=== PATIENT | male | born 1970 | race Caucasian/White ===

== ENCOUNTER 2017-07-03 22:02 | Emergency (ER) | payer OTHER ==
[~2017-07-03] VITALS: Ht 188 cm; Wt 92.5 kg
[2017-07-03 22:04] VITALS: TEMP 36.7; Ht 188 cm; Wt 92.5 kg
--- NOTE | 2017-07-03 22:47 | DIAGNOSTIC IMAGING REPORT ---
R FINGER(S) MIN 2 VIEWS ROUTINE HISTORY: 46 years-old Male right 5th finger s/p reduction at PIP joint acute right fifth finger pain status post recent reduction. COMPARISON: None available TECHNIQUE: 3 views of the right fifth finger FINDINGS: Mild soft tissue swelling of the fifth digit. There is no acute fracture, dislocation or significant degenerative changes. There is satisfactory alignment of the interphalangeal joints. No opaque foreign body. IMPRESSION: Mild soft tissue swelling without acute fracture or dislocation. The above report was generated using voice recognition software. It may contain grammatical, syntax or spelling errors. Electronically signed by: Elijah Montes M.D. 07/03/2017 10:46 PM Dictated Date/Time: 07/03/2017 10:45 PM
[2017-07-03 23:03] VITALS: BP 155/74; PULSE 55; O2SAT 99
--- NOTE | 2017-07-03 23:16 | EMERGENCY ROOM VISIT NOTE ---
ED Visit Note First contact with patient: 22:08 CHIEF COMPLAINT: Finger injury today HISTORY OF PRESENT ILLNESS: This 46-year-old male patient presents to the emergency department after they injured the right fifth finger about one hour ago. The patient states that he struck into a wall, and bend his finger backwards, causing his injury. The patient has been unable to move it at the proximal joint since and there is moderate and constant pain. The patient rates the pain as sharp and 8/10. No previous injuries to the finger. The patient has taken nothing relief of the pain. REVIEW OF SYSTEMS: A 6 system review of systems was completed with positives and pertinent negatives listed in the HPI. ALLERGIES: No known allergies MEDICATIONS: No chronic medication PMH: See EMR SOCIAL HISTORY: Incarcerated at [facility] PHYSICAL EXAM: Vital Signs: Reviewed Nurse's notes, vital signs stable. GENERAL : White male, in no acute distress, but appears to be in pain, well-developed, well-nourished. MUSCULOSKELETAL: There is an obvious deformity at the pip joint of the right 5th finger with dorsal dislocation of the middle phalanx. The distal dislocated portion of the finger is pale but is sensate. SKIN: There is no laceration or abrasion. Capillary refill is less than two seconds. EMERGENCY DEPARTMENT COURSE: I examined the patient. The joint was reduced by applying a steady and rapid axial distraction of the dislocated portion at the PIP joint while the proximal portion was stabilized with the other hand. Following this motion of the joint was normal and full and the patient could move it normally also. Neurovascular status was rechecked and intact. Post- reduction X-ray was reviewed by myself and radiology and shows successful anatomic alignment and no fracture. The patient was discharged with a splint and instructions to follow with the [facility] Problem List Medical Problems: (1) Alcohol dependence Status: Chronic (2) Antisocial personality disorder Status: Chronic (3) Anxiety State Nos Status: Chronic (4) Bipolar II disorder Status: Chronic (5) Depression Status: Chronic (6) Drug overdose Status: Chronic (7) Substance abuse Status: Chronic Current/Historical Medications No Active Prescriptions or Reported Meds Allergies Coded Allergies: No Known Allergies (Unverified , 07/03/17) PT STATES "I HAVE NO ALLERGIES". Vital Signs Date Time Temp Pulse Resp B/P (MAP) Pulse Ox O2 Delivery O2 Flow Rate FiO2 07/03/17 23:03 55 20 155/74 99 07/03/17 22:04 36.7 50 20 161/90 99 Room Air Departure Information Impression Primary Impression: Dislocated finger Dispostion Home / Self-Care Condition GOOD Prescriptions No Active Prescriptions or Reported Meds Forms HOME CARE DOCUMENTATION FORM, IMPORTANT VISIT INFORMATION Patient Instructions My [facility] Additional Instructions You were seen and evaluated today on an emergency basis only. This is not a substitute for, or an effort to provide, complete comprehensive medical care. It is not possible to recognize and treat all injuries or illnesses in a single emergency department visit. For this reason it is recommended that you followup with the [facility] for ongoing care and evaluation. For baseline pain relief you may alternate ibuprofen and acetaminophen every 4 hours for pain control. Take 600 mg ibuprofen (Advil) and then 4 hours later take 1000 mg acetaminophen (Tylenol). Do not take more than 3000 mg acetaminophen in a single day. Wear the splint for the next 1-2 weeks. You are welcome to return to the emergency department anytime with new, worsening, or concerning symptoms.
== END 2017-07-03 23:04 | disposition home or self-care (01) ==
LOC: C.EDB 22:04 → C.EDC 23:04
DX: S63.256A Unspecified dislocation of right little finger, initial encounter (principal); W22.01XA Walked into wall, initial encounter; F60.2 Antisocial personality disorder; F41.9 Anxiety disorder, unspecified; F31.9 Bipolar disorder, unspecified; F32.9 Major depressive disorder, single episode, unspecified; F55.8 Abuse of other non-psychoactive substances

== ENCOUNTER 2022-06-12 02:32 | Inpatient (IN) ==
[2022-06-12] MEDS ORDERED: ALBUT/IPRATROP 3MG/0.5MG NEB 3 ML VIAL NEB STA (02:56)
[2022-06-12] MEDS ORDERED: dexAMETHasone**PF** 10 MG/ML VIAL IV ONE (02:56)
[2022-06-12 03:25] LABS: iSTAT Hemoglobin 11.6 g/dl (14.0-18.0); iSTAT Ionized Calcium 1.17 mmol/l (1.12-1.32); iSTAT Potassium 3.6 mmol/L (3.3-5.0)
[2022-06-12] MEDS ORDERED: OPTIRAY 320 500ml IV ONE (03:33)
[2022-06-12 03:34] LABS: Base Excess VBG 6.3 mEq/L; HCO3 VBG 32 mmol/L; Oxygen Saturation VBG 79.8 %; PCO2 VBG 51 mmHg (38-50); PO2 VBG 53 mmHg; pH VBG 7.41 (7.36-7.41)
[2022-06-12 03:47] LABS: INR 0.9 (0.9-1.1); Partial Thromboplastin Ratio 0.8; Partial Thromboplastin Time 22.4 Seconds (21.0-31.0); Prothrombin Time 9.8 Seconds (9.0-12.0)
[2022-06-12 04:07] LABS: Hematocrit (blood only) 34.3 % (40.1-51.0); Hemoglobin 11.5 g/dl (14.0-18.0); Mean Corpuscular Hemoglobin 31.3 pg (25.0-34.0); Mean Corpuscular Hgb Conc 33.5 g/dL (32.0-36.0); Mean Corpuscular Volume 93.2 fL (80.0-100.0); Mean Platelet Volume 8.5 fL (9.4-12.4); Nucleated RBC # (auto) 0.12 K/uL (0-0); Nucleated RBC % (auto) 1.2 %; Platelet Count 227 K/uL (130-400); Polychromasia 1+; RDW Coefficient of Variation 19.3 % (11.5-14.5); RDW Standard Deviation 61.6 fL (36.4-46.3); Red Blood Count 3.68 M/uL (4.63-6.08); White Blood Count 9.93 K/ul (4.8-10.8)
[2022-06-12 04:08] LABS: Amphetamines+Metham, Urine Neg (Neg); Barbiturates, Urine Neg (Neg); Benzodiazepine, Urine Neg (Neg); Cocaine, Urine Neg (Neg); MDMA (Ecstacy), Urine Neg (Neg); Methadone, Urine Neg (Neg); Opiate, Urine Neg (Neg); Phencyclidine, Urine Neg (Neg)
[2022-06-12 04:13] LABS: Troponin I High Sensitivity 8.5 pg/ml (0-20)
[2022-06-12] MEDS ORDERED: VANCOMYCIN HCL 1,750 MG in SODIUM CHLORIDE 0.9% 500 ML IV ONE (04:16)
[2022-06-12] MEDS ORDERED: PIPERACILLIN/TAZOBACTAM 4.5 GM/120 ML BAG IV ONE (04:16)
[2022-06-12] MEDS ORDERED: VANCOMYCIN CONSULT ACTIVE PRN (04:16)
[2022-06-12 04:26] LABS: Albumin Globulin Ratio 1.2 (0.9-2); Albumin Level 3.4 gm/dl (3.4-5.0); BUN Creatinine Ratio 34.4 (10-20); Bilirubin,Total 0.3 mg/dl (0.2-1.0); Calcium 8.9 mg/dl (8.5-10.1); Creatinine Clr Calc Pharmacy 105.8 ml/min; Est GFR (African American) 105.6 ml/min; Est GFR (Non-African American) 91.2 ml/min; Globulin 2.9 gm/dl (2.5-4.0); Magnesium 1.9 mg/dl (1.7-2.4); Potassium 3.8 mmol/L (3.5-5.1); Total Protein 6.3 gm/dl (6.0-8.3)
--- NOTE | 2022-06-12 04:30 | Emergency Department Note ---
History of Present Illness General Chief complaint: Facial Injury/Pain Stated complaint: SWELLING TO FACE,TROUBLE BREATHING Time Seen by Provider: 06/12/22 02:46 History of Present Illness Maximum Pain Intensity: 3 This 51-year-old who had brain surgery at beginning the month in [facility] for brain mets from lung cancer presents to the ER complaining of shortness of breath with feeling swollen for the past few days Location: Generalized Quality: Short of breath Severity: Moderate Duration: Past few days Timing: Started few days ago Context: Patient was more short of breath and came in Modifying factors: better with rest; worse with activity Patient denies chest pain, fever, chills, vomiting, flulike illness. No complications of the brain surgery per patient. He is here visiting. He is on Keytruda for lung cancer with mets. Home Medications Medication Instructions Recorded Confirmed Type lorazepam 0.5 mg tablet (Ativan) 0.5 mg PO DAILY PRN sleep/anxiety 10/30/21 06/12/22 Rx #7 tabs dexamethasone 4 mg tablet 4 mg PO BID 06/12/22 06/12/22 History divalproex 500 mg tablet,delayed 500 mg PO BID 06/12/22 06/12/22 History release (Depakote) enoxaparin 100 mg/mL subcutaneous 100 mg subcut Q12H 06/12/22 06/12/22 History syringe (Lovenox) fluoxetine 20 mg/5 mL (4 mg/mL) 40 mg (10 mL) PO QAM #120 mL 06/12/22 Rx oral solution Allergies Allergy/AdvReac Type Severity Reaction Status Date / Time duloxetine AdvReac Intermediate Muscle Verified 04/11/20 19:34 Spasm Past Med/Surg History Medical History (Updated 06/12/22 @ 19:10 by Gege Kuhn MD) Abrasion of left forearm Alcohol abuse Antisocial personality disorder (01/22/13) Brain metastases Eardrum rupture, right Fall Hx of metastatic neoplastic disease Laceration of left forearm Non-small cell lung cancer metastatic to brain Psychosis Surgical History (Updated 11/14/21 @ 00:09 by Sherry Ohara) H/O brain surgery Family History Mother , age glioblastoma Coronary heart disease Father , age 83 parkinsons disease No problems noted. Brother No problems noted. Brother No problems noted. Sister No problems noted. 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[employer] Stewardess Required: No Beliefs That Will Affect Care: None marital status: Single Current Living Situation: Other Current Living Situation Comment: community living in [place] current occupational status: unemployed Feels Safe at Home: Yes Safety Concerns: Feels Safe At This Time Childhood Exposure to Second-Hand Smoke: No caffeine: Yes (occ .coffee) during the past year weight has: remained stable Dental Care, Regularly: Yes Physical Activity Frequency: Daily Seatbelt Use: always Sunscreen Use: Yes Assistive Devices: Scooter/Electric Scooter Review of Systems A total of 10 systems reviewed and were otherwise negative Physical Exam Vital Signs Vital Signs - 24 hr 06/12/22 05:47 06/12/22 06:31 06/12/22 07:30 Pulse Rate Pulse Rate [Finger] 94 H 94 H 91 H Pulse Rate from SpO2 Sensor Pulse Rhythm [Finger] Regular Pulse Strength [Finger] Normal Respiratory Rate 22 19 14 Respiratory Effort / Characteristics Non-Labored Spontaneous Non-Labored Spontaneous Non-Labored Spontaneous Respiratory Depth Normal Normal Normal Respiratory Pattern Regular Regular Blood Pressure Blood Pressure [Right Arm] 140/95 125/94 144/94 H Blood Pressure Mean Blood Pressure Mean [Right Arm] 110 104 110 Blood Pressure Position [Right Arm] Lying Pulse Oximetry 95 96 98 Oxygen Delivery Method Nasal Cannula Nasal Cannula Nasal Cannula Oxygen Flow Rate 2 2 2 06/12/22 09:00 06/12/22 11:00 06/12/22 13:00 Pulse Rate Pulse Rate [Finger] 93 H 92 H 98 H Pulse Rate from SpO2 Sensor Pulse Rhythm [Finger] Regular Pulse Strength [Finger] Normal Respiratory Rate 20 18 19 Respiratory Effort / Characteristics Non-Labored Spontaneous Non-Labored Spontaneous Respiratory Depth Normal Normal Respiratory Pattern Regular Blood Pressure Blood Pressure [Right Arm] 134/97 129/91 Blood Pressure Mean Blood Pressure Mean [Right Arm] 109 103 Blood Pressure Position [Right Arm] Sitting Pulse Oximetry 98 96 98 Oxygen Delivery Method Room Air Nasal Cannula Oxygen Flow Rate 2 06/12/22 15:00 06/12/22 05:00 06/12/22 05:46 Pulse Rate 95 H Pulse Rate [Finger] 109 H Pulse Rate from SpO2 Sensor Pulse Rhythm [Finger] Regular Pulse Strength [Finger] Normal Respiratory Rate 20 18 Respiratory Effort / Characteristics Non-Labored Spontaneous Respiratory Depth Normal Respiratory Pattern Blood Pressure 140/95 Blood Pressure [Right Arm] 134/101 H Blood Pressure Mean 110 Blood Pressure Mean [Right Arm] 112 Blood Pressure Position [Right Arm] Pulse Oximetry Oxygen Delivery Method Nasal Cannula Oxygen Flow Rate 2 06/12/22 05:46 06/12/22 06:00 06/12/22 06:00 Pulse Rate 97 H 95 H Pulse Rate [Finger] Pulse Rate from SpO2 Sensor 97 H 95 H Pulse Rhythm [Finger] Pulse Strength [Finger] Respiratory Rate Respiratory Effort / Characteristics Respiratory Depth Respiratory Pattern Blood Pressure 142/98 H Blood Pressure [Right Arm] Blood Pressure Mean 112 Blood Pressure Mean [Right Arm] Blood Pressure Position [Right Arm] Pulse Oximetry 95 96 Oxygen Delivery Method Oxygen Flow Rate 06/12/22 06:31 06/12/22 06:31 06/12/22 07:00 Pulse Rate 94 H Pulse Rate [Finger] Pulse Rate from SpO2 Sensor 94 H Pulse Rhythm [Finger] Pulse Strength [Finger] Respiratory Rate Respiratory Effort / Characteristics Respiratory Depth Respiratory Pattern Blood Pressure 125/94 121/99 Blood Pressure [Right Arm] Blood Pressure Mean 104 106 Blood Pressure Mean [Right Arm] Blood Pressure Position [Right Arm] Pulse Oximetry 96 Oxygen Delivery Method Oxygen Flow Rate 06/12/22 07:00 06/12/22 07:21 06/12/22 07:21 Pulse Rate 92 H 93 H Pulse Rate [Finger] Pulse Rate from SpO2 Sensor 92 H 93 H Pulse Rhythm [Finger] Pulse Strength [Finger] Respiratory Rate 12 19 Respiratory Effort / Characteristics Respiratory Depth Respiratory Pattern Blood Pressure 144/94 H Blood Pressure [Right Arm] Blood Pressure Mean 110 Blood Pressure Mean [Right Arm] Blood Pressure Position [Right Arm] Pulse Oximetry 92 97 Oxygen Delivery Method Oxygen Flow Rate 06/12/22 08:00 06/12/22 08:53 06/12/22 08:53 Pulse Rate 91 H 92 H Pulse Rate [Finger] Pulse Rate from SpO2 Sensor 91 H 93 H Pulse Rhythm [Finger] Pulse Strength [Finger] Respiratory Rate 21 17 Respiratory Effort / Characteristics Respiratory Depth Respiratory Pattern Blood Pressure 149/92 H Blood Pressure [Right Arm] Blood Pressure Mean 111 Blood Pressure Mean [Right Arm] Blood Pressure Position [Right Arm] Pulse Oximetry 97 96 Oxygen Delivery Method Oxygen Flow Rate 06/12/22 09:00 06/12/22 09:00 06/12/22 10:00 Pulse Rate 93 H Pulse Rate [Finger] Pulse Rate from SpO2 Sensor 93 H Pulse Rhythm [Finger] Pulse Strength [Finger] Respiratory Rate 22 Respiratory Effort / Characteristics Respiratory Depth Respiratory Pattern Blood Pressure 134/87 132/88 Blood Pressure [Right Arm] Blood Pressure Mean 102 102 Blood Pressure Mean [Right Arm] Blood Pressure Position [Right Arm] Pulse Oximetry 97 Oxygen Delivery Method Oxygen Flow Rate 06/12/22 10:00 06/12/22 11:00 06/12/22 11:00 Pulse Rate 92 H 91 H Pulse Rate [Finger] Pulse Rate from SpO2 Sensor 93 H 91 H Pulse Rhythm [Finger] Pulse Strength [Finger] Respiratory Rate 16 12 Respiratory Effort / Characteristics Respiratory Depth Respiratory Pattern Blood Pressure 129/91 Blood Pressure [Right Arm] Blood Pressure Mean 103 Blood Pressure Mean [Right Arm] Blood Pressure Position [Right Arm] Pulse Oximetry 94 97 Oxygen Delivery Method Oxygen Flow Rate 06/12/22 12:00 06/12/22 12:00 06/12/22 13:16 Pulse Rate 91 H 100 H Pulse Rate [Finger] Pulse Rate from SpO2 Sensor 91 H 99 H Pulse Rhythm [Finger] Pulse Strength [Finger] Respiratory Rate 25 H Respiratory Effort / Characteristics Respiratory Depth Respiratory Pattern Blood Pressure 109/84 Blood Pressure [Right Arm] Blood Pressure Mean 92 Blood Pressure Mean [Right Arm] Blood Pressure Position [Right Arm] Pulse Oximetry 98 Oxygen Delivery Method Oxygen Flow Rate 06/12/22 14:00 06/12/22 15:00 06/12/22 15:08 Pulse Rate 101 H 107 H 110 H Pulse Rate [Finger] Pulse Rate from SpO2 Sensor Pulse Rhythm [Finger] Pulse Strength [Finger] Respiratory Rate 15 22 20 Respiratory Effort / Characteristics Respiratory Depth Respiratory Pattern Blood Pressure Blood Pressure [Right Arm] Blood Pressure Mean Blood Pressure Mean [Right Arm] Blood Pressure Position [Right Arm] Pulse Oximetry Oxygen Delivery Method Oxygen Flow Rate 06/12/22 15:08 06/12/22 15:10 06/12/22 15:10 Pulse Rate 109 H Pulse Rate [Finger] Pulse Rate from SpO2 Sensor Pulse Rhythm [Finger] Pulse Strength [Finger] Respiratory Rate 24 Respiratory Effort / Characteristics Respiratory Depth Respiratory Pattern Blood Pressure 131/84 131/84 Blood Pressure [Right Arm] Blood Pressure Mean 99 99 Blood Pressure Mean [Right Arm] Blood Pressure Position [Right Arm] Pulse Oximetry Oxygen Delivery Method Oxygen Flow Rate 06/12/22 16:13 06/12/22 16:14 06/12/22 16:14 Pulse Rate 106 H 102 H Pulse Rate [Finger] Pulse Rate from SpO2 Sensor 106 H 102 H Pulse Rhythm [Finger] Pulse Strength [Finger] Respiratory Rate 23 22 Respiratory Effort / Characteristics Respiratory Depth Respiratory Pattern Blood Pressure 147/98 H Blood Pressure [Right Arm] Blood Pressure Mean 114 Blood Pressure Mean [Right Arm] Blood Pressure Position [Right Arm] Pulse Oximetry 95 95 Oxygen Delivery Method Oxygen Flow Rate VITALS: Vitals are noted on the nurse's note and reviewed by myself. Vital signs hypoxic on room air. GENERAL: White male speaking in full sentences, audible wheeze, well-developed well-nourished. SKIN: [place] intact to the scalp without signs of infection, the rest of the skin was without rashes, erythema, edema, or bruising. There is no tenting of the skin. Capillary reflex less than 2 seconds. HEAD: Normocephalic atraumatic. EARS: External auditory canals clear, EYES: Pupils equal round and reactive to light and accommodation. Conjunctivae without injection, sclerae without icterus. Extraocular movements intact. NOSE: Patent, turbinates without inflammation or discharge. MOUTH: Mucous membranes moist. Pharynx without erythema or exudate. Uvula midline. Airway patent. Tongue does not deviate. NECK: Supple without nuchal rigidity. No lymphadenopathy. No thyromegaly. Cervical spine is nontender. No JVD. HEART: Regular rate and rhythm LUNGS: Diffuse inspiratory and end expiratory wheezes, without rales or rhonchi. No retractions or accessory muscle use. ABDOMEN: Positive bowel sounds x 4. Normal tympanic percussion. Soft, nontender, without masses or organomegaly. Hubbard sign negative. No guarding or rebound tenderness. No CVA tenderness MUSCULOSKELETAL: No muscle atrophy, erythema, noted. NEURO: Patient was alert and oriented to person place and time. Normal sensation to light and sharp touch. No focal neurological deficits. Course Administered Medications Acetaminophen (Acetaminophen 325 Mg Tab) 650 mg PO Q4H PRN PRN Reason: Mild Pain Stop: 07/13/22 02:18 Last Admin: 06/13/22 02:41 Dose: 650 mg Documented By: GUI Albuterol (Albuterol 0.5% Neb Soln 2.5 Mg/0.5 Ml Vial) 2.5 mg NEB Q6R RICARDO; Protocol Stop: 07/12/22 18:59 Last Admin: 06/13/22 00:11 Dose: 2.5 mg Documented By: Admin: 06/12/22 19:55 Dose: 2.5 mg Documented By: EML Albuterol (Albuterol 0.083% Nebu Soln 3 Ml Vial) 2.5 mg INH Q2H PRN; Protocol PRN Reason: Dyspnea Stop: 07/13/22 04:02 Last Admin: 06/13/22 04:26 Dose: 2.5 mg Documented By: DEX Dexamethasone (Dexamethasone 4 Mg Tab) 4 mg PO BID RICARDO Stop: 07/12/22 20:59 Last Admin: 06/12/22 20:59 Dose: 4 mg Documented By: GUI Fluoxetine HCl (Fluoxetine Hcl 20 Mg/5 Ml 120ml Btl) 40 mg PO QAM RICARDO Stop: 07/12/22 17:59 Last Admin: 06/12/22 21:00 Dose: 40 mg Documented By: GUI Sodium Chloride (Hypertonic Saline 3%) 500 mls @ 75 mls/hr IV .Q6H40M RICARDO; Protocol Stop: 06/14/22 04:44 Last Admin: 06/13/22 02:22 Dose: 75 mls/hr Documented By: GUI Co-signed By: KEELEY Infusion: 06/13/22 01:56 Dose: 75 mls/hr Documented By: GUI Co-signed By: SG Admin: 06/12/22 19:15 Dose: 75 mls/hr Documented By: JO ANN Co-signed By: MINERVA Infusion: 06/12/22 18:42 Dose: 75 mls/hr Documented By: JO ANN Co-signed By: MINERVA Admin: 06/12/22 12:01 Dose: 75 mls/hr Documented By: CHRISS Co-signed By: SM Infusion: 06/12/22 11:48 Dose: 75 mls/hr Documented By: CHRISS Co-signed By: TARAN Admin: 06/12/22 05:07 Dose: 75 mls/hr Documented By: CAYETANO Co-signed By: REESE Piperacillin Sod/Tazobactam (Sod 4.5 gm/ Dextrose) 120 mls @ 30 mls/hr IV Q8H [facility]; Protocol Stop: 06/19/22 17:59 Last Infusion: 06/13/22 04:36 Dose: 0 mls/hr Documented By: Admin: 06/12/22 23:55 Dose: 30 mls/hr Documented By: GUI Melatonin (Melatonin 3 Mg Tab) 9 mg PO HS PRN PRN Reason: Sleep Stop: 07/13/22 02:48 Last Admin: 06/13/22 03:08 Dose: 9 mg Documented By: GUI Valproic Acid (Valproic Acid Soln 500 Mg/10 Ml Udc) 500 mg PO BID RICARDO Stop: 07/12/22 20:59 Last Admin: 06/12/22 21:00 Dose: 500 mg Documented By: GUI Discontinued Medications Acetaminophen (Acetaminophen 500 Mg Tab) 1,000 mg PO NOW STA Stop: 06/12/22 05:33 Last Admin: 06/12/22 05:34 Dose: 1,000 mg Documented By: CAYETANO Albuterol (Albut/Ipratrop 3mg/0.5mg Neb 3 Ml Vial) 3 ml NEB NOW STA; Protocol Stop: 06/12/22 02:57 Last Admin: 06/12/22 03:12 Dose: 3 ml Documented By: CAYETANO Dexamethasone Sodium Phosphate (DexamethasonePf 10 Mg/Ml Vial) 10 mg IV NOW ONE Stop: 06/12/22 02:57 Last Admin: 06/12/22 03:12 Dose: 10 mg Documented By: CAYETANO Piperacillin Sod/Tazobactam Sod (Zosyn) 4.5 gm in 120 mls @ 240 mls/hr IV NOW ONE Stop: 06/12/22 04:45 Last Infusion: 06/12/22 05:38 Dose: 0 mls/hr Documented By: Admin: 06/12/22 05:07 Dose: 240 mls/hr Documented By: CAYETANO Vancomycin HCl 1,750 mg/ (Sodium Chloride) 535 mls @ 200 mls/hr IV NOW ONE Stop: 06/12/22 06:56 Last Infusion: 06/12/22 08:27 Dose: 0 mls/hr Documented By: Admin: 06/12/22 05:46 Dose: 200 mls/hr Documented By: CAYETANO Piperacillin Sod/Tazobactam (Sod 4.5 gm/ Dextrose) 120 mls @ 200 mls/hr IV NOW ONE; Protocol Stop: 06/12/22 19:05 Last Infusion: 06/12/22 22:40 Dose: 0 mls/hr Documented By: Admin: 06/12/22 21:02 Dose: 200 mls/hr Documented By: GUI Ioversol (Optiray 320 500ml) 115 ml IV ONCE ONE Stop: 06/12/22 03:34 Last Admin: 06/12/22 03:34 Dose: 115 ml Documented By: TEOFILO Miscellaneous (Stop Order) 1 each N/A ONE ONE Stop: 06/12/22 04:46 Last Admin: 06/12/22 06:33 Dose: 1 each Documented By: CAYETANO Oxycodone HCl (Oxycodone Hcl Ir 5 Mg Tab (Immediate Release)) 5 mg PO NOW STA Stop: 06/12/22 05:43 Last Admin: 06/12/22 05:50 Dose: 5 mg Documented By: CAYETANO Potassium Chloride (Potassium Chloride Crtab 20 Meq Tabcr) 40 meq PO Q1H RICARDO Stop: 06/13/22 01:31 Last Admin: 06/13/22 02:27 Dose: 40 meq Documented By: Admin: 06/13/22 00:33 Dose: 40 meq Documented By: GUI Critical Care Time Critical Care Time: Yes Total Critical Care Time: 65 I have personally spent 65 minutes of critical care time in the direct management of this patient. This includes bedside care, interpretation of diagnostic studies, and testing, discussion with consultants, patient, and family members, and other required patient management activities. This 65 minutes is in excess of all separately billable procedures. Medical Decision Making Medical Records Attestation: I reviewed the patient's medical records. Home Medications Current Medication List: was personally reviewed by me Laboratory Data Attestation: I reviewed the patient's lab results. Result diagrams: 06/13/22 04:13 06/13/22 00:21 Lab Results 06/12/22 06/12/22 06/12/22 Range/Units 03:00 03:05 03:05 WBC 9.93 (4.8-10.8) K/ul RBC 3.68 L (4.63-6.08) M/uL Hgb 11.5 L (14.0-18.0) g/dl POC Hgb (14.0-18.0) g/dl Hct 34.3 L (40.1-51.0) % POC Hct (42-52) % MCV 93.2 (80.0-100.0) fL MCH 31.3 (25.0-34.0) pg MCHC 33.5 (32.0-36.0) g/dL RDW Std Deviation 61.6 H (36.4-46.3) fL RDW Coeff of Geetha 19.3 H (11.5-14.5) % Plt Count 227 (130-400) K/uL MPV 8.5 L (9.4-12.4) fL Immature Gran % (Auto) 11.2 % Neut % (Auto) 80.4 % Lymph % (Auto) 5.4 % [place] % (Auto) 2.6 % Eos % (Auto) 0.2 % Baso % (Auto) 0.2 % Neut # (Auto) 7.98 H (1.4-6.5) K/uL Lymph # (Auto) 0.54 L (1.2-3.4) K/uL [place] # (Auto) 0.26 (0.24-0.82) K/uL Eos # (Auto) 0.02 (0-0.50) K/uL Baso # (Auto) 0.02 (0-0.2) K/uL Immature Gran # (Auto) 1.11 H (0.00-0.02) K/uL Absolute Nucleated RBC 0.12 H (0-0) K/uL Nucleated RBC % (auto) 1.2 % Polychromasia 1+ PT (9.0-12.0) Seconds INR (0.9-1.1) APTT (21.0-31.0) Seconds PTT Ratio VBG pH (7.36-7.41) VBG pCO2 (38-50) mmHg VBG pO2 mmHg VBG HCO3 mmol/L VBG O2 Saturation % VBG Base Excess mEq/L POC Sodium (135-144) mmol/L Sodium 143 (136-145) mmol/L POC Potassium (3.3-5.0) mmol/L Potassium 3.8 (3.5-5.1) mmol/L POC Chloride (101-112) mmol/L Chloride 105 (98-107) mmol/L Carbon Dioxide 30 (21-32) mmol/L POC Total CO2 (24-31) mmol/L Anion Gap 8 (3-11) POC Anion Gap (16-25) mmol/L POC BUN (7-18) mg/dl BUN 33 H (6-23) mg/dl Creatinine 0.96 (0.6-1.4) mg/dl POC Creatinine (0.6-1.3) mg/dl Est Cr Clr Drug Dosing 105.8 ml/min Est GFR ( Amer) 105.6 ml/min Est GFR (Non-Af Amer) 91.2 ml/min BUN/Creatinine Ratio 34.4 H (10-20) Glucose 111 H (70-99(Fasting)) mg/dl POC Glucose (other) (70-99) mg/dl Lactate (0.4-2.0) mmol/L Calcium 8.9 (8.5-10.1) mg/dl POC Ioniz Calcium Connie (1.12-1.32) mmol/l Magnesium 1.9 (1.7-2.4) mg/dl Total Bilirubin 0.3 (0.2-1.0) mg/dl AST 29 (13-39) U/L ALT 68 H (7-52) U/L Alkaline Phosphatase 64 (34-104) U/L Troponin I High Sens 8.5 (0-20) pg/ml B-Natriuretic Peptide (0-100) pg/ml Total Protein 6.3 (6.0-8.3) gm/dl Albumin 3.4 (3.4-5.0) gm/dl Globulin 2.9 (2.5-4.0) gm/dl Albumin/Globulin Ratio 1.2 (0.9-2) Lipase 40 (11-82) U/L Nasal Screen MRSA (PCR) (Negative) Urine Opiates Screen Neg (Neg) Ur Methadone, Qual Neg (Neg) Urine Barbiturates Neg (Neg) Ur Phencyclidine (PCP) Neg (Neg) U Amphetamin/Meth Scrn Neg (Neg) MDMA (Ecstasy) Screen Neg (Neg) U Benzodiazepines Scrn Neg (Neg) Ur Cocaine Metabolite Neg (Neg) U Marijuana (THC) Screen Neg (Neg) Ethyl Alcohol mg/dL (<10.0) mg/dl SARS-CoV-2 (PCR) SARS-CoV-2, RNA, NAAT (NEGATIVE) 06/12/22 06/12/22 06/12/22 Range/Units 03:05 03:12 03:22 WBC (4.8-10.8) K/ul RBC (4.63-6.08) M/uL Hgb (14.0-18.0) g/dl POC Hgb 11.6 L (14.0-18.0) g/dl Hct (40.1-51.0) % POC Hct 34 L (42-52) % MCV (80.0-100.0) fL MCH (25.0-34.0) pg MCHC (32.0-36.0) g/dL RDW Std Deviation (36.4-46.3) fL RDW Coeff of Geetha (11.5-14.5) % Plt Count (130-400) K/uL MPV (9.4-12.4) fL Immature Gran % (Auto) % Neut % (Auto) % Lymph % (Auto) % [place] % (Auto) % Eos % (Auto) % Baso % (Auto) % Neut # (Auto) (1.4-6.5) K/uL Lymph # (Auto) (1.2-3.4) K/uL [place] # (Auto) (0.24-0.82) K/uL Eos # (Auto) (0-0.50) K/uL Baso # (Auto) (0-0.2) K/uL Immature Gran # (Auto) (0.00-0.02) K/uL Absolute Nucleated RBC (0-0) K/uL Nucleated RBC % (auto) % Polychromasia PT 9.8 (9.0-12.0) Seconds INR 0.9 (0.9-1.1) APTT 22.4 (21.0-31.0) Seconds PTT Ratio 0.8 VBG pH (7.36-7.41) VBG pCO2 (38-50) mmHg VBG pO2 mmHg VBG HCO3 mmol/L VBG O2 Saturation % VBG Base Excess mEq/L POC Sodium 143 (135-144) mmol/L Sodium (136-145) mmol/L POC Potassium 3.6 (3.3-5.0) mmol/L Potassium (3.5-5.1) mmol/L POC Chloride 104 (101-112) mmol/L Chloride (98-107) mmol/L Carbon Dioxide (21-32) mmol/L POC Total CO2 27 (24-31) mmol/L Anion Gap (3-11) POC Anion Gap 16.0 (16-25) mmol/L POC BUN 31 H (7-18) mg/dl BUN (6-23) mg/dl Creatinine (0.6-1.4) mg/dl POC Creatinine 1.0 (0.6-1.3) mg/dl Est Cr Clr Drug Dosing ml/min Est GFR ( Amer) ml/min Est GFR (Non-Af Amer) ml/min BUN/Creatinine Ratio (10-20) Glucose (70-99(Fasting)) mg/dl POC Glucose (other) 117 H (70-99) mg/dl Lactate (0.4-2.0) mmol/L Calcium (8.5-10.1) mg/dl POC Ioniz Calcium Connie 1.17 (1.12-1.32) mmol/l Magnesium (1.7-2.4) mg/dl Total Bilirubin (0.2-1.0) mg/dl AST (13-39) U/L ALT (7-52) U/L Alkaline Phosphatase (34-104) U/L Troponin I High Sens (0-20) pg/ml B-Natriuretic Peptide 27 (0-100) pg/ml Total Protein (6.0-8.3) gm/dl Albumin (3.4-5.0) gm/dl Globulin (2.5-4.0) gm/dl Albumin/Globulin Ratio (0.9-2) Lipase (11-82) U/L Nasal Screen MRSA (PCR) (Negative) Urine Opiates Screen (Neg) Ur Methadone, Qual (Neg) Urine Barbiturates (Neg) Ur Phencyclidine (PCP) (Neg) U Amphetamin/Meth Scrn (Neg) MDMA (Ecstasy) Screen (Neg) U Benzodiazepines Scrn (Neg) Ur Cocaine Metabolite (Neg) U Marijuana (THC) Screen (Neg) Ethyl Alcohol mg/dL (<10.0) mg/dl SARS-CoV-2 (PCR) SARS-CoV-2, RNA, NAAT (NEGATIVE) 06/12/22 06/12/22 06/12/22 Range/Units 03:22 03:22 03:44 WBC (4.8-10.8) K/ul RBC (4.63-6.08) M/uL Hgb (14.0-18.0) g/dl POC Hgb (14.0-18.0) g/dl Hct (40.1-51.0) % POC Hct (42-52) % MCV (80.0-100.0) fL MCH (25.0-34.0) pg MCHC (32.0-36.0) g/dL RDW Std Deviation (36.4-46.3) fL RDW Coeff of Geetha (11.5-14.5) % Plt Count (130-400) K/uL MPV (9.4-12.4) fL Immature Gran % (Auto) % Neut % (Auto) % Lymph % (Auto) % [place] % (Auto) % Eos % (Auto) % Baso % (Auto) % Neut # (Auto) (1.4-6.5) K/uL Lymph # (Auto) (1.2-3.4) K/uL [place] # (Auto) (0.24-0.82) K/uL Eos # (Auto) (0-0.50) K/uL Baso # (Auto) (0-0.2) K/uL Immature Gran # (Auto) (0.00-0.02) K/uL Absolute Nucleated RBC (0-0) K/uL Nucleated RBC % (auto) % Polychromasia PT (9.0-12.0) Seconds INR (0.9-1.1) APTT (21.0-31.0) Seconds PTT Ratio VBG pH 7.41 (7.36-7.41) VBG pCO2 51 H (38-50) mmHg VBG pO2 53 mmHg VBG HCO3 32 mmol/L VBG O2 Saturation 79.8 % VBG Base Excess 6.3 mEq/L POC Sodium (135-144) mmol/L Sodium (136-145) mmol/L POC Potassium (3.3-5.0) mmol/L Potassium (3.5-5.1) mmol/L POC Chloride (101-112) mmol/L Chloride (98-107) mmol/L Carbon Dioxide (21-32) mmol/L POC Total CO2 (24-31) mmol/L Anion Gap (3-11) POC Anion Gap (16-25) mmol/L POC BUN (7-18) mg/dl BUN (6-23) mg/dl Creatinine (0.6-1.4) mg/dl POC Creatinine (0.6-1.3) mg/dl Est Cr Clr Drug Dosing ml/min Est GFR ( Amer) ml/min Est GFR (Non-Af Amer) ml/min BUN/Creatinine Ratio (10-20) Glucose (70-99(Fasting)) mg/dl POC Glucose (other) (70-99) mg/dl Lactate (0.4-2.0) mmol/L Calcium (8.5-10.1) mg/dl POC Ioniz Calcium Connie (1.12-1.32) mmol/l Magnesium (1.7-2.4) mg/dl Total Bilirubin (0.2-1.0) mg/dl AST (13-39) U/L ALT (7-52) U/L Alkaline Phosphatase (34-104) U/L Troponin I High Sens (0-20) pg/ml B-Natriuretic Peptide (0-100) pg/ml Total Protein (6.0-8.3) gm/dl Albumin (3.4-5.0) gm/dl Globulin (2.5-4.0) gm/dl Albumin/Globulin Ratio (0.9-2) Lipase (11-82) U/L Nasal Screen MRSA (PCR) (Negative) Urine Opiates Screen (Neg) Ur Methadone, Qual (Neg) Urine Barbiturates (Neg) Ur Phencyclidine (PCP) (Neg) U Amphetamin/Meth Scrn (Neg) MDMA (Ecstasy) Screen (Neg) U Benzodiazepines Scrn (Neg) Ur Cocaine Metabolite (Neg) U Marijuana (THC) Screen (Neg) Ethyl Alcohol mg/dL < 10.0 (<10.0) mg/dl SARS-CoV-2 (PCR) Cancelled SARS-CoV-2, RNA, NAAT (NEGATIVE) 06/12/22 06/12/22 06/12/22 Range/Units 03:44 04:56 04:56 WBC (4.8-10.8) K/ul RBC (4.63-6.08) M/uL Hgb (14.0-18.0) g/dl POC Hgb (14.0-18.0) g/dl Hct (40.1-51.0) % POC Hct (42-52) % MCV (80.0-100.0) fL MCH (25.0-34.0) pg MCHC (32.0-36.0) g/dL RDW Std Deviation (36.4-46.3) fL RDW Coeff of Geetha (11.5-14.5) % Plt Count (130-400) K/uL MPV (9.4-12.4) fL Immature Gran % (Auto) % Neut % (Auto) % Lymph % (Auto) % [place] % (Auto) % Eos % (Auto) % Baso % (Auto) % Neut # (Auto) (1.4-6.5) K/uL Lymph # (Auto) (1.2-3.4) K/uL [place] # (Auto) (0.24-0.82) K/uL Eos # (Auto) (0-0.50) K/uL Baso # (Auto) (0-0.2) K/uL Immature Gran # (Auto) (0.00-0.02) K/uL Absolute Nucleated RBC (0-0) K/uL Nucleated RBC % (auto) % Polychromasia PT (9.0-12.0) Seconds INR (0.9-1.1) APTT (21.0-31.0) Seconds PTT Ratio VBG pH (7.36-7.41) VBG pCO2 (38-50) mmHg VBG pO2 mmHg VBG HCO3 mmol/L VBG O2 Saturation % VBG Base Excess mEq/L POC Sodium (135-144) mmol/L Sodium (136-145) mmol/L POC Potassium (3.3-5.0) mmol/L Potassium (3.5-5.1) mmol/L POC Chloride (101-112) mmol/L Chloride (98-107) mmol/L Carbon Dioxide (21-32) mmol/L POC Total CO2 (24-31) mmol/L Anion Gap (3-11) POC Anion Gap (16-25) mmol/L POC BUN (7-18) mg/dl BUN (6-23) mg/dl Creatinine (0.6-1.4) mg/dl POC Creatinine (0.6-1.3) mg/dl Est Cr Clr Drug Dosing ml/min Est GFR ( Amer) ml/min Est GFR (Non-Af Amer) ml/min BUN/Creatinine Ratio (10-20) Glucose (70-99(Fasting)) mg/dl POC Glucose (other) (70-99) mg/dl Lactate 1.2 (0.4-2.0) mmol/L Calcium (8.5-10.1) mg/dl POC Ioniz Calcium Connie (1.12-1.32) mmol/l Magnesium (1.7-2.4) mg/dl Total Bilirubin (0.2-1.0) mg/dl AST (13-39) U/L ALT (7-52) U/L Alkaline Phosphatase (34-104) U/L Troponin I High Sens 7.4 (0-20) pg/ml B-Natriuretic Peptide (0-100) pg/ml Total Protein (6.0-8.3) gm/dl Albumin (3.4-5.0) gm/dl Globulin (2.5-4.0) gm/dl Albumin/Globulin Ratio (0.9-2) Lipase (11-82) U/L Nasal Screen MRSA (PCR) (Negative) Urine Opiates Screen (Neg) Ur Methadone, Qual (Neg) Urine Barbiturates (Neg) Ur Phencyclidine (PCP) (Neg) U Amphetamin/Meth Scrn (Neg) MDMA (Ecstasy) Screen (Neg) U Benzodiazepines Scrn (Neg) Ur Cocaine Metabolite (Neg) U Marijuana (THC) Screen (Neg) Ethyl Alcohol mg/dL (<10.0) mg/dl SARS-CoV-2 (PCR) SARS-CoV-2, RNA, NAAT NEGATIVE (NEGATIVE) 06/12/22 Range/Units 15:36 WBC (4.8-10.8) K/ul RBC (4.63-6.08) M/uL Hgb (14.0-18.0) g/dl POC Hgb (14.0-18.0) g/dl Hct (40.1-51.0) % POC Hct (42-52) % MCV (80.0-100.0) fL MCH (25.0-34.0) pg MCHC (32.0-36.0) g/dL RDW Std Deviation (36.4-46.3) fL RDW Coeff of Geetha (11.5-14.5) % Plt Count (130-400) K/uL MPV (9.4-12.4) fL Immature Gran % (Auto) % Neut % (Auto) % Lymph % (Auto) % [place] % (Auto) % Eos % (Auto) % Baso % (Auto) % Neut # (Auto) (1.4-6.5) K/uL Lymph # (Auto) (1.2-3.4) K/uL [place] # (Auto) (0.24-0.82) K/uL Eos # (Auto) (0-0.50) K/uL Baso # (Auto) (0-0.2) K/uL Immature Gran # (Auto) (0.00-0.02) K/uL Absolute Nucleated RBC (0-0) K/uL Nucleated RBC % (auto) % Polychromasia PT (9.0-12.0) Seconds INR (0.9-1.1) APTT (21.0-31.0) Seconds PTT Ratio VBG pH (7.36-7.41) VBG pCO2 (38-50) mmHg VBG pO2 mmHg VBG HCO3 mmol/L VBG O2 Saturation % VBG Base Excess mEq/L POC Sodium (135-144) mmol/L Sodium (136-145) mmol/L POC Potassium (3.3-5.0) mmol/L Potassium (3.5-5.1) mmol/L POC Chloride (101-112) mmol/L Chloride (98-107) mmol/L Carbon Dioxide (21-32) mmol/L POC Total CO2 (24-31) mmol/L Anion Gap (3-11) POC Anion Gap (16-25) mmol/L POC BUN (7-18) mg/dl BUN (6-23) mg/dl Creatinine (0.6-1.4) mg/dl POC Creatinine (0.6-1.3) mg/dl Est Cr Clr Drug Dosing ml/min Est GFR ( Amer) ml/min Est GFR (Non-Af Amer) ml/min BUN/Creatinine Ratio (10-20) Glucose (70-99(Fasting)) mg/dl POC Glucose (other) (70-99) mg/dl Lactate (0.4-2.0) mmol/L Calcium (8.5-10.1) mg/dl POC Ioniz Calcium Connie (1.12-1.32) mmol/l Magnesium (1.7-2.4) mg/dl Total Bilirubin (0.2-1.0) mg/dl AST (13-39) U/L ALT (7-52) U/L Alkaline Phosphatase (34-104) U/L Troponin I High Sens (0-20) pg/ml B-Natriuretic Peptide (0-100) pg/ml Total Protein (6.0-8.3) gm/dl Albumin (3.4-5.0) gm/dl Globulin (2.5-4.0) gm/dl Albumin/Globulin Ratio (0.9-2) Lipase (11-82) U/L Nasal Screen MRSA (PCR) Negative (Negative) Urine Opiates Screen (Neg) Ur Methadone, Qual (Neg) Urine Barbiturates (Neg) Ur Phencyclidine (PCP) (Neg) U Amphetamin/Meth Scrn (Neg) MDMA (Ecstasy) Screen (Neg) U Benzodiazepines Scrn (Neg) Ur Cocaine Metabolite (Neg) U Marijuana (THC) Screen (Neg) Ethyl Alcohol mg/dL (<10.0) mg/dl SARS-CoV-2 (PCR) SARS-CoV-2, RNA, NAAT (NEGATIVE) Imaging Data Attestation: I personally reviewed and interpreted this imaging study as follows: Radiologist's Impression: Venous Doppler Study 06/12/22 15:54 US venous doppler LE BI CLINICAL HISTORY: Hx recent DVT's, can't be on anticoagulation TECHNIQUE: Bilateral lower extremity real-time compression venous ultrasound with Color Doppler imaging. Utilizing real-time ultrasonic imaging multiple real time high-resolution ultrasonic images with compression and noncompression maneuvers of the deep venous system in addition to color doppler imaging were performed from the common femoral vein through the proximal calf veins. COMPARISON: None available at the time of this dictation. FINDINGS: Currently there is normal compressibility of the deep venous system from the common femoral vein through the proximal calf veins. No superficial venous thrombosis is identified. Impression: No evidence of deep venous thrombus. ACT 112: Negative or not required by law. Electronically signed by: Darron Dumont M.D. 06/12/2022 5:25 PM MDM Narrative Prior records/ancillary studies reviewed. Triage Nursing notes reviewed. Additional history obtained from nursing The patient's history was concerning for respiratory difficulties. Differential diagnosis: Etiologies such as infections, reactive airway disease, pneumonia, pneumothorax, COPD, CHF, cardiac ischemia, pulmonary embolism, musculoskeletal, gastrointestinal, as well as others were entertained. Physical examination: As above. ER treatment provided: An order was placed for continuous cardiac monitoring. The monitor shows a rate of 60-1 50 with a sinus rhythm. Nebulizer, Decadron, Zosyn, vancomycin, 3% saline per neurosurgery's re commendations for the subdural hematoma with midline shift On reassessment the patient felt better. Diagnostic interpretation by me: The electrocardiogram was negative for acute ischemic or pathologic change. Ordered for dyspnea EKG: Normal sinus, normal intervals, no acute ST-T changes. Impression sinus tachycardia 102 interpreted by myself I think arrhythmia is unlikely. EKG shows normal sinus rhythm with no interval abnormalities such as QT prolongation or WPW. There are no findings to suggest Brugada syndrome. Cardiac monitoring in the emergency department reveals no tachycardic or bradycardic dysrhythmia. Hypertrophic cardiomyopathy was considered but there are no clear historical elements pointing toward this. EKG is not suggestive. The QRS voltage is not extremely large and there are no suggestive Q waves. The labs revealed mild anemia, no worrisome leukocytosis Negative troponin Imaging studies: Chest x-ray concerning for multifocal pneumonia, interpretation. Patient was immediately started on antibiotics Preliminary Findings Only See Final Report For Complete Findings CT HEAD: There is edema of the left frontal lobe with a central 2.3 cm hypodensity which may represent a surgical extraction site. There is a 3 mm subdural hematoma underlying the left craniotomy. An additional hypodense lesion of the of the right frontal lobe underlying additional craniectomy changes. There is 5 mm of rightward midline shift. No fracture. Mucous of the right sphenoid sinus is concerning for acute sinusitis. Radiologist: Lakeisha Chris MD CTA CHEST: No pulmonary embolus. No aortic aneurysm or dissection. Diffuse bilateral airspace opacities are concerning for multifocal pneumonia. There is collapse of the right upper lobe, cannot exclude occult neoplasm. The heart size is within normal limits. No pathologically enlarged nodes. No fracture. Radiologist: Lakeisha Chris MD CT NECK: Airway intact. Epiglottis, trachea are unremarkable. Ground glass opacities in the left upper lobe. Partially seen moderate size consolidation at the right apex. There is suggestion of right lung volume loss. No retropharyngeal fluid. No adenopathy or inflammation in the neck soft tissues. No mass. Right sphenoid sinus mucosal thickening. Degenerative changes of the spine. Impression: No acute findings in the neck. Left upper lobe groundglass opacities and right upper lobe consolidation. Please refer to the patient's chest CT for additional discussion. Radiologist: Terrance Inman M.D. Consultation: A consultation was placed with [facility] neurosurgery Dr. Ross and accepts transfer. He recommends hypertonic saline 3% at 75 mL an hour along with the Decadron already given. The case was discussed and diagnostics were reviewed. The patient was accepted to their service. Patient will be flown to [facility] for further evaluation and treatment pending bed assignment. CURB Score: Confusion: 0 Urea (BUN > 19): 1 Respiratory Rate (>30/min): 0 Blood Pressure: Diastolic <60 or Systolic <90 0 Age (>= 65) 0 Total (0-1 low risk, 2-5 high risk): 1 This appears to be consistent with multifocal pneumonia with postsurgical changes to the brain who is hypoxic subdural hematoma with midline shift. Patient was immediately started on antibiotics. He was given Decadron. He was started hypertonic saline per neurosurgery's request. Patient was consented to transfer and he will be flown to [facility]. He was reassessed multiple times. His pulse ox was improved with nasal cannula. 2 lines were placed. All questions were answered. By the evaluation outlined above emergent etiologies such as CHF, cardiac ischemia, pulmonary embolism, reactive airway disease, pneumothorax, musculoskeletal, as well as others were deemed relatively unlikely. The pt informed about the findings as listed above. All questions were answered and pleased with the treatment. Referral: Patient will be transferred to tertiary facility. Patient signed out to oncoming provider pending patient be transferred to tertiary facility. The chart was completed utilizing [employer] Speech voice recognition software. Grammatical errors, random word insertions, pronoun errors, and incomplete sentences are an occassional consequence of this system due to software limitations, ambient noise, and hardware issues. Any formal questions or concerns about the content, text, or information contained within the body of this dictation should be directly addressed to the physician security assistant for clarification. Impression & Plan Subdural hematoma, Multifocal pneumonia, Hypoxemia Discharge Plan Visit Data Chief Complaint: Facial Injury/Pain Stated Complaint: SWELLING TO FACE,TROUBLE BREATHING ED Provider: Christian Wang ED Midlevel Provider: Latasha Guaman Discharge Problem: Subdural hematoma, Multifocal pneumonia, Hypoxemia Patient Disposition: Admitted As Inpatient Condition: Fair Discharge Instructions Interventions: ED Discharge Assessment Last Done: 06/12/22 17:21
[2022-06-12 04:31] LABS: Basophils % (auto) 0.2 %; Eosinophils % (auto) 0.2 %; Lymphocytes % (auto) 5.4 %; Monocytes % (auto) 2.6 %; Neutrophils % (auto) 80.4 %
[2022-06-12 04:33] LABS: Basophils # (auto) 0.02 K/uL (0-0.2); Eosinophils # (auto) 0.02 K/uL (0-0.50); Lymphocytes # (auto) 0.54 K/uL (1.2-3.4); Monocytes # (auto) 0.26 K/uL (0.24-0.82); Neutrophils # (auto) 7.98 K/uL (1.4-6.5)
[2022-06-12 04:35] LABS: Immature Granulocytes # (auto) 1.11 K/uL (0.00-0.02); Immature Granulocytes % (auto) 11.2 %
[2022-06-12] MEDS ORDERED: STAT IV STA (04:45)
[2022-06-12] MEDS: SODIUM CHLORIDE 3 % 500 ML IV SCH ×3 (05:07→19:15)
[2022-06-12] MEDS ORDERED: ACETAMINOPHEN 500 MG TAB PO STA (05:32)
[2022-06-12] MEDS ORDERED: oxyCODONE HCL IR 5 MG TAB (IMMEDIATE RELEASE) PO STA (05:42)
--- NOTE | 2022-06-12 07:10 | Electrocardiogram Report ---
Test Reason : Blood Pressure : / mmHG Vent. Rate : 102 BPM Atrial Rate : 102 BPM P-R Int : 148 ms QRS Dur : 100 ms QT Int : 358 ms P-R-T Axes : 050 034 055 degrees QTc Int : 466 ms Sinus tachycardia Possible Left atrial enlargement Borderline ECG When compared with ECG of 27-AUG-2021 02:50, No significant change was found Confirmed by Jamie Sherwood ([id number]) on 06/12/2022 7:10:09 AM Referred By: REFERRED SELF Confirmed By:Pierre Sherwood
--- NOTE | 2022-06-12 09:36 | CT Scan Report ---
CT angio chest PE protocol CLINICAL HISTORY: Chest Pain, eval for PE TECHNIQUE: Multidetector row helical CT of the chest was performed with angiographic protocol. Calixto l and sagittal reformations were obtained. Coronal and sagittal MIPS were obtained from the axial rebekah a set and were submitted for review. Automated dose lowering techniques and/or adjustment according to patient size were utilized for this exam. CT DOSE: 2960.06 mGy.cm Comparison: Comparison is made to CTA chest 08/27/2021 FINDINGS: Lungs and pleura: Multifocal airspace opacities are seen. There is collapse of the right upper lung, unchanged from prior exam. Right pleural thickening is unchanged. Heart and pericardium: Heart size is normal. No pericardial effusion. Vessels: No evidence of pulmonary embolism. Mediastinum and dedra: Unremarkable. Chest wall and lower neck: Unremarkable. Abdomen: Unremarkable. Bones: Unremarkable. IMPRESSION: 1. Multifocal airspace opacities are seen, new from prior exam, concerning for pneumonia. 2. Redemonstration of right upper lung collapse and pleural thickening, which was previously thought to represent posttreatment change. ACT 112: Negative or not required by law. Electronically signed by: Darron Dumont M.D. 06/12/2022 9:34 AM
--- NOTE | 2022-06-12 09:37 | CT Scan Report ---
CT soft tissue neck w con CLINICAL HISTORY: recent brain OR, swelling, dysphagia, sob Technique: Axial CT images of the soft tissues of the neck were obtained following intravenous admini stration of 100 cc of Omnipaque 300. Automated dose lowering techniques and/or adjustment according t o patient size were utilized for this exam. Comparison: Comparison is made to CT cervical spine 09/13/2019 Findings: There are no masses or inflammatory changes seen within the soft tissues of the neck. The oropharynx, hypopharynx, larynx, and trachea are patent. No enlarged lymph nodes are seen. The parotid glands, s ubmandibular glands, and thyroid gland are unremarkable apart from punctate thyroid nodules which do not require further follow-up. Please see CT chest performed same day for findings in the chest. Imaged portions of the brain parenchyma are unremarkable. The paranasal sinuses and mastoid air cell s are normal in appearance. Impression: No acute abnormality is seen. ACT 112: Negative or not required by law. Electronically signed by: Darron Dumont M.D. 06/12/2022 9:36 AM
--- NOTE | 2022-06-12 09:40 | CT Scan Report ---
CT head/brain wo con CLINICAL HISTORY: MORAN, recent brain met OR, lung CA Technique: Contiguous axial CT images of the head were acquired from the base of the skull to the rafael damaris without intravenous contrast administration. Images were viewed in brain, subdural and [facility]. Automated dose lowering techniques and/or adjustment according to patient size were utilized for this exam. Comparison: Comparison is made to CT head 11/21/2019 Findings: There is edema in the left frontal lobe and postcraniotomy changes. Encephalomalacia in the right fro ntal lobe is also noted. There is a 3 mm subdural hematoma at the resection site. There is mild right roche midline shift measuring up to 5 mm. There is mucosal thickening in the right sphenoid sinus. The orbits appear normal. There are no acut e fractures of the calvaria or scalp swelling. Impression: 1. Expected post craniotomy changes with edema at the resection site resulting in 5 mm rightward mid line shift. 2. 3 mm subdural hematoma on the left, likely postprocedural. ACT 112: Negative or not required by law. Electronically signed by: Darron Dumont M.D. 06/12/2022 9:38 AM
--- NOTE | 2022-06-12 09:46 | XRay Report ---
XR chest 1V portable CLINICAL HISTORY: Chest Pain TECHNIQUE: Single frontal radiograph of the chest was obtained. Comparison: Comparison is made to chest radiograph 04/11/2020 FINDINGS: No lines and tubes are seen. The cardiomediastinal silhouette is stable. Multifocal airspace opacitie s are seen. Right upper lobe density with elevation of the right hemidiaphragm is compatible with kno wn lobar collapse. No evidence of pleural effusion or pneumothorax. IMPRESSION: Multifocal airspace opacities may represent atelectasis, pneumonia, and/or aspiration. Right upper lo bar collapse is again seen. ACT 112: Negative or not required by law. Electronically signed by: Darron Dumont M.D. 06/12/2022 9:44 AM
--- NOTE | 2022-06-12 15:19 | Hospitalist Consultation ---
Date of Consultation June 12, 2022 History of Present Illness Reason for Consultation: Medical management of Chronic Medical Issues prior to Transfer to [facility] and Hospital Acquired Pneumonia Requesting Physician: Dr. Adair Treviño Attending Physician: Dr. Gege Kuhn History of Present Illness Maximiliano is a 51 year old male with a PMH significant for Alcohol abuse, antisocial personality disorder, Hx of Non-small cell lung cancer on Keytruda, with mets to the Brain S/P resection at the beginning of the month at [facility], who presented to the [facility] ED on 06/12/22 for SOB. In the Ed the patient was found to be afebrile, hemodynamically stable, but hypoxic at 89% on RA, he was placed on 2L NC and remained stable. Labs were remarkable for WBC WNL, stable Hgb, absolute Neuts of 7.98, High sensitivity troponin of 7.4, negative toxicology screen and ethanol level < 10.0. Chest xray showed "Multifocal airspace opacities may represent atelectasis, pneumonia, and/or aspiration. Right upper lobar collapse is again seen.". CTA of the chest showed "Multifocal airspace opacities are seen, new from prior exam, concerning for pneumonia. 2. Re-demonstration of right upper lung collapse and pleural thickening, which was previously thought to represent posttreatment change.". CT of the soft tissues of the neck was negative for acute changes. CT of the head/brain WO contrast showed "Expected post craniotomy changes with edema at the resection site resulting in 5 mm rightward midline shift. 3 mm subdural hematoma on the left, likely postprocedural." The patient was started on Vancomycin and Zosyn for Healthcare Associated Pneumonia and continued on 2L NC. He was given [address] IV [address] findings[address] [facility] Neurosurgery was contacted and accepted the patient, who is currently waiting for an available bed, they have been coordinating with the ED staff regarding treatment of the CT head findings. We were asked to consult for management of the patient's acute pneumonia and chronic medical conditions until he can be transferred. At the time of the exam the patient was sitting up in bed comfortably in no acute distress with his family sitting at bedside. They state that he presented to the [facility] ED early this morning for continued SOB and generalized weakness for the past week. He notes a non-productive cough, increased SOB with exertion, and has also noted increased LE edema since his brain met resection at the beginning of the month. He denies recent fevers or chills, chest pain, abdominal pain, headaches, changes in vision, hearing, taste, and smell, dysuria, hematuria, melena, or bloody bowel movements. He tells me that he has been getting keytruda every 3 weeks and is not currently due for his next treatment. He also tells me that prior to his procedure at the beginning of the month he was diagnosed with a Left lower extremity DVT. He states that prior to his procedure at [facility] they placed a filter in his left leg and was eventually discharged on BID lovenox injections, which he has not had for the past 2 days. He states that he is normally on 40 mg PO prozac daily. He has been on Depakote recently but is unsure of the dose; prior to starting the Depakote he was on Keppra Allergies Allergy/AdvReac Type Severity Reaction Status Date / Time duloxetine AdvReac Intermediate Muscle Verified 04/11/20 19:34 Spasm Home Medications Medication Instructions Recorded Confirmed Type lorazepam 0.5 mg tablet (Ativan) 0.5 mg PO DAILY PRN sleep/anxiety 10/30/21 06/12/22 Rx #7 tabs Patient History Medical History Abrasion of left forearm Alcohol abuse Antisocial personality disorder (01/22/13) Brain metastases Eardrum rupture, right Fall Hx of metastatic neoplastic disease Laceration of left forearm Psychosis Surgical History H/O brain surgery Family History Mother , age glioblastoma Coronary heart disease Father , age 83 parkinsons disease No problems noted. Brother No problems noted. Brother No problems noted. Sister No problems noted. 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 Preferred Language: [place] Communication Ability: Effective Visual Impairment: No Limitations Hearing Ability: Normal Roustabout Crew Leader Required: No Beliefs That Will Affect Care: None marital status: Single Current Living Situation: Other Current Living Situation Comment: He has a house mate current occupational status: unemployed Feels Safe at Home: Yes Childhood Exposure to Second-Hand Smoke: No caffeine: Yes (occ .coffee) during the past year weight has: remained stable Dental Care, Regularly: Yes Physical Activity Frequency: Daily Seatbelt Use: always Sunscreen Use: Yes Assistive Devices: None Results & Data Results & Data ([facility]) Vital Signs (Past 12 Hours) Vital Signs Pulse Resp BP Pulse Ox O2 Del Method O2 Flow Rate 06/12/22 13:00 98 H 19 98 06/12/22 11:00 92 H 18 129/91 96 Nasal Cannula 2 06/12/22 09:00 93 H 20 134/97 98 Room Air 06/12/22 07:30 91 H 14 144/94 H 98 Nasal Cannula 2 06/12/22 06:31 94 H 19 125/94 96 Nasal Cannula 2 06/12/22 05:47 94 H 22 140/95 95 Nasal Cannula 2 06/12/22 03:07 95 Room Air 06/12/22 03:07 100 H 24 126/82 PG Care Time/CCT Total # of Minutes Spent Total Time Spent with Patient: Total time spent is greater than 50% in coordination of care (as documented) at patient's floor/unit and/or counseling patient: Coding
--- NOTE | 2022-06-12 15:36 | Emergency Department Note ---
ED Visit Note The patient was signed out to me awaiting transfer to [facility] in [place]. The patient has a history of metastatic pulmonary cancer that has metastasized to the brain. He had brain surgery on 26 May. This was done at [facility]. The patient is in the process of being transferred for intracranial edema with some mild midline shift and also subdural hematoma that might be related to his recent surgery. The patient presented to emergency department for shortness of breath, cough and was found to be hypoxic with satur ations of 89% on room air. He does not use home oxygen. [facility] has accepted the patient in transfer, however they have no beds available at this time. I did speak with neurosurgery this afternoon about the patient. They recommended a repeat CT scan of the brain to assure stability of his intracranial issues. The patient is currently on antibiotics. ID consult with medicines for medical management assistance with regards to antibiotics and chronic medications. Neurosurgery recommends continue the hypertonic saline at 75 cc/h. Blood work periodically. In the case that the patient would deteriorate from a neuro surgical perspective, hypoventilation with intubation and mannitol was recommended by neurosurgery with emergent transfer at that time. Patient was signed out to Dr. Wang. .
--- NOTE | 2022-06-12 16:30 | CT Scan Report ---
CT head/brain wo con CLINICAL HISTORY: check stabilitiy of CT findings Technique: Contiguous axial CT images of the head were acquired from the base of the skull to the rafael damaris without intravenous contrast administration. Images were viewed in brain, subdural and bone [facility]. Automated dose lowering techniques and/or adjustment according to patient size were utilized for this exam. Comparison: Comparison is made to CT head 06/12/2022 Findings: Redemonstration of postsurgical changes with vasogenic edema, soft tissue swelling, and tiny stable l eft subdural hematoma. Rightward midline shift is stable at 5 mm. Impression: Redemonstration of postcraniotomy changes with interval stability of a 3 mm left sided subdural hemat enrique. ACT 112: Negative or not required by law. Electronically signed by: Darron Dumont M.D. 06/12/2022 4:27 PM
--- NOTE | 2022-06-12 16:40 | History & Physical Report ---
Date of Service June 12, 2022 Assessment & Plan (1) Subdural hematoma: Plan: -Admit to ICU -Patient is currently afebrile, hemodynamically stable, and stable on 2L NC -Small subdural hematoma and vasogenic edema noted on CT on arrival to the ED, patient is neurologically intact -[facility] has accepted the patient but he is waiting for a bed, will be monitored and treated in the ICU until he can be transferred -Continue Isotonic saline at 75 mL/hr as recommended by [facility]. -Received 10 mg IV dexamethasone in the ED, will continue with BID PO taper he was on at home for now -Unsure of previous Depakote dose as patient does not know, ordered Depakote level, if WNL Pharmacy recommended 500 mg BID, -Will obtain repeat BMP now monitor electrolyte levels -Monitor AM CBC and BMP -HOLD home Lovenox and check Dopplers LEs bilat (2) Multifocal pneumonia: Plan: -Found on CXR and CTA chest upon arrival; no signs of sepsis Would treat for healthcare associated pneumonia (Gram negative and MRSA PNA) given recent hospitalization 3 weeks ago for neurosurgery -Stable on 2L NC -Was started on Vanc/zosyn in the ED, continue for now -Ordered MRSA swab, if negative could hold Vanc and continue with Zosyn -Ordered pulmonary hygiene and scheduled albuterol -Wean O2 as able (3) Hypoxemia: Plan: Acute respiratory failure with hypoxia -See pneumonia (4) Swelling of both lower extremities: Plan: -Patient states that he had LLE DVT diagnosed day before his met resection on 05/25, said he received a filter placement and was discharged on BID lovenox -Will obtain BL LE dopplers to monitor for DVT -Would hold anticoagulation at this time due to CT head findings (5) Left leg DVT: Plan: -See lower extremity swelling (6) Antisocial personality disorder: Plan: -Continue prozac Plan The patient was discussed with Dr. Kuhn at the time of the admission History of Present Illness Chief Complaint: SOB Primary Care Provider: [facility] PCP Maximiliano is a 51 year old male with a PMH significant for non-small cell lung cancer on Keytruda every 3 weeks with metastases to the brain S/P resection at [facility] on 05/25/22, Antisocial personality disorder, and previous IV drug use who presented to the [facility] ED on 10/22/22 with a chief complaint of SOB and generalized weakness. He also woke up with a headache which is new for him. In the ED the patient was noted to be afebrile, hemodynamically stable, but hypoxic in the 80's on RA; he was started on 2L NC upon arrival to the ED. Labs were remarkable for WBC WNL, stable Hgb of 11.5, Absolute Neuts of 7.98, VBG with a pH of 7.41 , pCO2 of 51, and pO2 of 53, stable renal function and electrolytes. Chest xray showed "Multifocal airspace opacities may represent atelectasis, pneumonia, and/or aspiration. Right upper lobar collapse is again seen.", CTA of the chest was negative for PE but showed " Multifocal airspace opacities are seen, new from prior exam, concerning for pneumonia. Re- demonstration of right upper lung collapse and pleural thickening, which was previously thought to represent posttreatment change.". CT of the soft tissues of the neck was negative for acute findings. CT of the head showed "Expected post craniotomy changes with edema at the resection site resulting in 5 mm rightward midline shift. 3 mm subdural hematoma on the left, likely postprocedural.". [facility] was contacted and accepted the patient for transfer when they have an available bed. In the meantime they recommend hypertonic saline at 75 mL/hr and close monitoring with serial CT's of the head. Prior to admission the patient was started on Vancomycin and Zosyn, given 10 mg IV dexamethasone, started on hypertonic saline, and given 1g IV tylenol. We were asked to admit the patient to the ICU for close monitoring until he can be transferred. At the time of the exam the patient was resting comfortably in bed in no acute distress with family sitting at bedside. They state that the patient has been experiencing worsening SOB and generalized weakness for the past week. His SOB is both at rest and with exertion but is worse with exertion. He has a non- productive cough and denies recent fevers and chills. He initially had a headache on arrival to the ED but that has resolved. He denies recent changes in vision, hearing, taste, and smell, chest pain, abdominal pain, nausea, vomiting, diarrhea, dysuria, hematuria, melena, bloody stool, and recent falls. He states that the day before his procedure at [place] he was diagnosed with a left LE DVT. he states that "they placed a filter in my leg before the procedure". He also states that since discharge he has been on BID Lovenox injections for the DVT. His other medications currently consist of a long dexamethasone taper (he is currently on 4mg PO BID), 40 mg PO prozac daily, and BID Depakote. He is unsure of the dose of Depakote he has been on, he states that it has been in liquid form, he did confirm that the depakote is for seizure prophylaxis. At the time of my exam the patient was on 4L NC, I initially turned his oxygen off and he desaturated into the 80's. I placed him back on 2L NC and he remained stable throughout the rest of my exam. Allergies Allergy/AdvReac Type Severity Reaction Status Date / Time duloxetine AdvReac Intermediate Muscle Verified 04/11/20 19:34 Spasm Home Medications Medication Instructions Recorded Confirmed Type lorazepam 0.5 mg tablet (Ativan) 0.5 mg PO DAILY PRN sleep/anxiety 10/30/21 06/12/22 Rx #7 tabs dexamethasone 4 mg tablet 4 mg PO BID 06/12/22 06/12/22 History divalproex 500 mg tablet,delayed 500 mg PO BID 06/12/22 06/12/22 History release (Depakote) enoxaparin 100 mg/mL subcutaneous 100 mg subcut Q12H 06/12/22 06/12/22 History syringe (Lovenox) Past Med/Surg History Medical History (Updated 06/12/22 @ 19:10 by Gege Kuhn MD) Abrasion of left forearm Alcohol abuse Antisocial personality disorder (01/22/13) Brain metastases Eardrum rupture, right Fall Hx of metastatic neoplastic disease Laceration of left forearm Non-small cell lung cancer metastatic to brain Psychosis Surgical History (Updated 11/14/21 @ 00:09 by Sherry Ohara) H/O brain surgery Family History Mother , age glioblastoma Coronary heart disease Father , age 83 parkinsons disease No problems noted. Brother No problems noted. Brother No problems noted. Sister No problems noted. Social History Smoking Status: Former smoker Tobacco Type: Cigarettes Age Started Using Tobacco: 33; Age Quit Using Tobacco: 49; packs per day: 0.10; Years Smoked: 16; Second Hand Exposure: No; Hx Alcohol Use: No Hx Substance Use: No Preferred Language: Azerbaijani Communication Ability: Effective Visual Impairment: No Limitations Hearing Ability: Normal Corporate Recruiter Required: No Beliefs That Will Affect Care: None marital status: Single Current Living Situation: Other Current Living Situation Comment: community living in [place] current occupational status: unemployed Feels Safe at Home: Yes Safety Concerns: Feels Safe At This Time Childhood Exposure to Second-Hand Smoke: No caffeine: Yes (occ .coffee) during the past year weight has: remained stable Dental Care, Regularly: Yes Physical Activity Frequency: Daily Seatbelt Use: always Sunscreen Use: Yes Assistive Devices: Scooter/Electric Scooter Review of Systems Review of Systems: Denies current fever, chills, headache, changes in vision, hearing, taste, and smell, chest pain, abdominal pain, nausea, vomiting, diarrhea, hematemesis, melena, dysuria, hematuria, and recent falls. All systems have been reviewed and are otherwise negative. Physical Exam Physical Exam: Physical Exam: General: In no acute distress, stated age, well-nourished, good hygiene HEENT: Patient with large surgical site on running along the left parietal scale which is intact and without signs of drainage or infection, no scleral icterus, pupils around round, symmetrical, and reactive to light, dry mucus membranes, trachea midline, no thyromegaly Chest/Pulm: No respiratory distress, symmetrical chest expansion, decreased breath sounds noted in the right upper lung, rhonchi noted in the right lower lobe, left lung is CTA Cardiac: RRR, no murmurs noted Abdomen: Negative for ascites and bruising, normoactive bowel sounds, soft, non-tender to palpation throughout Musculoskeletal: Symmetrical and without signs of acute trauma, upper and lower extremities with full ROM, no atrophy, spasticity, or flaccidity Extremities: Radial, dorsalis pedis, and posterior tibial pulses are intact and symmetrical, +1 edema noted in the BL LE's Skin: Warm, dry, no rashes , lesions, or scars noted Neuro: Alert and oriented to person, place, month, year, and president, patient with baseline left facial droop from previous preocedure, CN II-XII tested and intact, no tremors noted Psych: No acute distress, calm and cooperative during the exam Results & Data Results & Data ([facility]) Vital Signs (Past 12 Hours) Vital Signs Pulse Pulse Resp BP BP Pulse Ox O2 Del Method 06/12/22 16:14 102 H 22 95 06/12/22 16:14 147/98 H 06/12/22 16:13 106 H 23 95 06/12/22 15:10 109 H 24 06/12/22 15:10 131/84 06/12/22 15:08 131/84 06/12/22 15:08 110 H 20 06/12/22 15:00 107 H 22 06/12/22 14:00 101 H 15 06/12/22 13:16 100 H 25 H 06/12/22 12:00 91 H 98 06/12/22 12:00 109/84 06/12/22 11:00 91 H 12 97 06/12/22 11:00 129/91 06/12/22 10:00 92 H 16 94 06/12/22 10:00 132/88 06/12/22 09:00 93 H 22 97 06/12/22 09:00 134/87 06/12/22 08:53 92 H 17 96 06/12/22 08:53 149/92 H 06/12/22 08:00 91 H 21 97 06/12/22 07:21 93 H 19 97 06/12/22 07:21 144/94 H 06/12/22 07:00 92 H 12 92 06/12/22 07:00 121/99 06/12/22 06:31 94 H 96 06/12/22 06:31 125/94 06/12/22 06:00 95 H 96 06/12/22 06:00 142/98 H 06/12/22 05:46 97 H 95 06/12/22 05:46 140/95 06/12/22 05:00 95 H 18 06/12/22 15:00 109 H 20 134/101 H Nasal Cannula 06/12/22 13:00 98 H 19 98 06/12/22 11:00 92 H 18 129/91 96 Nasal Cannula 06/12/22 09:00 93 H 20 134/97 98 Room Air 06/12/22 07:30 91 H 14 144/94 H 98 Nasal Cannula 06/12/22 06:31 94 H 19 125/94 96 Nasal Cannula 06/12/22 05:47 94 H 22 140/95 95 Nasal Cannula O2 Flow Rate 06/12/22 16:14 06/12/22 16:14 06/12/22 16:13 06/12/22 15:10 06/12/22 15:10 06/12/22 15:08 06/12/22 15:08 06/12/22 15:00 06/12/22 14:00 06/12/22 13:16 06/12/22 12:00 06/12/22 12:00 06/12/22 11:00 06/12/22 11:00 06/12/22 10:00 06/12/22 10:00 06/12/22 09:00 06/12/22 09:00 06/12/22 08:53 06/12/22 08:53 06/12/22 08:00 06/12/22 07:21 06/12/22 07:21 06/12/22 07:00 06/12/22 07:00 06/12/22 06:31 06/12/22 06:31 06/12/22 06:00 06/12/22 06:00 06/12/22 05:46 06/12/22 05:46 06/12/22 05:00 06/12/22 15:00 2 06/12/22 13:00 06/12/22 11:00 2 06/12/22 09:00 06/12/22 07:30 2 06/12/22 06:31 2 06/12/22 05:47 2 Laboratory Results Abnormal lab results 06/12/22 06/12/22 06/12/22 Range/Units 03:05 03:05 03:12 RBC 3.68 L (4.63-6.08) M/uL Hgb 11.5 L (14.0-18.0) g/dl POC Hgb 11.6 L (14.0-18.0) g/dl Hct 34.3 L (40.1-51.0) % POC Hct 34 L (42-52) % RDW Std Deviation 61.6 H (36.4-46.3) fL RDW Coeff of Geetha 19.3 H (11.5-14.5) % MPV 8.5 L (9.4-12.4) fL Neut # (Auto) 7.98 H (1.4-6.5) K/uL Lymph # (Auto) 0.54 L (1.2-3.4) K/uL Immature Gran # (Auto) 1.11 H (0.00-0.02) K/uL Absolute Nucleated RBC 0.12 H (0-0) K/uL VBG pCO2 (38-50) mmHg POC BUN 31 H (7-18) mg/dl BUN 33 H (6-23) mg/dl BUN/Creatinine Ratio 34.4 H (10-20) Glucose 111 H (70-99(Fasting)) mg/dl POC Glucose (other) 117 H (70-99) mg/dl ALT 68 H (7-52) U/L 06/12/22 Range/Units 03:22 RBC (4.63-6.08) M/uL Hgb (14.0-18.0) g/dl POC Hgb (14.0-18.0) g/dl Hct (40.1-51.0) % POC Hct (42-52) % RDW Std Deviation (36.4-46.3) fL RDW Coeff of Geetha (11.5-14.5) % MPV (9.4-12.4) fL Neut # (Auto) (1.4-6.5) K/uL Lymph # (Auto) (1.2-3.4) K/uL Immature Gran # (Auto) (0.00-0.02) K/uL Absolute Nucleated RBC (0-0) K/uL VBG pCO2 51 H (38-50) mmHg POC BUN (7-18) mg/dl BUN (6-23) mg/dl BUN/Creatinine Ratio (10-20) Glucose (70-99(Fasting)) mg/dl POC Glucose (other) (70-99) mg/dl ALT (7-52) U/L Diagnostic Findings Head CT 06/12/22 02:56 CT head/brain wo con CLINICAL HISTORY: MORAN, recent brain met OR, lung CA Technique: Contiguous axial CT images of the head were acquired from the base of the skull to the vertex without intravenous contrast administration. Images were viewed in brain, subdural and bone windows. Automated dose lowering techniques and/or adjustment according to patient size were utilized for this exam. Comparison: Comparison is made to CT head 11/21/2019 Findings: There is edema in the left frontal lobe and postcraniotomy changes. Encephalomalacia in the right frontal lobe is also noted. There is a 3 mm subdural hematoma at the resection site. There is mild rightward midline shift measuring up to 5 mm. There is mucosal thickening in the right sphenoid sinus. The orbits appear normal. There are no acute fractures of the calvaria or scalp swelling. Impression: 1. Expected post craniotomy changes with edema at the resection site resulting in 5 mm rightward midline shift. 2. 3 mm subdural hematoma on the left, likely postprocedural. ACT 112: Negative or not required by law. Electronically signed by: Darron Dumont M.D. 06/12/2022 9:38 AM Soft Tissue Neck CT 06/12/22 02:56 CT soft tissue neck w con CLINICAL HISTORY: recent brain OR, swelling, dysphagia, sob Technique: Axial CT images of the soft tissues of the neck were obtained following intravenous administration of 100 cc of Omnipaque 300. Automated dose lowering techniques and/or adjustment according to patient size were utilized for this exam. Comparison: Comparison is made to CT cervical spine 09/13/2019 Findings: There are no masses or inflammatory changes seen within the soft tissues of the neck. The oropharynx, hypopharynx, larynx, and trachea are patent. No enlarged lymph nodes are seen. The parotid glands, submandibular glands, and thyroid gland are unremarkable apart from punctate thyroid nodules which do not require further follow-up. Please see CT chest performed same day for findings in the chest. Imaged portions of the brain parenchyma are unremarkable. The paranasal sinuses and mastoid air cells are normal in appearance. Impression: No acute abnormality is seen. ACT 112: Negative or not required by law. Electronically signed by: Darron Dumont M.D. 06/12/2022 9:36 AM Chest CTA 06/12/22 02:57 CT angio chest PE protocol CLINICAL HISTORY: Chest Pain, eval for PE TECHNIQUE: Multidetector row helical CT of the chest was performed with angiographic protocol. Coronal and sagittal reformations were obtained. Coronal and sagittal MIPS were obtained from the axial data set and were submitted for review. Automated dose lowering techniques and/or adjustment according to patient size were utilized for this exam. CT DOSE: 2960.06 mGy.cm Comparison: Comparison is made to CTA chest 08/27/2021 FINDINGS: Lungs and pleura: Multifocal airspace opacities are seen. There is collapse of the right upper lung, unchanged from prior exam. Right pleural thickening is unchanged. Heart and pericardium: Heart size is normal. No pericardial effusion. Vessels: No evidence of pulmonary embolism. Mediastinum and dedra: Unremarkable. Chest wall and lower neck: Unremarkable. Abdomen: Unremarkable. Bones: Unremarkable. IMPRESSION: 1. Multifocal airspace opacities are seen, new from prior exam, concerning for pneumonia. 2. Redemonstration of right upper lung collapse and pleural thickening, which was previously thought to represent posttreatment change. ACT 112: Negative or not required by law. Electronically signed by: Darron Dumont M.D. 06/12/2022 9:34 AM Chest X-Ray 06/12/22 02:57 XR chest 1V portable CLINICAL HISTORY: Chest Pain TECHNIQUE: Single frontal radiograph of the chest was obtained. Comparison: Comparison is made to chest radiograph 04/11/2020 FINDINGS: No lines and tubes are seen. The cardiomediastinal silhouette is stable. Multifocal airspace opacities are seen. Right upper lobe density with elevation of the right hemidiaphragm is compatible with known lobar collapse. No evidence of pleural effusion or pneumothorax. IMPRESSION: Multifocal airspace opacities may represent atelectasis, pneumonia, and/or aspiration. Right upper lobar collapse is again seen. ACT 112: Negative or not required by law. Electronically signed by: Darron Dumont M.D. 06/12/2022 9:[address] 06/12/22 14:41 CT head/brain wo con CLINICAL HISTORY: check stabilitiy of CT findings Technique: Contiguous axial CT images of the head were acquired from the base of the skull to the vertex without intravenous contrast administration. Images were viewed in brain, subdural and bone windows. Automated dose lowering techniques and/or adjustment according to patient size were utilized for this exam. Comparison: Comparison is made to CT head 06/12/2022 Findings: Redemonstration of postsurgical changes with vasogenic edema, soft tissue swelling, and tiny stable left subdural hematoma. Rightward midline shift is stable at 5 mm. Impression: Redemonstration of postcraniotomy changes with interval stability of a 3 mm left sided subdural hematoma. ACT 112: Negative or not required by law. Electronically signed by: Darron Dumont M.D. 06/12/2022 4:27 PM Code Status & VTE Plan Code Status Sinus tachycardia Possible Left atrial enlargement Borderline ECG When compared with ECG of 27-AUG-2021 02:50, No significant change was found Confirmed by Jamie Sherwood ([id number]) on 06/12/2022 7:10:09 AM VTE Prophylaxis Plan VTE Prophylaxis will be ordered: Yes Supervising Physician Co-Signing Physician Notes PA Supervision Note: I personally saw and examined the patient. I verified all rushing points and agree with DARA Morley with the following exceptions and/or additions: S-Pt is a 51 yo male with a h/o NSCLC with brain mets, now s/p recent left craniotomy and resection of brain mets on 05/24/22. Presents with headache, feeling unwell, and increased SOB with cough, no hemoptysis. Found to have multifocal PNA on CT chest and SDH and midline shift on CT head with no other recent head imaging to compare to. He is currently tapering down off decadron after being on it for many months. O- Vitals reviewed Gen: [AAOx3, NAD] HEENT: [anicteric sclerae, EOMI but with left strabismus] CV: [RRR no mgr nl S1S2] Pulm: [CTAB no wcr] Abd: [+BS soft NT ND no masses or hernias] Ext: [no edema, 2+ DP pulses] Skin: [no rashes, warm/dry, left anterior hawkins with small skin tear, not bleeding, no erythema or drainage] Neuro: [full strength throughout, Right sided facial droop which is chronic] Labs, Rads, and ECG reviewed A/P-51 yo male with NSCLC with brain meets with recent craniotomy and tumor resection, here with healthcare associated pneumonia and SDH with midline shift in setting of recent Lovenox use for DVT Awaiting transfer to [facility] where his NS is. NS recommends to continue hypertonic saline and monitor labs. Repeat head CT stable from this AM. If decompensates, recommend intubation and hyperventilation with addition of mannitol. Hold Lovenox Treat PNA with Cefepime. Received Vanc but can discontinue now that MRSA swab ngative Wean off O2 as able Pulm toilet Continue depakote for seizure prevention, continue decadron taper down at 4mg po bid PG Care Time/CCT Total # of Minutes Spent Total Time Spent with Patient: Total time spent is greater than 50% in coordination of care (as documented) at patient's floor/unit and/or counseling patient: [place] [address] Initial Inpt Care Lvl 3 Patient Type New Medical Decision Making High Complexity Diagnoses Subdural hematoma S06.5XAA Multifocal pneumonia J18.9 Hypoxemia R09.02 Swelling of both lower extremities M79.89 Left leg DVT I82.402 Antisocial personality disorder F60.2
[2022-06-12 17:04] LABS: Base Excess VBG 6.2 mEq/L; HCO3 VBG 31 mmol/L; Oxygen Saturation VBG 88.8 %; PCO2 VBG 42 mmHg (38-50); PO2 VBG 56 mmHg; pH VBG 7.47 (7.36-7.41)
--- NOTE | 2022-06-12 17:27 | Ultrasound Report ---
US venous doppler LE BI CLINICAL HISTORY: Hx recent DVT's, can't be on anticoagulation TECHNIQUE: Bilateral lower extremity real-time compression venous ultrasound with Color Doppler imagi ng. Utilizing real-time ultrasonic imaging multiple real time high-resolution ultrasonic images with compression and noncompression maneuvers of the deep venous system in addition to color doppler imagi ng were performed from the common femoral vein through the proximal calf veins. COMPARISON: None available at the time of this dictation. FINDINGS: Currently there is normal compressibility of the deep venous system from the common femoral vein thro ugh the proximal calf veins. No superficial venous thrombosis is identified. Impression: No evidence of deep venous thrombus. ACT 112: Negative or not required by law. Electronically signed by: Darron Dumont M.D. 06/12/2022 5:25 PM
[2022-06-12 17:37] LABS: BUN Creatinine Ratio 52.8 (10-20); Calcium 8.2 mg/dl (8.5-10.1); Creatinine Clr Calc Pharmacy 191.7 ml/min; Est GFR (Non-African American) 122.5 ml/min; Potassium 3.9 mmol/L (3.5-5.1)
[2022-06-12] MEDS ORDERED: ICU PROTOCOL FOR HYPERGLYCEMIA PRN (17:59)
[2022-06-12] MEDS ORDERED: VANCOMYCIN HCL 1,250 MG in SODIUM CHLORIDE 0.9% 250 ML IV SCH (18:15)
[2022-06-12] MEDS ORDERED: PIPERACILLIN/TAZOBACTAM 4.5 GM in DEXTROSE 5% 100 ML IV ONE (18:30)
--- NOTE | 2022-06-12 18:39 | Pharmacy Report ---
Pharmacy PK ABX Note - Date of Service June 12, 2022 - Assessment and Plan Assessment 51 year old M with h/o non small cell lung cancer on Keytruda, admitted with subdural hematoma and multifocal pneumonia. On empiric vancomycin and pip-tazo. Pertinent microbiologic data includes: BC and MRSA nasal swab pending Plan Vancomycin * Loading dose: 1750 mg IV x 1 * Maintenance dose: 1250 mg (13.4 mg/kg) IV every 12 hours * Regimen is predicted to achieve target AUC/DOLORES of 400-600 mg/L.hr * Drug level will be ordered if patient continues on vanco > 48 hours Pip-tazo * 4.5 g IV every 8 hours (extended infusion) Pharmacy will continue to follow and will adjust dose/frequency as necessary. Thank you. Pharmacy has transitioned to AUC monitoring for vancomycin. AUC/DOLORES is the preferred PK/PD target and is associated with decreased risk of nephrotoxicity compared to traditional trough targets.
[2022-06-12] MEDS: ALBUTEROL 0.5% NEB SOLN 2.5 MG/0.5 ML VIAL NEB SCH (19:55)
[2022-06-12] MEDS: dexAMETHasone 4 MG TAB PO SCH (20:59)
[2022-06-12] MEDS: FLUoxetine HCL 20 MG/5 ML 120ML BTL PO SCH (21:00)
[2022-06-12] MEDS ORDERED: levETIRAcetam 250 MG TAB PO SCH (21:00)
[2022-06-12] MEDS: VALPROIC ACID SOLN 500 MG/10 ML UDC PO SCH (21:00)
[2022-06-12 21:10] LABS: BUN Creatinine Ratio 48.2 (10-20); Calcium 8.3 mg/dl (8.5-10.1); Creatinine Clr Calc Pharmacy 199.2 ml/min; Est GFR (African American) 138.8 ml/min; Est GFR (Non-African American) 119.8 ml/min; Potassium 3.4 mmol/L (3.5-5.1)
--- NOTE | 2022-06-12 21:22 | Critical Care Consultation ---
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 Maximiliano Green is a 51YO M with a history of antisocial personality disorder, substance abuse, DVT on full-dose anticoagulation and s/p IVC filter, stage IV NSCLC s/p brain tumor resection (05/26/2022) on Keytruda who presented to [facility] ED due to shortness of breath for about 1 week. Hypoxia to 80s on arrival with improvement on 2L via NC. Imaging with evidence of multifocal pneumonia and again demonstrated RUL collapse. Doppler BLE negative for residual DVT. Received IV Decadron, empiric Zosyn/Vancomycin in ED. CTH revealed likely post-operative, and in the setting of therapeutic anticoagulation, SDH 3mm with mild surrounding edema 5mm. No neurologic deficits. Admitted to ICU for hypertonic saline infusion at the recommendation of Neurosurgery. He is awaiting transfer to [facility]. Seen in ICU 108. No current complaints. Drinking coffee and eating a snack. ROS negative with the exception of very mild headache. Allergies Allergy/AdvReac Type Severity Reaction Status Date / Time duloxetine AdvReac Intermediate Muscle Verified 04/11/20 19:34 Spasm Home Medications Medication Instructions Recorded Confirmed Type lorazepam 0.5 mg tablet (Ativan) 0.5 mg PO DAILY PRN sleep/anxiety 10/30/21 06/12/22 Rx #7 tabs dexamethasone 4 mg tablet 4 mg PO BID 06/12/22 06/12/22 History divalproex 500 mg tablet,delayed 500 mg PO BID 06/12/22 06/12/22 History release (Depakote) enoxaparin 100 mg/mL subcutaneous 100 mg subcut Q12H 06/12/22 06/12/22 History syringe (Lovenox) fluoxetine 20 mg/5 mL (4 mg/mL) 40 mg (10 mL) PO QAM #120 mL 06/12/22 Rx oral solution Patient History Medical History (Updated 06/12/22 @ 19:10 by Gege Kuhn MD) Abrasion of left forearm Alcohol abuse Antisocial personality disorder (01/22/13) Brain metastases Eardrum rupture, right Fall Hx of metastatic neoplastic disease Laceration of left forearm Non-small cell lung cancer metastatic to brain Psychosis Surgical History (Updated 11/14/21 @ 00:09 by Sherry Ohara) H/O brain surgery Family History Mother , age glioblastoma Coronary heart disease Father , age 83 parkinsons disease No problems noted. Brother No problems noted. Brother No problems noted. Sister No problems noted. Social History Smoking Status: Former smoker Tobacco Type: Cigarettes Age Started Using Tobacco: 33; Age Quit Using Tobacco: 49; packs per day: 0.10; Years Smoked: 16; Second Hand Exposure: No; Hx Alcohol Use: No Hx Substance Use: No Preferred Language: Fijian Communication Ability: Effective Visual Impairment: No Limitations Hearing Ability: Normal Photographic Printer Required: No Beliefs That Will Affect Care: None marital status: Single Current Living Situation: Other Current Living Situation Comment: community living [place] current occupational status: unemployed Feels Safe at Home: Yes Safety Concerns: Feels Safe At This Time Childhood Exposure to Second-Hand Smoke: No caffeine: Yes (occ .coffee) during the past year weight has: remained stable Dental Care, Regularly: Yes Physical Activity Frequency: Daily Seatbelt Use: always Sunscreen Use: Yes Assistive Devices: Scooter/Electric Scooter Physical Exam Physical Exam: Generally well-appearing middle-aged gentleman Constitutional: WD/WN, vitals as above Eyes: PERRL, conjunctivae normal, anicteric sclerae Respiratory: Auscultation: + rhonchi Cardiovascular: RRR, no murmur, no edema Gastrointestinal (Abdomen): normal bowel sounds, soft, nontender, no hepatosplenomegaly Neurologic: PERRL, EOMI, accommodation nl, no face palsy, no dysarthria Results & Data Results & [facility] ([facility]) Vital Signs (Past 12 Hours) Vital Signs Temp Pulse Pulse Resp BP BP Pulse Ox 06/12/22 20:02 100 H 19 94 06/12/22 17:59 06/12/22 18:13 36.7 C 94 H 20 135/96 93 06/12/22 18:01 96 H 30 H 95 06/12/22 18:01 128/97 06/12/22 18:00 96 H 18 93 06/12/22 17:57 93 H 24 93 06/12/22 17:57 135/96 06/12/22 17:14 97 H 27 H 96 06/12/22 17:00 95 H 21 138/93 97 06/12/22 16:14 102 H 22 95 06/12/22 16:14 147/98 H 06/12/22 16:13 106 H 23 95 06/12/22 15:10 109 H 24 06/12/22 15:10 131/84 06/12/22 15:08 131/84 06/12/22 15:08 110 H 20 06/12/22 15:00 107 H 22 06/12/22 14:00 101 H 15 06/12/22 13:16 100 H 25 H 06/12/22 12:00 91 H 98 06/12/22 12:00 109/84 06/12/22 11:00 91 H 12 97 06/12/22 11:00 129/91 06/12/22 10:00 92 H 16 94 06/12/22 10:00 132/88 06/12/22 15:00 109 H 20 134/101 H 06/12/22 13:00 98 H 19 98 06/12/22 11:00 92 H 18 129/91 96 O2 Del Method O2 Flow Rate 06/12/22 20:02 Nasal Cannula 2 06/12/22 17:59 Nasal Cannula 2 06/12/22 18:13 Nasal Cannula 2 06/12/22 18:01 Nasal Cannula 2 06/12/22 18:01 06/12/22 18:00 06/12/22 17:57 06/12/22 17:57 06/12/22 17:14 06/12/22 17:00 Nasal Cannula 2 06/12/22 16:14 06/12/22 16:14 06/12/22 16:13 06/12/22 15:10 10/22/22 15:10 06/12/22 15:08 06/12/22 15:08 06/12/22 15:00 06/12/22 14:00 06/12/22 13:16 06/12/22 12:00 06/12/22 12:00 06/12/22 11:00 06/12/22 11:00 06/12/22 10:00 06/12/22 10:00 06/12/22 15:00 Nasal Cannula 2 06/12/22 13:00 06/12/22 11:00 Nasal Cannula 2 Diagnostic Findings US venous doppler LE BI CLINICAL HISTORY: Hx recent DVT's, can't be on anticoagulation TECHNIQUE: Bilateral lower extremity real-time compression venous ultrasound with Color Doppler imaging. Utilizing real-time ultrasonic imaging multiple real time high-resolution ultrasonic images with compression and noncompression maneuvers of the deep venous system in addition to color doppler imaging were performed from the common femoral vein through the proximal calf veins. COMPARISON: None available at the time of this dictation. FINDINGS: Currently there is normal compressibility of the deep venous system from the common femoral vein through the proximal calf veins. No superficial venous thrombosis is identified. Impression: No evidence of deep venous thrombus. CT head/brain wo con CLINICAL HISTORY: check stabilitiy of CT findings Technique: Contiguous axial CT images of the head were acquired from the base of the skull to the vertex without intravenous contrast administration. Images were viewed in brain, subdural and bone windows. Automated dose lowering techniques and/or adjustment according to patient size were utilized for this exam. Comparison: Comparison is made to CT head 06/12/2022 Findings: Redemonstration of postsurgical changes with vasogenic edema, soft tissue swelling, and tiny stable left subdural hematoma. Rightward midline shift is stable at 5 mm. Impression: Redemonstration of postcraniotomy changes with interval stability of a 3 mm left sided subdural hematoma. Coding Level of Care Code 24381 Inpt Consult Level 2 Diagnoses Multifocal pneumonia J18.9 Subdural hematoma S06.5XAA Time Spent (min) 30
--- NOTE | 2022-06-12 21:48 | Emergency Department Note ---
ED Visit Note Patient is a 51-year-old male who was signed out to me at the change of shift by Dr. Pedraza who has been in the ER for 13 hours. Currently still awaiting transport to [facility] receiving IV 3% saline for small amount of midline shift status post craniotomy for previous brain masses. He is also being treated for pneumonia and is slightly hypoxic on nasal cannula. Following receiving signout we are informed that currently still do not have a bed. Due to the volume and acuity in the ER I did discuss with the patient and consequently discussed with Dr. Farias and Dr. Gege Kuhn for further evaluation and admission as we wait for a bed at [facility]. This gentleman will be best served in the ICU with higher nursing to patient ratio and care. Repeat CT was obtained and was unchanged patient is stable. If patient deteriorates in any way [facility] should be called and notified immediately. .
[2022-06-12] MEDS: PIPERACILLIN/TAZOBACTAM 4.5 GM in DEXTROSE 5% 100 ML IV SCH (23:55)
[2022-06-13] MEDS: ALBUTEROL 0.5% NEB SOLN 2.5 MG/0.5 ML VIAL NEB SCH ×4 (00:11→19:58)
[2022-06-13] MEDS: POTASSIUM CHLORIDE CRTAB 20 MEQ TABCR PO SCH ×4 (00:33→20:53)
[2022-06-13 00:50] LABS: BUN Creatinine Ratio 37.3 (10-20); Calcium 8.4 mg/dl (8.5-10.1); Creatinine Clr Calc Pharmacy 166.5 ml/min; Est GFR (African American) 128.9 ml/min; Est GFR (Non-African American) 111.3 ml/min; Potassium 3.9 mmol/L (3.5-5.1)
[2022-06-13] MEDS: SODIUM CHLORIDE 3 % 500 ML IV SCH ×4 (02:22→23:39)
[2022-06-13] MEDS: ACETAMINOPHEN 325 MG TAB PO PRN (02:41)
[2022-06-13] MEDS ORDERED: MELATONIN 3 MG TAB PO PRN (02:49)
[2022-06-13] MEDS: ALBUTEROL 0.083% NEBU SOLN 3 ML VIAL INH PRN ×2 (04:26→12:12)
[2022-06-13 04:33] LABS: Hematocrit (blood only) 30.9 % (40.1-51.0); Hemoglobin 10.1 g/dl (14.0-18.0); Mean Corpuscular Hgb Conc 32.7 g/dL (32.0-36.0); Mean Corpuscular Volume 94.8 fL (80.0-100.0); Mean Platelet Volume 8.7 fL (9.4-12.4); Nucleated RBC % (auto) 0.8 %; Platelet Count 205 K/uL (130-400); RDW Coefficient of Variation 19.6 % (11.5-14.5); RDW Standard Deviation 65.5 fL (36.4-46.3); Red Blood Count 3.26 M/uL (4.63-6.08); White Blood Count 12.23 K/ul (4.8-10.8)
[2022-06-13 04:54] LABS: Albumin Globulin Ratio 1.2 (0.9-2); Albumin Level 3.3 gm/dl (3.4-5.0); BUN Creatinine Ratio 30.6 (10-20); Bilirubin,Total 0.3 mg/dl (0.2-1.0); Calcium 8.3 mg/dl (8.5-10.1); Creatinine Clr Calc Pharmacy 154.9 ml/min; Est GFR (African American) 125.2 ml/min; Globulin 2.7 gm/dl (2.5-4.0); Potassium 3.7 mmol/L (3.5-5.1)
[2022-06-13] MEDS ORDERED: GLUCAGON FOR INJ 1 MG VIAL SQ PRN (06:22)
[2022-06-13] MEDS ORDERED: PHARMACY GLYCEMIC MGMT CONSULT PRN (06:22)
[2022-06-13] MEDS ORDERED: GLUCOSE 10 TAB/TUBE PO PRN (06:22)
[2022-06-13] MEDS ORDERED: DEXTROSE 50% 50 ML SYRINGE IV PRN (06:22)
[2022-06-13] MEDS ORDERED: CARBOHYDRATES FOR HYPOGLYCEMIA PO PRN (06:22)
[2022-06-13] MEDS ORDERED: GLUCOSE 40% GEL 15 GM TUBE PO PRN (06:22)
--- NOTE | 2022-06-13 07:19 | Electrocardiogram Report ---
Test Reason : Blood Pressure : / mmHG Vent. Rate : 112 BPM Atrial Rate : 112 BPM P-R Int : 158 ms QRS Dur : 098 ms QT Int : 342 ms P-R-T Axes : 056 038 063 degrees QTc Int : 466 ms Sinus tachycardia Possible Left atrial enlargement Borderline ECG When compared with ECG of 12-JUN-2022 02:56, No significant change was found Confirmed by Jamie Sherwood ([id number]) on 06/13/2022 7:19:14 AM Referred By: REFERRED SELF Confirmed By:Pierre Sherwood
--- NOTE | 2022-06-13 07:26 | Critical Care Progress Note ---
Date of Service June 13, 2022 Assessment & Plan (1) Non-small cell lung cancer metastatic to brain: (2) Subdural hematoma: (3) Hypoxemia: (4) Abnormal CT scan of lung: Plan Impression: 51-year-old male with history of metastatic non-small cell lung cancer to the brain currently on pembrolizumab and having recently undergone metastatic tach to [facility] May 25, 2022 who was brought to the emergency room with shortness of breath and weakness and headache. In the emergency room he was found to have a small subdural hematoma. He has been on a tapering dose of steroids. He initially was transferred to [facility] for additional management however he did not have a bed available so they recommended initiation of hypertonic saline and clinical observation in the ICU. 24-hour events: Patient's been observed in the ICU. He continues to require supplemental oxygen. He is not coughing or expectorating any phlegm. He denies headaches or mental status changes. Recommendations: 1. Neurologic: Subdural hematoma: Unclear how much might be related postoperatively. Its not shown any significant progression on 12 hours of imaging and the patient's neurological exam appears stable. We will plan on repeating his imaging today. At that request of the outside neurosurgical service, he has been initiated on hypertonic saline but his sodium remains below 145 on 3% saline at 75 cc an hour. He did receive mannitol in the emergency room. He is on valproic acid for seizure prophylaxis but was subtherapeutic. Continue valproic acid and hypertonic saline. Given the patient's stable neurological exam, do not think we need to increase the dose currently. There may be some issues of fluid overload, see comments below. Avoid hyperglycemia, hypotension, hypoxemia, and fevers. 2. Pulmonary: Hypoxemic respiratory failure with diffuse pulmonary infiltrates. Differential would include infectious etiologies including atypical infections given his use of steroids, pembrolizumab pulmonary toxicity, atypical fluid overload, alveolar hemorrhage, and other interstitial lung disease. The findings are new compared to his prior CT angiogram. Continue supplemental oxygen titrated to keep saturations at or above 88%. Will check procalcitonin BNP and echocardiogram. Provide low-dose of diuretics. 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 This can be addressed once he is transferred to [facility] 3. Cardiovascular: Check echocardiogram. Hemodynamically stable. 4. GI: Tolerating diet. No acute issues. 5. Renal: On hypertonic saline and trying to target sodium levels around 145 or greater. ICU electrolyte replacement protocols. 6. ID: Patient is day #2 Zosyn. He received 1 dose of vancomycin in the emergency room. His white count is elevated of unclear etiology. Procalcitonin is negative I think antibiotics can be discontinued. Could consider bronchoscopy however given the midline shift, subdural hematoma would prefer to with hold on procedures which could significantly elevated intracranial pressure at this time. He is at risk for PJP. We will check LDH. Hold on Bactrim for now. See comments on bronchoscopy above. 7. Heme-onc: Potential grade 3 pulmonary pembrolizumab toxicity. Advised the patient that I am not sure this medication can be safely continued. He becomes quite frustrated at this is this is apparently the only medication its been beneficial for him in the past. Advised that he will need to coordinate with his outpatient medical oncologist to determine whether or not this medication can be safely continued. He is already receiving dexamethasone which in addition to avoidance of additional pembrolizumab would be the therapy although typically would use higher doses. We will continue to observe clinically at this point time and try and exclude other etiologies for his pulmonary infiltrates and hypoxemic respiratory failure. Holding DVT prophylaxis given subdural Disposition: The patient has been accepted at [facility]. Will have the hospitalist coordinate care with the accepting physician at accepting facility to try and expedite his transfer as quickly as possible. We do not have neurosurgical services available here at this institution and he is being cared for in the ICU pending bed availability. The patient is critically ill at this point time. A total of 49 minutes in critical care time was spent evaluation management stabilization of this patient. Case was discussed with the patient at bedside as well as with the critical care nurse. Admission and Anticipated Discharge Date Admission Date: June 12, 2022 Subjective Patient seen and examined. EMR reviewed. Discussed with overnight critical care AYSHA and ER staff. Discussed with bedside critical care nurse. Patient reports that he feels well. He continues to use oxygen.. He does not report any fevers chills or night sweats. No cough or sputum production. He is not on oxygen at baseline. He is receiving pembrolizumab as an outpatient for his metastatic non-small cell lung cancer. He has been on a tapering dose of dexamethasone. Review of Systems Review of Systems: All systems reviewed & are unremarkable except as noted in Subjective Physical Exam Constitutional: WD/WN, vitals as above Neck: trachea midline, no thyromegaly Respiratory: no respiratory distress, no labored breathing and not tachypneic Auscultation: + crackles; no wheezes Cardiovascular: RRR, no murmur, no edema Gastrointestinal (Abdomen): normal bowel sounds, soft, nontender, no hepatosplenomegaly Musculoskeletal: Extremities: extremities normal to inspection Skin: no rashes, warm and dry Neurologic: Nonfocal exam Lymphatic: no cervical lymphadenopathy Results & Data Results & Data ([facility]) Vital Signs (Past 12 Hours) Vital Signs Temp Pulse Pulse Resp BP Pulse Ox O2 Del Method 06/13/22 06:57 80 19 95 Oxymask 06/13/22 06:00 102 H 20 97 Oxymask 06/13/22 06:00 131/88 06/13/22 05:00 108 H 21 95 06/13/22 05:00 133/95 06/13/22 04:56 36.8 C 06/13/22 04:00 113 H 31 H 97 Oxymask 06/13/22 03:00 103 H 32 H 90 06/13/22 03:00 154/107 H 06/13/22 04:27 110 H 25 H 94 Oxymask 06/13/22 02:03 140/97 93 Nasal Cannula 06/13/22 02:03 107 H 17 06/13/22 02:00 103 H 27 H 06/13/22 01:00 108 H 26 H 94 06/13/22 01:00 167/92 H 06/13/22 00:00 103 H 24 95 06/13/22 00:00 153/100 H 06/13/22 01:22 36.9 C 06/13/22 00:15 107 H 18 94 Nasal Cannula 06/12/22 23:01 115 H 26 H 90 06/12/22 23:01 154/92 H 06/12/22 23:00 118 H 32 H 87 L 06/13/22 00:00 115 H 06/12/22 22:00 102 H 23 90 06/12/22 21:01 149/82 H 06/12/22 21:01 112 H 28 H 95 06/12/22 21:00 112 H 26 H 94 Nasal Cannula 06/12/22 20:00 96 H 20 97 06/12/22 20:00 124/98 06/12/22 22:46 Nasal Cannula 06/12/22 22:45 36.8 C 06/12/22 20:02 100 H 19 94 Nasal Cannula O2 Flow Rate 06/13/22 06:57 5 06/13/22 06:00 2 06/13/22 06:00 06/13/22 05:00 06/13/22 05:00 06/13/22 04:56 06/13/22 04:00 2 06/13/22 03:00 06/13/22 03:00 06/13/22 04:27 5 06/13/22 02:03 2 06/13/22 02:03 06/13/22 02:00 06/13/22 01:00 06/13/22 01:00 06/13/22 00:00 06/13/22 00:00 06/13/22 01:22 06/13/22 00:15 2 06/12/22 23:01 06/12/22 23:01 06/12/22 23:00 06/13/22 00:00 06/12/22 22:00 06/12/22 21:01 06/12/22 21:01 06/12/22 21:00 2 06/12/22 20:00 06/12/22 20:00 06/12/22 22:46 2 06/12/22 22:45 06/12/22 20:02 2 Critical Care Results & Data Vital Signs (Past 12 Hours) Vital Signs Temp Pulse Pulse Resp BP Pulse Ox O2 Del Method 06/13/22 06:57 80 19 95 Oxymask 06/13/22 06:00 102 H 20 97 Oxymask 06/13/22 06:00 131/88 06/13/22 05:00 108 H 21 95 06/13/22 05:00 133/95 06/13/22 04:56 36.8 C 06/13/22 04:00 113 H 31 H 97 Oxymask 06/13/22 03:00 103 H 32 H 90 06/13/22 03:00 154/107 H 06/13/22 04:27 110 H 25 H 94 Oxymask 06/13/22 02:03 140/97 93 Nasal Cannula 06/13/22 02:03 107 H 17 06/13/22 02:00 103 H 27 H 06/13/22 01:00 108 H 26 H 94 06/13/22 01:00 167/92 H 06/13/22 00:00 103 H 24 95 06/13/22 00:00 153/100 H 06/13/22 01:22 36.9 C 06/13/22 00:15 107 H 18 94 Nasal Cannula 06/12/22 23:01 115 H 26 H 90 06/12/22 23:01 154/92 H 06/12/22 23:00 118 H 32 H 87 L 06/13/22 00:00 115 H 06/12/22 22:00 102 H 23 90 06/12/22 21:01 149/82 H 06/12/22 21:01 112 H 28 H 95 06/12/22 21:00 112 H 26 H 94 Nasal Cannula 06/12/22 20:00 96 H 20 97 06/12/22 20:00 124/98 06/12/22 22:46 Nasal Cannula 06/12/22 22:45 36.8 C 06/12/22 20:02 100 H 19 94 Nasal Cannula O2 Flow Rate 06/13/22 06:57 5 06/13/22 06:00 2 06/13/22 06:00 06/13/22 05:00 06/13/22 05:00 06/13/22 04:56 06/13/22 04:00 2 06/13/22 03:00 06/13/22 03:00 06/13/22 04:27 5 06/13/22 02:03 2 06/13/22 02:03 06/13/22 02:00 06/13/22 01:00 06/13/22 01:00 06/13/22 00:00 06/13/22 00:00 06/13/22 01:22 06/13/22 00:15 2 06/12/22 23:01 06/12/22 23:01 06/12/22 23:00 06/13/22 00:00 06/12/22 22:00 06/12/22 21:01 06/12/22 21:01 06/12/22 21:00 2 06/12/22 20:00 06/12/22 20:00 06/12/22 22:46 2 06/12/22 22:45 06/12/22 20:02 2 Lab & Micro Results (Past 24 Hours) RBC 3.26 M/uL (4.63-6.08) L 06/13/22 WBC 12.23 K/ul (4.8-10.8) H 06/13/22 Hgb 10.1 g/dl (14.0-18.0) L 06/13/22 Hct 30.9 % (40.1-51.0) L 06/13/22 MCV 94.8 fL (80.0-100.0) 06/13/22 MCH 31.0 pg (25.0-34.0) 06/13/22 MCHC 32.7 g/dL (32.0-36.0) 06/13/22 RDW Standard Deviation 65.5 fL (36.4-46.3) H 06/13/22 RDW Coefficient of Variation 19.6 % (11.5-14.5) H 06/13/22 Plt Count 205 K/uL (130-400) 06/13/22 MPV 8.7 fL (9.4-12.4) L 06/13/22 Nucleated Red Blood Cells % (auto) 0.8 % 06/13 Nucleated RBC Absolute Count (auto) 0.10 K/uL (0-0) H 05/23 11/10 Na 139 mmol/L (136-145) 06/13/22 K 3.7 mmol/L (3.5-5.1) 06/13/22 Cl 105 mmol/L (98-107) 06/13/22 CO2 24 mmol/L (21-32) 06/13/22 Anion Gap 10 (3-11) 06/13/22 BUN 22 mg/dl (6-23) 06/13/22 Creatinine 0.72 mg/dl (0.6-1.4) 06/13/22 Estimated GFR ( Amer) 125.2 ml/min 06/13/22 Estimated GFR (Non-Af Amer) 108.0 ml/min 06/13/22 BUN/Creatinine Ratio 30.6 (10-20) H 06/13/22 Glu 243 mg/dl (70-99(Fasting)) H 06/13/22 Ca 8.3 mg/dl (8.5-10.1) L 06/13/22 Total Bilirubin 0.3 mg/dl (0.2-1.0) 06/13/22 AST 23 U/L (13-39) 06/13/22 ALT 59 U/L (7-52) H 06/13/22 Alkaline Phosphatase 59 U/L (34-104) 06/13/22 TP 6.0 gm/dl (6.0-8.3) 06/13/22 Albumin 3.3 gm/dl (3.4-5.0) L 06/13/22 Globulin 2.7 gm/dl (2.5-4.0) 06/13/22 Albumin/Globulin Ratio 1.2 (0.9-2) 06/13/22 Calcium Level 8.3 mg/dl (8.5-10.1) L 06/13/22 04:13 Venous Blood pH 7.47 (7.36-7.41) H 06/12/22 16:42 Venous Blood Partial Pressure CO2 42 mmHg (38-50) 06/12/22 16:4 2 Venous Blood Partial Pressure O2 56 mmHg 06/12/22 16:42 Venous Blood HCO3 31 mmol/L 06/12/22 16:42 Venous Blood Base Excess 6.2 mEq/L 06/12/22 16:42 Venous Blood Oxygen Saturation 88.8 % 06/12/22 16:42 Diagnostic Findings (Past 24 Hours) Head CT 06/12/22 02:56 CT head/brain wo con CLINICAL HISTORY: MORAN, recent brain met OR, lung CA Technique: Contiguous axial CT images of the head were acquired from the base of the skull to the vertex without intravenous contrast administration. Images were viewed in brain, subdural and bone windows. Automated dose lowering techniques and/or adjustment according to patient size were utilized for this exam. Comparison: Comparison is made to CT head 11/21/2019 Findings: There is edema in the left frontal lobe and postcraniotomy changes. Encephalomalacia in the right frontal lobe is also noted. There is a 3 mm subdural hematoma at the resection site. There is mild rightward midline shift measuring up to 5 mm. There is mucosal thickening in the right sphenoid sinus. The orbits appear normal. There are no acute fractures of the calvaria or scalp swelling. Impression: 1. Expected post craniotomy changes with edema at the resection site resulting in 5 mm rightward midline shift. 2. 3 mm subdural hematoma on the left, likely postprocedural. ACT 112: Negative or not required by law. Electronically signed by: Darron Dumont M.D. 06/12/2022 9:[address] 06/12/22 02:56 CT soft tissue neck w con CLINICAL HISTORY: recent brain OR, swelling, dysphagia, sob Technique: Axial CT images of the soft tissues of the neck were obtained following intravenous administration of 100 cc of Omnipaque 300. Automated dose lowering techniques and/or adjustment according to patient size were utilized for this exam. Comparison: Comparison is made to CT cervical spine 09/13/2019 Findings: There are no masses or inflammatory changes seen within the soft tissues of the neck. The oropharynx, hypopharynx, larynx, and trachea are patent. No enlarged lymph nodes are seen. The parotid glands, submandibular glands, and thyroid gland are unremarkable apart from punctate thyroid nodules which do not require further follow-up. Please see CT chest performed same day for findings in the chest. Imaged portions of the brain parenchyma are unremarkable. The paranasal sinuses and mastoid air cells are normal in appearance. Impression: No acute abnormality is seen. ACT 112: Negative or not required by law. Electronically signed by: Darron Dumont M.D. 06/12/2022 9:36 AM Chest CTA 06/12/22 02:57 CT angio chest PE protocol CLINICAL HISTORY: Chest Pain, eval for PE TECHNIQUE: Multidetector row helical CT of the chest was performed with angiographic protocol. Coronal and sagittal reformations were obtained. Coronal and sagittal MIPS were obtained from the axial data set and were submitted for review. Automated dose lowering techniques and/or adjustment according to patient size were utilized for this exam. CT DOSE: 2960.06 mGy.cm Comparison: Comparison is made to CTA chest 08/27/2021 FINDINGS: Lungs and pleura: Multifocal airspace opacities are seen. There is collapse of the right upper lung, unchanged from prior exam. Right pleural thickening is unchanged. Heart and pericardium: Heart size is normal. No pericardial effusion. Vessels: No evidence of pulmonary embolism. Mediastinum and dedra: Unremarkable. Chest wall and lower neck: Unremarkable. Abdomen: Unremarkable. Bones: Unremarkable. IMPRESSION: 1. Multifocal airspace opacities are seen, new from prior exam, concerning for pneumonia. 2. Redemonstration of right upper lung collapse and pleural thickening, which was previously thought to represent posttreatment change. ACT 112: Negative or not required by law. Electronically signed by: Darron Dumont M.D. 06/12/2022 9:34 AM Chest X-Ray 06/12/22 02:57 XR chest 1V portable CLINICAL HISTORY: Chest Pain TECHNIQUE: Single frontal radiograph of the chest was obtained. Comparison: Comparison is made to chest radiograph 04/11/2020 FINDINGS: No lines and tubes are seen. The cardiomediastinal silhouette is stable. Multifocal airspace opacities are seen. Right upper lobe density with elevation of the right hemidiaphragm is compatible with known lobar collapse. No evidence of pleural effusion or pneumothorax. IMPRESSION: Multifocal airspace opacities may represent atelectasis, pneumonia, and/or aspiration. Right upper lobar collapse is again seen. ACT 112: Negative or not required by law. Electronically signed by: Darron Dumont M.D. 06/12/2022 9:[address] 06/12/22 14:41 CT head/brain wo con CLINICAL HISTORY: check stabilitiy of CT findings Technique: Contiguous axial CT images of the head were acquired from the base of the skull to the vertex without intravenous contrast administration. Images were viewed in brain, subdural and bone windows. Automated dose lowering techniques and/or adjustment according to patient size were utilized for this exam. Comparison: Comparison is made to CT head 06/12/2022 Findings: Redemonstration of postsurgical changes with vasogenic edema, soft tissue swelling, and tiny stable left subdural hematoma. Rightward midline shift is stable at 5 mm. Impression: Redemonstration of postcraniotomy changes with interval stability of a 3 mm left sided subdural hematoma. ACT 112: Negative or not required by law. Electronically signed by: Darron Dumont M.D. 06/12/2022 4:27 PM Venous Doppler Study 06/12/22 15:54 US venous doppler LE BI CLINICAL HISTORY: Hx recent DVT's, can't be on anticoagulation TECHNIQUE: Bilateral lower extremity real-time compression venous ultrasound with Color Doppler imaging. Utilizing real-time ultrasonic imaging multiple real time high-resolution ultrasonic images with compression and noncompression maneuvers of the deep venous system in addition to color doppler imaging were performed from the common femoral vein through the proximal calf veins. COMPARISON: None available at the time of this dictation. FINDINGS: Currently there is normal compressibility of the deep venous system from the common femoral vein through the proximal calf veins. No superficial venous thrombosis is identified. Impression: No evidence of deep venous thrombus. ACT 112: Negative or not required by law. Electronically signed by: Darron Dumont M.D. 06/12/2022 5:25 PM I & O Totals 24 Hours 06/12/22 06/13/22 06/14/22 06:59 06:59 06:59 Intake Total 120 / 120 2275 / 2275 Output Total 500 / 500 Balance 120 / 120 1775 / 1775 Cumulative 06/12/22 02:32 thru 06/13/22 05:18 Intake Total 2395 Output Total 500 Balance 1895 RT Ventilator Mngmt (Last Documented) Ventilator Ordered Settings Respiratory Rate 19 06/13/22 06:57 Ventilator - PT Measurements Respiratory Rate 19 Coding Level of Care Code Critical Care 1st 30-74 mins Diagnoses Non-small cell lung cancer metastatic to brain C34.90; C79.31 Subdural hematoma S06.5XAA Hypoxemia R09.[address] scan of lung R91.8
[2022-06-13] MEDS: INSULIN ASPART PER UNIT SC SCH ×4 (08:24→21:14)
[2022-06-13] MEDS: FLUoxetine HCL 20 MG/5 ML 120ML BTL PO SCH (08:35)
[2022-06-13] MEDS: VALPROIC ACID SOLN 500 MG/10 ML UDC PO SCH ×2 (08:35→20:53)
[2022-06-13] MEDS: dexAMETHasone 4 MG TAB PO SCH ×2 (08:35→20:54)
[2022-06-13] MEDS: PIPERACILLIN/TAZOBACTAM 4.5 GM in DEXTROSE 5% 100 ML IV SCH ×3 (08:37→23:38)
[2022-06-13 09:13] LABS: BUN Creatinine Ratio 26.5 (10-20); Calcium 8.2 mg/dl (8.5-10.1); Est GFR (African American) 128.2 ml/min; Est GFR (Non-African American) 110.6 ml/min
--- NOTE | 2022-06-13 09:31 | CT Scan Report ---
CT SCAN OF THE BRAIN WITHOUT IV CONTRAST CLINICAL HISTORY: Intracranial metastatic disease. Subdural hemorrhage. COMPARISON STUDY: CT scans of the brain dated 06/12/2022 and 11/21/2019. MRI of the brain dated 2019. TECHNIQUE: Unenhanced axial CT scan of the brain is performed from the vertex to the skull base. A d ose lowering technique was utilized adhering to the principles of ALARA. CT DOSE: 691.05 mGy.cm FINDINGS: Brain parenchyma: There is a small subdural hemorrhage along the left convexity measuring up to 5 mm in diameter. This is similar to yesterday. There is mild mass effect on the subjacent cortical sulci . Approximately 4 mm of left right midline shift is unchanged. A focus of encephalomalacia in the lef t posterior frontal lobe may be related to previous surgical resection. There are foci of edema with loss of brown-white matter differentiation in the right frontal lobe and in the left frontoparietal re gion. Ventricles, sulci, cisterns: Normal in configuration. Intracranial vasculature: The visualized intracranial vasculature at the skull base is normal in appe arance. Calvarium: There are bilateral jessy holes with evidence of bilateral craniotomy. Soft tissues: Skin clips are noted in the left frontal scalp. Sinuses and mastoids: There is subtotal opacification of the right sphenoid sinus. The remaining visu alized paranasal sinuses are clear. The mastoid air cells are well pneumatized. Orbits: The bony orbits are grossly intact. IMPRESSION: 1. No significant change from yesterday. 2. There is a small subdural hemorrhage along the left convexity with mild mild mass effect on the hamilton bjacent cortical sulci. 3. Postsurgical change as above. 4. Foci of edema are seen within the right frontal lobe and within the left frontoparietal region. Th is may be related to recent surgery/the reported history of intracranial metastatic disease. 5. Mild left to right midline shift is unchanged. ACT 112: Negative or not required by law. Electronically signed by: Aaron Ascencio M.D. 06/13/2022 9:29 AM
[2022-06-13] MEDS ORDERED: oxyCODONE HCL IR 5 MG TAB (IMMEDIATE RELEASE) PO STA (09:36)
[2022-06-13] MEDS: ICU ELECTROLYTE REPLACEMENT PROTOCOL SCH ×2 (09:57→17:47)
[2022-06-13 10:20] LABS: Magnesium 1.9 mg/dl (1.7-2.4); Phosphorus 2.8 mg/dl (2.5-4.9); Potassium 4.1 mmol/L (3.5-5.1)
--- NOTE | 2022-06-13 10:33 | XCELERA ---
[id number]
--- NOTE | 2022-06-13 14:51 | Pharmacy Report ---
Pharmacy Glycemic Short Note 2 - Date of Service June 13, 2022 - Glycemic Short BSG Results (Last 24 hours): 06/12/22 06/12/22 06/12/22 16:42 20:32 23:48 Glucose 90 145 H POC Glucose 161 H 06/13/22 06/13/22 06/13/22 00:21 04:13 07:22 Glucose 146 H 243 H POC Glucose 123 H 06/13/22 06/13/22 08:19 11:30 Glucose 187 H POC Glucose 134 H OUTPATIENT ANTIDIABETIC REGIMEN: * None ASSESSMENT: * SALVADOR is a 51 year old male admitted to ICU with subdural hematoma and multifocal pneumonia * Pharmacy consulted for glycemic management due to BSG at 0413 of 243 mg/dL, likely related to dose of IV dexamethasone * BSGs have otherwise been reasonably controlled * Receiving dexamethasone 4 mg PO BID ongoing, hypertonic 3% saline, and Zosyn for pneumonia * Given reasonable BSG control since discontinuation of IV dexamethasone, will proceed with correctional rapid-acting insulin only * HbA1c ordered for tomorrow PLAN FOR INPATIENT GLYCEMIC CONTROL: * Basal insulin * hold * Bolus insulin * NovoLog per scale ACHS or Q6hrs while NPO * Goal Range: Low 120 mg/dL - High 150 mg/dL * Correction Factor: 25 mg/dL/unit * Hold carb coverage for now
[2022-06-13 17:21] LABS: Phosphorus 2.9 mg/dl (2.5-4.9); Potassium 3.9 mmol/L (3.5-5.1)
[2022-06-13] MEDS: MAGNESIUM OXIDE 400 MG TAB PO SCH ×2 (18:49→20:54)
--- NOTE | 2022-06-13 20:52 | Hospitalist Progress Note ---
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, consider reversal if bleed increases in size Continue hypertonic infusion at 75cc/hr per Neurosurgery BMP Q4H, target Na high normal to hypernatremia Avoid hypotonic and isotonic solutions Valproate level low, add his home Depakote 500mg BID starting tonight Plan Disposition: Transfer to accepting facility as bed situation allows Admission and Anticipated Discharge Date Admission Date: June 12, 2022 Subjective Patient reports no new symptoms Review of Systems Review of Systems: All systems reviewed & are unremarkable except as noted in HPI & below Physical Exam Physical Exam: Generally well-appearing middle-aged gentleman Constitutional: WD/WN, vitals as above Eyes: PERRL, conjunctivae normal, anicteric sclerae Respiratory: Auscultation: + rhonchi Cardiovascular: RRR, no murmur, no edema Gastrointestinal (Abdomen): normal bowel sounds, soft, nontender, no hepatosplenomegaly Neurologic: PERRL, EOMI, accommodation nl, no face palsy, no dysarthria Results & Data Results & Data ([facility]) Vital Signs (Past 12 Hours) Vital Signs Temp Pulse Pulse Pulse Resp BP BP 06/13/22 20:01 91 H 19 06/13/22 17:40 90 22 155/82 H 06/13/22 16:10 90 24 154/106 H 06/13/22 14:19 95 H 24 144/92 H 06/13/22 16:27 36.8 C 06/13/22 16:00 95 H 06/13/22 13:00 104 H 24 136/85 06/13/22 12:51 108 H 27 H 152/90 H 06/13/22 12:00 36.7 C 06/13/22 12:14 103 H 19 06/13/22 12:00 93 H 27 H 139/90 06/13/22 11:02 90 22 148/88 H 06/13/22 11:00 94 H 23 139/106 H 06/13/22 10:00 101 H 31 H 153/103 H 06/13/22 09:07 96 H 25 H 127/90 Pulse Ox O2 Del Method O2 Flow Rate 06/13/22 20:01 90 Oxymask 4 06/13/22 17:40 91 Room Air 06/13/22 16:10 96 Nasal Cannula 2 06/13/22 14:19 96 Nasal Cannula 2 06/13/22 16:27 06/13/22 16:00 06/13/22 13:00 91 Room Air 06/13/22 12:51 91 Room Air 06/13/22 12:00 06/13/22 12:14 92 Oxymask 4 06/13/22 12:00 93 Oxymask 4 06/13/22 11:02 98 Oxymask 3 06/13/22 11:00 94 Oxymask 2 06/13/22 10:00 93 Oxymask 2 06/13/22 09:07 94 Oxymask 2 PG Care Time/CCT Total # of Minutes Spent Total Time Spent with Patient: Total time spent is greater than 50% in coordination of care (as documented) at patient's floor/unit and/or counseling patient: Coding Level of Care Code 45879 Subseq Hosp Care Lvl 2 Diagnoses Multifocal pneumonia J18.9 Subdural hematoma S06.5XAA Time Spent (min) 25
[2022-06-14] MEDS: ALBUTEROL 0.5% NEB SOLN 2.5 MG/0.5 ML VIAL NEB SCH ×2 (00:30→07:29)
[2022-06-14 06:01] LABS: Hematocrit (blood only) 32.5 % (40.1-51.0); Hemoglobin 10.8 g/dl (14.0-18.0); Mean Corpuscular Hemoglobin 30.8 pg (25.0-34.0); Mean Corpuscular Hgb Conc 33.2 g/dL (32.0-36.0); Mean Corpuscular Volume 92.6 fL (80.0-100.0); Mean Platelet Volume 8.8 fL (9.4-12.4); Nucleated RBC # (auto) 0.11 K/uL (0-0); Nucleated RBC % (auto) 0.9 %; Platelet Count 254 K/uL (130-400); RDW Coefficient of Variation 19.6 % (11.5-14.5); RDW Standard Deviation 64.5 fL (36.4-46.3); Red Blood Count 3.51 M/uL (4.63-6.08); White Blood Count 12.91 K/ul (4.8-10.8)
[2022-06-14 06:25] LABS: Albumin Globulin Ratio 1.2 (0.9-2); Albumin Level 3.6 gm/dl (3.4-5.0); BUN Creatinine Ratio 28.6 (10-20); Bilirubin,Total 0.4 mg/dl (0.2-1.0); Calcium 8.8 mg/dl (8.5-10.1); Creatinine Clr Calc Pharmacy 159.4 ml/min; Est GFR (African American) 126.6 ml/min; Est GFR (Non-African American) 109.3 ml/min; Magnesium 2.1 mg/dl (1.7-2.4); Phosphorus 2.4 mg/dl (2.5-4.9); Potassium 4.3 mmol/L (3.5-5.1); Total Protein 6.6 gm/dl (6.0-8.3)
[2022-06-14] MEDS ORDERED: STAT IV STA (06:36)
[2022-06-14] MEDS ORDERED: SODIUM CHLORIDE 3 % 500 ML IV SCH (06:45)
[2022-06-14] MEDS: SODIUM CHLORIDE 3 % 500 ML IV SCH (06:50)
[2022-06-14] MEDS: ICU ELECTROLYTE REPLACEMENT PROTOCOL SCH (06:53)
--- NOTE | 2022-06-14 07:32 | XRay Report ---
XR chest 1V portable HISTORY: 51 years-old Male Follow up PNA acute shortness of breath. Follow-up study in a patient wit h history of pneumonia COMPARISON: Chest radiograph 06/12/2022, CTA chest 06/12/2022, 08/27/2021, chest CT 07/23/2020 TECHNIQUE: AP view of the chest FINDINGS: Dense consolidation with volume loss of the right upper and middle lobes redemonstrated. Interstitial coarsening with bilateral intermixed airspace opacities again noted. No pneumothorax or large pleura l effusion. Unchanged right hemidiaphragm elevation. Degenerative changes of the shoulders and spine. IMPRESSION: 1. Bilateral mixed interstitial and alveolar opacities appear stable suggestive of pulmonary edema ve rsus an infectious or inflammatory pneumonitis. 2. Unchanged consolidation with volume loss of the right upper and middle lobes. ACT 112: Negative or not required by law. The above report was generated using voice recognition software. It may contain grammatical, syntax o r spelling errors. Electronically signed by: Shlomo Montes M.D. 06/14/2022 7:31 AM
[2022-06-14] MEDS: INSULIN ASPART PER UNIT SC SCH ×3 (07:33→20:50)
[2022-06-14] MEDS: dexAMETHasone 4 MG TAB PO SCH ×2 (07:56→20:44)
[2022-06-14] MEDS: PIPERACILLIN/TAZOBACTAM 4.5 GM in DEXTROSE 5% 100 ML IV SCH ×2 (07:56→16:08)
[2022-06-14] MEDS: VALPROIC ACID SOLN 500 MG/10 ML UDC PO SCH (07:56)
[2022-06-14] MEDS: FLUoxetine HCL 20 MG/5 ML 120ML BTL PO SCH (08:35)
[2022-06-14] MEDS ORDERED: oxyCODONE HCL IR 5 MG TAB (IMMEDIATE RELEASE) PO STA ×2 (08:55→13:12)
[2022-06-14] MEDS ORDERED: SODIUM CHLORIDE 1 GM TABLET PO ONE (10:30)
--- NOTE | 2022-06-14 12:19 | Critical Care Progress Note ---
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 Currently awaiting transfer to [facility]. Neuro CAM ICU: NEGATIVE Sedation: Melatonin Analgesia: Tylenol, oxycodone Cardiac - * Hemodynamically stable Respiratory - * Hypoxemic respiratory failure: 2 L via oxygen mask. Maintain O2 saturation >88%. GI - * Tolerating diet RENAL/LYTES - * No significant electrolyte derangement at this time. * Replace lytes as needed. - * No concerns at this time. ENDO * HEME - * Stable H&H. * Will monitor for any drops in the setting of Heparin gtt ID - * Leukocytosis of unclear etiology. Currently on day 3 of Zosyn. Consider discontinuing as procalcitonin negative. * Monitor fever curve. INTEGUMENTARY - * LINES/IV ACCESS - PIVs intact. DVT PROPHYLAXIS - * Heparin gtt. Thank you for allowing us to be part of this patient's care. Please refer to Dr. Sinclair's documentation for any further recommendations. (2) Non-small cell lung cancer metastatic to brain: (3) Hypoxemia: Admission and Anticipated Discharge Date Admission Date: June 12, 2022 Supervising Physician Co-Signing Physician Notes Dr. Lyons was resident physician during care of patient. I separately evaluated patient for rushing portions of the history and the exam. I was present during the critical portion of medical decision making, and I discussed the case with the resident. I generally agree with the findings and plan. Discontinue hypertonic saline add salt tabs with fluid restriction. Repeat CT scan to evaluate for interval change. Discussed with staff regarding transfer to [facility]. Patient was discussed in multidisciplinary rounds. Subjective No acute events overnight. Patient is in no acute distress. Patient has no acute concerns or complaints at this time. Review of Systems Review of Systems: All systems reviewed & are unremarkable except as noted in HPI & below Physical Exam Physical Exam: Constitutional:L WD/WN, vitals as a kalpesh Neck: trachea midline, n o thyromegaly Respiratory: no respiratory dis tress, no labored breathing and not tachypneic Auscul tation: + crackles ; no wheezes Cardiovascular:L RRR, no murmur, no edema Gastrointestinal ( Abdomen): normal bowel sound s, soft, nontender , no hepatosplenom egaly Musculoskeletal: Extremities: extre mities normal to i nspection Skin: no rashes, warm an d dry Neurologic: Nonfocal exam Lymphatic: no cervical lympha denopathy Results & Data Results & Data ([facility]) Vital Signs (Past 12 Hours) Vital Signs Temp Pulse Pulse Resp BP Pulse Ox O2 Del Method 06/14/22 10:00 84 21 157/90 H 94 06/14/22 09:00 100 H 25 H 154/85 H 95 06/14/22 08:00 Nasal Cannula, Oxymask 06/14/22 08:00 90 06/14/22 08:00 90 24 91 06/14/22 07:00 102 H 24 90 06/14/22 07:00 158/91 H 06/14/22 06:00 96 H 16 94 06/14/22 06:00 145/90 H 06/14/22 08:55 36.7 C 06/14/22 08:00 Nasal Cannula, Oxymask 06/14/22 07:29 85 22 97 Nasal Cannula 06/14/22 05:00 99 H 27 H 93 06/14/22 05:00 145/86 H 06/14/22 04:00 96 H 20 94 Oxymask 06/14/22 04:00 140/87 06/14/22 03:00 86 22 94 06/14/22 03:00 138/90 06/14/22 02:00 88 21 94 06/14/22 02:00 129/87 06/14/22 05:52 36.8 C 06/14/22 01:00 91 H 20 94 Nasal Cannula 06/14/22 01:00 131/88 06/14/22 00:31 84 18 94 Nasal Cannula O2 Flow Rate FiO2 06/14/22 10:00 06/14/22 09:00 06/14/22 08:00 2 06/14/22 08:00 06/14/22 08:00 06/14/22 07:00 06/14/22 07:00 06/14/22 06:00 06/14/22 06:00 06/14/22 08:55 06/14/22 08:00 2 06/14/22 07:29 3 06/14/22 05:00 06/14/22 05:00 06/14/22 04:00 2 06/14/22 04:00 06/14/22 03:00 06/14/22 03:00 06/14/22 02:00 06/14/22 02:00 06/14/22 05:52 06/14/22 01:00 2 06/14/22 01:00 06/14/22 00:31 2 Resident Activity Tracking Resident Involvement: Resident Care Provided Care Provided: Adult Hospital Medicine
[2022-06-14 12:47] LABS: Estimated Average Glucose 137 mg/dl; Hemoglobin A1C 6.4 % (4.5-5.6)
[2022-06-14] MEDS: ALBUTEROL 0.083% NEBU SOLN 3 ML VIAL NEB SCH ×2 (13:01→19:45)
[2022-06-14] MEDS: ACETAMINOPHEN 325 MG TAB PO PRN (18:50)
[2022-06-14] MEDS: DIVALPROEX DELAY RELEASE 500 MG TAB PO SCH (20:45)
[2022-06-14] MEDS: SODIUM CHLORIDE 1 GM TABLET PO SCH (20:45)
--- NOTE | 2022-06-14 22:21 | Hospitalist Progress Note ---
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 Plan Disposition: Transfer to accepting facility as bed situation allows Admission and Anticipated Discharge Date Admission Date: June 12, 2022 Subjective Patient reports intermittent chest pain that improves with oxycodone. Review of Systems Review of Systems: All systems reviewed & are unremarkable except as noted in HPI & below Physical Exam Physical Exam: Generally well-appearing middle-aged gentleman Constitutional: WD/WN, vitals as above Eyes: PERRL, conjunctivae normal, anicteric sclerae Respiratory: Auscultation: + rhonchi Cardiovascular: RRR, no murmur, no edema Gastrointestinal (Abdomen): normal bowel sounds, soft, nontender, no hepat osplenomegaly Neurologic: PERRL, EOMI, accommodation nl, no face palsy, no dysarthria Results & Data Results & Data ([facility]) Vital Signs (Past 12 Hours) Vital Signs Temp Pulse Pulse Resp BP Pulse Ox O2 Del Method 06/14/22 18:00 100 H 21 94 06/14/22 17:53 150/100 H 06/14/22 17:53 93 H 22 93 06/14/22 17:49 36.5 C 06/14/22 17:00 93 H 17 94 06/14/22 16:14 158/90 H 06/14/22 16:14 90 18 06/14/22 16:00 94 H 22 94 06/14/22 15:00 105 H 22 94 06/14/22 14:00 115 H 20 93 06/14/22 13:32 138/90 06/14/22 13:32 107 H 20 93 06/14/22 13:33 36.7 C 06/14/22 13:00 110 H 16 94 06/14/22 12:00 83 22 92 06/14/22 11:04 161/90 H 06/14/22 11:04 88 23 95 06/14/22 11:00 91 H 22 93 06/14/22 13:04 102 H 20 92 Oxymask O2 Flow Rate 06/14/22 18:00 06/14/22 17:53 06/14/22 17:53 06/14/22 17:49 06/14/22 17:00 06/14/22 16:14 06/14/22 16:14 06/14/22 16:00 06/14/22 15:00 06/14/22 14:00 06/14/22 13:32 06/14/22 13:32 06/14/22 13:33 06/14/22 13:00 06/14/22 12:00 06/14/22 11:04 06/14/22 11:04 06/14/22 11:00 06/14/22 13:04 2 PG Care Time/CCT Total # of Minutes Spent Total Time Spent with Patient: Total time spent is greater than 50% in coordination of care (as documented) at patient's floor/unit and/or counseling patient: Coding Level of Care Code 57686 Subseq Hosp Care Lvl 2 Diagnoses Multifocal pneumonia J18.9 Subdural hematoma S06.5XAA
[2022-06-15] MEDS: PIPERACILLIN/TAZOBACTAM 4.5 GM in DEXTROSE 5% 100 ML IV SCH ×2 (00:22→07:53)
[2022-06-15] MEDS: ALBUTEROL 0.083% NEBU SOLN 3 ML VIAL NEB SCH ×3 (00:26→12:30)
[2022-06-15 05:06] LABS: Hematocrit (blood only) 34.1 % (40.1-51.0); Hemoglobin 11.3 g/dl (14.0-18.0); Mean Corpuscular Hemoglobin 31.1 pg (25.0-34.0); Mean Corpuscular Hgb Conc 33.1 g/dL (32.0-36.0); Mean Corpuscular Volume 93.9 fL (80.0-100.0); Mean Platelet Volume 8.6 fL (9.4-12.4); Nucleated RBC # (auto) 0.26 K/uL (0-0); Nucleated RBC % (auto) 2.1 %; Platelet Count 266 K/uL (130-400); RDW Coefficient of Variation 19.9 % (11.5-14.5); RDW Standard Deviation 65.1 fL (36.4-46.3); Red Blood Count 3.63 M/uL (4.63-6.08)
[2022-06-15 05:35] LABS: Albumin Level 3.4 gm/dl (3.4-5.0); BUN Creatinine Ratio 29.8 (10-20); Bilirubin,Total 0.4 mg/dl (0.2-1.0); Calcium 9.2 mg/dl (8.5-10.1); Est GFR (African American) 117.5 ml/min; Est GFR (Non-African American) 101.4 ml/min; Globulin 3.3 gm/dl (2.5-4.0); Magnesium 2.2 mg/dl (1.7-2.4); Phosphorus 3.8 mg/dl (2.5-4.9); Potassium 4.3 mmol/L (3.5-5.1); Total Protein 6.7 gm/dl (6.0-8.3)
[2022-06-15] MEDS: INSULIN ASPART PER UNIT SC SCH (07:48)
[2022-06-15] MEDS: ACETAMINOPHEN 325 MG TAB PO PRN (07:49)
[2022-06-15] MEDS ORDERED: oxyCODONE HCL IR 5 MG TAB (IMMEDIATE RELEASE) PO PRN (07:55)
--- NOTE | 2022-06-15 08:03 | Billing Data ---
Date of Service June 14, 2022 Coding Level of Care Code 19679 Subseq Hosp Care Lvl 3
--- NOTE | 2022-06-15 08:13 | Critical Care Progress Note ---
Date of Service June 15, 2022 Assessment & Plan (1) Subdural hematoma: Plan: Reason Critically Ill: 51-year-old male with history of metastatic non-small cell lung cancer to the brain currently on pembrolizumab brought to the emergency room with shortness of breath and weakness and headache and found to have a subdural hematoma. Currently awaiting transfer to [facility]. Neuro CAM ICU: NEGATIVE Sedation: Melatonin Analgesia: Tylenol, oxycodone * Continue antiepileptic medications. Cardiac * Hemodynamically stable Respiratory * Hypoxemic respiratory failure: 2 L via oxygen mask. Maintain O2 saturation >88%. GI * Tolerating diet RENAL/LYTES - * No significant electrolyte derangement at this time. * Replace lytes as needed. * Increasing free water restriction (1.5 L). Salt tabs 1 g twice daily. - * No concerns at this time. ENDO * ICU hyperglycemia protocol HEME - * Stable H&H. ID - * Discontinue Zosyn, start on cefepime * Sputum culture, respiratory Biofire ordered. * Monitor fever curve. LINES/IV ACCESS - PIVs intact. DVT PROPHYLAXIS -chemoprophylaxis contraindicated Thank you for allowing us to be part of this patient's care. Please refer to Dr. Sinclair's documentation for any further recommendations. (2) Non-small cell lung cancer metastatic to brain: (3) Hypoxemia: Admission and Anticipated Discharge Date Admission Date: June 12, 2022 Supervising Physician Co-Signing Physician Notes Dr. Lyons was resident physician during care of patient. I separately evaluated patient for rushing portions of the history and the exam. I was present during the critical portion of medical decision making, and I discussed the case with the resident. I generally agree with the findings and plan. Increase free water restriction, no change in CT scan nor neurological status. Increase free water restriction to 1500. Day 3 zosyn, convert to cefepime given recent hospitalization, send sputum culture, bio fire respiratory panel. Suspect chemo induced acute lung injury. Still awaiting transfer to tertiary care center. Continue current antiepileptics, no indication to dose adjust based off of clinical history despite low laboratory reading. 16:00 Patient to transfer to [facility] this evening Subjective Complaints of puffiness to the face, no change in neuro complaints. Feels that he is doing well. Review of Systems Review of Systems: All systems reviewed & are unremarkable except as noted in HPI & below Physical Exam Physical Exam: General: Alert. nontoxic. Neuro: Right-sided facial paralysis Skin: Warm, dry, Head: Atraumatic Ears, nose, mouth and throat: airway patent Cardiovascular: Normal peripheral perfusion Respiratory: no respiratory distress Gastrointestinal: Non distended Musculoskeletal: No deformity Results & Data Results & Data ([facility]) Vital Signs (Past 12 Hours) Vital Signs Temp Pulse Pulse Pulse Resp BP Pulse Ox 06/15/22 07:57 104 H 20 96 06/15/22 06:00 92 H 22 94 06/15/22 06:00 137/97 06/15/22 05:45 85 21 96 06/15/22 05:45 135/85 06/15/22 05:01 85 19 97 06/15/22 05:01 129/82 06/15/22 05:00 85 19 96 06/15/22 04:01 90 21 95 06/15/22 04:01 129/96 06/15/22 04:00 89 27 H 94 06/15/22 03:00 83 18 95 06/15/22 03:00 111/77 06/15/22 02:00 83 20 94 06/15/22 02:00 112/75 06/15/22 01:00 92 H 18 95 06/15/22 01:00 137/95 06/15/22 00:37 91 H 21 96 06/15/22 00:37 139/99 06/15/22 00:01 92 H 20 95 06/15/22 00:00 91 H 19 96 06/14/22 23:00 94 H 18 95 06/14/22 23:00 154/104 H 06/15/22 00:30 84 18 96 06/15/22 00:00 91 H 06/15/22 00:19 36.7 C 06/14/22 22:00 99 H 20 95 06/14/22 22:00 164/82 H 06/14/22 21:01 161/84 H 06/14/22 21:01 99 H 18 95 06/14/22 21:00 99 H 21 95 06/14/22 20:43 155/100 H 06/14/22 20:43 98 H 39 H 93 06/14/22 23:19 O2 Del Method O2 Flow Rate FiO2 06/15/22 07:57 Nasal Cannula 2 06/15/22 06:00 Nasal Cannula 2 06/15/22 06:00 06/15/22 05:45 06/15/22 05:45 06/15/22 05:01 06/15/22 05:01 06/15/22 05:00 06/15/22 04:01 Nasal Cannula 2 06/15/22 04:01 06/15/22 04:00 06/15/22 03:00 Nasal Cannula 2 06/15/22 03:00 06/15/22 02:00 06/15/22 02:00 06/15/22 01:00 06/15/22 01:00 06/15/22 00:37 Nasal Cannula 3 06/15/22 00:37 06/15/22 00:01 06/15/22 00:00 06/14/22 23:00 06/14/22 23:00 06/15/22 00:30 Nasal Cannula 2 06/15/22 00:00 06/15/22 00:19 06/14/22 22:00 Nasal Cannula 2 06/14/22 22:00 06/14/22 21:01 06/14/22 21:01 06/14/22 21:00 06/14/22 20:43 06/14/22 20:43 06/14/22 23:19 Nasal Cannula 2 Critical Care Results & Data Vital Signs (Past 12 Hours) Vital Signs Temp Pulse Pulse Resp BP Pulse Ox O2 Del Method 06/15/22 16:00 104 H 06/15/22 14:00 104 H 20 110/63 95 Nasal Cannula 06/15/22 13:00 112 H 23 144/91 H 93 Nasal Cannula 06/15/22 12:00 108 H 23 143/82 H 92 Nasal Cannula 06/15/22 10:00 109 H 24 137/85 93 06/15/22 12:30 101 H 18 95 Nasal Cannula 06/15/22 09:00 110 H 25 H 138/88 94 Nasal Cannula 06/15/22 07:57 105 H 26 H 130/76 90 Room Air 06/15/22 07:00 90 19 135/80 95 Room Air 06/15/22 08:00 Nasal Cannula 06/15/22 08:00 36.6 C 06/15/22 08:00 105 H 06/15/22 07:57 104 H 20 96 Nasal Cannula 06/15/22 06:00 92 H 22 94 Nasal Cannula 06/15/22 06:00 137/97 06/15/22 05:45 85 21 96 06/15/22 05:45 135/85 06/15/22 05:01 85 19 97 06/15/22 05:01 129/82 06/15/22 05:00 85 19 96 O2 Flow Rate FiO2 06/15/22 16:00 06/15/22 14:00 2 06/15/22 13:00 2 06/15/22 12:00 2 06/15/22 10:00 06/15/22 12:30 2 06/15/22 09:00 2 06/15/22 07:57 06/15/22 07:00 06/15/22 08:00 2 06/15/22 08:00 06/15/22 08:00 06/15/22 07:57 2 06/15/22 06:00 2 06/15/22 06:00 06/15/22 05:45 06/15/22 05:45 06/15/22 05:01 06/15/22 05:01 06/15/22 05:00 Lab & Micro Results (Past 24 Hours) RBC 3.63 M/uL (4.63-6.08) L 06/15/22 WBC 12.50 K/ul (4.8-10.8) H 06/15/22 Hgb 11.3 g/dl (14.0-18.0) L 06/15/22 Hct 34.1 % (40.1-51.0) L 06/15/22 MCV 93.9 fL (80.0-100.0) 06/15/22 MCH 31.1 pg (25.0-34.0) 06/15/22 MCHC 33.1 g/dL (32.0-36.0) 06/15/22 RDW Standard Deviation 65.1 fL (36.4-46.3) H 06/15/22 RDW Coefficient of Variation 19.9 % (11.5-14.5) H 06/15/22 Plt Count 266 K/uL (130-400) 06/15/22 MPV 8.6 fL (9.4-12.4) L 06/15/22 Nucleated Red Blood Cells % (auto) 2.1 % 06/15 Nucleated RBC Absolute Count (auto) 0.26 K/uL (0-0) H 05/23 01/10 Na 136 mmol/L (136-145) 06/15/22 K 4.3 mmol/L (3.5-5.1) 06/15/22 Cl 100 mmol/L (98-107) 06/15/22 CO2 28 mmol/L (21-32) 06/15/22 Anion Gap 8 (3-11) 06/15/22 BUN 25 mg/dl (6-23) H 06/15/22 Creatinine 0.84 mg/dl (0.6-1.4) 06/15/22 Estimated GFR ( Amer) 117.5 ml/min 06/15/22 Estimated GFR (Non-Af Amer) 101.4 ml/min 06/15/22 BUN/Creatinine Ratio 29.8 (10-20) H 06/15/22 Glu 160 mg/dl (70-99(Fasting)) H 06/15/22 Ca 9.2 mg/dl (8.5-10.1) 06/15/22 Phosphorus Level 3.8 mg/dl (2.5-4.9) 06/15/22 Total Bilirubin 0.4 mg/dl (0.2-1.0) 06/15/22 AST 26 U/L (13-39) 06/15/22 ALT 64 U/L (7-52) H 06/15/22 Alkaline Phosphatase 58 U/L (34-104) 06/15/22 TP 6.7 gm/dl (6.0-8.3) 06/15/22 Albumin 3.4 gm/dl (3.4-5.0) 06/15/22 Globulin 3.3 gm/dl (2.5-4.0) 06/15/22 Albumin/Globulin Ratio 1.0 (0.9-2) 06/15/22 Mg 2.2 mg/dl (1.7-2.4) 06/15/22 04:24 Calcium Level 9.2 mg/dl (8.5-10.1) 06/15/22 04:24 I & O Totals 24 Hours 06/14/22 06/15/22 06/16/22 06:59 06:59 06:59 Intake Total 2316.0 / 2316.0 1720 / 1720 82.5 / 82.5 Output Total 2825 / 2825 2726 / 2726 1900 / 1900 Balance -509.0 / -509.0 -1006 / -1006 -1817.5 / -1817.5 Cumulative 06/12/22 02:32 thru 06/15/22 14:52 Intake Total 6513.5 Output Total 7951 Balance -1437.5 RT Ventilator Mngmt (Last Documented) Ventilator Ordered Settings Respiratory Rate 20 06/15/22 14 :00 Fraction of Inspired Oxygen 2 06/15/22 06:00 Ventilator - PT Measurements Respiratory Rate 20 Resident Activity Tracking Resident Involvement: Resident Care Provided Care Provided: Adult Hospital Medicine
[2022-06-15] MEDS: DIVALPROEX DELAY RELEASE 500 MG TAB PO SCH (08:53)
[2022-06-15] MEDS: dexAMETHasone 4 MG TAB PO SCH (08:53)
[2022-06-15] MEDS: SODIUM CHLORIDE 1 GM TABLET PO SCH (08:54)
[2022-06-15] MEDS ORDERED: FLUoxetine HCL 20 MG CAP PO SCH ×2 (09:00)
[2022-06-15] MEDS ORDERED: INSULIN ASPART PER UNIT SC SCH (11:30)
[2022-06-15 12:22] LABS: Adenovirus PCR Not Detected (NotDetected); Bordetella parapertussis PCR Not Detected (NotDetected); Bordetella pertussis PCR Not Detected (NotDetected); Chlamydia pneumoniae PCR Not Detected (NotDetected); Coronavirus 229E PCR Not Detected (NotDetected); Coronavirus CoV-2 (COVID19)PCR Not Detected (NotDetected); Coronavirus HKU1 PCR Not Detected (NotDetected); Coronavirus NL63 PCR Not Detected (NotDetected); Coronavirus OC43PCR Not Detected (NotDetected); Human Metapneumovirus PCR Not Detected (NotDetected); Influenza A PCR Not Detected (NotDetected); Influenza B PCR Not Detected (NotDetected); Mycoplasma pneumoniae PCR Not Detected (NotDetected); Parainfluenza Virus 1 PCR Not Detected (NotDetected); Parainfluenza Virus 2 PCR Not Detected (NotDetected); Parainfluenza Virus 3 PCR Not Detected (NotDetected); Parainfluenza Virus 4 PCR Not Detected (NotDetected); Respiratory Syncytial VirusPCR Not Detected (NotDetected); Rhinovirus/Enterovirus PCR Not Detected (NotDetected)
[2022-06-15] MEDS ORDERED: CEFEPIME 2,000 MG in SYRINGE 0 ML IV SCH (16:00)
--- NOTE | 2022-06-15 16:13 | Billing Data ---
Date of Service June 15, 2022 Coding Level of Care Code 85189 Subseq Hosp Care Lvl 1
--- NOTE | 2022-06-16 23:09 | Electrocardiogram Report ---
Test Reason : Blood Pressure : / mmHG Vent. Rate : 086 BPM Atrial Rate : 086 BPM P-R Int : 162 ms QRS Dur : 100 ms QT Int : 376 ms P-R-T Axes : 046 028 045 degrees QTc Int : 449 ms Normal sinus rhythm Possible Left atrial enlargement Borderline ECG When compared with ECG of 13-JUN-2022 04:14, No significant change Confirmed by Fernando Dc ([id number]) on 06/16/2022 11:08:52 PM Referred By: REFERRED SELF Confirmed By:Fernando Dc
--- NOTE | 2022-06-21 14:30 | Discharge Summary ---
Date of Service June 15, 2022 Admission HPI Per Admitting Provider Maximiliano is a 51 year old male with a PMH significant for non-small cell lung cancer on Keytruda every 3 weeks with metastases to the brain S/P resection at [facility] on 05/25/22, Antisocial personality disorder, and previous IV drug use who presented to the [facility] ED on 06/12/22 with a chief complaint of SOB and generalized weakness. He also woke up with a headache which is new for him. In the ED the patient was noted to be afebrile, hemodynamically stable, but hypoxic in the 80's on RA; he was started on 2L NC upon arrival to the ED. Labs were remarkable for WBC WNL, stable Hgb of 11.5, Absolute Neuts of 7.98, VBG with a pH of 7.41 , pCO2 of 51, and pO2 of 53, stable renal function and electrolytes. Chest xray showed "Multifocal airspace opacities may represent atelectasis, pneumonia, and/or aspiration. Right upper lobar collapse is again seen.", CTA of the chest was negative for PE but showed " Multifocal airspace opacities are seen, new from prior exam, concerning for pneumonia. Re-de monstration of right upper lung collapse and pleural thickening, which was previously thought to represent posttreatment change.". CT of the soft tissues of the neck was negative for acute findings. CT of the head showed "Expected post craniotomy changes with edema at the resection site resulting in 5 mm rightward midline shift. 3 mm subdural hematoma on the left, likely postprocedural.". [facility] Neurosurgery was contacted and accepted the patient for transfer when they have an available bed. In the meantime they recommend hypertonic saline at 75 mL/hr and close monitoring with serial CT's of the head. Prior to admission the patient was started on Vancomycin and Zosyn, given 10 mg IV dexamethasone, started on hypertonic saline, and given 1g IV tylenol. We were asked to admit the patient to the ICU for close monitoring until he can be transferred. At the time of the exam the patient was resting comfortably in bed in no acute distress with family sitting at bedside. They state that the patient has been experiencing worsening SOB and generalized weakness for the past week. His SOB is both at rest and with exertion but is worse with exertion. He has a non- productive cough and denies recent fevers and chills. He initially had a headache on arrival to the ED but that has resolved. He denies recent changes in vision, hearing, taste, and smell, chest pain, abdominal pain, nausea, vomiting, diarrhea, dysuria, hematuria, melena, bloody stool, and recent falls. He states that the day before his procedure at [facility] he was diagnosed with a left LE DVT. he states that "they placed a filter in my leg before the procedure". He also states that since discharge he has been on BID Lovenox injections for the DVT. His other medications currently consist of a long dexamethasone taper (he is currently on 4mg PO BID), 40 mg PO prozac daily, and BID Depakote. He is unsure of the dose of Depakote he has been on, he states that it has been in liquid form, he did confirm that the depakote is for seizure prophylaxis. At the time of my exam the patient was on 4L NC, I initially turned his oxygen off and he desaturated into the 80's. I placed him back on 2L NC and he remained stable throughout the rest of my exam. Principal Diagnosis multifocal pneumonia Discharge Exam Generally well-appearing middle-aged gentleman Constitutional WD/WN, vitals as above Eyes PERRL, conjunctivae normal, anicteric sclerae Respiratory Auscultation: + rhonchi Cardiovascular RRR, no murmur, no edema Gastrointestinal (Abdomen) normal bowel sounds, soft, nontender, no hepatosplenomegaly Neurologic PERRL, EOMI, accommodation nl, no face palsy, no dysarthria Discharge Data Allergies Allergy/AdvReac Type Severity Reaction Status Date / Time duloxetine AdvReac Intermediate Muscle Verified 04/11/20 19:34 Spasm Consultations 06/12/22 15:06 Consult Internal Medicine Stat 06/12/22 17:59 Consult Drafting Layout Man Routine 06/15/22 16:02 Burn CD for patient Stat Ordered Studies 06/12/22 02:56 CT head/brain wo con Urgent CT neck soft tissues [CT soft tissue neck w con] Urgent 06/12/22 02:57 CT angio chest PE protocol Urgent 06/12/22 14:41 CT Brain [CT head/brain wo con] Stat 06/12/22 15:54 US venous doppler LE BI Stat 06/13/22 07:42 CT head/brain wo con Routine Hospital Course (1) Multifocal pneumonia: Continue O2 as needed for maintain SPO2 92 or higher Continue Zosyn, Vancomycin pending MRSA PCR Patient seen on 06/15/22 and was life flighted to [facility] (2) Subdural hematoma: Repeat CTH for any clinical change Q1H neurologic checks Hold SPINE NURSE Lovenox, consider reversal if bleed increases in size Continue hypertonic infusion at 75cc/hr per Neurosurgery BMP Q4H, target Na high normal to hypernatremia Avoid hypotonic and isotonic solutions Valproate level low, add his home Depakote 500mg BID Patient has been stable, will continue to monitor. Plan Transfer to accepting facility Total Time Total Time Spent Total Time Spent (In Minutes): 31 Discharge Plan Discharge Items Patient Disposition: Transfer Acute Care Hospital Reason For Visit: SOB Discharge Diagnosis: SDH,Cerebral edema with midline shift, Pneumonia, Hypoxia Condition on Discharge: Fair Activity: As commented below Lifting: None Bathing: No limitations Exercise/Sports: Rest today Non-emergency contact: Primary Care Provider, Surgeon and Oncologist Call non-emergency contact if: you have any medication questions and your symptoms worsen Follow-up/Referrals: PCP,NO [Primary Care Provider] - Diet: Regular Addtl Attending Provider Instructions: Transferred to [facility] Pending Studies at Discharge: Yes Studies:: Blood cultures Stand-Alone Forms: [facility] Skilled Items Patient informed of condition?: Yes DNR: No Discharge Level of Care: Other Communicable Disease: No Discharge Prognosis: Stable Lines: Peripheral IV Urinary Catheter: No Medications and DC Order Prescriptions: New fluoxetine 20 mg/5 mL (4 mg/mL) Solution 40 mg PO QAM Qty: 120 0RF Continued divalproex [Depakote] 500 mg Tablet,Delayed Release (Dr/Ec) 500 mg PO BID dexamethasone 4 mg tablet 4 mg PO BID Discontinued enoxaparin [Lovenox] 100 mg/mL Syringe 100 mg SUBCUT Q12H lorazepam [Ativan] 0.5 mg tablet 0.5 mg PO DAILY PRN (Reason: sleep/anxiety) Qty: 7 0RF Discharge Orders: Discharge Order (Routine); Ordered 06/14/22 Ordered By: Nimesh Han/Other Patient Handouts: A1C Admission Data Admit Date/Time: 06/12/22 16:15 Attending Provider: Nimesh Brown Admit Provider: Gege Kuhn Primary Care Provider: PCP,NO Other Providers: Gege Kuhn ; Helio Farias Other Interventions: Discharge Summary Assessment (RN) Last Done: 06/15/22 17:39 Coding Level of Care Code D/C DAY MANAGEMENT >30 MINS Diagnoses Multifocal pneumonia J18.9 Subdural hematoma S06.5XAA
== END 2022-06-15 17:41 | disposition short-term general hospital (02) | DRG 919 ==
LOC: ED 02:32 → SUATTDRO 16:15 → 1E 16:15

== ENCOUNTER 2023-09-12 10:12 | Observation (INO) ==
[2023-09-12] MEDS ORDERED: SODIUM CHLORIDE 0.9% 500 ML IV STA (10:18)
[2023-09-12] MEDS ORDERED: SODIUM CHLORIDE 0.9% 1,000 ML IV ONE (10:25)
[2023-09-12 10:37] LABS: Basophils # (auto) 0.02 K/uL (0.00-0.20); Basophils % (auto) 0.4 %; Hematocrit (blood only) 33.8 % (42.0-52.0); Hemoglobin 10.7 g/dl (14.0-18.0); Immature Granulocytes # (auto) 0.06 K/uL (0.01-0.20); Immature Granulocytes % (auto) 1.2 %; Lymphocytes % (auto) 22.9 %; Mean Corpuscular Hemoglobin 27.6 pg (25.0-34.0); Mean Corpuscular Hgb Conc 31.7 g/dL (32.0-36.0); Mean Corpuscular Volume 87.3 fL (80.0-100.0); Mean Platelet Volume 8.1 fL (9.4-12.4); Monocytes # (auto) 0.83 K/uL (0.11-0.59); Monocytes % (auto) 17.3 %; Neutrophils % (auto) 58.2 %; Platelet Count 654 K/uL (130-400); RDW Coefficient of Variation 17.2 % (11.5-14.5); Red Blood Count 3.87 M/uL (4.70-6.10); White Blood Count 4.81 K/ul (4.8-10.8)
--- NOTE | 2023-09-12 10:42 | Emergency Department Note ---
Impression & Plan Chest pain, Influenza, Depression with suicidal ideation ED Provider Note NAME: AIDE COOMBS AGE: 53 SEX: M : 1970 ARRIVES VIA: Ambulance INFORMANT: Patient, ED PROVIDER(S): Neil Orozco DO CHIEF COMPLAINT: Multiple complaints HPI: The patient is a 53-year-old male who presented to the emergency department with multiple complaints. The patient arrived by ambulance. The patient is a history of lung cancer with mets to the brain. He was seen in our facility recently for central nervous system complaints. At that time he had a normal workup. He states he has been having thoughts of hurting himself but he is also noticed difficulty breathing as well as chest pain. The patient denies having any hemoptysis. He denies having any leg swelling. He does not use tobacco products any further. The patient has no formal follow-up. ROS: See above HPI for pertinent positives & negatives. A total of 10 systems reviewed and were otherwise negative. PAST MEDICAL HISTORY: See Below PAST SURGICAL HISTORY: See Below FAMILY HISTORY: See Below SOCIAL HISTORY: See Below HOME MEDICATIONS: See Below ALLERGIES: See Below VITALS: See Below PHYSICAL EXAMINATION: GENERAL: Patient is awake alert in no acute distress patient is resting comfortably and showing no signs of anxiety EYES: The conjunctivae are clear. The pupils are round and reactive. EARS, NOSE, MOUTH AND THROAT: The nose is without any evidence of any deformity. NECK: The neck is nontender and supple. RESPIRATORY: Normal respiratory effort is noted there is no evidence of wheezing rhonchi or rales CARDIOVASCULAR: Regular rate and rhythm noted there no murmurs rubs or gallops normal S1 normal S2. GASTROINTESTINAL: The abdomen is soft. Abdomen is nontender. MUSCULOSKELETAL/EXTREMITIES: There is no evidence of gross deformity full range of motion is noted in the hips and shoulders. SKIN: There is no obvious evidence of any rash. There are no petechiae, pallor or cyanosis noted. NEUROLOGIC: Patient is awake alert and oriented x3 strength is symmetric patellar reflexes are 2+ bilaterally PSYCH: The patient makes good eye contact mostly evaluation. The patient is admitting to thoughts of hurting himself but no specific plan MEDICAL DECISION MAKING: This is a the patient is a 53-year-old male who presented to the emergency department with multiple complaints. The patient was complaining of chest pain and difficulty breathing. He was also complaining of cough. The patient has a history of lung cancer. He was also identified as having depression with suicidal ideation. The patient was medically cleared in the emergency department. CT of the chest was obtained. Given the patient's past medical history and comorbidities I did feel that a CT of the chest would be warranted to ensure there is no underlying pathology related to his lung cancer or venous thromboembolic disease. He was found have a positive flu swab. He was evaluated by the mental health briefcase sewer in the emergency department. Given his complicated medical history he would not be a good candidate for inpatient psychiatric treatment at an outside facility so the patient's condition [facility] as well as consultation with inpatient psychiatric care. Triage Nursing notes reviewed. Prior medical records reviewed Vital Signs: reviewed and remarkable for tachycardia. Differential diagnosis: Cardiac ischemia, aortic dissection, pulmonary embolism, pneumothorax, pneumonia, pericarditis, myocarditis, esophageal rupture, GERD, cholecystitis, pancreatitis, musculoskeletal, as well as other pathologies. ER treatment provided: See below Diagnostics interpreted by me: ECG: EKG was obtained in the emergency department. My interpretation is sinus tachycardia 106 bpm. There is no ectopy. There is no acute ST segment abnormalities noted. This was compared to a tracing from September 08, 2023. No changes were noted no Cardiac Monitoring: An order was placed for continuous cardiac monitoring. The monitor shows a rate of 106 bpm with sinus tachycardia. Laboratory studies: As stated above and show below. Imaging studies: See below. Radiographic imaging was reviewed by myself Consultation(s): I discussed this case with Dr. Braden who is [facility] Past Med/Surg History Medical History Non-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 Brother No problems noted. Brother No problems noted. Sister No problems noted. Social History Smoking Status: Former smoker Tobacco Type: Cigarettes Age Started Using Tobacco: 33; Age Quit Using Tobacco: 49; packs per day: 0.10; Second Hand Exposure: No; Do You Dip or Chew Tobacco: No (prev chewed age 15-19 [age] years of age); Hx Alcohol Use: No Hx Substance Use: No Preferred Language: Northern Irish Communication Ability: Effective Visual Impairment: No Limitations Hearing Ability: Normal Casting Trucker Required: No Beliefs That Will Affect Care: None marital status: Single Current Living Situation: Other Current Living Situation Comment: community living in [place] current occupational status: unemployed Feels Safe at Home: Yes Childhood Exposure to Second-Hand Smoke: No caffeine: Yes (occ .coffee) during the past year weight has: remained stable Dental Care, Regularly: Yes Physical Activity Frequency: Daily Seatbelt Use: always Sunscreen Use: Yes Assistive Devices: None Allergies Allergies Allergy/AdvReac Type Severity Reaction Status Date / Time NSAIDS (Non-Steroidal AdvReac Severe TENDENCY Verified 09/12/23 11:31 Anti-Inflamma TO BLEED duloxetine AdvReac Intermediate Muscle Verified 09/12/23 11:31 Spasm Home Meds Home Medications Medication Instructions Recorded Confirmed cephalexin 500 mg capsule 500 mg PO QID 09/08/23 09/12/23 fluoxetine 40 mg capsule 40 mg PO DAILY 09/08/23 09/12/23 lamotrigine 200 mg tablet 200 mg PO BID 09/08/23 09/12/23 levetiracetam 1,000 mg tablet 1,000 mg PO BID 09/08/23 09/12/23 levetiracetam 500 mg tablet 500 mg PO BID 09/08/23 09/12/23 Results & Data (ED) Vital Signs Vital Signs - 24 hr 09/12/23 10:20 09/12/23 10:24 09/12/23 10:24 Temperature 36.7 C Temperature Source Oral Pulse Rate 105 H 106 H Pulse Rate [Right Finger] Pulse Rhythm Regular Pulse Rhythm [Right Finger] Pulse Strength Normal Pulse Strength [Right Finger] Respiratory Rate 20 Respiratory Effort / Characteristics Non-Labored Spontaneous Non-Labored Spontaneous Respiratory Depth Normal Normal Respiratory Pattern Regular Blood Pressure 115/82 Blood Pressure [Right Arm] Blood Pressure Mean 93 Blood Pressure Mean [Right Arm] Blood Pressure Position Semi-fowlers Blood Pressure Position [Right Arm] Pulse Oximetry 98 Oxygen Delivery Method Room Air Room Air Sepsis Recent Fever Within 48 Hours No Sepsis New/Unexplained Change in Mental Status N/A Sepsis Action Taken by Nursing No Action Required 09/12/23 10:24 09/12/23 10:24 09/12/23 10:34 Temperature 36.7 C Temperature Source Oral Pulse Rate 106 H Pulse Rate [Right Finger] 106 H Pulse Rhythm Regular Pulse Rhythm [Right Finger] Regular Pulse Strength Pulse Strength [Right Finger] Normal Respiratory Rate 20 20 Respiratory Effort / Characteristics Non-Labored Spontaneous Respiratory Depth Normal Respiratory Pattern Regular Blood Pressure Blood Pressure [Right Arm] 115/82 Blood Pressure Mean Blood Pressure Mean [Right Arm] 93 Blood Pressure Position Blood Pressure Position [Right Arm] Semi-fowlers Pulse Oximetry 98 98 98 Oxygen Delivery Method Room Air Room Air Room Air Sepsis Recent Fever Within 48 Hours Sepsis New/Unexplained Change in Mental Status Sepsis Action Taken by Nursing 09/12/23 12:03 09/12/23 14:03 Temperature 36.7 C 36.7 C Temperature Source Oral Oral Pulse Rate Pulse Rate [Right Finger] 98 H 95 H Pulse Rhythm Pulse Rhythm [Right Finger] Regular Regular Pulse Strength Pulse Strength [Right Finger] Normal Normal Respiratory Rate 20 20 Respiratory Effort / Characteristics Non-Labored Spontaneous Non-Labored Spontaneous Respiratory Depth Normal Normal Respiratory Pattern Regular Regular Blood Pressure Blood Pressure [Right Arm] 120/86 121/81 Blood Pressure Mean Blood Pressure Mean [Right Arm] 97 94 Blood Pressure Position Blood Pressure Position [Right Arm] Semi-fowlers Semi-fowlers Pulse Oximetry 98 98 Oxygen Delivery Method Room Air Room Air Sepsis Recent Fever Within 48 Hours Sepsis New/Unexplained Change in Mental Status Sepsis Action Taken by Retirement Medications Current Medication List: was personally reviewed by me Laboratory Data Attestation: I reviewed the patient's lab results. 09/12/23 10:23 09/12/23 10:23 Lab Results 09/12/23 09/12/23 09/12/23 Range/Units 10:23 10:39 11:12 WBC 4.81 (4.8-10.8) K/ul RBC 3.87 L (4.70-6.10) M/uL Hgb 10.7 L (14.0-18.0) g/dl Hct 33.8 L (42.0-52.0) % MCV 87.3 (80.0-100.0) fL MCH 27.6 (25.0-34.0) pg MCHC 31.7 L (32.0-36.0) g/dL RDW Std Deviation 55.0 H (36.4-46.3) fL RDW Coeff of Geetha 17.2 H (11.5-14.5) % Plt Count 654 H (130-400) K/uL MPV 8.1 L (9.4-12.4) fL Immature Gran % (Auto) 1.2 % Neut % (Auto) 58.2 % Lymph % (Auto) 22.9 % [place] % (Auto) 17.3 % Eos % (Auto) 0.0 % Baso % (Auto) 0.4 % Neut # (Auto) 2.80 (1.40-6.50) K/uL Lymph # (Auto) 1.10 L (1.20-3.40) K/uL [place] # (Auto) 0.83 H (0.11-0.59) K/uL Eos # (Auto) 0.00 (0.00-0.50) K/uL Baso # (Auto) 0.02 (0.00-0.20) K/uL Immature Gran # (Auto) 0.06 (0.01-0.20) K/uL PT 11.9 (9.0-12.0) Seconds INR 1.1 (0.9-1.1) APTT 36 H (21-31) Seconds PTT Ratio 1.3 D-Dimer 1030 H* (0-500) ug/L FEU Sodium 132 L (136-145) mmol/L Potassium 3.5 (3.5-5.1) mmol/L Chloride 97 L (98-107) mmol/L Carbon Dioxide 28 (21-32) mmol/L Anion Gap 7 (3-11) BUN 17 (6-23) mg/dl Creatinine 1.02 (0.6-1.4) mg/dl Est Cr Clr Drug Dosing 101.6 ml/min Est GFR ( Amer) 96.8 ml/min Est GFR (Non-Af Amer) 83.5 ml/min BUN/Creatinine Ratio 16.7 (10-20) Glucose 137 H (70-99(Fasting)) mg/dl Calcium 8.9 (8.6-10.3) mg/dl Total Bilirubin 0.2 (0.2-1.0) mg/dl AST 23 (13-39) U/L ALT 20 (7-52) U/L Alkaline Phosphatase 80 (34-104) U/L Troponin I High Sens 4.7 (0-20) pg/ml Total Protein 7.4 (6.0-8.3) gm/dl Albumin 3.9 (3.4-5.0) gm/dl Globulin 3.5 (2.5-4.0) gm/dl Albumin/Globulin Ratio 1.1 (0.9-2) Lipase 25 (11-82) U/L TSH 0.530 (0.300-4.500) uIu/ml Urine Color Dark Yellow Urine Appearance Cloudy A (Clear) Urine pH 6.0 (4.5-7.5) Ur Specific [place] 1.035 H (1.000-1.030) Urine Protein 2+ H (Negative) Urine Glucose (UA) Negative (Negative) Urine Ketones Trace H (Negative) Urine Blood Negative (Negative) Urine Nitrite Negative (Negative) Urine Bilirubin 1+ H (Negative) Urine Urobilinogen Negative (Negative) Ur Leukocyte Esterase Negative (Negative) Urine WBC (Auto) 1-5 (0-5) /hpf Urine RBC (Auto) 0-4 (0-4) /hpf U Hyaline Cast (Auto) 1-5 (0-5) /lpf U Epithel Cells (Auto) >30 H (0-5) /lpf Urine Bacteria (Auto) Negative (Negative) Ur Renal Epithelial Cell Not Reportable Granular Casts 1-5 H (0) /lpf Urine Mucus Present A (None Prsent) Urine Opiates Screen Neg (Neg) Ur Methadone, Qual Neg (Neg) Urine Barbiturates Neg (Neg) Ur Phencyclidine (PCP) Neg (Neg) U Amphetamin/Meth Scrn Neg (Neg) MDMA (Ecstasy) Screen Neg (Neg) U Benzodiazepines Scrn Pos H (Neg) Ur Cocaine Metabolite Neg (Neg) U Marijuana (THC) Screen Neg (Neg) Ethyl Alcohol mg/dL < 10.0 (<10.0) mg/dl Adenovirus (PCR) Not Detected (NotDetected) B. pertussis DNA (PCR) Not Detected (NotDetected) B.parapertussis DNA PCR Not Detected (NotDetected) C. pneumoniae DNA (PCR) Not Detected (NotDetected) Coronavirus OC43 (PCR) Not Detected (NotDetected) Coronavirus HKU1 (PCR) Not Detected (NotDetected) Coronavirus 229E (PCR) Not Detected (NotDetected) SARS-CoV-2 (PCR) Not Detected (NotDetected) Coronavirus NL63 (PCR) Not Detected (NotDetected) Human Metapneumovir PCR Not Detected (NotDetected) Influenza Type A (PCR) Not Detected (NotDetected) Influenza Type B (PCR) DETECTED A* (NotDetected) M. pneumoniae (PCR) Not Detected (NotDetected) Parainfluenza 1 (PCR) Not Detected (NotDetected) Parainfluenza 2 (PCR) Not Detected (NotDetected) Parainfluenza 3 (PCR) Not Detected (NotDetected) Parainfluenza 4 (PCR) Not Detected (NotDetected) RSV (PCR) Not Detected (NotDetected) Entero/Rhino (PCR) DETECTED A* (NotDetected) Administered Medications Discontinued Medications Sodium Chloride (Nss) 500 mls @ 999 mls/hr IV .Q31M STA Stop: 09/12/23 10:48 Last Admin: 09/12/23 11:26 Dose: 999 mls/hr Documented By: MALCOLM Ioversol (Optiray 320 125ml) 118 ml IV ONCE ONE Stop: 09/12/23 12:15 Last Admin: 09/12/23 12:14 Dose: 118 ml Documented By: BRKrista Imaging Data Attestation: I personally reviewed and interpreted this imaging study as follows: My Impression: 1 view chest x-ray was obtained in the emergency department. My interpretation is infiltrate in the right upper lung, final report below. Radiologist's Impression: Chest X-Ray 09/12/23 10:18 XR chest 1V portable HISTORY: 53 years-old Male Chest pain, nonspecific COMPARISON: 06/14/2022 radiographs, CT chest 06/12/2022 TECHNIQUE: AP view of the chest FINDINGS: Dense consolidation with volume loss of the right upper and middle lobes redemonstrated. Mild interstitial coarsening. No pneumothorax or large pleural effusion. Unchanged right hemidiaphragm elevation. Degenerative changes of the shoulders and spine. IMPRESSION: Stable exam with chronic volume loss and consolidation involving the right upper and middle lobes. ACT 112: Negative or not required by law. The above report was generated using voice recognition software. It may contain grammatical, syntax or spelling errors. Electronically signed by: Shlomo Montes M.D. 09/12/2023 11:20 AM Chest CTA 09/12/23 11:47 CT angio chest PE protocol HISTORY: 53 years-old Male with PE. Acute chest pain with cough TECHNIQUE: Multiple CTA images of the chest were obtained after the intravenous administration of 118 ml Optiray. Coronal and sagittal MIPS were obtained from the axial data set and were submitted for review. All measurements were obtained according to NASCET criteria. A dose lowering technique was utilized adhering to the principles of ALARA. COMPARISON: Chest radiograph of same day, CTA chest 06/12/2022, 08/27/2021 FINDINGS: CTA: Heart is normal in size. There is no pericardial effusion. There is no thoracic aortic aneurysm or dissection. Unremarkable pulmonary artery. No pulmonary emboli identified. CT CHEST: No thyroid nodule identified. Esophageal lymph nodes measure up to 10 mm. There is mild right pleural thickening again noted along with stents consolidation with near complete collapse of the right upper and middle lobes with multifocal narrowing within the right upper lobe and right middle lobe bronchi. Additionally, there is mild focal narrowing within the right lower lobe bronchi. Minimal tree-in-bud nodular foci in the right lower lobe which are likely infectious or inflammatory. There is an 11 mm groundglass nodular density in the inferior segment lingula which is new from prior. Central airways are patent. No acute upper abdominal abnormality. Gynecomastia. No acute fracture. IMPRESSION: 1. No pulmonary emboli identified. 2. Chronic consolidation with volume loss involving the right upper and middle lobes. 3. Nonspecific borderline enlarged periesophageal lymph node. Attention on follow-up recommended. ACT 112: Negative or not required by law. The above report was generated using voice recognition software. It may contain grammatical, syntax or spelling errors. Electronically signed by: Shlomo Montes M.D. 09/12/2023 12:51 PM Discharge Plan Visit Data Chief Complaint: Cardiac Assessment Stated Complaint: CARDIAC SYMPTOMS ED Provider: Neil Orozco Discharge Problem: Chest pain, Influenza, Depression with suicidal ideation Patient Disposition: Being Evaluated by Hospitalist Forms Stand Alone Forms: [facility] Prescriptions Prescriptions: No Action fluoxetine 40 mg capsule 40 mg PO DAILY lamotrigine 200 mg tablet 200 mg PO BID levetiracetam 500 mg tablet 500 mg PO BID Rx Instructions: TOTAL DOSE 1,500 MG--TAKES WITH 1,000 MG TAB. cephalexin 500 mg capsule 500 mg PO QID Rx Instructions: STARTED 09/06/23 FOR 5 DAYS levetiracetam 1,000 mg tablet 1,000 mg PO BID Rx Instructions: TOTAL DOSE 1,500 MG--TAKES WITH 500 MG TAB. Referrals Referrals: PCP,NO [Primary Care Provider] - Discharge Problem: Chest pain Qualifiers: Chest pain type: unspecified Qualified Code(s): R07.9 - Chest pain, unspecified
[2023-09-12 10:52] LABS: Albumin Globulin Ratio 1.1 (0.9-2); Albumin Level 3.9 gm/dl (3.4-5.0); BUN Creatinine Ratio 16.7 (10-20); Bilirubin,Total 0.2 mg/dl (0.2-1.0); Calcium 8.9 mg/dl (8.6-10.3); Creatinine Clr Calc Pharmacy 101.6 ml/min; Est GFR (African American) 96.8 ml/min; Est GFR (Non-African American) 83.5 ml/min; Globulin 3.5 gm/dl (2.5-4.0); Potassium 3.5 mmol/L (3.5-5.1); Total Protein 7.4 gm/dl (6.0-8.3)
[2023-09-12 10:59] LABS: Troponin I High Sensitivity 4.7 pg/ml (0-20)
[2023-09-12 11:08] LABS: Thyroid Stimulating Hormone 0.53 uIu/ml (0.300-4.500)
[2023-09-12 11:10] LABS: INR 1.1 (0.9-1.1); Partial Thromboplastin Ratio 1.3; Partial Thromboplastin Time 36 Seconds (21-31); Prothrombin Time 11.9 Seconds (9.0-12.0)
--- NOTE | 2023-09-12 11:23 | XRay Report ---
XR chest 1V portable HISTORY: 53 years-old Male Chest pain, nonspecific COMPARISON: 06/14/2022 radiographs, CT chest 06/12/2022 TECHNIQUE: AP view of the chest FINDINGS: Dense consolidation with volume loss of the right upper and middle lobes redemonstrated. Mild interst itial coarsening. No pneumothorax or large pleural effusion. Unchanged right hemidiaphragm elevation. Degenerative changes of the shoulders and spine. IMPRESSION: Stable exam with chronic volume loss and consolidation involving the right upper and midd le lobes. ACT 112: Negative or not required by law. The above report was generated using voice recognition software. It may contain grammatical, syntax o r spelling errors. Electronically signed by: Shlomo Montes M.D. 09/12/2023 11:20 AM
[2023-09-12 11:37] LABS: Appearance Urine Cloudy (Clear); Bacteria Urine Automated Negative (Negative); Blood Urine Negative (Negative); Color Urine Dark Yellow; Epithelial Cell Urine Auto >30 /lpf (0-5); Glucose Urine UA Negative (Negative); Ketones Urine Trace (Negative); Leukocyte Esterase Urine Negative (Negative); Nitrite Urine Negative (Negative); Protein Urine 2+ (Negative); RBC Urine Automated 0-4 /hpf (0-4); Specific Gravity Urine 1.035 (1.000-1.030); Urobilinogen Urine Negative (Negative)
[2023-09-12 11:41] LABS: Bilirubin Urine 1+ (Negative)
[2023-09-12 11:44] LABS: D Dimer 1030 ug/L FEU (0-500)
[2023-09-12 11:54] LABS: Amphetamines+Metham, Urine Neg (Neg); Barbiturates, Urine Neg (Neg); Benzodiazepine, Urine Pos (Neg); Cocaine, Urine Neg (Neg); MDMA (Ecstacy), Urine Neg (Neg); Marijuana, Urine Neg (Neg); Methadone, Urine Neg (Neg); Opiate, Urine Neg (Neg); Phencyclidine, Urine Neg (Neg)
[2023-09-12 12:11] LABS: Mucus Urine Present (None Prsent)
[2023-09-12 12:12] LABS: Adenovirus PCR Not Detected (NotDetected); Bordetella parapertussis PCR Not Detected (NotDetected); Bordetella pertussis PCR Not Detected (NotDetected); Chlamydia pneumoniae PCR Not Detected (NotDetected); Coronavirus 229E PCR Not Detected (NotDetected); Coronavirus CoV-2 (COVID19)PCR Not Detected (NotDetected); Coronavirus HKU1 PCR Not Detected (NotDetected); Coronavirus NL63 PCR Not Detected (NotDetected); Coronavirus OC43PCR Not Detected (NotDetected); Human Metapneumovirus PCR Not Detected (NotDetected); Influenza A PCR Not Detected (NotDetected); Mycoplasma pneumoniae PCR Not Detected (NotDetected); Parainfluenza Virus 1 PCR Not Detected (NotDetected); Parainfluenza Virus 2 PCR Not Detected (NotDetected); Parainfluenza Virus 3 PCR Not Detected (NotDetected); Parainfluenza Virus 4 PCR Not Detected (NotDetected); Respiratory Syncytial VirusPCR Not Detected (NotDetected)
[2023-09-12] MEDS ORDERED: OPTIRAY 320 125ml IV ONE (12:14)
[2023-09-12 12:19] LABS: Influenza B PCR DETECTED (NotDetected); Rhinovirus/Enterovirus PCR DETECTED (NotDetected)
--- NOTE | 2023-09-12 12:53 | CT Scan Report ---
CT angio chest PE protocol HISTORY: 53 years-old Male with PE. Acute chest pain with cough TECHNIQUE: Multiple CTA images of the chest were obtained after the intravenous administration of 118 ml Optiray. Coronal and sagittal MIPS were obtained from the axial data set and were submitted for review. All measurements were obtained according to NASCET criteria. A dose lowering technique was u tilized adhering to the principles of ALARA. COMPARISON: Chest radiograph of same day, CTA chest 06/12/2022, 08/27/2021 FINDINGS: CTA: Heart is normal in size. There is no pericardial effusion. There is no thoracic aortic aneurysm or di ssection. Unremarkable pulmonary artery. No pulmonary emboli identified. CT CHEST: No thyroid nodule identified. Esophageal lymph nodes measure up to 10 mm. There is mild right pleural thickening again noted along with stents consolidation with near complete collapse of the right upper and middle lobes with multif ocal narrowing within the right upper lobe and right middle lobe bronchi. Additionally, there is mild focal narrowing within the right lower lobe bronchi. Minimal tree-in-bud nodular foci in the right l ower lobe which are likely infectious or inflammatory. There is an 11 mm groundglass nodular density in the inferior segment lingula which is new from prior. Central airways are patent. No acute upper abdominal abnormality. Gynecomastia. No acute fracture. IMPRESSION: 1. No pulmonary emboli identified. 2. Chronic consolidation with volume loss involving the right upper and middle lobes. 3. Nonspecific borderline enlarged periesophageal lymph node. Attention on follow-up recommended. ACT 112: Negative or not required by law. The above report was generated using voice recognition software. It may contain grammatical, syntax o r spelling errors. Electronically signed by: Shlomo Montes M.D. 09/12/2023 12:51 PM
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
[2023-09-12] MEDS ORDERED: POLYETHYLENE (MIRALAX) 17 GM PACK PO PRN (14:27)
[2023-09-12] MEDS ORDERED: ONDANSETRON INJ 2 MG/ML 2 ML VIAL IV PRN (14:27)
--- NOTE | 2023-09-12 16:39 | Electrocardiogram Report ---
Test Reason : Blood Pressure : / mmHG Vent. Rate : 106 BPM Atrial Rate : 106 BPM P-R Int : 170 ms QRS Dur : 096 ms QT Int : 350 ms P-R-T Axes : 065 059 063 degrees QTc Int : 464 ms Sinus tachycardia Possible Left atrial enlargement Abnormal ECG Confirmed by Jamie Sherwood ([id number]) on 09/12/2023 4:38:49 PM Referred By: Confirmed By:Pierre Sherwood
--- NOTE | 2023-09-12 16:50 | Ultrasound Report ---
BILATERAL LOWER EXTREMITY VENOUS DOPPLER CLINICAL HISTORY: calf pain, hx DVT COMPARISON STUDY: Bilateral lower extremity venous Doppler ultrasound June 12, 2022. TECHNIQUE: Sonography of the deep venous system of the bilateral lower extremities was performed. Co mpression and augmentation were evaluated. FINDINGS: The bilateral common femoral, superficial femoral and popliteal veins were compressible. A ugmentation was normal. Flow was shown within the deep calf vessels. IMPRESSION: No evidence of deep venous thrombus within the bilateral lower extremities. ACT 112: Negative or not required by law. Electronically signed by: Lon King M.D. 09/12/2023 4:49 PM
[2023-09-12] MEDS ORDERED: LORazepam 2 MG in SYRINGE 1 ML IV PRN (17:01)
[2023-09-12] MEDS: ACETAMINOPHEN 325 MG TAB PO PRN (17:36)
[2023-09-12] MEDS: cephALEXin 500 MG CAP PO SCH ×2 (18:29→19:41)
[2023-09-12] MEDS: ENOXAPARIN INJ 40 MG/0.4 ML SYR SQ SCH (18:35)
[2023-09-12] MEDS: levETIRAcetam 500 MG TAB PO SCH (19:41)
[2023-09-12] MEDS: lamoTRIgine 100 MG TAB PO SCH (19:41)
[2023-09-12] MEDS: OSELTAMIVIR PHOSPHATE 75 MG CAP PO SCH (19:41)
[2023-09-13] MEDS ORDERED: oxyCODONE HCL IR 5 MG TAB (IMMEDIATE RELEASE) PO STA (02:02)
[2023-09-13] MEDS: ACETAMINOPHEN 325 MG TAB PO PRN ×2 (03:42→16:46)
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
[2023-09-13] MEDS: FLUoxetine HCL 20 MG CAP PO SCH (07:54)
[2023-09-13] MEDS: OSELTAMIVIR PHOSPHATE 75 MG CAP PO SCH ×2 (07:54→19:41)
[2023-09-13] MEDS: cephALEXin 500 MG CAP PO SCH ×4 (07:54→19:41)
[2023-09-13] MEDS: lamoTRIgine 100 MG TAB PO SCH ×2 (07:54→19:41)
[2023-09-13] MEDS: levETIRAcetam 500 MG TAB PO SCH ×2 (07:54→19:40)
[2023-09-13 08:02] LABS: Calcium 8.4 mg/dl (8.6-10.3); Potassium 3.2 mmol/L (3.5-5.1)
[2023-09-13 08:08] LABS: BUN Creatinine Ratio 15.3 (10-20); Creatinine Clr Calc Pharmacy 125.9 ml/min; Est GFR (African American) 115.3 ml/min; Est GFR (Non-African American) 99.5 ml/min
[2023-09-13 08:25] LABS: Basophils # (auto) 0.01 K/uL (0.00-0.20); Basophils % (auto) 0.3 %; Eosinophils # (auto) 0.01 K/uL (0.00-0.50); Eosinophils % (auto) 0.3 %; Hematocrit (blood only) 31.2 % (42.0-52.0); Hemoglobin 9.9 g/dl (14.0-18.0); Immature Granulocytes # (auto) 0.04 K/uL (0.01-0.20); Immature Granulocytes % (auto) 1.1 %; Lymphocytes # (auto) 0.99 K/uL (1.20-3.40); Lymphocytes % (auto) 27.9 %; Mean Corpuscular Hemoglobin 27.1 pg (25.0-34.0); Mean Corpuscular Hgb Conc 31.7 g/dL (32.0-36.0); Mean Corpuscular Volume 85.5 fL (80.0-100.0); Mean Platelet Volume 8.5 fL (9.4-12.4); Monocytes # (auto) 0.65 K/uL (0.11-0.59); Monocytes % (auto) 18.3 %; Neutrophils # (auto) 1.85 K/uL (1.40-6.50); Neutrophils % (auto) 52.1 %; Platelet Count 704 K/uL (130-400); RDW Coefficient of Variation 16.9 % (11.5-14.5); RDW Standard Deviation 53.1 fL (36.4-46.3); Red Blood Count 3.65 M/uL (4.70-6.10); White Blood Count 3.55 K/ul (4.8-10.8)
[2023-09-13] MEDS ORDERED: POTASSIUM CHLORIDE CRTAB 20 MEQ TABCR PO STA (09:36)
[2023-09-13] MEDS: oxyCODONE HCL IR 5 MG TAB (IMMEDIATE RELEASE) PO PRN ×2 (13:04→19:41)
[2023-09-13] MEDS: guaiFENesin/CODEINE 100MG/10MG 5ML UDC PO PRN (15:19)
[2023-09-13] MEDS: ENOXAPARIN INJ 40 MG/0.4 ML SYR SQ SCH (16:46)
[2023-09-13 21:31] LABS: 7-Aminoclonaz, Confirm NEGATIVE ng/mL (<25); Hydro-Alp Ur, GC/MS NEGATIVE ng/mL (<25); Hydroxyethylflurazepam, Conf NEGATIVE ng/mL (<50); Hydroxymidazolam Ur, GC/MS NEGATIVE ng/mL (<50); Hydroxytriazolam NEGATIVE ng/mL (<50); Lorazepam, Ur GC/MS NEGATIVE ng/mL (<50); Nordiazepam, Confirm NEGATIVE ng/mL (<50); Oxazepam Ur, GC/MS 121 ng/mL (<50); Temazepam, Confirm NEGATIVE ng/mL (<50)
[2023-09-14] MEDS: oxyCODONE HCL IR 5 MG TAB (IMMEDIATE RELEASE) PO PRN ×4 (01:39→23:13)
[2023-09-14] MEDS: guaiFENesin/CODEINE 100MG/10MG 5ML UDC PO PRN ×3 (01:39→23:13)
[2023-09-14] MEDS: ACETAMINOPHEN 325 MG TAB PO PRN ×2 (07:05→21:02)
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
[2023-09-14] MEDS: levETIRAcetam 500 MG TAB PO SCH ×2 (08:36→20:59)
[2023-09-14] MEDS: OSELTAMIVIR PHOSPHATE 75 MG CAP PO SCH ×2 (08:36→20:59)
[2023-09-14] MEDS: FLUoxetine HCL 20 MG CAP PO SCH (08:36)
[2023-09-14] MEDS: lamoTRIgine 100 MG TAB PO SCH ×2 (08:36→20:59)
[2023-09-14] MEDS: cephALEXin 500 MG CAP PO SCH ×2 (08:36→12:40)
--- NOTE | 2023-09-14 12:34 | XRay Report ---
XR chest 1V portable CLINICAL HISTORY: RLL decreased breath sounds TECHNIQUE: Single frontal radiograph of the chest was obtained. Comparison: Comparison is made to chest radiograph 09/12/2023 FINDINGS: No lines and tubes are seen. The cardiomediastinal silhouette is normal. Right upper lung density is again seen. No evidence of pleural effusion or pneumothorax. IMPRESSION: Right upper lung density is again seen in a pattern suggestive of right upper lobe collapse. Right lo wer lobe appears clear. ACT 112: Negative or not required by law. Electronically signed by: Darron Dumont M.D. 09/14/2023 12:33 PM
[2023-09-14] MEDS ORDERED: BENZONATATE 100 MG CAPSULE PO PRN (13:46)
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
[2023-09-14] MEDS: ENOXAPARIN INJ 40 MG/0.4 ML SYR SQ SCH (17:15)
[2023-09-15] MEDS: oxyCODONE HCL IR 5 MG TAB (IMMEDIATE RELEASE) PO PRN (05:27)
[2023-09-15] MEDS: ACETAMINOPHEN 325 MG TAB PO PRN ×2 (05:27→09:25)
--- NOTE | 2023-09-15 07:31 | Discharge Summary ---
Date of Service September 15, 2023 Admission HPI Per Admitting Provider Maximiliano is a 53-year-old male with a past medical history of lung cancer NSC with mets to brain s/p resection at [facility] 05/2022 and on pembrolizumab,admission with subdural hematoma transferred to [facility], antisocial personality, IV drug use, right leg ulcer with past MRSA infection who presents to the emergency department by ambulance with thoughts of self-harm, shortness of breath, chest pain. No hemoptysis. ER evaluation shows no leukocytosis Hemoglobin near baseline 911, 10.7 on admission D-dimer is elevated. CTA with no evidence of PE Mild hyponatremia 132 Contaminated but noninfected appearing urine Urine appropriately benzodiazepine positive. Patient has been prescribed lorazepam by Dr. Mcmahan and Elio Patient is positive for entero-/rhinovirus and influenza B Chronic consolidation with volume loss involving right upper and middle lobes redemonstrated compared to 05/2022 11 mm groundglass nodular density in an inferior lingula new from prior. No hypoxia, tachycardic on admission. No REENA. No new focal neurologic symptoms Patient was discussed with case management while in the ER. He was initially recommended for psychiatric placement for suicidality however due to his underlying lung cancer and current feelings of unwellness with flu B and entero- /rhinovirus while not hypoxic will require medical admission with psychiatric consultation prior to any U placement being available. Maximiliano is seen at the bedside. He reports he has lung cancer, craniotomies x3, a bunch of gamma knife now with cataracts, and has recently felt worse and short of breath. Back to sleeping on one side to help breathe. 'Chest feels like its full of rustling leaves.' He feels he feels worse than when his cancer was not treated, has not been able to keep up with his medicines because they get stolen (prozac 40mg, 18 days of keflex and bactrim 2 rounds) was prescribed by PCP in [place] for a leg infection. Was seen last month in [place] for a sore on his leg which was lanced and treat with with a course of bactrim and keflex (bactrim was completed) 2 day so fkeflex left but these were stolen. (Keppra/lamictal was taken today and don't miss those due to seizures). Reports in addition to this his breathing has worsened with a feeling of "rattle he leaves "inside his chest and the need to sleep on 1 side to breathe which seems much worse than normal in the last 2 days. Denies chest pressure. Denies syncope/presyncope. Reports he has had multiple falls in the past year but none in the last week. Was recently treated for a MRSA infection with 2 weeks of Bactrim and adjunct Keflex which she completed with the exception of approximately 2 days of Keflex remaining. Endorses 1 episode of loose bowels. Otherwise denies infectious symptoms, skin infection. No abdominal pain. He is on Keytruda. Has been on this since Sep 24 in [place]. Lost his home there when his parents passed, mother from glioblastoma. Next dose is due Sep 24. He gets infusions at [facility] Dr. Edson Akers. He missed/skipped his last few treatments, has been at least a few months and was in the hospital for his leg infection in April. Pt reports he stepped off a curb and fell and hit his head at new Years. Chronically progressive shortness of breath. Diarrhea this morning. Did not check his temperature, did not htink he had fevers but cough has been much worse than normal for the last 2 days. Reports he has been intermittently on ativan for anxiety since his mom passing. Recently was using street drugs in Apr while in [facility] and for a few weeks and was shot up in the back of the arm with cocaine, and snorted a little fentanyl. In the last two weeks he has not used an street/recreational drugs. First week of July smoked crystal meth and that was the last street drug he used, did use ativan a few days ago and a pain medicine with tylenol in it a few days ago but some of his meds got stolen by guards at the social security office since they were kept loose in his pocket/out of the bottle. Patient was initially being triaged for discharge while in the ER, expressed to ER provider that he was worn out and exhausted and expressed an intent of self- harm to ER provider. At time of hospitalist assessment pt reports he is 'worn out and exhaused.' He does not want to harm himself, but that he is very tired of his illness and feels like he cannot ambulate currently and the exhaustion plus new wheezing is overwhelming. Reports that he does not have a history of or truly of current active/passive SI, but is overwhelmed with his illness and feels like he cannot cope if he were discharged Medical History: Reviewed Medications: Reviewed Surgical History: Reviewed Family history: Reviewed Allergies: Reviewed Social History: No tobacco, no etoh use. Code Status: Full Code Admission Exam Per Admitting Provider General: A&Ox3. NAD. Cooperative. HEENT: Atraumatic, normocephalic. Visual acuity grossly intact although diminished with cataracts per patient Pulm: Grossly clear without wheezes/rhonchi/rales. Moderate to good air moveme nt Cardiac: RRR, -mrg. Radial pulses intact and symmetrical. Abdominal: Nontender, nondistended, soft. BS present. R lateral thigh right distal upper leg is also with well-healed 3 cm healed incision no warmth/erythema/fluctuance/purulence Principal Diagnosis Influenza Discharge Exam Constitutional: well-appearing, no acute distress HEENT: NCAT, no conjunctival injection CV: regular rhythm, no murmur appreciated, extremities well-perfused, no LE edema Resp: CTABL, no wheezes/rales/rhonchi appreciated, no increased work of breathing GI: soft, nondistended, nontender, BS normoactive MSK: no gross deformities appreciated Skin: R lateral thigh wound covered Neuro: alert, oriented, no focal neurologic deficit appreciated Discharge Data Allergies Allergy/AdvReac Type Severity Reaction Status Date / Time NSAIDS (Non-Steroidal AdvReac Severe TENDENCY Verified 09/12/23 11:31 Anti-Inflamma TO BLEED duloxetine AdvReac Intermediate Muscle Verified 09/12/23 11:31 Spasm Consultations 09/12/23 13:41 ED Decision to Admit Stat 09/14/23 07:41 Consult Psychiatry Routine Ordered Studies 09/12/23 11:47 CT angio chest PE protocol Stat 09/12/23 14:38 US venous doppler LE BI Urgent Chest X-Ray 09/12/23 10:18 XR chest 1V portable HISTORY: 53 years-old Male Chest pain, nonspecific COMPARISON: 06/14/2022 radiographs, CT chest 06/12/2022 TECHNIQUE: AP view of the chest FINDINGS: Dense consolidation with volume loss of the right upper and middle lobes redemonstrated. Mild interstitial coarsening. No pneumothorax or large pleural effusion. Unchanged right hemidiaphragm elevation. Degenerative changes of the shoulders and spine. IMPRESSION: Stable exam with chronic volume loss and consolidation involving the right upper and middle lobes. ACT 112: Negative or not required by law. The above report was generated using voice recognition software. It may contain grammatical, syntax or spelling errors. Electronically signed by: Shlomo Montes M.D. 09/12/2023 11:20 AM Chest CTA 09/12/23 11:47 CT angio chest PE protocol HISTORY: 53 years-old Male with PE. Acute chest pain with cough TECHNIQUE: Multiple CTA images of the chest were obtained after the intravenous administration of 118 ml Optiray. Coronal and sagittal MIPS were obtained from the axial data set and were submitted for review. All measurements were obtained according to NASCET criteria. A dose lowering technique was utilized adhering to the principles of ALARA. COMPARISON: Chest radiograph of same day, CTA chest 06/12/2022, 08/27/2021 FINDINGS: CTA: Heart is normal in size. There is no pericardial effusion. There is no thoracic aortic aneurysm or dissection. Unremarkable pulmonary artery. No pulmonary emboli identified. CT CHEST: No thyroid nodule identified. Esophageal lymph nodes measure up to 10 mm. There is mild right pleural thickening again noted along with stents consolidation with near complete collapse of the right upper and middle lobes with multifocal narrowing within the right upper lobe and right middle lobe bronchi. Additionally, there is mild focal narrowing within the right lower lobe bronchi. Minimal tree-in-bud nodular foci in the right lower lobe which are likely infectious or inflammatory. There is an 11 mm groundglass nodular density in the inferior segment lingula which is new from prior. Central airways are patent. No acute upper abdominal abnormality. Gynecomastia. No acute fracture. IMPRESSION: 1. No pulmonary emboli identified. 2. Chronic consolidation with volume loss involving the right upper and middle lobes. 3. Nonspecific borderline enlarged periesophageal lymph node. Attention on follow-up recommended. ACT 112: Negative or not required by law. The above report was generated using voice recognition software. It may contain grammatical, syntax or spelling errors. Electronically signed by: Shlomo Montes M.D. 09/12/2023 12:51 PM Venous Doppler Study 09/12/23 14:38 BILATERAL LOWER EXTREMITY VENOUS DOPPLER CLINICAL HISTORY: calf pain, hx DVT COMPARISON STUDY: Bilateral lower extremity venous Doppler ultrasound June 12, 2022. TECHNIQUE: Sonography of the deep venous system of the bilateral lower extremities was performed. Compression and augmentation were evaluated. FINDINGS: The bilateral common femoral, superficial femoral and popliteal veins were compressible. Augmentation was normal. Flow was shown within the deep calf vessels. IMPRESSION: No evidence of deep venous thrombus within the bilateral lower extremities. ACT 112: Negative or not required by law. Electronically signed by: Lon King M.D. 09/12/2023 4:49 PM Chest X-Ray 09/14/23 12:10 XR chest 1V portable CLINICAL HISTORY: RLL decreased breath sounds TECHNIQUE: Single frontal radiograph of the chest was obtained. Comparison: Comparison is made to chest radiograph 09/12/2023 FINDINGS: No lines and tubes are seen. The cardiomediastinal silhouette is normal. Right upper lung density is again seen. No evidence of pleural effusion or pneumothorax. IMPRESSION: Right upper lung density is again seen in a pattern suggestive of right upper lobe collapse. Right lower lobe appears clear. ACT 112: Negative or not required by law. Electronically signed by: Darron Dumont M.D. 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 No surrounding erythema/tenderness, no pu rulent drainage with significant amounts of slough. Wound care consulted, dressing changed Keflex continued to complete original course of treatment. No leukocytosis. CRP slightly elevated, MRSA swab negative. MRSA precautions. Should continue to follow with wound care outpatient. Dyspnea - Present dyspnea in the last week, patient is both influenza B and entero-/ rhino positive with poor pulmonary baseline and a history of metastatic lung cancer - Previously on Keytruda, is due for a treatment in September at [facility] however he has missed the last several treatments since at least April due to illness - Titrate oxygen to greater than 90% - Unclear onset of symptoms with poor baseline but patient does endorse that his breathing is worsened in the last 2 days and now sleeping on 1 side, and is flu positive. Given sudden worsening of symptoms over 48 hours we will start Tamiflu 5-day course - CTA . No pulmonary emboli identified. 2. Chronic consolidation with volume loss involving the right upper and middle lobes. 3. Nonspecific borderline enlarged periesophageal lymph node. Attention on follow-up recommended. - will add on Tessalon pearls prn -Chest x-ray on 09/14 showed no change but continues to show right upper lobe collapse. -Patient's dyspnea has improved by time of discharge. Currently on room air and satting above 92%. Anemia - Has been slightly low over time. - Currently 9.9 hgb, no s/s of bleeding. Declined labs prior to discharge. Non-small cell lung cancer metastatic to brain - No new/acute neuro deficits CTA as noted Patient follows with [facility] for oncology care and is pending Keytruda treatment in the beginning of September, will need to keep his oncology follow-up and treatment appointments at that institution. - No acute change in management at this time Left leg DVT (history) - History of DVT, no longer on anticoagulation - D-dimer is elevated, CTA is negative - Bilateral duplex ultrasound negative Depression with suicidal ideation History of depression, expressed SI, antisocial personality disorder, polysubstance abuse Patient reported SI to ER time of initial assessment and was being set up for discharge, subsequently recommended for admission with U however was not able to be medically cleared due to comorbidities and acute flu/rhinovirus On hospitalist assessment patient reports that he does not have active SI/HI, but felt overwhelmed by his illness and while he does not want to harm himself however feels too weak and unable to return home safely. He also notes that his fluoxetine was stolen and has not been able to take his SSRI Fluoxetine continued Psych consulted liaison notified. Patient reports he has taken Ativan in the past, reports this was taken at the Social Security office as he was keeping this loose in his pocket and not in the pill bottles along with some of his Tylenol/pain medicine. PDMP confirms prescription, patient is benzo positive on admission opiate negative. Recently was using street drugs in Apr while in [facility] and for a few weeks and was shot up in the back of the arm with cocaine, and snorted a little fentanyl. In the last two weeks he has not used an street/recreational drugs. Pt reports First week of July smoked crystal meth and that was the last street drug he used -Continues to deny SI or HI. -Did discuss with patient that psychiatry patient also had a expression of SI after finding out that he would be discharged. Psychiatry saw patient and states that patient does not require psychiatric hospitalization and patient can be safely discharged. Psychiatry also said that patient does indeed have a hi story of making suicidal comments when stressed or in order to obtain external reward. Influenza Tamiflu twice daily for 5 days History of seizure - Patient reports that he has been compliant with his lamotrigine and Keppra dosing - Ativan on-call for seizure activity, no seizures in the last year per patient. - Continue Keppra 15 mg p.o. twice daily, lamotrigine 200 mg twice daily - PT ordered and no services needed. Total Time Total Time Spent Total Time Spent (In Minutes): Please refer to attendings attestation Discharge Plan Discharge Items Patient Disposition: Home - Self-Care Reason For Visit: FLU, WEAKNESS, LUNG CA Discharge Diagnosis: Flu Activity: Resume your previous activity Non-emergency contact: Primary Care Provider Call non-emergency contact if: you have any medication questions, your pain is unusual for you and your temperature is above 101.5 Follow-up/Referrals: PCP,NO [Primary Care Provider] - (PATIENT IS FROM [facility] -CASE MANAGEMENT IS WORKING WITH THE PATIENT.) Diet: Regular Addtl Attending Provider Instructions: You were admitted to the hospital for influenza. You were treated with supportive care. A discharge summary will be sent to your primary care physician to ensure continuity of care. Please bring this discharge summary with you to your next office appointment so that your provider can review it at that time. Follow-up appointments: * Make a follow-up appointment with your PCP within the next week. It is very important that you follow up with them shortly after discharge from the hospital. * Keep all your follow-up appointments as already scheduled. If you cannot make an appointment, notify your provider. Medications: Your medication list has been reviewed and reconciled upon discharge to ensure accuracy and continuity of care. An updated list of all your medications is included with your hospital discharge paperwork. Please review this list closely, and make note of any changes. * We sent a medication called Tamiflu into your pharmacy. Take Tamiflu 75mg twice a day for 3 days. * Stop your cephalexin. * If you have any issues filling these prescriptions, please call [phone] and ask to leave a message for Dr. Jimenez. * Take your medications as instructed; do not skip a dose of your medicines. Make sure all of your doctors know every medicine you are taking (including ynli-whb-vynanei medicines, vitamins, and supplements). Call your primary care provider before taking any new medicines (including over- the-counter medicines, vitamins, and supplements), because some of these may interact with your current medications, or may make your symptoms worse. Tell your primary care provider if you cannot afford your medications. CONTACT YOUR PRIMARY CARE PROVIDER if you experience any of the following: * Worsening of symptoms * Fever, chills, or fatigue * Difficulty following your treatment plan, or difficulty taking medications CALL 911 OR GO TO THE EMERGENCY DEPARTMENT if you experience any of the following: * Sudden, severe abdominal pain or nausea/vomiting * Severe chest pain, or chest pain that radiates (moves) to your jaw or arm * Sudden, severe shortness of breath or difficulty breathing Thank you for allowing us to participate in your care. Pending Studies at Discharge: No Stand-Alone Forms: My [facility], Smoking Cessation Medications and DC Order Prescriptions: New oseltamivir [Tamiflu] 75 mg Capsule 75 mg PO BID 3 Days Qty: 6 0RF Continued fluoxetine 40 mg capsule 40 mg PO DAILY 30 Days Qty: 30 0RF lamotrigine 200 mg tablet 200 mg PO BID 30 Days Qty: 60 0RF levetiracetam 500 mg tablet 500 mg PO BID 30 Days Qty: 60 0RF Rx Instructions: TOTAL DOSE 1,500 MG--TAKES WITH 1,000 MG TAB. levetiracetam 1,000 mg tablet 1,000 mg PO BID 30 Days Qty: 60 0RF Rx Instructions: TOTAL DOSE 1,500 MG--TAKES WITH 500 MG TAB. Discontinued cephalexin 500 mg capsule 500 mg PO QID Rx Instructions: STARTED 09/06/23 FOR 5 DAYS Discharge Orders: Discharge Order (Routine); Ordered 09/15/23 Ordered By: Aaron Han/Other Patient Handouts: The Flu (Influenza) Admission Data Admit Date/Time: 09/14/23 15:17 Attending Provider: Jamie John Admit Provider: Jian Gonzalez Primary Care Provider: PCP,NO Other Providers: Jian Gonzalez; Ashley Jorge; Zabrina Stephens; Kevin Vizcarra; Lev Prasad Other Interventions: Discharge Summary Assessment (RN) Last Done: 09/15/23 13:50 Supervising Physician Co-Signing Physician Notes Attending attestation Pt seen and examined in concert with Dr. Jimenez. In agreement with the documented findings as noted in the resident documentation with any exceptions or additions as noted here. Minimal discomfort with coughing and baseline SOB in the setting of lung cancer. Patient reports ongoing 'severe depression' surrounding his previous craniotomies and cancer status, where previously endorsed no SI, now reports SI w/ plan prompting psychiatric evaluation who feel that he is not a danger to self or others. On examination, S1/S2 nl RRR no MCG. Coarse BS of the RLL. Abd NT/ND BS+ve. Right thigh wound bandage C/D/I with healthy surrounding skin MDD - psychiatric consult - no need for inpatient admission, recommend outpatient follow up Dyspnea in the setting of polyviral infection - continue tamiflu to complete course. Symptomatic management in outpatient. NSCLC with metastatic disease of brain - h/o Keytruda use with no recent administrations. Follow up with palliative services as planned per patient in [place] Chronic right thigh ulcer - complete current course of abx as noted. CM aware for housing difficulties, providing available resources. Else see resident documentation as noted. Total attending physician time spent with this patient's care on the day of discharge: 35 minutes. Resident Activity Tracking Resident Involvement: Resident Care Provided Care Provided: Adult Hospital Medicine
[2023-09-15] MEDS: FLUoxetine HCL 20 MG CAP PO SCH (08:44)
[2023-09-15] MEDS: OSELTAMIVIR PHOSPHATE 75 MG CAP PO SCH (08:44)
[2023-09-15] MEDS: guaiFENesin/CODEINE 100MG/10MG 5ML UDC PO PRN (08:44)
[2023-09-15] MEDS: levETIRAcetam 500 MG TAB PO SCH (08:44)
[2023-09-15] MEDS: lamoTRIgine 100 MG TAB PO SCH (09:25)
--- NOTE | 2023-09-15 12:57 | Psychiatric Progress Note ---
Date of Service September 15, 2023 Impression / Recommendations Impression 53 y/o with history of antisocial personality disorder, alcohol use disorder, cocaine use disorder, opioid use disorder, and left frontal lobe resection due to metastatic lung cancer who reported suicidal thoughts after opioid pain medication was not forthcoming the ED and in the context of homelessness after coming to this area from [place] where most of his resources are (and where his PO is). He has reported variable suicidality contingent upon getting rest, the medication he wants, and a place to stay. He may legitimately have difficulty managing self-care in light of his multiple craniotomies, but by history has been very ready to depend on the efforts of others. His primary psychiatric complaint is anxiety. 09/15/2023: Earlier today pt learned that he could get a hospice bed in [place] but would have to get himself there by bus. He reportedly made reference to getting a rope and hanging himself. When I came to see pt, he was on the phone with a social worker psychiatric agency about a local place to stay and transportation, taking copious notes and discussing a plan of getting from the hospital to the agency, picking up vouchers for 2 nights in a local hotel, then getting a bus to [place] once a hospice bed is available. Once off the phone, pt is not very interested in talking with me because he's "got a lot to do and not a lot of time to do it". He says the h ospice bed from this morning "fell through" but that "it's just a matter of time" and that he'll "just have to wait until one opens up", which he expects will likely be within "a couple of days". He denies suicidal thoughts. When asked specifically about the comment about getting a rope and hanging himself, pt says "I say dumb stuff like that when I'm stressed". Pt does indeed have a history of making suicidal comments when stressed or in order to obtain external reward. Currently, he is making specific plans for the short-term (getting a place to stay, arranging bus transport) and long-term (getting a hospice bed) future that are very appropriate given his medical status. 09/14/2023: Risks and benefits of, and alternatives to, the use of quetiapine (Seroquel) for anxiety (off-label) were reviewed. This discussion included but was not limited to issues known potentially to be associated with use of such medication, especially at high doses or with longer use, including sedation, weight gain, problems with glucose metabolism including Type II diabetes, problems with lipid metabolism, cardiac conduction problems, or rarely involuntary movements, parkinsonian symptoms, or even acute dystonia or life- threatening Neuroleptic Malignant Syndrome. Discussed the need for periodic monitoring of fasting glucose or Hemoglobin A1c and fasting lipid panel, which t he patient declined, for baseline monitoring. The patient agreed to start a trial of aripiprazole. (1) Antisocial personality disorder: (2) Alcohol use disorder: (3) Cocaine use disorder: (4) Opioid use disorder: Plan * pt does not require psychiatric hospitalization * pt does not require suicide precautions * pt can safely be discharged Inventory Assets Strengths: voluntary Needs: additional coping skills Suicide Risk Level Suicide Risk Level: Low (q15 min observation checks) (denies any current suicidal thoughts) Risk Factors Assessment Male: Yes : Yes Do You Have Access To A Gun?: No Health Problems: Yes Mental Health Diagnoses: Yes Substance Use Disorders: Yes Previous Attempt: Yes Previous Psychiatric Hospitalization: Yes Hopelessness: No Protective Factors Assessment : No Responsible for Young Children: No Employed: No Stable Relationships: No Supportive Family: No Interval History Identifying Information LANI COOMBS is a 53-year-old M with a history of antisocial personality disorder, alcohol use disorder, cocaine use disorder, opioid use disorder, and left frontal lobe resection due to metastatic lung cancer admitted on 09/12/2023 for ulcer of right thigh. Consult is by the hospitalist service for "SI". Chief Complaint "I've got a lot of stuff to do, so I need to get out of here". Subjective Subjective The patient was seen and assessed and interval progress reviewed in a multidisciplinary team meeting with psychiatric liaison nursing and social work. For details, see the "Impression" section. Overall I spent a total of 47 minutes for this consultation follow-up including review of chart records, donning and doffing PPE for droplet precautions, direct evaluation of the patient [id number], counseling the patient, risk assessment, discussion with the psychiatric liaison nurse and with the medical floor nurse, and documentation in the electronic health record. Physical Exam Psychiatric Orientation: alert, oriented to person, oriented to place, oriented to time and cooperative (superficially and contingently) Apperance: appropriately dressed and + disheveled Eye Contact: + poor eye contact Motor Behavior: no abnormal motor movements Speech: normal rate/rhythm/volume of speech Affect: + constricted affect Mood: + anxious mood and + dysphoric mood Thought Process: + concrete thought process Thought Content: reality based without delusions Suicidal Thoughts: denies suicidal thoughts, denies suicidal plan and denies suicidal intent Homicidal Thoughts: denies homicidal thoughts Hallucinations: no auditory hallucinations and no visual hallucinations Cognition: recent memory grossly intact, remote memory grossly intact and language grossly intact; + attention not intact (poor) Estimated Intelligence: consistent with education level Insight: + poor insight Judgment: + impaired judgement Vital Signs (Past 24 Hours) Last Vital Signs Temp 36.4 C L 09/15/23 08:15 Pulse 75 09/15/23 08:15 Resp 18 09/15/23 08:15 BP 109/68 09/15/23 08:15 Pulse Ox 93 09/15/23 08:15 O2 Del Method Room Air 09/15/23 09:25 Results & Data ([facility]) Current Inpatient Medications Current Inpatient Medications: Current Inpatient Medications Acetaminophen (Acetaminophen 325 Mg Tab) 650 mg PO Q4H PRN PRN Reason: pain/fever Stop: 10/12/23 14:26 Last Admin: 09/15/23 09:25 Dose: 650 mg Benzonatate (Benzonatate 100 Mg Capsule) 100 mg PO TID PRN PRN Reason: Cough Stop: 10/14/23 13:45 Last Admin: 09/14/23 21:30 Dose: 100 mg Enoxaparin Sodium (Enoxaparin Inj 40 Mg/0.4 Ml Syr) 40 mg SQ Q24H RICARDO Stop: 10/12/23 17:59 Last Admin: 09/14/23 17:15 Dose: Not Given Fluoxetine HCl (Fluoxetine Hcl 20 Mg Cap) 40 mg PO DAILY RICARDO Stop: 10/13/23 08:59 Last Admin: 09/15/23 08:44 Dose: 40 mg Guaifenesin/Codeine Phosphate (Guaifenesin/Codeine 100mg/10mg 5ml Udc) 5 ml PO Q6H PRN PRN Reason: Cough Stop: 10/13/23 12:52 Last Admin: 09/15/23 08:44 Dose: 5 ml Lorazepam 2 mg/ Syringe 2 mls @ 2 mls/min IV Q5M PRN PRN Reason: seizure Stop: 10/12/23 17:00 Lamotrigine (Lamotrigine 100 Mg Tab) 200 mg PO BID [facility]; Protocol Stop: 10/12/23 20:59 Last Admin: 09/15/23 09:25 Dose: 200 mg Levetiracetam (Levetiracetam 500 Mg Tab) 1,500 mg PO BID RICARDO Stop: 10/12/23 20:59 Last Admin: 09/15/23 08:44 Dose: 1,500 mg Ondansetron HCl (Ondansetron Inj 2 Mg/Ml 2 Ml Vial) 4 mg IV Q6H PRN PRN Reason: Nausea Stop: 10/12/23 14:26 Oseltamivir Phosphate (Oseltamivir Phosphate 75 Mg Cap) 75 mg PO BID [facility]; Protocol Stop: 09/17/23 20:59 Last Admin: 09/15/23 08:44 Dose: 75 mg Oxycodone HCl (Oxycodone Hcl Ir 5 Mg Tab (Immediate Release)) 5 mg PO Q6H PRN PRN Reason: Pain Stop: 09/27/23 12:54 Last Admin: 09/15/23 05:27 Dose: 5 mg Polyethylene Glycol (Polyethylene (Miralax) 17 Gm Pack) 17 gm PO DAILY PRN PRN Reason: Constipation Stop: 10/12/23 14:26
[2023-09-15] MEDS ORDERED: lamoTRIgine 100 MG TAB PO SCH (13:30)
[2023-09-15] MEDS ORDERED: OSELTAMIVIR PHOSPHATE 75 MG CAP PO SCH (13:30)
[2023-09-15] MEDS ORDERED: levETIRAcetam 500 MG TAB PO SCH (13:30)
[2023-09-15] MEDS ORDERED: FLUoxetine HCL 20 MG CAP PO SCH (13:45)
== END 2023-09-15 14:29 | disposition home or self-care (01) | DRG 194 ==
LOC: 3W 10:12 → ED 10:12 → SUATTDRO 14:27 → 3W 15:52

== ENCOUNTER 2023-11-05 15:08 | Observation (INO) ==
[2023-11-05 16:00] LABS: Alanine Aminotransferase 87 U/L (7-52); Albumin Globulin Ratio 0.9 (0.9-2); Albumin Level 3.4 gm/dl (3.4-5.0); Alkaline Phosphatase 94 U/L (34-104); Anion Gap 7 (3-11); Aspartate Aminotransferase 26 U/L (13-39); BUN Creatinine Ratio 32.3 (10-20); Bilirubin,Total 0.2 mg/dl (0.2-1.0); Blood Urea Nitrogen 20 mg/dl (6-23); Calcium 8.9 mg/dl (8.6-10.3); Carbon Dioxide 28 mmol/L (21-32); Chloride 99 mmol/L (98-107); Est GFR (African American) 131.3 ml/min; Est GFR (Non-African American) 113.3 ml/min; Globulin 3.8 gm/dl (2.5-4.0); Glucose 105 mg/dl (70-99(Fasting)); Potassium 4.4 mmol/L (3.5-5.1); Sodium 134 mmol/L (136-145); Total Protein 7.2 gm/dl (6.0-8.3)
[2023-11-05 16:02] LABS: Hematocrit (blood only) 33.6 % (42.0-52.0); Hemoglobin 10.8 g/dl (14.0-18.0); Mean Corpuscular Hemoglobin 26.2 pg (25.0-34.0); Mean Corpuscular Hgb Conc 32.1 g/dL (32.0-36.0); Mean Corpuscular Volume 81.6 fL (80.0-100.0); Mean Platelet Volume 8.7 fL (9.4-12.4); Platelet Count 469 K/uL (130-400); RDW Coefficient of Variation 16.1 % (11.5-14.5); RDW Standard Deviation 48.4 fL (36.4-46.3); Red Blood Count 4.12 M/uL (4.70-6.10); White Blood Count 27.61 K/ul (4.8-10.8)
[2023-11-05 16:09] LABS: INR 0.9 (0.9-1.1); Partial Thromboplastin Time 27 Seconds (21-31); Prothrombin Time 10.3 Seconds (9.0-12.0)
[2023-11-05] MEDS ORDERED: VANCOMYCIN CONSULT ACTIVE PRN (16:27)
[2023-11-05 16:31] LABS: Basophils # (auto) 0.01 K/uL (0.00-0.20); Eosinophils # (auto) 0.01 K/uL (0.00-0.50); Immature Granulocytes # (auto) 2.28 K/uL (0.01-0.20); Immature Granulocytes % (auto) 8.3 %; Lymphocytes # (auto) 1.39 K/uL (1.20-3.40); Monocytes # (auto) 1.27 K/uL (0.11-0.59); Monocytes % (auto) 4.6 %; Neutrophils # (auto) 22.65 K/uL (1.40-6.50); Neutrophils % (auto) 82.1 %
[2023-11-05] MEDS: OPTIRAY 320 100ml IV ONE (16:39)
--- NOTE | 2023-11-05 16:51 | Emergency Department Note ---
Impression & Plan Cellulitis, Phlegmon, Failure of outpatient treatment ED Provider Note NAME: AIDE COOMBS AGE: 53 SEX: M : 1970 ARRIVES VIA: Walk-In INFORMANT: Patient, ED PROVIDER(S): Chucky Ferrara MD CHIEF COMPLAINT: Cellulitis HPI: This is a 53-year-old male presenting for right buttock cellulitis. Patient was seen about 2 days ago and given prescription for Keflex and Bactrim for his right foot cellulitis. Patient is at 3 previous infection/abscesses from MRSA. This is his now fourth. He says he is taking antibiotics for the past 2 days and his symptoms are getting worse. Last night he said he had soaking sweats throughout the night. He states he feels systemically unwell the pain is getting worse and the area of redness is getting larger. He states he has no shortness of breath, fever, chills or nausea/vomiting. He notes no chest pain. He does not think he had a fever at home. ROS: See above HPI for pertinent positives & negatives. A total of 10 systems reviewed and were otherwise negative. PAST MEDICAL HISTORY: See Below PAST SURGICAL HISTORY: See Below FAMILY HISTORY: See Below SOCIAL HISTORY: See Below HOME MEDICATIONS: See Below ALLERGIES: See Below VITALS: See Below PHYSICAL EXAMINATION: General: resting comfortably in no acute distress Head: Normocephalic and atraumatic Eyes: Normal inspection, extraocular muscles intact Ear, nose, throat: Normal external exam Neck: Normal range of motion Respiratory: lungs clear to auscultation bilaterally Cardiovascular: Regular rate/rhythm, no murmur GI: soft, nontender, no guarding or rebound Extremities: nontender, moves all extremities Neuro: The patient awake and alert, appropriately conversive, no focal deficits, symmetric faces Skin: 5.5 cm area of significant erythema to the right buttocks without fluctuance MEDICAL DECISION MAKING: This is a 53-year-old male presenting for right buttock cellulitis. Patient has had 2 days of antibiotics. He had blood work sent at triage which shows a white count of 27. His breath sounds are otherwise reassuring, currently not consistent with sepsis. Otherwise the significant white count, worsening infection and previous history, will do CT pelvis to look for acute deep space infection -Several leukocytosis, slight anemia is also noted. No stiff electrolyte disturbances are noted. Slight ALT elevation is noted. -Patient CT imaging does reveal a likely phlegmon/cellulitis. Note drainable abscess. With patient's previous history of recurrent MRSA infection/abscesses, will admit for further IV antibiotics as he has failed outpatient therapy at this time. Differential diagnosis: Ariana's gangrene, present fasciitis, abscess, hematoma, cellulitis ER treatment provided: See below Diagnostics interpreted by me: ECG: None Cardiac Monitoring: An order was placed for continuous cardiac monitoring. The monitor shows a rate of 91 with sinus rhythm rhythm. Laboratory studies: As stated above and show below. Imaging studies: See below. Past Med/Surg History Medical History (Updated 11/06/23 @ 00:18 by Chucky Ferrara MD) Chronic cough Stage 4 lung cancer Opioid use disorder Cocaine use disorder Alcohol use disorder Non-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 Brother No problems noted. Brother No problems noted. Sister No problems noted. 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 Beliefs That Will Affect Care: None marital status: Single Current Living Situation: Alone Current Living Situation Comment: community living in [place] current occupational status: unemployed Feels Safe at Home: Yes Safety Concerns: Feels Safe At This Time Childhood Exposure to Second-Hand Smoke: No caffeine: Yes (occ .coffee) during the past year weight has: remained stable Dental Care, Regularly: Yes Physical Activity Frequency: Daily Seatbelt Use: always Sunscreen Use: Yes Assistive Devices: None Allergies Allergies Allergy/AdvReac Type Severity Reaction Status Date / Time NSAIDS (Non-Steroidal AdvReac Severe TENDENCY Verified 11/05/23 17:02 Anti-Inflamma TO BLEED duloxetine AdvReac Intermediate Muscle Verified 11/05/23 17:02 Spasm Home Meds Home Medications Medication Instructions Recorded Confirmed dexamethasone 4 mg tablet 4 mg PO DAILY 11/05/23 11/05/23 Previous Rx's Medication Instructions Recorded lamotrigine 200 mg tablet 200 mg PO BID 30 days #60 tabs 09/15/23 levetiracetam 1,000 mg tablet 1,000 mg PO BID 30 days #60 tabs 09/15/23 levetiracetam 500 mg tablet 500 mg PO BID 30 days #60 tabs 09/15/23 benzonatate 100 mg capsule 100 mg PO BID PRN cough #90 caps 11/03/23 budesonide-formoterol HFA 80 2 puff inhalation BID #10.2 grams 11/03/23 mcg-4.5 mcg/actuation aerosol inhaler (Symbicort) cephalexin 500 mg capsule 500 mg PO QID 7 days #28 caps 11/03/23 sulfamethoxazole 800 1 tab PO BID 7 days #14 tabs 11/03/23 mg-trimethoprim 160 mg tablet (Bactrim DS) Results & Data (ED) Vital Signs Vital Signs - 24 hr 11/05/23 15:20 11/05/23 17:00 Temperature 36.6 C 36.6 C Temperature Source Temporal Artery Scan Oral Pulse Rate 81 Pulse Rate [Finger] 78 Respiratory Rate 18 20 Respiratory Effort / Characteristics Non-Labored Spontaneous Non-Labored Spontaneous Respiratory Depth Normal Normal Respiratory Pattern Regular Regular Blood Pressure 162/92 H Blood Pressure [Right Arm] 149/100 H Blood Pressure Mean 115 Blood Pressure Mean [Right Arm] 116 Blood Pressure Position Sitting Blood Pressure Position [Right Arm] Semi-fowlers Pulse Oximetry 96 96 Oxygen Delivery Method Room Air Room Air Sepsis Recent Fever Within 48 Hours No Sepsis New/Unexplained Change in Mental Status N/A Sepsis Action Taken by Nursing No Action Required Laboratory Data 11/05/23 15:30 11/05/23 15:30 Lab Results 11/05/23 Range/Units 15:30 WBC 27.61 H (4.8-10.8) K/ul RBC 4.12 L (4.70-6.10) M/uL Hgb 10.8 L (14.0-18.0) g/dl Hct 33.6 L (42.0-52.0) % MCV 81.6 (80.0-100.0) fL MCH 26.2 (25.0-34.0) pg MCHC 32.1 (32.0-36.0) g/dL RDW Std Deviation 48.4 H (36.4-46.3) fL RDW Coeff of Geetha 16.1 H (11.5-14.5) % Plt Count 469 H (130-400) K/uL MPV 8.7 L (9.4-12.4) fL Immature Gran % (Auto) 8.3 % Neut % (Auto) 82.1 % Lymph % (Auto) 5.0 % [place] % (Auto) 4.6 % Eos % (Auto) 0.0 % Baso % (Auto) 0.0 % Neut # (Auto) 22.65 H (1.40-6.50) K/uL Lymph # (Auto) 1.39 (1.20-3.40) K/uL [place] # (Auto) 1.27 H (0.11-0.59) K/uL Eos # (Auto) 0.01 (0.00-0.50) K/uL Baso # (Auto) 0.01 (0.00-0.20) K/uL Immature Gran # (Auto) 2.28 H (0.01-0.20) K/uL PT 10.3 (9.0-12.0) Seconds INR 0.9 (0.9-1.1) APTT 27 (21-31) Seconds PTT Ratio 1.0 Sodium 134 L (136-145) mmol/L Potassium 4.4 (3.5-5.1) mmol/L Chloride 99 (98-107) mmol/L Carbon Dioxide 28 (21-32) mmol/L Anion Gap 7 (3-11) BUN 20 (6-23) mg/dl Creatinine 0.62 (0.6-1.4) mg/dl Est Cr Clr Drug Dosing Not Reportable Est GFR ( Amer) 131.3 ml/min Est GFR (Non-Af Amer) 113.3 ml/min BUN/Creatinine Ratio 32.3 H (10-20) Glucose 105 H (70-99(Fasting)) mg/dl Calcium 8.9 (8.6-10.3) mg/dl Total Bilirubin 0.2 (0.2-1.0) mg/dl AST 26 (13-39) U/L ALT 87 H (7-52) U/L Alkaline Phosphatase 94 (34-104) U/L Total Protein 7.2 (6.0-8.3) gm/dl Albumin 3.4 (3.4-5.0) gm/dl Globulin 3.8 (2.5-4.0) gm/dl Albumin/Globulin Ratio 0.9 (0.9-2) Administered Medications Acetaminophen (Acetaminophen 500 Mg Tab) 500 mg PO Q4H PRN PRN Reason: pain/fever Stop: 12/05/23 18:04 Last Admin: 11/05/23 22:37 Dose: 500 mg Documented By: VERONICA Enoxaparin Sodium (Enoxaparin Inj 40 Mg/0.4 Ml Syr) 40 mg SQ Q24H RICARDO Stop: 12/05/23 19:59 Last Admin: 11/05/23 19:58 Dose: Not Given Documented By: VERONICA Lamotrigine (Lamotrigine 100 Mg Tab) 200 mg PO Q12H [facility]; Protocol Stop: 12/05/23 19:59 Last Admin: 11/05/23 19:58 Dose: 200 mg Documented By: VERONICA Levetiracetam (Levetiracetam 500 Mg Tab) 1,500 mg PO Q12H RICARDO Stop: 12/05/23 19:59 Last Admin: 11/05/23 19:56 Dose: 1,500 mg Documented By: VERONICA Discontinued Medications Ceftriaxone Sodium (Ceftriaxone Sodium 2000mg/50ml D5w) 2,000 mg IV ONE STA Stop: 11/05/23 19:19 Last Admin: 11/05/23 22:09 Dose: 2,000 mg Documented By: VERONICA Vancomycin HCl 2,000 mg/ (Sodium Chloride) 540 mls @ 200 mls/hr IV NOW ONE Stop: 11/05/23 19:08 Last Infusion: 11/05/23 19:49 Dose: Infused Documented By: Admin: 11/05/23 17:05 Dose: 200 mls/hr Documented By: LCD Parenteral Electrolytes (Plasma-Lyte A Ph 7.4) 500 mls @ 999 mls/hr IV .Q31M ONE Stop: 11/05/23 19:54 Last Infusion: 11/05/23 21:20 Dose: Infused Documented By: Admin: 11/05/23 20:45 Dose: 999 mls/hr Documented By: VERONICA Ibuprofen (Ibuprofen 200 Mg/10 Ml Udc) 400 mg PO NOW STA Stop: 11/05/23 22:53 Last Admin: 11/05/23 23:22 Dose: 400 mg Documented By: TRESSA Ioversol (Optiray 320 100ml) 92 ml IV ONCE ONE Stop: 11/05/23 16:40 Last Admin: 11/05/23 16:39 Dose: 92 ml Documented By: ARON Imaging Data Radiologist's Impression: Pelvis CT 11/05/23 16:[address] WITH CONTRAST CLINICAL HISTORY: Abscess vs deep space infection on right buttocks. COMPARISON STUDY: CT of the abdomen and pelvis January 15, 2020. TECHNIQUE: Axial images of the pelvis were obtained following intravenous injection of 92 cc of Optiray 320 IV. Automated exposure control was utilized for the study. A dose lowering technique was utilized adhering to the principles of ALARA. FINDINGS: Note is made of small clustered subcutaneous pockets of fluid within the right buttock. These measure 6 x 2.4 cm in extent. There is no rim enhancement. No drainable fluid collection is present. There is mild associated fat stranding. No soft tissue gas is present. Underlying musculature is unremarkable. The appendix is normal. Caliber of visualized small and large bowel are normal. There is no perirectal or perianal abscess or fistula. No pelvic lymphadenopathy is present. No significant osseous abnormalities are identified. No additional sites of inflammation within the pelvis are identified. IMPRESSION: Subcutaneous right buttock inflammation with multiple clustered small pockets of subcutaneous fluid and mild stranding consistent with an infectious process. This suggests phlegmon. No rim-enhancing fluid collection to suggest abscess. No drainable fluid collection. No soft tissue gas. No CT evidence for involvement of the underlying musculature. ACT 112: Negative or not required by law. Electronically signed by: Lon King M.D. 11/05/2023 4:51 PM Discharge Plan Visit Data Chief Complaint: Infection Stated Complaint: BOIL ON BUTTOCKS - WORSENING ED Provider: Chucky Ferrara Discharge Problem: Cellulitis, Phlegmon, Failure of outpatient treatment Patient Disposition: Admitted As Inpatient Discharge Instructions Interventions: ED Discharge Assessment Last Done: 11/05/23 19:25
--- NOTE | 2023-11-05 16:53 | CT Scan Report ---
PELVIS CT WITH CONTRAST CLINICAL HISTORY: Abscess vs deep space infection on right buttocks. COMPARISON STUDY: CT of the abdomen and pelvis January 15, 2020. TECHNIQUE: Axial images of the pelvis were obtained following intravenous injection of 92 cc of Optir ay 320 IV. Automated exposure control was utilized for the study. A dose lowering technique was util ized adhering to the principles of ALARA. FINDINGS: Note is made of small clustered subcutaneous pockets of fluid within the right buttock. The se measure 6 x 2.4 cm in extent. There is no rim enhancement. No drainable fluid collection is presen t. There is mild associated fat stranding. No soft tissue gas is present. Underlying musculature is u nremarkable. The appendix is normal. Caliber of visualized small and large bowel are normal. There is no perirectal or perianal abscess or fistula. No pelvic lymphadenopathy is present. No significant o sseous abnormalities are identified. No additional sites of inflammation within the pelvis are identi fied. IMPRESSION: Subcutaneous right buttock inflammation with multiple clustered small pockets of subcuta neous fluid and mild stranding consistent with an infectious process. This suggests phlegmon. No rim- enhancing fluid collection to suggest abscess. No drainable fluid collection. No soft tissue gas. No CT evidence for involvement of the underlying musculature. ACT 112: Negative or not required by law. Electronically signed by: Lon King M.D. 11/05/2023 4:51 PM
[2023-11-05] MEDS: VANCOMYCIN HCL 2,000 MG in SODIUM CHLORIDE 0.9% 500 ML IV ONE (17:05)
--- NOTE | 2023-11-05 17:33 | History & Physical Report ---
Date of Service November 05, 2023 Assessment & Plan (1) Cellulitis: Plan: Buttock cellulitis With elevated to leukocytosis of 27.61, with both neutrophilic predominance and left shift. Has a history of MRSA infection CTpelvis with subcutaneous right buttock inflammation with multiple clustered pockets of fluid and stranding suggestive phlegmon, no rim-enhancing fluid collection consistent with abscess and no drainable collection. No evidence of underlying musculature involvement, no perirectal/perianal abscess or fistula Blood cultures pending Patient is nontoxic-appearing on admission Patient has not improved on Keflex/Bactrim. Does have history of MRSA. Will admit on vancomycin/Rocephin. For cellulitis with phlegmon failing outpatient treatment and without discrete abscess No hypotension, no tachycardia, no evidence of acute endorgan damage. Does not meet sofa criteria for sepsis on admission. Aggressive fluids deferred Patient has had recurrent MRSA infections and multifocal pneumonia. In addition patient has had IV drug use/needle sharing in early July, reports no IV drug use since that time. HIV pending, patient consents to testing. Absolute lymphocyte count is normal. (2) Stage 4 lung cancer: Plan: Stage IV lung cancer History of non-small cell lung cancer with brain mets on pembrolizumab Receives his oncology, surgical, and radiation care through [facility]. He would like to move primary care and oncology care to [place] as he recently got a house here; would like to keep his neurosurgical services at [facility]. Request PCP referral, case management consulted Follows with pulmonology, last seen 2 days ago. Continues to have extensive fibrosis and tumor burden, right upper lobe collapse and suspected endobronchial invasion of tumor. Continue low-dose Symbicort twice daily, Violeta Holly Palliative care strongly recommended on last visit due to extensive disease burden with brain metastasis. At time of admission patient reports his goals are to clear his infections to follow-up with [facility] oncology and start Keytruda treatments however he has not been infection free long enough to make these follow-ups Continued on 4 mg of dexamethasone (3) Non-small cell lung cancer metastatic to brain: (4) History of MRSA infection: (5) Seizure: Plan: Patient with intermittent seizures history of brain mets and gamma knife treatment Seizure precautions Continue Keppra/lamotrigine Ativan on-call (6) Antisocial personality disorder: Plan: Depression, antisocial personality disorder, polysubstance abuse, history of SI No SI on admission, patient cooperative, home meds continued Plan DVT prophylaxis: Lovenox Disposition: Medical telemetry with seizure precautions CODE STATUS: Full code Diet: Regular History of Present Illness Primary Care Provider: NO PCP Maximiliano is a 53-year-old male with past medical history of non-small cell lung cancer with mets to brain s/p resection at [facility] 05/2022 on pembrolizumab, history of subdural hematoma, history of IV drug use/MRSA infection, right leg ulcer, and antisocial personality who was seen in the ER 11/03/2023 for right buttock cellulitis. He was already on Keflex and Bactrim for right foot cellulitis for approximately 48 hours at that time. Patient continued his antibiotics however has had worsening over the last 48 hours and evening prior to admission had developed chills, soaking night sweats, and worsening pain at the buttock. First abscess was R distal anterior thigh, second proximal anterior right thight, had one R lateral thigh. All three required drainage (did these at [place]) and was subsequently discharged on orals. [place], [facility], and [facility] admits. At last visit had a 1.9cm brain lesion ?tumor vs necrosis --> had craniotomy June 06 months ago and Aug 11 Dr. Chucky Maya at [facility] and was found to be tumor. He has chemo, and radiation to the chest. He is not on any cancer treatment due to multiple recurrent infections. Was supposed to eventually progress to Keytruda, but this has been delayed due to infections. Was going to followup with Dr. Callaway with [facility] for chemo. Also talked to gamma knife specialist in [facility]. and infection has been going on several days at least 4 and seems to be worsening and becoming more painful in the last 2 days. Patients goal is to treat infection and buy time and hopefully start Keytruda. Pt reports he is not interested in hospice/palliative goals of care at this time. Reports he has had no fevers, sweat the bed last night and felt soaked similar to prior infection. Buttock current feels improved int he ER, aching burning pain Chronic cough last few months. No change in sputum production or quality Last seizure Aug 10. Took AM meds. [place] moved to [place] and eventually wants to mvoe his care to [place] for everything except gamma knife treatments. Would like referrer to PCP locally Patient does report he had IV drug use where he shared a needle around July 25. Denies IV drug use since that time, believes that this was cocaine but is not completely sure. Denies chest pain, chest pressure, palpitations. Denies lightheadedness or dizziness. Endorses chronic vision blurriness with cataracts and history of gamma knife, denies acute vision change, acute sensory change in his arms and legs, and acute weakness Medical History: Reviewed Medications: Reviewed Surgical History: Reviewed Family history: Reviewed Allergies: Reviewed Social History: Reviewed Code Status: Full Allergies Allergy/AdvReac Type Severity Reaction Status Date / Time NSAIDS (Non-Steroidal AdvReac Severe TENDENCY Verified 11/05/23 17:02 Anti-Inflamma TO BLEED duloxetine AdvReac Intermediate Muscle Verified 11/05/23 17:02 Spasm Home Medications Medication Instructions Recorded Confirmed Type lamotrigine 200 mg tablet 200 mg PO BID 30 days #60 tabs 09/15/23 11/05/23 Rx levetiracetam 1,000 mg tablet 1,000 mg PO BID 30 days #60 tabs 09/15/23 11/05/23 Rx levetiracetam 500 mg tablet 500 mg PO BID 30 days #60 tabs 09/15/23 11/05/23 Rx benzonatate 100 mg capsule 100 mg PO BID PRN cough #90 caps 11/03/23 11/05/23 Rx budesonide-formoterol HFA 80 2 puff inhalation BID #10.2 grams 11/03/23 11/05/23 Rx mcg-4.5 mcg/actuation aerosol inhaler (Symbicort) cephalexin 500 mg capsule 500 mg PO QID 7 days #28 caps 11/03/23 11/05/23 Rx sulfamethoxazole 800 1 tab PO BID 7 days #14 tabs 11/03/23 11/05/23 Rx mg-trimethoprim 160 mg tablet (Bactrim DS) dexamethasone 4 mg tablet 4 mg PO DAILY 11/05/23 11/05/23 History Past Med/Surg History Medical History (Updated 11/05/23 @ 17:58 by Jian Gonzalez MD) Chronic cough Stage 4 lung cancer Opioid use disorder Cocaine use disorder Alcohol use disorder Non-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 Brother No problems noted. Brother No problems noted. Sister No problems noted. Social History Smoking Status: Never smoker Tobacco Type: Cigarettes Age Started Using Tobacco: 33; Age Quit Using Tobacco: 49; packs per day: 0.10; Second Hand Exposure: No; Do You Dip or Chew Tobacco: No; Hx Alcohol Use: No Hx Substance Use: Yes Last Used Substance: Unknown Last Used Substance Other:: nitrous oxide and dextromethorphin Substance Use Type Other:: states was previously addicted to fentanyl Preferred Language: Kyrgyz Communication Ability: Effective Visual Impairment: No Limitations Hearing Ability: Normal Curtain Worker Required: No Beliefs That Will Affect Care: None marital status: Single Current Living Situation: Homeless Current Living Situation Comment: community living in [place] current occupational status: unemployed Feels Safe at Home: Yes Childhood Exposure to Second-Hand Smoke: No caffeine: Yes (occ .coffee) during the past year weight has: remained stable Dental Care, Regularly: Yes Physical Activity Frequency: Daily Seatbelt Use: always Sunscreen Use: Yes Assistive Devices: Scooter/Electric Scooter Physical Exam Physical Exam: General: A&Ox3. NAD. Cooperative. HEENT: Pupils equal and reactive to light. Patient reports vision is with clouding and haziness bilaterally at baseline both due to his history of gamma knife and due to cataracts. Pulm: CTAB A&P. -wheezes, -rales, -rhonchi. Symmetrical chest rise. No increased work of breathing. No respiratory distress. Cardiac: RRR. Radial pulses intact and symmetrical. Abdominal: Nontender, nondistended, soft. BS present. Extremities: Right posterior buttock with 12 x 7 cm demarcated area of erythema with central eschar, slight warmth and tenderness. No fluctuance. Right distal anterior thigh, right proximal anterior thigh, right lateral thigh with postsurgical well-healed incisions at prior sites of drainage. Sensation soft touch intact in feet bilaterally wiggle toes and ankle dorsiflexion/plantarflexion is 5/5, patient able to ambulate to the bathroom independently. Cupola Liner strength and elbow flexion is intact and symmetrical bilaterally. Results & Data Results & Data Vital Signs (Past 12 Hours) Vital Signs Temp Pulse Pulse Resp BP BP Pulse Ox 11/05/23 17:00 36.6 C 78 20 149/100 H 96 11/05/23 15:20 36.6 C 81 18 162/92 H 96 O2 Del Method 11/05/23 17:00 Room Air 11/05/23 15:20 Room Air PG Care Time/CCT Total # of Minutes Spent Total Time Spent with Patient: Total time spent is greater than 50% in coordination of care (as documented) at patient's floor/unit and/or counseling patient: Coding Level of Care Code 58569 INT INP/OBS CARE 3/75MIN Diagnoses Cellulitis L03.90 Malignant neoplasm of right lung stage 4 C34.91 Laterality: right Non-small cell lung cancer metastatic to brain C34.90; C79.31 History of MRSA infection Z86.14 Seizure R56.9 Antisocial personality disorder F60.2 (2) Stage 4 lung cancer Laterality: right Qualified Code(s): C34.91 - Malignant neoplasm of unspecified part of right bronchus or lung
[2023-11-05] MEDS ORDERED: LORazepam 2 MG in SYRINGE 1 ML IV PRN (18:45)
[2023-11-05] MEDS: levETIRAcetam 500 MG TAB PO SCH (19:56)
[2023-11-05] MEDS: lamoTRIgine 100 MG TAB PO SCH (19:58)
[2023-11-05] MEDS: ENOXAPARIN INJ 40 MG/0.4 ML SYR SQ SCH (19:58)
[2023-11-05] MEDS: PLASMA-LYTE A 500 ML IV ONE (20:45)
--- NOTE | 2023-11-05 21:10 | Pharmacy Report ---
Pharmacy PK ABX Note - Date of Service November 05, 2023 - Assessment and Plan Assessment 53 year old M ordered vancomycin and ceftriaxone for empiric treatment of buttock cellulitis. Patient has h/o of recurrent MRSA infections. Has been on cephalexin and Bactrim with no improvement. Pertinent microbiologic data includes: BC pending Plan Vancomycin * Loading dose: 2000 mg IV x 1 * Maintenance dose: 1250 mg IV every 8 hours * Regimen is predicted to achieve target AUC/DOLORES of 400-600 mg/L.hr * predicted AUC at steady state: 528 * predicated trough at steady state: 15.3 mcg/mL * Level to be obtained if therapy is continued - currently ordered x 48 hours Pharmacy will continue to follow and will adjust dose/frequency as necessary. Thank you.
[2023-11-05] MEDS: cefTRIAXone SODIUM 2000MG/50ML D5W IV STA (22:09)
[2023-11-05] MEDS: ACETAMINOPHEN 500 MG TAB PO PRN (22:37)
[2023-11-05] MEDS: IBUPROFEN 200 MG/10 ML UDC PO STA (23:22)
[2023-11-06] MEDS: VANCOMYCIN HCL 1,250 MG in SODIUM CHLORIDE 0.9% 250 ML IV SCH (00:42)
[2023-11-06] MEDS: BENZONATATE 100 MG CAPSULE PO PRN (05:27)
[2023-11-06 06:35] LABS: Hematocrit (blood only) 30.9 % (42.0-52.0); Hemoglobin 10.2 g/dl (14.0-18.0); Mean Corpuscular Hemoglobin 26.1 pg (25.0-34.0); Mean Platelet Volume 8.6 fL (9.4-12.4); Platelet Count 428 K/uL (130-400); RDW Coefficient of Variation 16.4 % (11.5-14.5); Red Blood Count 3.91 M/uL (4.70-6.10); White Blood Count 23.13 K/ul (4.8-10.8)
[2023-11-06 06:58] LABS: Calcium 8.4 mg/dl (8.6-10.3); Creatinine Clr Calc Pharmacy 166.6 ml/min; Est GFR (African American) 128.7 ml/min; Est GFR (Non-African American) 111.1 ml/min; Magnesium 2.1 mg/dl (1.7-2.4); Potassium 3.6 mmol/L (3.5-5.1)
[2023-11-06 06:59] LABS: Basophils # (auto) 0.15 K/uL (0.00-0.20); Basophils % (auto) 0.6 %; Eosinophils # (auto) 0.08 K/uL (0.00-0.50); Eosinophils % (auto) 0.3 %; Immature Granulocytes # (auto) 2.02 K/uL (0.01-0.20); Immature Granulocytes % (auto) 8.7 %; Lymphocytes # (auto) 1.53 K/uL (1.20-3.40); Lymphocytes % (auto) 6.6 %; Monocytes % (auto) 4.8 %; Neutrophils # (auto) 18.25 K/uL (1.40-6.50)
[2023-11-06] MEDS: FLUTICASONE/VILANTEROL 100/25MCG 14 PUFFS/INHALER INH SCH (08:23)
[2023-11-06] MEDS: dexAMETHasone 4 MG TAB PO SCH (08:23)
[2023-11-06] MEDS: IBUPROFEN 200 MG TAB PO PRN (09:35)
--- NOTE | 2023-11-06 16:12 | Hospitalist Progress Note ---
Date of Service November 06, 2023 Assessment & Plan (1) Cellulitis: Plan: Buttock cellulitis With elevated to leukocytosis of 27.61, with both neutrophilic predominance and left shift. Has a history of MRSA infection CTpelvis with subcutaneous right buttock inflammation with multiple clustered pockets of fluid and stranding suggestive phlegmon, no rim-enhancing fluid collection consistent with abscess and no drainable collection. No evidence of underlying musculature involvement, no perirectal/perianal abscess or fistula Blood cultures pending Patient is nontoxic-appearing on admission Patient has not improved on Keflex/Bactrim. Does have history of MRSA. Continue vancomycin/Rocephin. For cellulitis with phlegmon failing outpatient treatment and without discrete abscess Patient has had recurrent MRSA infections and multifocal pneumonia. In addition patient has had IV drug use/needle sharing in early July, reports no IV drug use since that time. HIV pending, patient consents to testing. Absolute lymphocyte count is normal. WBC count improved from 27-23 today Cellulitis improving slowly. Will monitor. (2) Stage 4 lung cancer: Plan: Stage IV lung cancer History of non-small cell lung cancer with brain mets on pembrolizumab Receives his oncology, surgical, and radiation care through [facility]. He would like to move primary care and oncology care to [place] as he recently got a house here; would like to keep his neurosurgical services at [facility]. Request PCP referral, case management consulted Follows with pulmonology, last seen 2 days ago. Continues to have extensive fibrosis and tumor burden, right upper lobe collapse and suspected endobronchial invasion of tumor. Continue low-dose Symbicort twice daily, Violeta Holly Palliative care strongly recommended on last visit due to extensive disease burden with brain metastasis. At time of admission patient reports his goals are to clear his infections to follow-up with [facility] oncology and start Keytruda treatments however he has not been infection free long enough to make these follow-ups Continued on 4 mg of dexamethasone (3) Non-small cell lung cancer metastatic to brain: (4) History of MRSA infection: (5) Seizure: Plan: Patient with intermittent seizures history of brain mets and gamma knife treatment Seizure precautions Continue Keppra/lamotrigine Ativan on-call (6) Antisocial personality disorder: Plan: Depression, antisocial personality disorder, polysubstance abuse, history of SI No SI on admission, patient cooperative, home meds continued Plan DVT prophylaxis: Lovenox Disposition: Medical telemetry with seizure precautions CODE STATUS: Full code Diet: Regular Admission and Anticipated Discharge Date Admission Date: November 05, 2023 Subjective Patient complains of pain in the right buttock specially when he stands up and the fluid gravitates into the buttock. Review of Systems Review of Systems: All systems reviewed & are unremarkable except as noted in Subjective Physical Exam Physical Exam: General: Awake, conversant Heart: S1, S2/regular rate and rhythm, no murmur rubs or gallops Lungs: Clear to auscultation bilaterally. Normal effort Abdomen: Soft/nontender/nondistended. No hepatosplenomegaly Extremities: No clubbing/cyanosis. No edema. Right buttock cellulitis noted. Some clearing of margins noted. No area of fluctuance Behavior: Appropriate, cooperative Results & Data Results & Data Vital Signs (Past 12 Hours) Vital Signs Temp Pulse Pulse Resp BP BP Pulse Ox 11/06/23 14:46 81 11/06/23 11:37 36.7 C 74 18 135/76 94 11/06/23 07:40 36.7 C 88 16 126/82 95 11/06/23 07:08 78 O2 Del Method 11/06/23 14:46 11/06/23 11:37 Room Air 11/06/23 07:40 Room Air 11/06/23 07:08 Laboratory Results Abnormal lab results 11/05/23 11/06/23 Range/Units 15:30 05:52 WBC 23.13 H (4.8-10.8) K/ul RBC 3.91 L (4.70-6.10) M/uL Hgb 10.2 L (14.0-18.0) g/dl Hct 30.9 L (42.0-52.0) % MCV 79.0 L (80.0-100.0) fL RDW Std Deviation 47.0 H (36.4-46.3) fL RDW Coeff of Geetha 16.4 H (11.5-14.5) % Plt Count 428 H (130-400) K/uL MPV 8.6 L (9.4-12.4) fL Neut # (Auto) 22.65 H 18.25 H (1.40-6.50) K/uL [place] # (Auto) 1.27 H 1.10 H (0.11-0.59) K/uL Immature Gran # (Auto) 2.28 H 2.02 H (0.01-0.20) K/uL Glucose 109 H (70-99(Fasting)) mg/dl Calcium 8.4 L (8.6-10.3) mg/dl PG Care Time/CCT Total # of Minutes Spent Total Time Spent with Patient: Total time spent is greater than 50% in coordination of care (as documented) at patient's floor/unit and/or counseling patient: Coding Level of Care Code 43192 SUB INP/OBS CARE 2/35MIN Diagnoses Cellulitis L03.90 Malignant neoplasm of right lung stage 4 C34.91 Laterality: right Non-small cell lung cancer metastatic to brain C34.90; C79.31 History of MRSA infection Z86.14 Seizure R56.9 Antisocial personality disorder F60.2 (2) Stage 4 lung cancer Laterality: right Qualified Code(s): C34.91 - Malignant neoplasm of unspecified part of right bronchus or lung
[2023-11-06] MEDS: cefTRIAXone SODIUM 2,000 MG in DEXTROSE 5 % MINI-B 50 ML IV SCH (20:28)
[2023-11-07 07:34] LABS: Hematocrit (blood only) 33.6 % (42.0-52.0); Mean Corpuscular Hemoglobin 26.4 pg (25.0-34.0); Mean Corpuscular Hgb Conc 32.7 g/dL (32.0-36.0); Mean Corpuscular Volume 80.6 fL (80.0-100.0); Mean Platelet Volume 8.9 fL (9.4-12.4); Platelet Count 465 K/uL (130-400); RDW Coefficient of Variation 16.8 % (11.5-14.5); RDW Standard Deviation 48.6 fL (36.4-46.3); Red Blood Count 4.17 M/uL (4.70-6.10); White Blood Count 25.33 K/ul (4.8-10.8)
[2023-11-07 07:36] LABS: ALC (manual) 2.03 K/uL (1.2-3.4); ANC (manual) 22.04 K/uL (1.4-6.5); Lymphocytes # (manual) 2.03 K/uL (1.2-3.4); Lymphocytes % (manual) 8 %; Metamyelocytes # (manual) 0.25 K/uL (0-0); Metamyelocytes % (manual) 1 %; Monocytes # (manual) 0.25 K/uL (0.11-0.59); Monocytes % (manual) 1 %; Myelocytes # (manual) 0.76 K/uL (0-0); Myelocytes % (manual) 3 %; Neutrophils # (manual) 22.04 K/uL (1.40-6.50); Neutrophils % (manual) 87 %
[2023-11-07] MEDS: VANCOMYCIN LEVEL ONE (07:40)
[2023-11-07 07:43] LABS: Potassium 4.6 mmol/L (3.5-5.1)
[2023-11-07 07:44] LABS: BUN Creatinine Ratio 28.2 (10-20); Calcium 9.4 mg/dl (8.6-10.3); Creatinine Clr Calc Pharmacy 138.7 ml/min; Est GFR (African American) 119.4 ml/min; Est GFR (Non-African American) 103.1 ml/min
--- NOTE | 2023-11-07 11:09 | Pharmacy Report ---
Pharmacy PK ABX Note - Date of Service November 07, 2023 - Assessment and Plan Assessment 53 year old M ordered vancomycin and ceftriaxone for empiric treatment of buttock cellulitis. Patient has h/o of recurrent MRSA infections and stage IV lung cancer. Had been on cephalexin and Bactrim for current infection with no improvement. Afebrile, but persistent leukocytosis present. Pertinent microbiologic data includes: Blood cultures x 2 (11/05/23) show no growth at 24 hours. Plan Vancomycin * Current regimen: 1250 mg IV every 8 hours * Trough level obtained 11/07/23 resulted as 11.1 mcg/mL. This is predicted to achieve target AUC/DOLORSE of 400-600 mg/L.hr * Predicted AUC at steady state: 483 mg/L.hr * Continue 1250 mg IV every 8 hours * Will repeat level in the next 48-72 hours if therapy is continued and/or change in patient clinical status * Consider dose increase if infection fails to improve. Ceftriaxone * 2 g IV q24h Pharmacy will continue to follow and will adjust dose/frequency as necessary. Thank you.
[2023-11-07] MEDS: OPTIRAY 320 100ml IV ONE (12:54)
--- NOTE | 2023-11-07 13:33 | CT Scan Report ---
CT pelvis w/IV con only CLINICAL HISTORY: R buttock cellulitis, r/o drainable abscess TECHNIQUE: Helical axial images of the pelvis were obtained and displayed at 5 and 1 mm intervals. Au tomated dose lowering techniques and/or adjustment according to patient size were utilized for this e xam. This exam was performed with intravenous contrast. CT DOSE: 1220.25 mGy.cm COMPARISON: Comparison is made to CT pelvis 11/05/2023 FINDINGS: Bladder: Unremarkable. Reproductive organs: Unremarkable. Bowel: Unremarkable. Lymph nodes Pelvic: Unremarkable. Mesenteric: Unremarkable. Peritoneum: Normal Vessels: Unremarkable. Abdominal wall: A tiny umbilical helical hernia is seen. At the edge of the [id number], fat strand ing and multiple clustered pockets of subcutaneous fluid are noted in the right buttocks, however no drainable fluid collection is seen. Findings appear similar to prior exam. Bones: Degenerative changes in the visualized spine. IMPRESSION: Limited evaluation due to field of view. Fat stranding is seen in the right buttocks compatible with phlegmon, however no drainable fluid collection is seen within the field of view. Overall findings ap pear grossly similar to prior exam. ACT 112: Negative or not required by law. Electronically signed by: Darron Dumont M.D. 11/07/2023 1:32 PM
--- NOTE | 2023-11-07 14:28 | Hospitalist Progress Note ---
Date of Service November 07, 2023 Assessment & Plan (1) Cellulitis: Plan: Buttock cellulitis With elevated to leukocytosis of 27.61, with both neutrophilic predominance and left shift. Has a history of MRSA infection CTpelvis with subcutaneous right buttock inflammation with multiple clustered pockets of fluid and stranding suggestive phlegmon, no rim-enhancing fluid collection consistent with abscess and no drainable collection. No evidence of underlying musculature involvement, no perirectal/perianal abscess or fistula Blood cultures pending Patient is nontoxic-appearing on admission Patient has not improved on Keflex/Bactrim. Does have history of MRSA. Continue vancomycin/Rocephin. For cellulitis with phlegmon failing outpatient treatment and without discrete abscess Patient has had recurrent MRSA infections and multifocal pneumonia. In addition patient has had IV drug use/needle sharing in early July, reports no IV drug use since that time. HIV pending, patient consents to testing. Absolute lymphocyte count is normal. WBC count initially improved from 27-23 but went up to 25 today Cellulitis improving slowly. Because of increasing white count, a repeat CT pelvis was done that did not show any drainable abscess. No significant change from prior CT. Plan to continue IV antibiotics (2) Stage 4 lung cancer: Plan: Stage IV lung cancer History of non-small cell lung cancer with brain mets on pembrolizumab Receives his oncology, surgical, and radiation care through [facility]. He would like to move primary care and oncology care to [place] as he recently got a house here; would like to keep his neurosurgical services at [facility]. Request PCP referral, case management consulted Follows with pulmonology, last seen 2 days ago. Continues to have extensive fibrosis and tumor burden, right upper lobe collapse and suspected endobronchial invasion of tumor. Continue low-dose Symbicort twice daily, Tesrolandon Avni Palliative care strongly recommended on last visit due to extensive disease burden with brain metastasis. At time of admission patient reports his goals are to clear his infections to follow-up with [facility] oncology and start Keytruda treatments however he has not been infection free long enough to make these follow-ups Continued on 4 mg of dexamethasone. Could be responsible for the leukocytosis (3) Non-small cell lung cancer metastatic to brain: (4) History of MRSA infection: (5) Seizure: Plan: Patient with intermittent seizures history of brain mets and gamma knife treatment Seizure precautions Continue Keppra/lamotrigine Ativan on-call (6) Antisocial personality disorder: Plan: Depression, antisocial personality disorder, polysubstance abuse, history of SI No SI on admission, patient cooperative, home meds continued Plan DVT prophylaxis: Lovenox Disposition: Medical telemetry with seizure precautions CODE STATUS: Full code Diet: Regular Admission and Anticipated Discharge Date Admission Date: November 05, 2023 Subjective Patient feels well but thinks that he needs surgery to go wound and drain. Noted that his white count is up today. CT of the pelvis was repeated that did not show any drainable abscess. Review of Systems Review of Systems: All systems reviewed & are unremarkable except as noted in Subjective Physical Exam Physical Exam: General: Awake, conversant Heart: S1, S2/regular rate and rhythm, no murmur rubs or gallops Lungs: Clear to auscultation bilaterally. Normal effort Abdomen: Soft/nontender/nondistended. No hepatosplenomegaly Extremities: No clubbing/cyanosis. No edema. Right buttock cellulitis noted. Further clearing of margins noted. No area of fluctuance Behavior: Appropriate, cooperative Results & Data Results & Data Vital Signs (Past 12 Hours) Vital Signs Temp Pulse Pulse Resp BP Pulse Ox O2 Del Method 11/07/23 11:47 36.7 C 84 16 112/75 97 Room Air 11/07/23 07:34 36.8 C 76 18 121/70 95 Room Air 11/07/23 07:19 84 Laboratory Results Abnormal lab results 11/07/23 Range/Units 07:00 WBC 25.33 H (4.8-10.8) K/ul RBC 4.17 L (4.70-6.10) M/uL Hgb 11.0 L (14.0-18.0) g/dl Hct 33.6 L (42.0-52.0) % RDW Std Deviation 48.6 H (36.4-46.3) fL RDW Coeff of Geetha 16.8 H (11.5-14.5) % Plt Count 465 H (130-400) K/uL MPV 8.9 L (9.4-12.4) fL Neutrophils # (Manual) 22.04 H (1.40-6.50) K/uL Total Absolute Neuts 22.04 H (1.4-6.5) K/uL Metamyelocytes # (Man) 0.25 H (0-0) K/uL Myelocytes # (Manual) 0.76 H (0-0) K/uL Sodium 135 L (136-145) mmol/L BUN/Creatinine Ratio 28.2 H (10-20) Diagnostic Findings Pelvis CT 11/07/23 11:54 CT pelvis w/IV con only CLINICAL HISTORY: R buttock cellulitis, r/o drainable abscess TECHNIQUE: Helical axial images of the pelvis were obtained and displayed at 5 and 1 mm intervals. Automated dose lowering techniques and/or adjustment according to patient size were utilized for this exam. This exam was performed with intravenous contrast. CT DOSE: 1220.25 mGy.cm COMPARISON: Comparison is made to CT pelvis 11/05/2023 FINDINGS: Bladder: Unremarkable. Reproductive organs: Unremarkable. Bowel: Unremarkable. Lymph nodes Pelvic: Unremarkable. Mesenteric: Unremarkable. Peritoneum: Normal Vessels: Unremarkable. Abdominal wall: A tiny umbilical helical hernia is seen. At the edge of the rupae-jy-ehud, fat stranding and multiple clustered pockets of subcutaneous fluid are noted in the right buttocks, however no drainable fluid collection is seen. Findings appear similar to prior exam. Bones: Degenerative changes in the visualized spine. IMPRESSION: Limited evaluation due to field of view. Fat stranding is seen in the right buttocks compatible with phlegmon, however no drainable fluid collection is seen within the field of view. Overall findings appear grossly similar to prior exam. ACT 112: Negative or not required by law. Electronically signed by: Darron Dumont M.D. 11/07/2023 1:32 PM PG Care Time/CCT Total # of Minutes Spent Total Time Spent with Patient: Total time spent is greater than 50% in coordination of care (as documented) at patient's floor/unit and/or counseling patient: Coding Level of Care Code 27794 SUB INP/OBS CARE 2/35MIN Diagnoses Cellulitis L03.90 Malignant neoplasm of right lung stage 4 C34.91 Laterality: right Non-small cell lung cancer metastatic to brain C34.90; C79.31 History of MRSA infection Z86.14 Seizure R56.9 Antisocial personality disorder F60.2 (2) Stage 4 lung cancer Laterality: right Qualified Code(s): C34.91 - Malignant neoplasm of unspecified part of right bronchus or lung
--- NOTE | 2023-11-07 19:26 | Surgery Consultation ---
<Statement entered by Matt Jimenez DO - 11/08/23 19:04> This case was discussed with the surgical PA Date of Consultation November 07, 2023 Assessment & Plan (1) Phlegmon: Patient has been admitted on the hospitalist service. From surgical perspective we recommend the following: Diagnostic data was reviewed and patient has had blood cultures sent this admission. Thus far blood cultures have been sent from 11/05/2023 and are negative to date. She has been placed on broad-spectrum antibiotics in the form of Rocephin and vancomycin. Consideration may be given to broadening the patient's antibiotics to something like Zosyn for better anaerobic coverage particularly since the area in question does not seem to be improving. Will defer this to the hospitalist service Patient will be evaluated by Dr. Lowe on 11/08/2023. Does not appear that the patient has a discrete abscess on his CT scan. A determination will be made if the area in question does require incision and drainage and then a determination will be made if this can be done at the bedside if patient needs to go to the operating room. I empirically made the patient n.p.o. after midnight in the event that Dr. Lowe feels that this is best suited to be done in the OR versus bedside. It should be noted that at the present time the patient is normotensive without tachycardia or fever. He is nontoxic-appearing at this time. Additional recommendations will be forthcoming based on his clinical course as unfolds History of Present Illness Reason for Consultation: Right buttock phlegmon Attending Physician: Nimesh Brown History of Present Illness This is a 53-year-old male who was admitted to [facility] on 11/05/2023. This patient has an underlying history of non-small cell lung cancer with metastatic disease to his brain. The patient has a history of multiple infections recently. He had an abscess of the right distal anterior thigh, a second abscess proximal to the anterior right thigh, and 1 in the right lateral thigh. The patient notes that he had all 3 incised and drained at facility in [place] and was discharged on oral antibiotics. Because of the patient's history of metastatic lung cancer he has undergone a craniotomy previously. The patient has also been on chemotherapy and radiation in the past but is currently not on any cancer treatment due to these multiple recurrent abscesses noted above. The patient notes that he was supposed to be placed on Keytruda but again this has been delayed due to the noted infections. Patient was most recently seen in the emergency department on 11/03/2023 where patient was noted to have a right buttock abscess. The patient was felt to be stable for discharge home on oral antibiotics in the form of Keflex and Bactrim. Despite being placed on these antibiotics the patient notes that his right buttock cellulitis got worse over the ensuing 48 hours as the patient developed chills, sweats, and worsening pain in the buttocks. In addition the patient notes that the area is painful with any pressure. He notes it is palliated somewhat with medicines administered and by offloading the pressure to this area. He notes that he has not had a buttock abscess previously. Since admission to [facility] the patient has had 2 CT scans of his pelvis. The first CT scan was on 11/05/2023. This showed the patient had some subcutaneous inflammation of the right buttocks with multiple clustered small pockets of subcutaneous fluid that was felt to be consistent with infectious process suggestive of phlegmon. There is no rim-enhancing fluid collection suggestive of abscess. There was not felt that there was any drainable fluid collections at that time. There is no soft tissue gas. There is no evidence for involvement of any structures under the musculature. The patient also underwent a repeat CT scan today which was 11/07/2023. This again showed fat stranding in the right buttocks compatible with a phlegmon, again with no drainable fluid collection noted. These findings were felt to be similar to what was noted on the a for mentioned CT scan. Most recent labs were from today where CBC revealed white blood cell count was elevated 25.3. Hemoglobin and hematocrit 11.0 and 33.6. Platelet count is 4 and 65,000. Chemistry profile showed sodium was 135 with a normal potassium. His BUN and creatinine are also normal. At the time my interview the patient was sitting in a bedside chair and he was in no distress. Allergies Allergy/AdvReac Type Severity Reaction Status Date / Time NSAIDS (Non-Steroidal AdvReac Severe TENDENCY Verified 11/05/23 17:02 Anti-Inflamma TO BLEED duloxetine AdvReac Intermediate Muscle Verified 11/05/23 17:02 Spasm Home Medications Medication Instructions Recorded Confirmed Type lamotrigine 200 mg tablet 200 mg PO BID 30 days #60 tabs 09/15/23 11/05/23 Rx levetiracetam 1,000 mg tablet 1,000 mg PO BID 30 days #60 tabs 09/15/23 11/05/23 Rx levetiracetam 500 mg tablet 500 mg PO BID 30 days #60 tabs 09/15/23 11/05/23 Rx benzonatate 100 mg capsule 100 mg PO BID PRN cough #90 caps 11/03/23 11/05/23 Rx budesonide-formoterol HFA 80 2 puff inhalation BID #10.2 grams 11/03/23 11/05/23 Rx mcg-4.5 mcg/actuation aerosol inhaler (Symbicort) cephalexin 500 mg capsule 500 mg PO QID 7 days #28 caps 11/03/23 11/05/23 Rx sulfamethoxazole 800 1 tab PO BID 7 days #14 tabs 11/03/23 11/05/23 Rx mg-trimethoprim 160 mg tablet (Bactrim DS) dexamethasone 4 mg tablet 4 mg PO DAILY 11/05/23 11/05/23 History Patient History Medical History Chronic cough Stage 4 lung cancer Opioid use disorder Cocaine use disorder Alcohol use disorder Non-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 Brother No problems noted. Brother No problems noted. Sister No problems noted. Social History Smoking Status: Never smoker Tobacco Type: Cigarettes Age Started Using Tobacco: 33; Age Quit Using Tobacco: 49; packs per day: 0.10; Second Hand Exposure: No; Do You Dip or Chew Tobacco: No; Hx Alcohol Use: No Hx Substance Use: No Preferred Language: Nigerien Communication Ability: Effective Visual Impairment: No Limitations Hearing Ability: Normal Stacker Tender Required: No Beliefs That Will Affect Care: None marital status: Single Current Living Situation: Alone Current Living Situation Comment: community living in [place] current occupational status: unemployed Feels Safe at Home: Yes Safety Concerns: Feels Safe At This Time Childhood Exposure to Second-Hand Smoke: No caffeine: Yes (occ .coffee) during the past year weight has: remained stable Dental Care, Regularly: Yes Physical Activity Frequency: Daily Seatbelt Use: always Sunscreen Use: Yes Assistive Devices: None Review of Systems Constitutional: + chills and + sweats Ear, Nose, Mouth, Throat: no hearing loss Respiratory: no cough and no dyspnea Cardiovascular: no chest pain Gastrointestinal: no abdominal pain, no nausea and no vomiting Genitourinary: no dysuria Musculoskeletal: no back pain Integumentary: as per Subjective / HPI Neurologic: no localized weakness Physical Exam Physical Exam: On the patient's right buttocks he was noted to have an area of erythema/induration. This area measured approximately 8 cm x 4 cm. There is no crepitus in the soft tissue. The area was slightly warm to touch and was painful to palpation. There is no open areas or areas of drainage. Constitutional: WD/WN, vitals as above Eyes: no conjunctival abnormality ENMT: Ears: no hearing impairment and no external ear abnormality Mouth: no oropharynx abnormality Neck: trachea midline Respiratory: normal respiratory effort; no respiratory distress and no labored breathing Cardiovascular: Rate/Rhythm: regular rate and regular rhythm Gastrointestinal (Abdomen): Soft and nontender Musculoskeletal: No calf tenderness Skin: no rashes Neurologic: moves all extremities Psychiatric: A+Ox3, euthymic affect Results & Data Vital Signs (Past 12 Hours) Vital Signs Temp Pulse Pulse Resp BP Pulse Ox O2 Del Method 11/07/23 16:14 70 11/07/23 14:55 36.8 C 93 H 18 143/84 H 94 Room Air 11/07/23 11:47 36.7 C 84 16 112/75 97 Room Air 11/07/23 07:34 36.8 C 76 18 121/70 95 Room Air PG Care Time/CCT Total # of Minutes Spent Total Time Spent with Patient: Total time spent is greater than 50% in coordination of care (as documented) at patient's floor/unit and/or counseling patient: Coding Level of Care Code 47293 IN/OBS CONSULT LVL 5,80M Diagnoses Phlegmon L02.91
[2023-11-07] MEDS: metroNIDAZOLE 500 MG/100 ML BAG IV SCH (20:41)
[2023-11-08] MEDS: traMADol HCL 50 MG TABLET PO STA (05:03)
[2023-11-08] MEDS: HYDROmorphone INJ 0.5 MG/0.5 ML SYR IV STA (05:05)
[2023-11-08 08:04] LABS: Hemoglobin 11.2 g/dl (14.0-18.0); Mean Corpuscular Hemoglobin 26.5 pg (25.0-34.0); Mean Corpuscular Hgb Conc 32.9 g/dL (32.0-36.0); Mean Corpuscular Volume 80.4 fL (80.0-100.0); Mean Platelet Volume 8.9 fL (9.4-12.4); Platelet Count 538 K/uL (130-400); RDW Coefficient of Variation 16.8 % (11.5-14.5); RDW Standard Deviation 49.1 fL (36.4-46.3); Red Blood Count 4.23 M/uL (4.70-6.10); White Blood Count 29.26 K/ul (4.8-10.8)
[2023-11-08 08:17] LABS: ALC (manual) 3.22 K/uL (1.2-3.4); Eosinophils # (manual) 0.59 K/uL (0-0.50); Eosinophils % (manual) 2 %; Lymphocytes # (manual) 3.22 K/uL (1.2-3.4); Lymphocytes % (manual) 11 %; Monocytes # (manual) 0.59 K/uL (0.11-0.59); Monocytes % (manual) 2 %; Myelocytes # (manual) 1.17 K/uL (0-0); Myelocytes % (manual) 4 %; Neutrophils % (manual) 81 %; Polychromasia 1+
[2023-11-08 08:24] LABS: BUN Creatinine Ratio 35.2 (10-20); Calcium 9.4 mg/dl (8.6-10.3); Creatinine Clr Calc Pharmacy 122.7 ml/min; Est GFR (African American) 113.7 ml/min; Est GFR (Non-African American) 98.1 ml/min; Potassium 4.6 mmol/L (3.5-5.1)
[2023-11-08] MEDS: VANCOMYCIN HCL 1,250 MG in SODIUM CHLORIDE 0.9% 250 ML IV SCH (08:26)
--- NOTE | 2023-11-08 08:54 | Surgery Progress Note ---
<Statement entered by Matt Jimenez DO - 11/08/23 19:18> I have seen and examined this patient with the surgical PA After obtaining consent, the wound was incised and drained at the bedside The area was prepped with Betadine, anesthetized and a 3cm incision was made over a fluctuant area at the right buttocks Bleeding and copious thick purulent fluid were expelled. The area was probed and irrigated with Betadine The wound was lightly packed with narrow gauze and a pressure dressing with additional gauze was applied Will check the area tomorrow and provide wound care instructions at that time Date of Service November 08, 2023 Assessment & Plan (1) Phlegmon: Plan: Right upper thigh/buttocks present for last 5 days per pt, started as a pimple that he scratched. area with erythema and cellulitis Keep NPO IV Fluids for hydration IV antibiotics IV analgesic Prn Will discuss case with on-call surgeon and decide if taking to OR today vs, later time Admission and Anticipated Discharge Date Admission Date: November 05, 2023 Subjective Right lateral buttock/upper thigh Phlegmon Pt reports started 5 days ago and has progressed states this is 3-4 one in last 6months on right leg Review of Systems Constitutional: no fever and no chills Integumentary: + wounds Physical Exam Physical Exam: alert oriented Constitutional: cooperative and comfortable; no acute distress Skin: + wound (Right upper thigh/buttocks ) Results & Data Vital Signs (Past 12 Hours) Vital Signs Temp Pulse Pulse Resp BP BP Pulse Ox 11/08/23 08:02 11/08/23 07:43 97.9 F 79 18 130/79 94 11/08/23 07:26 70 11/08/23 00:15 80 11/07/23 23:57 97.9 F 77 20 128/78 93 O2 Del Method 11/08/23 08:02 Room Air 11/08/23 07:43 Room Air 11/08/23 07:26 11/08/23 00:15 11/07/23 23:57 Room Air PG Care Time/CCT Total # of Minutes Spent Total Time Spent with Patient: Total time spent is greater than 50% in coordination of care (as documented) at patient's floor/unit and/or counseling patient: Coding Level of Care Code 70857 SUB INP/OBS CARE 1/25MIN Diagnoses Phlegmon L02.91
[2023-11-08 09:00] LABS: A calco-baum cmplx NotReported Not Detected (NotDetected); Bact fragilis Not Reported Not Detected (NotDetected); Blood Culture Id Panel PCR Panel Negative (NotDetected); C auris Not Reported Not Detected (NotDetected); Calbicans Not Reported Not Detected (NotDetected); Candida glabrata Not Reported Not Detected (NotDetected); Candida krusei Not Reported Not Detected (NotDetected); Cneoformans/gatti Not Reported Not Detected (NotDetected); Cparapsilosis Not Reported Not Detected (NotDetected); E cloacae compx Not Reported Not Detected (NotDetected); Efaecalis Not Reported Not Detected (NotDetected); Efaecium Not Reported Not Detected (NotDetected); Enterobacterales Not Reported Not Detected (NotDetected); Escherichia coli Not Reported Not Detected (NotDetected); H influenzae Not Reported Not Detected (NotDetected); K aerogenes Not Reported Not Detected (NotDetected); Koxytoca Not Reported Not Detected (NotDetected); Kpneumoniae grp Not Reported Not Detected (NotDetected); Lmonocyt Not Reported Not Detected (NotDetected); N meningitidis Not Reported Not Detected (NotDetected); P aeruginosa Not Reported Not Detected (NotDetected); Proteus spp Not Reported Not Detected (NotDetected); Salmonella spp Not Reported Not Detected (NotDetected); Smarcescens Not Reported Not Detected (NotDetected); Staph lugdunensis Not Reported Not Detected (NotDetected); Staph spp. Not Reported Not Detected (NotDetected); Staphaureus Not Reported Not Detected (NotDetected); Staphepi Not Reported Not Detected (NotDetected); Stenmaltophilia Not Reported Not Detected (NotDetected); Strep agal(GrpB) Not Reported Not Detected (NotDetected); Strep pneum Not Reported Not Detected (NotDetected); Strep pyog (GrpA) Not Reported Not Detected (NotDetected); Strep spp Not Reported Not Detected (NotDetected)
--- NOTE | 2023-11-08 10:44 | Hospitalist Progress Note ---
Date of Service November 08, 2023 Assessment & Plan (1) Cellulitis: Plan: Buttock cellulitis With elevated to leukocytosis of 27.61, with both neutrophilic predominance and left shift. Has a history of MRSA infection CTpelvis with subcutaneous right buttock inflammation with multiple clustered pockets of fluid and stranding suggestive phlegmon, no rim-enhancing fluid collection consistent with abscess and no drainable collection. No evidence of underlying musculature involvement, no perirectal/perianal abscess or fistula Blood cultures pending Patient is nontoxic-appearing on admission Patient has not improved on Keflex/Bactrim. Does have history of MRSA. Continue vancomycin/Rocephin. For cellulitis with phlegmon failing outpatient treatment and without discrete abscess Patient has had recurrent MRSA infections and multifocal pneumonia. In addition patient has had IV drug use/needle sharing in early July, reports no IV drug use since that time. HIV pending, patient consents to testing. Absolute lymphocyte count is normal. Given concern over lack of improvement, General surgery was consulted. - Labs also showing worsening WBC. - added anaerobic coverage with flagyl. As imaging is showing phlegmon, awaiting surgery input. Likely will need procedure completed. (2) Stage 4 lung cancer: Plan: Stage IV lung cancer History of non-small cell lung cancer with brain mets on pembrolizumab Receives his oncology, surgical, and radiation care through [facility]. He would like to move primary care and oncology care to [place] as he recently got a house here; would like to keep his neurosurgical services at [facility]. Request PCP referral, case management consulted Follows with pulmonology, last seen 2 days ago. Continues to have extensive fibrosis and tumor burden, right upper lobe collapse and suspected endobronchial invasion of tumor. Continue low-dose Symbicort twice daily, Tessalon Perles Palliative care strongly recommended on last visit due to extensive disease burden with brain metastasis. At time of admission patient reports his goals are to clear his infections to follow-up with [facility] oncology and start Keytruda treatments however he has not been infection free long enough to make these follow-ups Continued on 4 mg of dexamethasone. Could be responsible for the leukocytosis (3) Non-small cell lung cancer metastatic to brain: (4) History of MRSA infection: (5) Seizure: Plan: Patient with intermittent seizures history of brain mets and gamma knife treatment Seizure precautions Continue Keppra/lamotrigine Ativan on-call (6) Antisocial personality disorder: Plan: Depression, antisocial personality disorder, polysubstance abuse, history of SI No SI on admission, patient cooperative, home meds continued Plan DVT prophylaxis: Lovenox Disposition: Medical telemetry with seizure precautions CODE STATUS: Full code Diet: Regular Admission and Anticipated Discharge Date Admission Date: November 05, 2023 Subjective Patient reports having pain in his buttock region. Patient reports he continues to have pain. Review of Systems Review of Systems: All systems reviewed & are unremarkable except as noted in HPI & below Physical Exam Physical Exam: General: Awake, conversant Heart: S1, S2/regular rate and rhythm, no murmur rubs or gallops Lungs: Clear to auscultation bilaterally. Normal effort Abdomen: Soft/nontender/nondistended. No hepatosplenomegaly Extremities: No clubbing/cyanosis. No edema. Right buttock cellulitis noted. Further clearing of margins noted. Indurated area noted. Behavior: Appropriate, cooperative Results & Data Results & Data Vital Signs (Past 12 Hours) Vital Signs Temp Pulse Pulse Resp BP BP Pulse Ox 11/08/23 08:02 11/08/23 07:43 36.6 C 79 18 130/79 94 11/08/23 07:26 70 11/08/23 00:15 80 11/07/23 23:57 36.6 C 77 20 128/78 93 O2 Del Method 11/08/23 08:02 Room Air 11/08/23 07:43 Room Air 11/08/23 07:26 11/08/23 00:15 11/07/23 23:57 Room Air PG Care Time/CCT Total # of Minutes Spent Total Time Spent with Patient: Total time spent is greater than 50% in coordination of care (as documented) at patient's floor/unit and/or counseling patient: Coding Level of Care Code 28870 SUB INP/OBS CARE 2/35MIN Diagnoses Cellulitis L03.90 Malignant neoplasm of right lung stage 4 C34.91 Laterality: right Non-small cell lung cancer metastatic to brain C34.90; C79.31 History of MRSA infection Z86.14 Seizure R56.9 Antisocial personality disorder F60.2 (2) Stage 4 lung cancer Laterality: right Qualified Code(s): C34.91 - Malignant neoplasm of unspecified part of right bronchus or lung
[2023-11-08] MEDS ORDERED: HYDROmorphone INJ 0.5 MG/0.5 ML SYR IV PRN (11:08)
[2023-11-08] MEDS: ACETAMINOPHEN 325 MG TAB PO SCH (14:08)
[2023-11-08] MEDS: traMADol HCL 50 MG TABLET PO PRN (15:00)
[2023-11-08] MEDS: LIDOCAINE 1%/EPINEPHRINE 1:100,000 50 ML VIAL INFIL ONE (17:14)
[2023-11-08] MEDS: LIDOCAINE 2% LOCAL 50 ML VIAL ONE (17:14)
[2023-11-09 07:43] LABS: Hematocrit (blood only) 32.9 % (42.0-52.0); Hemoglobin 10.4 g/dl (14.0-18.0); Mean Corpuscular Hemoglobin 25.7 pg (25.0-34.0); Mean Corpuscular Hgb Conc 31.6 g/dL (32.0-36.0); Mean Corpuscular Volume 81.4 fL (80.0-100.0); Mean Platelet Volume 8.8 fL (9.4-12.4); Platelet Count 481 K/uL (130-400); RDW Coefficient of Variation 16.7 % (11.5-14.5); RDW Standard Deviation 49.5 fL (36.4-46.3); Red Blood Count 4.04 M/uL (4.70-6.10); White Blood Count 24.07 K/ul (4.8-10.8)
--- NOTE | 2023-11-09 07:59 | Surgery Progress Note ---
<Statement entered by Matt Jimenez, - 11/09/23 20:05> Erythema significantly improved Purulent fluid accumulation expressed today There is drainage from the more medial previously drained area at the right hip that is now an empty pocket. The lengthy I&D incision yesterday was not carried completely to this area to avoid a much larger wound as the hip seems to communicate with the more lateral area at the right buttocks. Upon probing with a Q tip, I was unable to directly reach the right hip pocket as this runs deeper. There is a clear communication based on the drainage that was able to be expressed with palpation of the right hip area. After fully expressing the newly accumulated purulent fluid, the wound was lightly re-packed today. Tomorrow, may begin saline irrigation of the wound. Date of Service November 09, 2023 Assessment & Plan (1) Cellulitis: Plan: Patient is s/p bedside I&D of R buttocks abscess Cultures pending, so far GPC's present WBC 24 (29). Vitals stable, afebrile Wound is packed with dry gauze dressing. There is still remaining erythema present, but improved along with some ttp Will re-evaluate with surgeon later today, but for now continue daily dressing changes On vanco, ceftriaxone pending culture data Admission and Anticipated Discharge Date Admission Date: November 05, 2023 Subjective Patient report feeling relief and better pain control of his R buttocks wound. No issues with it overnight. Physical Exam Physical Exam: awake/alert, no distress Skin: dressing peeled back, has some continued but improved erythema with blanching that remains present. packing is in place with bloody drainage. mild tenderness to palpation Results & Data Vital Signs (Past 12 Hours) Vital Signs Temp Pulse Pulse Resp BP Pulse Ox O2 Del Method 11/09/23 07:15 79 11/09/23 04:10 98.1 F 82 18 118/79 96 Room Air 11/09/23 00:31 90 11/08/23 23:28 98.1 F 60 20 128/81 97 Room Air PG Care Time/CCT Total # of Minutes Spent Total Time Spent with Patient: Total time spent is greater than 50% in coordination of care (as documented) at patient's floor/unit and/or counseling patient: Coding Level of Care Code 56670 SUB INP/OBS CARE 09/15MIN Diagnoses Cellulitis L03.90
--- NOTE | 2023-11-09 08:30 | Pharmacy Report ---
Pharmacy PK ABX Note - Date of Service November 09, 2023 - Assessment and Plan Assessment 53 year old M ordered vancomycin, ceftriaxone, and metronidazole for empiric treatment of buttock cellulitis. Patient has h/o of recurrent MRSA infections and stage IV lung cancer. Had been on cephalexin and Bactrim for current infection with no improvement. Afebrile, but persistent leukocytosis present. Renal function stable. Bedside I&D on 11/08/23 - bleeding and copious thick purulent fluid expressed Pertinent microbiologic data includes: Blood cultures x 2 (11/05/23) 1 of 2 growing gram positive bacilli, right buttock culture (11/07) growing Staphylococcus spp. Plan Vancomycin * Current regimen: 1250 mg IV every 8 hours * Trough level obtained 11/09/23 resulted as 12.6 mcg/mL. This is predicted to achieve target AUC/DOLORES of 400-600 mg/L.hr * Predicted AUC at steady state: 503 mg/L.hr * Continue 1250 mg IV every 8 hours * Will repeat level in the next 48-72 hours if therapy is continued and/or change in patient clinical status Follow cultures and de-escalate as appropriate. Pharmacy will continue to follow and will adjust dose/frequency as necessary. Thank you.
[2023-11-09 08:34] LABS: Calcium 8.7 mg/dl (8.6-10.3); Potassium 4.2 mmol/L (3.5-5.1)
[2023-11-09 08:39] LABS: BUN Creatinine Ratio 36.6 (10-20); C Reactive Protein 6.64 mg/dl (0-0.5); Creatinine Clr Calc Pharmacy 131.3 ml/min
[2023-11-09] MEDS: VANCOMYCIN LEVEL ONE (11:01)
[2023-11-09] MEDS: IBUPROFEN 600 MG TAB PO STA (16:31)
[2023-11-09] MEDS: PANTOprazole 40 MG TAB PO SCH (17:14)
--- NOTE | 2023-11-09 22:07 | Hospitalist Progress Note ---
Date of Service November 09, 2023 Assessment & Plan (1) Cellulitis: Plan: Buttock cellulitis With elevated to leukocytosis of 27.61, with both neutrophilic predominance and left shift. Has a history of MRSA infection CTpelvis with subcutaneous right buttock inflammation with multiple clustered pockets of fluid and stranding suggestive phlegmon, no rim-enhancing fluid collection consistent with abscess and no drainable collection. No evidence of underlying musculature involvement, no perirectal/perianal abscess or fistula Blood cultures pending Patient is nontoxic-appearing on admission Patient has not improved on Keflex/Bactrim. Does have history of MRSA. Continue vancomycin/Rocephin. For cellulitis with phlegmon failing outpatient treatment and without discrete abscess Patient has had recurrent MRSA infections and multifocal pneumonia. In addition patient has had IV drug use/needle sharing in early July, reports no IV drug use since that time. HIV pending, patient consents to testing. Absolute lymphocyte count is normal. Given concern over lack of improvement, General surgery was consulted. - Labs also showing worsening WBC. - added anaerobic coverage with flagyl. As imaging is showing phlegmon, Consulted gen surgery I and D completed. Patient is feeling better., awaiting cultures. Patient remains on IV antibiotics (2) Stage 4 lung cancer: Plan: Stage IV lung cancer History of non-small cell lung cancer with brain mets on pembrolizumab Receives his oncology, surgical, and radiation care through [facility]. He would like to move primary care and oncology care to [place] as he recently got a house here; would like to keep his neurosurgical services at [facility]. Request PCP referral, case management consulted Follows with pulmonology, last seen 2 days ago. Continues to have extensive fibrosis and tumor burden, right upper lobe collapse and suspected endobronchial invasion of tumor. Continue low-dose Symbicort twice daily, Violeta Holly Palliative care strongly recommended on last visit due to extensive disease burden with brain metastasis. At time of admission patient reports his goals are to clear his infections to follow-up with [facility] oncology and start Keytruda treatments however he has not been infection free long enough to make these follow-ups Continued on 4 mg of dexamethasone. Could be responsible for the leukocytosis (3) Non-small cell lung cancer metastatic to brain: (4) History of MRSA infection: (5) Seizure: Plan: Patient with intermittent seizures history of brain mets and gamma knife treatment Seizure precautions Continue Keppra/lamotrigine Ativan on-call (6) Antisocial personality disorder: Plan: Depression, antisocial personality disorder, polysubstance abuse, history of SI No SI on admission, patient cooperative, home meds continued Plan DVT prophylaxis: Lovenox Disposition: Medical telemetry with seizure precautions CODE STATUS: Full code Diet: Regular Admission and Anticipated Discharge Date Admission Date: November 05, 2023 Subjective Patient reports no new symptoms. Review of Systems Review of Systems: All systems reviewed & are unremarkable except as noted in HPI & below Physical Exam Physical Exam: General: Awake, conversant Heart: S1, S2/regular rate and rhythm, no murmur rubs or gallops Lungs: Clear to auscultation bilaterally. Normal effort Abdomen: Soft/nontender/nondistended. No hepatosplenomegaly Extremities: No clubbing/cyanosis. No edema. Right buttock cellulitis noted. Further clearing of margins noted. Indurated area noted. Behavior: Appropriate, cooperative Results & Data Results & Data Vital Signs (Past 12 Hours) Vital Signs Temp Pulse Pulse Resp BP Pulse Ox O2 Del Method 11/09/23 20:31 36.6 C 90 18 122/78 95 Room Air 11/09/23 15:30 36.9 C 101 H 18 116/80 93 Room Air 11/09/23 11:52 36.9 C 96 H 14 130/72 94 Room Air PG Care Time/CCT Total # of Minutes Spent Total Time Spent with Patient: Total time spent is greater than 50% in coordination of care (as documented) at patient's floor/unit and/or counseling patient: Coding Level of Care Code 09874 SUB INP/OBS CARE 2/35MIN Diagnoses Cellulitis L03.90 Malignant neoplasm of right lung stage 4 C34.91 Laterality: right Non-small cell lung cancer metastatic to brain C34.90; C79.31 History of MRSA infection Z86.14 Seizure R56.9 Antisocial personality disorder F60.2 (2) Stage 4 lung cancer Laterality: right Qualified Code(s): C34.91 - Malignant neoplasm of unspecified part of right bronchus or lung
[2023-11-10] MEDS: ACETAMINOPHEN 325 MG TAB PO ONE (02:08)
[2023-11-10 05:26] LABS: Hematocrit (blood only) 29.2 % (42.0-52.0); Hemoglobin 9.4 g/dl (14.0-18.0); Mean Corpuscular Hemoglobin 25.9 pg (25.0-34.0); Mean Corpuscular Hgb Conc 32.2 g/dL (32.0-36.0); Mean Corpuscular Volume 80.4 fL (80.0-100.0); Platelet Count 404 K/uL (130-400); RDW Coefficient of Variation 16.9 % (11.5-14.5); Red Blood Count 3.63 M/uL (4.70-6.10); White Blood Count 20.27 K/ul (4.8-10.8)
[2023-11-10 05:36] LABS: BUN Creatinine Ratio 46.2 (10-20); Calcium 8.4 mg/dl (8.6-10.3); Creatinine Clr Calc Pharmacy 165.7 ml/min; Est GFR (African American) 128.7 ml/min; Est GFR (Non-African American) 111.1 ml/min; Potassium 3.9 mmol/L (3.5-5.1)
--- NOTE | 2023-11-10 15:59 | Surgery Progress Note ---
<Statement entered by Matt Jimenez, DO - 11/11/23 14:59> This case was discussed with the surgical PA Date of Service November 10, 2023 Assessment & Plan (1) Cellulitis: Plan: Patient is s/p bedside I&D of R buttocks abscess Cultures growing MRSA, on vanco and flagyl WBC 20 (24). Vitals stable, afebrile Wound was evaluated, a saline syringe x2 were used to irrigate the wound, small amount of purulence expressed. There is improving erythema and tenderness Wound re-dressed with a corner of dry gauze in incision with a gauze/ABD/medipore dressing Will re-evaluate wound once more tomorrow to ensure there are no remaining po ckets of purulence Admission and Anticipated Discharge Date Admission Date: November 05, 2023 Subjective Patient reports he continues to feel better from his buttocks wound. Physical Exam Physical Exam: awake/alert, no distress Skin: R buttocks wound with daily improvement in erythema. small amount of purulence expressed, less than yesterday. less tender Results & Data Vital Signs (Past 12 Hours) Vital Signs Temp Pulse Pulse Pulse Resp BP BP 11/10/23 15:45 84 11/10/23 15:31 97.9 F 85 18 121/81 11/10/23 11:51 98.1 F 78 18 104/59 L 11/10/23 10:02 11/10/23 07:57 97.9 F 98 H 18 149/81 H Pulse Ox O2 Del Method 11/10/23 15:45 11/10/23 15:31 93 Room Air 11/10/23 11:51 97 Room Air 11/10/23 10:02 Room Air 11/10/23 07:57 93 Room Air PG Care Time/CCT Total # of Minutes Spent Total Time Spent with Patient: Total time spent is greater than 50% in coordination of care (as documented) at patient's floor/unit and/or counseling patient: Coding Level of Care Code 13362 SUB INP/OBS CARE 09/15MIN Diagnoses Cellulitis L03.90
--- NOTE | 2023-11-10 22:22 | Hospitalist Progress Note ---
Date of Service November 10, 2023 Assessment & Plan (1) Cellulitis: Plan: Buttock cellulitis With elevated to leukocytosis of 27.61, with both neutrophilic predominance and left shift. Has a history of MRSA infection CTpelvis with subcutaneous right buttock inflammation with multiple clustered pockets of fluid and stranding suggestive phlegmon, no rim-enhancing fluid collection consistent with abscess and no drainable collection. No evidence of underlying musculature involvement, no perirectal/perianal abscess or fistula Blood cultures pending Patient is nontoxic-appearing on admission Patient has not improved on Keflex/Bactrim. Does have history of MRSA. Continue vancomycin/Rocephin. For cellulitis with phlegmon failing outpatient treatment and without discrete abscess Patient has had recurrent MRSA infections and multifocal pneumonia. In addition patient has had IV drug use/needle sharing in early July, reports no IV drug use since that time. HIV pending, patient consents to testing. Absolute lymphocyte count is normal. Given concern over lack of improvement, General surgery was consulted. - Labs also showing worsening WBC. - added anaerobic coverage with flagyl. As imaging is showing phlegmon, Consulted gen surgery I and D completed. Patient is feeling better., cultures showing MRSA. stop ceftriaxone and place MRSA Patient remains on IV antibiotics (2) Stage 4 lung cancer: Plan: Stage IV lung cancer History of non-small cell lung cancer with brain mets on pembrolizumab Receives his oncology, surgical, and radiation care through [facility]. He would like to move primary care and oncology care to [place] as he recently got a house here; would like to keep his neurosurgical services at [facility]. Request PCP referral, case management consulted Follows with pulmonology, last seen 2 days ago. Continues to have extensive fibrosis and tumor burden, right upper lobe collapse and suspected endobronchial invasion of tumor. Continue low-dose Symbicort twice daily, Violeta Holly Palliative care strongly recommended on last visit due to extensive disease burden with brain metastasis. At time of admission patient reports his goals are to clear his infections to follow-up with [facility] oncology and start Keytruda treatments however he has not been infection free long enough to make these follow-ups Continued on 4 mg of dexamethasone. Could be responsible for the leukocytosis (3) Non-small cell lung cancer metastatic to brain: (4) History of MRSA infection: (5) Seizure: Plan: Patient with intermittent seizures history of brain mets and gamma knife treatment Seizure precautions Continue Keppra/lamotrigine Ativan on-call (6) Antisocial personality disorder: Plan: Depression, antisocial personality disorder, polysubstance abuse, history of SI No SI on admission, patient cooperative, home meds continued Plan DVT prophylaxis: Lovenox Disposition: Medical telemetry with seizure precautions CODE STATUS: Full code Diet: Regular Admission and Anticipated Discharge Date Admission Date: November 05, 2023 Subjective Patient reports no new symptoms. Review of Systems Review of Systems: All systems reviewed & are unremarkable except as noted in HPI & below Physical Exam Physical Exam: General: Awake, conversant Heart: S1, S2/regular rate and rhythm, no murmur rubs or gallops Lungs: Clear to auscultation bilaterally. Normal effort Abdomen: Soft/nontender/nondistended. No hepatosplenomegaly Extremities: No clubbing/cyanosis. No edema. Right buttock cellulitis noted. Further clearing of margins noted. Indurated area noted. Behavior: Appropriate, cooperative Results & Data Results & Data Vital Signs (Past 12 Hours) Vital Signs Temp Pulse Pulse Pulse Resp BP BP 11/10/23 19:50 36.6 C 82 20 114/72 11/10/23 15:45 84 11/10/23 15:31 36.6 C 85 18 121/81 11/10/23 11:51 36.7 C 78 18 104/59 L Pulse Ox O2 Del Method 11/10/23 19:50 95 Room Air 11/10/23 15:45 11/10/23 15:31 93 Room Air 11/10/23 11:51 97 Room Air PG Care Time/CCT Total # of Minutes Spent Total Time Spent with Patient: Total time spent is greater than 50% in coordination of care (as documented) at patient's floor/unit and/or counseling patient: Coding Level of Care Code 42812 SUB INP/OBS CARE 2/35MIN Diagnoses Cellulitis L03.90 Malignant neoplasm of right lung stage 4 C34.91 Laterality: right Non-small cell lung cancer metastatic to brain C34.90; C79.31 History of MRSA infection Z86.14 Seizure R56.9 Antisocial personality disorder F60.2 (2) Stage 4 lung cancer Laterality: right Qualified Code(s): C34.91 - Malignant neoplasm of unspecified part of right bronchus or lung
[2023-11-11] MEDS: HYDROmorphone INJ 0.5 MG/0.5 ML SYR IV PRN (04:32)
[2023-11-11 06:03] LABS: Hemoglobin 10.1 g/dl (14.0-18.0); Mean Corpuscular Hemoglobin 26.2 pg (25.0-34.0); Mean Corpuscular Hgb Conc 32.6 g/dL (32.0-36.0); Mean Corpuscular Volume 80.3 fL (80.0-100.0); Mean Platelet Volume 9.1 fL (9.4-12.4); Platelet Count 546 K/uL (130-400); RDW Coefficient of Variation 17.1 % (11.5-14.5); RDW Standard Deviation 49.8 fL (36.4-46.3); Red Blood Count 3.86 M/uL (4.70-6.10); White Blood Count 18.43 K/ul (4.8-10.8)
[2023-11-11 06:27] LABS: BUN Creatinine Ratio 33.3 (10-20); C Reactive Protein 4.72 mg/dl (0-0.5); Calcium 8.7 mg/dl (8.6-10.3); Creatinine Clr Calc Pharmacy 133.2 ml/min; Est GFR (African American) 117.6 ml/min; Est GFR (Non-African American) 101.5 ml/min; Potassium 3.9 mmol/L (3.5-5.1)
--- NOTE | 2023-11-11 08:24 | Pharmacy Report ---
Pharmacy PK ABX Note - Date of Service November 11, 2023 - Assessment and Plan Assessment 11/10: Reviewed vancomycin level, level predicted to achieve an AUC/DOLORES within goal range with 76% probability. Right buttock culture now growing MRSA (Vanc DOLORES=2). Will increase dose slightly to increase probability of achieving goal AUC/DOLORES to 95% due to severity of infection. WBC count still elevated today at 18.4, patient is afebrile. 11/08: 53 year old M ordered vancomycin, ceftriaxone, and metronidazole for empiric treatment of buttock cellulitis. Patient has h/o of recurrent MRSA infections and stage IV lung cancer. Had been on cephalexin and Bactrim for current infection with no improvement. Afebrile, but persistent leukocytosis present. Renal function stable. Bedside I&D on 11/08/23 - bleeding and copious thick purulent fluid expressed Pertinent microbiologic data includes: Blood cultures x 2 (11/05/23) 1 of 2 growing gram positive bacilli, right buttock culture (11/07) growing Staphylococcus spp. Plan Vancomycin * Current regimen: 1250 mg IV every 8 hours * Trough level obtained 11/09/23 resulted as 12.4 mcg/mL. This is predicted to achieve target AUC/DOLORES of 400-600 mg/L.hr * Predicted AUC at steady state: 459 mg/L.hr with 76% probability of achieving goal AUC/DOLORES * Increase to vancomycin 1500 mg IV every 8 hours, predicted AUC/DOLORES 545 mg/L.hr with 95% probability * Repeat trough ordered for Mon 11/13 @ 0730. Daily serum creatinine ordered, will order level sooner if clinically indicated. Follow cultures and de-escalate as appropriate. Pharmacy will continue to follow and will adjust dose/frequency as necessary. Thank you.
[2023-11-11] MEDS: VANCOMYCIN LEVEL ONE (10:18)
[2023-11-11] MEDS: VANCOMYCIN HCL 1,500 MG in SODIUM CHLORIDE 0.9% 500 ML IV SCH (10:18)
--- NOTE | 2023-11-11 11:28 | Hospitalist Progress Note ---
Date of Service November 11, 2023 Assessment & Plan (1) Cellulitis: Plan: Buttock cellulitis With elevated to leukocytosis of 27.61, with both neutrophilic predominance and left shift. Has a history of MRSA infection CTpelvis with subcutaneous right buttock inflammation with multiple clustered pockets of fluid and stranding suggestive phlegmon, no rim-enhancing fluid collection consistent with abscess and no drainable collection. No evidence of underlying musculature involvement, no perirectal/perianal abscess or fistula Blood cultures pending Patient is nontoxic-appearing on admission Patient has not improved on Keflex/Bactrim. Does have history of MRSA. Continue vancomycin/Rocephin. For cellulitis with phlegmon failing outpatient treatment and without discrete abscess Patient has had recurrent MRSA infections and multifocal pneumonia. In addition patient has had IV drug use/needle sharing in early July, reports no IV drug use since that time. HIV pending, patient consents to testing. Absolute lymphocyte count is normal. Given concern over lack of improvement, General surgery was consulted. - Labs also showing worsening WBC. - added anaerobic coverage with flagyl. As imaging is showing phlegmon, Consulted gen surgery I and D completed. Patient is feeling better., cultures showing MRSA. stop ceftriaxone and place MRSA Patient remains on IV antibiotics (2) Stage 4 lung cancer: Plan: Stage IV lung cancer History of non-small cell lung cancer with brain mets on pembrolizumab Receives his oncology, surgical, and radiation care through [facility]. He would like to move primary care and oncology care to [place] as he recently got a house here; would like to keep his neurosurgical services at [facility]. Request PCP referral, case management consulted Follows with pulmonology, last seen 2 days ago. Continues to have extensive fibrosis and tumor burden, right upper lobe collapse and suspected endobronchial invasion of tumor. Continue low-dose Symbicort twice daily, Violeta Holly Palliative care strongly recommended on last visit due to extensive disease burden with brain metastasis. At time of admission patient reports his goals are to clear his infections to follow-up with [facility] oncology and start Keytruda treatments however he has not been infection free long enough to make these follow-ups Continued on 4 mg of dexamethasone. Could be responsible for the leukocytosis (3) Non-small cell lung cancer metastatic to brain: (4) History of MRSA infection: (5) Seizure: Plan: Patient with intermittent seizures history of brain mets and gamma knife treatment Seizure precautions Continue Keppra/lamotrigine Ativan on-call (6) Antisocial personality disorder: Plan: Depression, antisocial personality disorder, polysubstance abuse, history of SI No SI on admission, patient cooperative, home meds continued Plan DVT prophylaxis: Lovenox Disposition: Medical telemetry with seizure precautions CODE STATUS: Full code Diet: Regular Admission and Anticipated Discharge Date Admission Date: November 05, 2023 Subjective Patient reports no new symptoms. Review of Systems Review of Systems: All systems reviewed & are unremarkable except as noted in HPI & below Physical Exam Physical Exam: General: Awake, conversant Heart: S1, S2/regular rate and rhythm, no murmur rubs or gallops Lungs: Clear to auscultation bilaterally. Normal effort Abdomen: Soft/nontender/nondistended. No hepatosplenomegaly Extremities: No clubbing/cyanosis. No edema. Right buttock cellulitis noted. Further clearing of margins noted. Indurated area noted. Behavior: Appropriate, cooperative Results & Data Results & Data Vital Signs (Past 12 Hours) Vital Signs Temp Pulse Pulse Resp BP BP Pulse Ox 11/11/23 11:26 36.6 C 94 H 20 127/82 93 11/11/23 11:05 11/11/23 07:59 85 11/11/23 07:41 36.6 C 86 18 115/72 96 11/11/23 03:34 36.5 C 88 20 136/85 95 11/10/23 23:54 36.6 C 86 20 133/79 96 O2 Del Method 11/11/23 11:26 Room Air 11/11/23 11:05 Room Air 11/11/23 07:59 11/11/23 07:41 Room Air 11/11/23 03:34 Room Air 11/10/23 23:54 Room Air PG Care Time/CCT Total # of Minutes Spent Total Time Spent with Patient: Total time spent is greater than 50% in coordination of care (as documented) at patient's floor/unit and/or counseling patient: Coding Level of Care Code 14956 SUB INP/OBS CARE 2/35MIN Diagnoses Cellulitis L03.90 Malignant neoplasm of right lung stage 4 C34.91 Laterality: right Non-small cell lung cancer metastatic to brain C34.90; C79.31 History of MRSA infection Z86.14 Seizure R56.9 Antisocial personality disorder F60.2 (2) Stage 4 lung cancer Laterality: right Qualified Code(s): C34.91 - Malignant neoplasm of unspecified part of right bronchus or lung
--- NOTE | 2023-11-11 14:35 | Surgery Progress Note ---
<Statement entered by Matt Jimenez, DO - 11/14/23 12:27> This patient was seen and examined with the surgical [employer] MANAGER Date of Service November 11, 2023 Assessment & Plan (1) Cellulitis: Plan: Patient is s/p bedside I&D of R buttocks abscess Cultures growing MRSA, on vanco and flagyl WBC 18 (20). Vitals stable, afebrile Wound irrigated saline syringe x2 improving erythema and tenderness Wound re-dressed with a corner of dry gauze in incision with a gauze/ABD/medipore dressing Nurses to continue above wound care over weekend pt seen with Dr. Jimenez Admission and Anticipated Discharge Date Admission Date: November 05, 2023 Subjective doing ok pain tolerated Review of Systems Constitutional: no fever and no chills Integumentary: + wounds Physical Exam Physical Exam: alert oriented Constitutional: comfortable; no acute distress Skin: + wound (Right upper thigh/buttocks ) Results & Data Vital Signs (Past 12 Hours) Vital Signs Temp Pulse Pulse Resp BP BP Pulse Ox 11/11/23 11:26 97.9 F 94 H 20 127/82 93 11/11/23 11:05 11/11/23 07:59 85 11/11/23 07:41 97.9 F 86 18 115/72 96 11/11/23 03:34 97.7 F 88 20 136/85 95 O2 Del Method 11/11/23 11:26 Room Air 11/11/23 11:05 Room Air 11/11/23 07:59 11/11/23 07:41 Room Air 11/11/23 03:34 Room Air PG Care Time/CCT Total # of Minutes Spent Total Time Spent with Patient: Total time spent is greater than 50% in coordination of care (as documented) at patient's floor/unit and/or counseling patient: Coding Level of Care Code 45354 SUB INP/OBS CARE 09/15MIN Diagnoses Cellulitis L03.90
[2023-11-12] MEDS: LORazepam 1 MG TAB PO STA (00:03)
--- NOTE | 2023-11-12 02:15 | Communication Note ---
Date of Service: November 12, 2023 Notified by nursing that patient was complaining of left sided arm pain and concern that it was due to IV antibiotics. I went to bedside and evaluated the patient, he expressed frustration that he is "always" having an IV antibiotic going at all times and also had concern of lumps/pain below his left shoulder blade. On examination, no obvious lumps palpated at area of concern below shoulder blade and no signs of IV infiltration. Discussed options for IV including getting access at his right arm instead, which patient was agreeable. Discussed with patient the option to try a medication to help him relax and get some sleep which he was agreeable to, ordered a dose of PO Ativan. Later in the evening, nursing notified me that IV team was unable to get IV access at right arm on initial attempt and patient was refusing further attempts at IV access. Patient was also requesting alternatives to his IV vancomycin and metronidazole. Nursing relayed to patient the importance of his IV antibiotics and no reasonable alternative to his antibiotic regimen at this time. Patient refused to receive his scheduled IV vancomycin. Resident Activity Tracking Resident Involvement: Resident Care Provided Care Provided: Adult Hospital Medicine
[2023-11-12 05:25] LABS: Creatinine Clr Calc Pharmacy 124.2 ml/min; Est GFR (African American) 114.2 ml/min; Est GFR (Non-African American) 98.5 ml/min
--- NOTE | 2023-11-12 17:44 | Hospitalist Progress Note ---
Date of Service November 12, 2023 Assessment & Plan (1) Cellulitis: Plan: Buttock cellulitis With elevated to leukocytosis of 27.61, with both neutrophilic predominance and left shift. Has a history of MRSA infection CTpelvis with subcutaneous right buttock inflammation with multiple clustered pockets of fluid and stranding suggestive phlegmon, no rim-enhancing fluid collection consistent with abscess and no drainable collection. No evidence of underlying musculature involvement, no perirectal/perianal abscess or fistula Blood cultures pending Patient is nontoxic-appearing on admission Patient has not improved on Keflex/Bactrim. Does have history of MRSA. Continue vancomycin/Rocephin. For cellulitis with phlegmon failing outpatient treatment and without discrete abscess Patient has had recurrent MRSA infections and multifocal pneumonia. In addition patient has had IV drug use/needle sharing in early July, reports no IV drug use since that time. HIV pending, patient consents to testing. Absolute lymphocyte count is normal. Given concern over lack of improvement, General surgery was consulted. - Labs also showing worsening WBC. - added anaerobic coverage with flagyl. As imaging is showing phlegmon, Consulted gen surgery I and D completed. Patient is feeling better., cultures showing MRSA. stop ceftriaxone and place MRSA Patient remains on IV antibiotics continue to monitor blood work on 11/11 (2) Stage 4 lung cancer: Plan: Stage IV lung cancer History of non-small cell lung cancer with brain mets on pembrolizumab Receives his oncology, surgical, and radiation care through [facility]. He would like to move primary care and oncology care to [place] as he recently got a house here; would like to keep his neurosurgical services at [facility]. Request PCP referral, case management consulted Follows with pulmonology, last seen 2 days ago. Continues to have extensive fibrosis and tumor burden, right upper lobe collapse and suspected endobronchial invasion of tumor. Continue low-dose Symbicort twice daily, Tesrol[place] Avni Palliative care strongly recommended on last visit due to extensive disease burden with brain metastasis. At time of admission patient reports his goals are to clear his infections to follow-up with [facility] oncology and start Keytruda treatments however he has not been infection free long enough to make these follow-ups Continued on 4 mg of dexamethasone. Could be responsible for the leukocytosis (3) Non-small cell lung cancer metastatic to brain: (4) History of MRSA infection: (5) Seizure: Plan: Patient with intermittent seizures history of brain mets and gamma knife treatment Seizure precautions Continue Keppra/lamotrigine Ativan on-call (6) Antisocial personality disorder: Plan: Depression, antisocial personality disorder, polysubstance abuse, history of SI No SI on admission, patient cooperative, home meds continued Plan DVT prophylaxis: Lovenox Disposition: Medical telemetry with seizure precautions CODE STATUS: Full code Diet: Regular Admission and Anticipated Discharge Date Admission Date: November 05, 2023 Subjective Patient reports feeling improvement but not quite at baseline. Continues to have some pain. Review of Systems Review of Systems: All systems reviewed & are unremarkable except as noted in HPI & below Physical Exam Physical Exam: General: Awake, conversant Heart: S1, S2/regular rate and rhythm, no murmur rubs or gallops Lungs: Clear to auscultation bilaterally. Normal effort Abdomen: Soft/nontender/nondistended. No hepatosplenomegaly Extremities: No clubbing/cyanosis. No edema. Right buttock cellulitis noted. Further clearing of margins noted. Indurated area noted. Behavior: Appropriate, cooperative Results & Data Results & Data Vital Signs (Past 12 Hours) Vital Signs Temp Pulse Pulse Resp BP BP Pulse Ox 11/12/23 16:23 36.9 C 16 146/79 H 93 11/12/23 15:06 88 11/12/23 11:42 36.8 C 93 H 16 122/78 94 11/12/23 07:49 101 H 11/12/23 07:48 36.5 C 88 18 125/70 95 O2 Del Method 11/12/23 16:23 Room Air 11/12/23 15:06 11/12/23 11:42 Room Air 11/12/23 07:49 11/12/23 07:48 Room Air PG Care Time/CCT Total # of Minutes Spent Total Time Spent with Patient: Total time spent is greater than 50% in coordination of care (as documented) at patient's floor/unit and/or counseling patient: Coding Level of Care Code 14837 SUB INP/OBS CARE 2/35MIN Diagnoses Cellulitis L03.90 Malignant neoplasm of right lung stage 4 C34.91 Laterality: right Non-small cell lung cancer metastatic to brain C34.90; C79.31 History of MRSA infection Z86.14 Seizure R56.9 Antisocial personality disorder F60.2 (2) Stage 4 lung cancer Laterality: right Qualified Code(s): C34.91 - Malignant neoplasm of unspecified part of right bronchus or lung
[2023-11-13 04:57] LABS: Hematocrit (blood only) 29.7 % (42.0-52.0); Hemoglobin 9.6 g/dl (14.0-18.0); Mean Corpuscular Hemoglobin 26.1 pg (25.0-34.0); Mean Corpuscular Hgb Conc 32.3 g/dL (32.0-36.0); Mean Corpuscular Volume 80.7 fL (80.0-100.0); Platelet Count 602 K/uL (130-400); RDW Coefficient of Variation 17.2 % (11.5-14.5); RDW Standard Deviation 50.4 fL (36.4-46.3); Red Blood Count 3.68 M/uL (4.70-6.10); White Blood Count 16.32 K/ul (4.8-10.8)
[2023-11-13 05:11] LABS: C Reactive Protein 3.52 mg/dl (0-0.5); Creatinine Clr Calc Pharmacy 168.5 ml/min; Est GFR (African American) 128.7 ml/min; Est GFR (Non-African American) 111.1 ml/min
[2023-11-13 05:23] LABS: Basophils # (auto) 0.08 K/uL (0.00-0.20); Basophils % (auto) 0.5 %; Eosinophils % (auto) 0.6 %; Immature Granulocytes # (auto) 1.08 K/uL (0.01-0.20); Immature Granulocytes % (auto) 6.6 %; Lymphocytes # (auto) 1.97 K/uL (1.20-3.40); Lymphocytes % (auto) 12.1 %; Monocytes # (auto) 1.21 K/uL (0.11-0.59); Monocytes % (auto) 7.4 %; Neutrophils # (auto) 11.88 K/uL (1.40-6.50); Neutrophils % (auto) 72.8 %; RBC Morphology Unremarkable
--- NOTE | 2023-11-13 14:42 | Hospitalist Progress Note ---
Date of Service November 13, 2023 Assessment & Plan (1) Cellulitis: Plan: Buttock cellulitis With elevated to leukocytosis of 27.61, with both neutrophilic predominance and left shift. Has a history of MRSA infection CTpelvis with subcutaneous right buttock inflammation with multiple clustered pockets of fluid and stranding suggestive phlegmon, no rim-enhancing fluid collection consistent with abscess and no drainable collection. No evidence of underlying musculature involvement, no perirectal/perianal abscess or fistula Blood cultures pending Patient is nontoxic-appearing on admission Patient has not improved on Keflex/Bactrim. Does have history of MRSA. Continue vancomycin/Rocephin. For cellulitis with phlegmon failing outpatient treatment and without discrete abscess Patient has had recurrent MRSA infections and multifocal pneumonia. In addition patient has had IV drug use/needle sharing in early July, reports no IV drug use since that time. HIV pending, patient consents to testing. Absolute lymphocyte count is normal. Given concern over lack of improvement, General surgery was consulted. - Labs also showing worsening WBC. - added anaerobic coverage with flagyl. As imaging is showing phlegmon, Consulted gen surgery I and D completed. Patient is feeling better., cultures showing MRSA. stop ceftriaxone and place MRSA Patient remains on IV antibiotics continue to monitor blood work on 11/12 Patient continues to show improvement. Leukocytosis is better. (2) Stage 4 lung cancer: Plan: Stage IV lung cancer History of non-small cell lung cancer with brain mets on pembrolizumab Receives his oncology, surgical, and radiation care through [facility]. He would like to move primary care and oncology care to [place] as he recently got a house here; would like to keep his neurosurgical services at [facility]. Request PCP referral, case management consulted Follows with pulmonology, last seen 2 days ago. Continues to have extensive fibrosis and tumor burden, right upper lobe collapse and suspected endobronchial invasion of tumor. Continue low-dose Symbicort twice daily, Violeta Holly Palliative care strongly recommended on last visit due to extensive disease burden with brain metastasis. At time of admission patient reports his goals are to clear his infections to follow-up with [facility] oncology and start Keytruda treatments however he has not been infection free long enough to make these follow-ups Continued on 4 mg of dexamethasone. Could be responsible for the leukocytosis (3) Non-small cell lung cancer metastatic to brain: (4) History of MRSA infection: (5) Seizure: Plan: Patient with intermittent seizures history of brain mets and gamma knife treatment Seizure precautions Continue Keppra/lamotrigine Ativan on-call (6) Antisocial personality disorder: Plan: Depression, antisocial personality disorder, polysubstance abuse, history of SI No SI on admission, patient cooperative, home meds continued Plan DVT prophylaxis: Lovenox Disposition: Medical telemetry with seizure precautions CODE STATUS: Full code Diet: Regular Admission and Anticipated Discharge Date Admission Date: November 05, 2023 Subjective 53 yo male reports feeling better. His pain has improved. Review of Systems Review of Systems: All systems reviewed & are unremarkable except as noted in HPI & below Physical Exam Physical Exam: General: Awake, conversant Heart: S1, S2/regular rate and rhythm, no murmur rubs or gallops Lungs: Clear to auscultation bilaterally. Normal effort Abdomen: Soft/nontender/nondistended. No hepatosplenomegaly Extremities: No clubbing/cyanosis. No edema. Right buttock cellulitis noted. Further clearing of margins noted. minimal indurated area, Behavior: Appropriate, cooperative Results & Data Results & Data Vital Signs (Past 12 Hours) Vital Signs Temp Pulse Pulse Resp BP BP Pulse Ox 11/13/23 12:33 36.8 C 106 H 16 103/61 94 11/13/23 09:41 11/13/23 07:49 36.5 C 90 18 121/76 94 11/13/23 03:24 36.4 C L 80 18 141/51 H 95 Pulse Ox O2 Del Method O2 Del Method 11/13/23 12:33 Room Air 11/13/23 09:41 94 Room Air 11/13/23 07:49 Room Air 11/13/23 03:24 Room Air PG Care Time/CCT Total # of Minutes Spent Total Time Spent with Patient: Total time spent is greater than 50% in coordination of care (as documented) at patient's floor/unit and/or counseling patient: Coding Level of Care Code 59536 SUB INP/OBS CARE 2/35MIN Diagnoses Cellulitis L03.90 Malignant neoplasm of right lung stage 4 C34.91 Laterality: right Non-small cell lung cancer metastatic to brain C34.90; C79.31 History of MRSA infection Z86.14 Seizure R56.9 Antisocial personality disorder F60.2 (2) Stage 4 lung cancer Laterality: right Qualified Code(s): C34.91 - Malignant neoplasm of unsp ecified part of right bronchus or lung
[2023-11-13] MEDS: MELATONIN 3 MG TAB PO PRN (16:44)
[2023-11-14 06:02] LABS: Hematocrit (blood only) 30.5 % (42.0-52.0); Hemoglobin 9.8 g/dl (14.0-18.0); Mean Corpuscular Hemoglobin 25.9 pg (25.0-34.0); Mean Corpuscular Hgb Conc 32.1 g/dL (32.0-36.0); Mean Corpuscular Volume 80.5 fL (80.0-100.0); Mean Platelet Volume 8.7 fL (9.4-12.4); Platelet Count 637 K/uL (130-400); RDW Coefficient of Variation 17.2 % (11.5-14.5); RDW Standard Deviation 50.2 fL (36.4-46.3); Red Blood Count 3.79 M/uL (4.70-6.10); White Blood Count 16.83 K/ul (4.8-10.8)
[2023-11-14 06:19] LABS: BUN Creatinine Ratio 32.9 (10-20); C Reactive Protein 3.73 mg/dl (0-0.5); Calcium 8.9 mg/dl (8.6-10.3); Est GFR (African American) 122.7 ml/min; Est GFR (Non-African American) 105.9 ml/min; Potassium 3.9 mmol/L (3.5-5.1)
[2023-11-14] MEDS: VANCOMYCIN LEVEL ONE (08:40)
--- NOTE | 2023-11-14 13:23 | Pharmacy Report ---
Pharmacy PK ABX Note - Date of Service November 14, 2023 - Assessment and Plan Assessment 53 year old M ordered vancomycin and metronidazole for empiric treatment of buttock cellulitis. Patient has h/o of recurrent MRSA infections and stage IV lung cancer. Had been on cephalexin and Bactrim for current infection with no improvement. Afebrile, but persistent leukocytosis present (some improvement noted from presentation). Renal function stable. Bedside I&D on 11/08/23 - bleeding and copious thick purulent fluid expressed Discussed w/ hospitalist today - plan is for at least 7 days since I&D (possibly longer). Completion of 7 days would be after dose tomorrow morning. Pertinent microbiologic data includes: * Blood cultures x 2 (11/05/23) 1 of 2 growing Limosilactobacillus fermentum, Right buttock (11/07) growing MRSA (vanco DOLORES of 2) Plan Vancomycin * Current regimen: 1500 mg IV every 8 hours * Trough level obtained 11/14/23 resulted as 18.7 mcg/mL. This is predicted to achieve target AUC/DOLORES of 400-600 mg/L.hr * Predicted AUC at steady state: 502 mg/L.hr * Continue 1500 mg IV every 8 hours * Will repeat level in the next 48-72 hours if therapy is continued and/or change in patient clinical status Follow cultures and de-escalate as appropriate. Pharmacy will continue to follow and will adjust dose/frequency as necessary. Thank you.
--- NOTE | 2023-11-14 14:48 | Surgery Progress Note ---
<Statement entered by Matt Jimenez, DO - 11/15/23 19:24> after obtaining consent, the area was injected with Lidocaine as the patient could not otherwise tolerate proper wound cleaning. Exudate was removed from the area with sharp debridement. The pocket superior to the previously drainaned area was incised to check for purulent drainage. Very minimal expres sed, mostly blood. The two areas did not largely communicate. Change dressing daily, pack both areas lightly. Irrigate daily. Date of Service November 14, 2023 Assessment & Plan (1) Status post incision and drainage: Plan: Assisted Dr. Jimenez with Right buttock thigh wound debridement at bedside area prepped with betadine 1% lidocaine injected prior to debridement inferior aspect of wound debrided, superior aspect incision made small amount of purulent material excreted Area irrigated with sterile NSS wound packed with gauze covered with abd and medipore tape Daily wound care by nurses, pack superior and inferior wound with gauze and then cover with abd and tape Admission and Anticipated Discharge Date Admission Date: November 05, 2023 Review of Systems Respiratory: no dyspnea Cardiovascular: no chest pain Musculoskeletal: + problem reported left posterior shoulder discomfort Integumentary: + wounds Physical Exam Physical Exam: alert oriented Constitutional: cooperative and comfortable; no acute distress Respiratory: normal respiratory effort and able to speak in complete sentences; no respiratory distress Musculoskeletal: no cyanosis or clubbing, extremities motor strength 5/5 Shoulder: no skin erythema possible left posterior lipoma Skin: + wound Results & Data Vital Signs (Past 12 Hours) Vital Signs Temp Pulse Pulse Resp BP BP Pulse Ox 11/14/23 11:04 98.2 F 108 H 18 138/72 92 11/14/23 10:08 11/14/23 10:08 11/14/23 07:59 86 11/14/23 07:22 97.3 F L 94 H 18 132/90 92 11/14/23 03:26 97.9 F 98 H 20 136/84 92 Pulse Ox O2 Del Method O2 Del Method 11/14/23 11:04 Room Air 11/14/23 10:08 Room Air 11/14/23 10:08 92 Room Air 11/14/23 07:59 11/14/23 07:22 Room Air 11/14/23 03:26 Room Air PG Care Time/CCT Total # of Minutes Spent Total Time Spent with Patient: Total time spent is greater than 50% in coordination of care (as documented) at patient's floor/unit and/or counseling patient: Coding Level of Care Code 34067 SUB INP/OBS CARE MIN Diagnoses Status post incision and drainage Z98.890
[2023-11-14] MEDS: LIDOCAINE 1% LOCAL 20 ML VIAL ONE (14:54)
--- NOTE | 2023-11-14 21:32 | Hospitalist Progress Note ---
Date of Service November 14, 2023 Assessment & Plan (1) Cellulitis: Plan: Buttock cellulitis With elevated to leukocytosis of 27.61, with both neutrophilic predominance and left shift. Has a history of MRSA infection CTpelvis with subcutaneous right buttock inflammation with multiple clustered pockets of fluid and stranding suggestive phlegmon, no rim-enhancing fluid collection consistent with abscess and no drainable collection. No evidence of underlying musculature involvement, no perirectal/perianal abscess or fistula Blood cultures pending Patient is nontoxic-appearing on admission Patient has not improved on Keflex/Bactrim. Does have history of MRSA. Continue vancomycin/Rocephin. For cellulitis with phlegmon failing outpatient treatment and without discrete abscess Patient has had recurrent MRSA infections and multifocal pneumonia. In addition patient has had IV drug use/needle sharing in early July, reports no IV drug use since that time. HIV pending, patient consents to testing. Absolute lymphocyte count is normal. Given concern over lack of improvement, General surgery was consulted. - Labs also showing worsening WBC. - added anaerobic coverage with flagyl. As imaging is showing phlegmon, Consulted gen surgery I and D completed. Patient is feeling better., cultures showing MRSA. stop ceftriaxone and place MRSA Patient remains on IV antibiotics continue to monitor blood work on 11/13 Patient continues to show improvement. Leukocytosis remains elevated had another I and D on 11/13 (2) Stage 4 lung cancer: Plan: Stage IV lung cancer History of non-small cell lung cancer with brain mets on pembrolizumab Receives his oncology, surgical, and radiation care through [facility]. He would like to move primary care and oncology care to [place] as he recently got a house here; would like to keep his neurosurgical services at [facility]. Request PCP referral, case management consulted Follows with pulmonology, last seen 2 days ago. Continues to have extensive fibrosis and tumor burden, right upper lobe collapse and suspected endobronchial invasion of tumor. Continue low-dose Symbicort twice daily, Violeta Holly Palliative care strongly recommended on last visit due to extensive disease burden with brain metastasis. At time of admission patient reports his goals are to clear his infections to follow-up with [facility] oncology and start Keytruda treatments however he has not been infection free long enough to make these follow-ups Continued on 4 mg of dexamethasone. Could be responsible for the leukocytosis (3) Non-small cell lung cancer metastatic to brain: (4) History of MRSA infection: (5) Seizure: Plan: Patient with intermittent seizures history of brain mets and gamma knife treatment Seizure precautions Continue Keppra/lamotrigine Ativan on-call (6) Antisocial personality disorder: Plan: Depression, antisocial personality disorder, polysubstance abuse, history of SI No SI on admission, patient cooperative, home meds continued Plan DVT prophylaxis: Lovenox Disposition: Medical telemetry with seizure precautions CODE STATUS: Full code Diet: Regular Admission and Anticipated Discharge Date Admission Date: November 05, 2023 Subjective Patient reports no new symptoms. Review of Systems Review of Systems: All systems reviewed & are unremarkable except as noted in HPI & below Physical Exam Physical Exam: General: Awake, conversant Heart: S1, S2/regular rate and rhythm, no murmur rubs or gallops Lungs: Clear to auscultation bilaterally. Normal effort Abdomen: Soft/nontender/nondistended. No hepatosplenomegaly Extremities: No clubbing/cyanosis. No edema. Right buttock cellulitis noted. Further clearing of margins noted. minimal indurated area, Behavior: Appropriate, cooperative Results & Data Results & Data Vital Signs (Past 12 Hours) Vital Signs Temp Pulse Pulse Resp BP Pulse Ox Pulse Ox 11/14/23 20:15 36.6 C 93 H 20 106/73 93 11/14/23 15:34 98 H 11/14/23 15:30 36.7 C 93 H 18 132/74 93 11/14/23 11:04 36.8 C 108 H 18 138/72 92 11/14/23 10:08 11/14/23 10:08 92 O2 Del Method O2 Del Method 11/14/23 20:15 Room Air 11/14/23 15:34 11/14/23 15:30 Room Air 11/14/23 11:04 Room Air 11/14/23 10:08 Room Air 11/14/23 10:08 Room Air PG Care Time/CCT Total # of Minutes Spent Total Time Spent with Patient: Total time spent is greater than 50% in coordination of care (as documented) at patient's floor/unit and/or counseling patient: Coding Level of Care Code 10864 SUB INP/OBS CARE 2/35MIN Diagnoses Cellulitis L03.90 Malignant neoplasm of right lung stage 4 C34.91 Laterality: right Non-small cell lung cancer metastatic to brain C34.90; C79.31 History of MRSA infection Z86.14 Seizure R56.9 Antisocial personality disorder F60.2 (2) Stage 4 lung cancer Laterality: right Qualified Code(s): C34.91 - Malignant neoplasm of unspecified part of right bronchus or lung
[2023-11-15 05:40] LABS: Hemoglobin 9.9 g/dl (14.0-18.0); Mean Corpuscular Hemoglobin 26.2 pg (25.0-34.0); Mean Corpuscular Hgb Conc 31.9 g/dL (32.0-36.0); Mean Platelet Volume 8.6 fL (9.4-12.4); Platelet Count 615 K/uL (130-400); RDW Coefficient of Variation 17.2 % (11.5-14.5); RDW Standard Deviation 50.6 fL (36.4-46.3); Red Blood Count 3.78 M/uL (4.70-6.10); White Blood Count 15.82 K/ul (4.8-10.8)
[2023-11-15 05:58] LABS: BUN Creatinine Ratio 34.2 (10-20); Calcium 8.8 mg/dl (8.6-10.3); Creatinine Clr Calc Pharmacy 142.4 ml/min; Est GFR (African American) 120.7 ml/min; Est GFR (Non-African American) 104.2 ml/min
[2023-11-15] MEDS: CELECOXIB 100 MG CAP PO ONE (16:13)
[2023-11-15] MEDS: SULFAMETHOXAZOLE/TRIMETHOPRIM DS 800/160MG TAB PO SCH (19:43)
--- NOTE | 2023-11-15 21:52 | Hospitalist Progress Note ---
Date of Service November 15, 2023 Assessment & Plan (1) Cellulitis: Plan: Buttock cellulitis With elevated to leukocytosis of 27.61, with both neutrophilic predominance and left shift. Has a history of MRSA infection CTpelvis with subcutaneous right buttock inflammation with multiple clustered pockets of fluid and stranding suggestive phlegmon, no rim-enhancing fluid collection consistent with abscess and no drainable collection. No evidence of underlying musculature involvement, no perirectal/perianal abscess or fistula Blood cultures pending Patient is nontoxic-appearing on admission Patient has not improved on Keflex/Bactrim. Does have history of MRSA. Continue vancomycin/Rocephin. For cellulitis with phlegmon failing outpatient treatment and without discrete abscess Patient has had recurrent MRSA infections and multifocal pneumonia. In addition patient has had IV drug use/needle sharing in early July, reports no IV drug use since that time. HIV pending, patient consents to testing. Absolute lymphocyte count is normal. Given concern over lack of improvement, General surgery was consulted. - Labs also showing worsening WBC. - added anaerobic coverage with flagyl. As imaging is showing phlegmon, Consulted gen surgery I and D completed. Patient is feeling better., cultures showing MRSA. stop ceftriaxone and place MRSA Patient remains on IV antibiotics continue to monitor blood work on 11/13 Patient continues to show improvement. Leukocytosis remains elevated but improving after another I and D on 11/13 switched to bactrim BID will continue for another 10 days from 11/13. concern is post discharge care, CM is assisting. (2) Stage 4 lung cancer: Plan: Stage IV lung cancer History of non-small cell lung cancer with brain mets on pembrolizumab Receives his oncology, surgical, and radiation care through [facility]. He would like to move primary care and oncology care to [place] as he recently got a house here; would like to keep his neurosurgical services at [facility]. Request PCP referral, case management consulted Follows with pulmonology, last seen 2 days ago. Continues to have extensive fibrosis and tumor burden, right upper lobe collapse and suspected endobronchial invasion of tumor. Continue low-dose Symbicort twice daily, Tesrol[place] [facility]ni Palliative care strongly recommended on last visit due to extensive disease burden with brain metastasis. At time of admission patient reports his goals are to clear his infections to follow-up with [facility] oncology and start Keytruda treatments however he has not been infection free long enough to make these follow-ups Continued on 4 mg of dexamethasone. Could be responsible for the leukocytosis palliative care as an outpatirent (3) Non-small cell lung cancer metastatic to brain: (4) History of MRSA infection: (5) Seizure: Plan: Patient with intermittent seizures history of brain mets and gamma knife treatment Seizure precautions Continue Keppra/lamotrigine Ativan on-call (6) Antisocial personality disorder: Plan: Depression, antisocial personality disorder, polysubstance abuse, history of SI No SI on admission, patient cooperative, home meds continued Plan DVT prophylaxis: Lovenox Disposition: Medical telemetry with seizure precautions CODE STATUS: Full code Diet: Regular Admission and Anticipated Discharge Date Admission Date: November 05, 2023 Subjective Patient reports feeling better. Reports no family support to assisy him with dressing changes Review of Systems Review of Systems: All systems reviewed & are unremarkable except as noted in HPI & below Physical Exam Physical Exam: General: Awake, conversant Heart: S1, S2/regular rate and rhythm, no murmur rubs or gallops Lungs: Clear to auscultation bilaterally. Normal effort Abdomen: Soft/nontender/nondistended. No hepatosplenomegaly Extremities: No clubbing/cyanosis. No edema. Right buttock cellulitis noted improvement. Further clearing of margins noted. minimal indurated area, Behavior: Appropriate, cooperative Results & Data Results & Data Vital Signs (Past 12 Hours) Vital Signs Temp Pulse Resp BP Pulse Ox Pulse Ox O2 Del Method 11/15/23 19:37 36.9 C 100 H 18 156/86 H 95 Room Air 11/15/23 16:55 Room Air 11/15/23 16:40 36.4 C L 106 H 18 131/85 95 Room Air 11/15/23 11:24 92 11/15/23 11:14 36.4 C L 118 H 20 135/81 92 Room Air O2 Del Method 11/15/23 19:37 11/15/23 16:55 11/15/23 16:40 11/15/23 11:24 Room Air 11/15/23 11:14 PG Care Time/CCT Total # of Minutes Spent Total Time Spent with Patient: Total time spent is greater than 50% in coordination of care (as documented) at patient's floor/unit and/or counseling patient: Coding Level of Care Code 07444 SUB INP/OBS CARE MIN Diagnoses Cellulitis L03.90 Malignant neoplasm of right lung stage 4 C34.91 Laterality: right Non-small cell lung cancer metastatic to brain C34.90; C79.31 History of MRSA infection Z86.14 Seizure R56.9 Antisocial personality disorder F60.2 (2) Stage 4 lung cancer Laterality: right Qualified Code(s): C34.91 - Malignant neoplasm of unspecified part of right bronchus or lung
[2023-11-16] MEDS: HYDROmorphone INJ 0.5 MG/0.5 ML SYR IV STA (04:28)
[2023-11-16 05:58] LABS: Hematocrit (blood only) 30.5 % (42.0-52.0); Mean Corpuscular Hemoglobin 26.5 pg (25.0-34.0); Mean Corpuscular Hgb Conc 32.8 g/dL (32.0-36.0); Mean Corpuscular Volume 80.7 fL (80.0-100.0); Mean Platelet Volume 8.4 fL (9.4-12.4); Platelet Count 639 K/uL (130-400); RDW Coefficient of Variation 17.3 % (11.5-14.5); RDW Standard Deviation 50.1 fL (36.4-46.3); Red Blood Count 3.78 M/uL (4.70-6.10); White Blood Count 15.15 K/ul (4.8-10.8)
[2023-11-16 06:13] LABS: BUN Creatinine Ratio 36.5 (10-20); Calcium 8.7 mg/dl (8.6-10.3); Creatinine Clr Calc Pharmacy 127.5 ml/min; Est GFR (African American) 115.3 ml/min; Est GFR (Non-African American) 99.5 ml/min; Potassium 3.5 mmol/L (3.5-5.1)
[2023-11-16] MEDS: LIDOCAINE 5% 1 PATCH TD SCH (08:30)
--- NOTE | 2023-11-16 09:29 | Surgery Progress Note ---
Date of Service November 16, 2023 Assessment & Plan (1) History of MRSA infection: Plan: Patient is s/p I&D of R buttocks wound x 2 -WBC slowly downtrending 15 today. Afebrile -Has been converted to PO Bactrim yesterday -R buttocks wound has two small open areas that will accommodate a corner of gauze, the wound is not deep. Erythema and tenderness continue to improve. There does not seem to be any undrained fluid collections. There is no purulent drainage noted on dressing or while probing wound with q-tip -Current wound care orders are to pack a corner of dry gauze in the two openings, cover with dry 4x4 gauze, ABD, and medipore tape. 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 He does not have much support at home to help. He thinks he may be able to do it himself -He questions a fluid collection of his L scapula region that is painful. There is a lidocaine patch over the area and it is tender to palpate. there are no overlying skin changes or signs of infection..... he said someone mentioned imaging this area and we will leave this up to the hospitalists (2) Status post incision and drainage: Admission and Anticipated Discharge Date Admission Date: November 05, 2023 Subjective Patient reports feeling well. Buttocks wound improving. States he feels some soreness and a possible collection of his L lower shoulder/scapula region. Physical Exam Physical Exam: awake/alert, no distress Musculoskeletal: some L scapular/shoulder discomfort with palpation, no overlying skin changes Skin: R buttocks wound with improving erythema, no apparent undrained fluid collections. no purulent drainage. two openings of the wound that will accommodate a corner of gauze Results & Data Vital Signs (Past 12 Hours) Vital Signs Temp Pulse Resp BP Pulse Ox O2 Del Method 11/16/23 08:17 98.2 F 98 H 18 126/89 93 Room Air 11/16/23 08:10 Room Air PG Care Time/CCT Total # of Minutes Spent Total Time Spent with Patient: Total time spent is greater than 50% in coordination of care (as documented) at patient's floor/unit and/or counseling patient: Coding Level of Care Code 10790 SUB INP/OBS CARE 09/15MIN Diagnoses History of MRSA infection Z86.14 Status post incision and drainage Z98.890
[2023-11-16] MEDS: oxyCODONE HCL IR 5 MG TAB (IMMEDIATE RELEASE) PO PRN (14:18)
--- NOTE | 2023-11-16 15:00 | Hospitalist Progress Note ---
Date of Service November 16, 2023 Assessment & Plan (1) Cellulitis: Plan: Right buttock I&D performed on admission. MRSA isolated. He is now on oral Bactrim therapy. Improving. (2) Stage 4 lung cancer: Plan: With metastatic disease to the brain. He is on dexamethasone therapy. Current treatment with pembrolizumab. Receives his oncology, surgical, and radiation care through [facility]. He would like to move primary care and oncology care to [place] as he recently got a house here; would like to keep his neurosurgical services at [facility]. Request PCP referral, case management consulted (3) History of MRSA infection: Plan: MRSA again isolated from the right buttock cellulitis. He is now on oral Bactrim therapy (4) Seizure: Plan: Known seizure disorder. Currently stable. Continue current oral medications (5) Antisocial personality disorder: Plan: Supportive care. Plan Case management currently looking for home health services for discharge. Admission and Anticipated Discharge Date Admission Date: November 05, 2023 Subjective Alert and oriented. He has persistent left Scapula pain which needs further investigation. CT scan has been ordered. He remains on oral Bactrim therapy for MRSA isolated from his incision and drainage of the right buttock done on admission. Case management continues to look for home health services. Review of Systems 2 Review of Systems: Constitutional-no fever or chills ENT-no blurred vision, no double vision, no epistaxis, no sore throat Respiratory-no cough, no wheezing, no shortness of breath Cardiac-no palpitations, no chest pain, no syncope GI-no nausea, vomiting, diarrhea, melena, hematochezia -no urinary retention, no urinary incontinence, no dysuria, no hematuria Musculoskeletal-left parascapular pain and swelling, no muscle tenderness Neuro-no isolated weakness, no paresthesia Psych-no depression, no anxiety Physical Exam 2 Physical Exam: General-alert and oriented x3, no fever, no chills HEENT-head atraumatic and normocephalic, pupils equal and reactive to light, extraocular muscles intact Neck-no lymphadenopathy or thyromegaly, trachea midline Chest-clear to auscultation. No rales, wheezing or rhonchi Cardiac-regular rate and rhythm, normal S1 and S2, no murmurs Abdomen-normal bowel sounds, nontender, no hepatosplenomegaly Extremities-no cyanosis, clubbing, or edema Skinresolving cellulitis right buttock. Tenderness and swelling left lateral scapular area. No overlying skin changes Neuro-cranial nerves II through XII intact, motor and sensory function within normal limits, strength symmetrical, no focal deficits Psych-normal affect, normal mood Results & Data Results & Data Vital Signs (Past 12 Hours) Vital Signs Temp Pulse Pulse Pulse Resp BP BP 11/16/23 11:53 37.1 C 101 H 15 115/81 11/16/23 09:30 36.6 C 110 H 15 143/85 H 11/16/23 08:17 36.8 C 98 H 18 126/89 11/16/23 08:10 Pulse Ox O2 Del Method 11/16/23 11:53 96 Room Air 11/16/23 09:30 94 Room Air 11/16/23 08:17 93 Room Air 11/16/23 08:10 Room Air Laboratory Results 11/16/23 05:28 11/16/23 05:28 PG Care Time/CCT Total # of Minutes Spent Total Time Spent with Patient: Total time spent is greater than 50% in coordination of care (as documented) at patient's floor/unit and/or counseling patient: Coding Level of Care Code 39346 SUB INP/OBS CARE 3/50MIN Diagnoses Cellulitis L03.90 Malignant neoplasm of right lung stage 4 C34.91 Laterality: right History of MRSA infection Z86.14 Seizure R56.9 Antisocial personality disorder F60.2 (2) Stage 4 lung cancer Laterality: right Qualified Code(s): C34.91 - Malignant neoplasm of unspecified part of right bronchus or lung
[2023-11-16] MEDS: OPTIRAY 320 100ml IV ONE (16:31)
--- NOTE | 2023-11-16 17:03 | CT Scan Report ---
CT scapula LT wo/w con CLINICAL HISTORY: pain, swelling, hx met cancer TECHNIQUE: Multidetector row helical CT of the shoulder was performed with intravenous contrast. Emmanuel nal and sagittal reformations were obtained. Automated dose lowering techniques and/or adjustment acc ording to patient size were utilized for this examination. CT DOSE: 682.35 mGy.cm Comparison: Comparison is made to a chest 09/12/2023 FINDINGS: There is an intramuscular lesion measuring 51 x 36 x 42 mm in the teres minor muscle body. Mild enhan cement is seen. The joint spaces are maintained. No joint effusion is seen. No acute fractures. IMPRESSION: There is an enhancing intramuscular lesion in the teres minor muscle body compatible with metastatic focus. ACT 112: Negative or not required by law. Electronically signed by: Darron Dumont M.D. 11/16/2023 5:01 PM
--- NOTE | 2023-11-17 08:47 | Hospitalist Progress Note ---
Date of Service November 17, 2023 Assessment & Plan (1) Cellulitis: Plan: Phlegmon identified on imaging and clinically Right buttock I&D performed x2 . MRSA isolated. transitioned to oral Bactrim therapy. does require some wound care limited support as outpt to assist wound care (2) Stage 4 lung cancer: Plan: With metastatic disease to the brain., treated with chemoradiation. He is on dexamethasone therapy. Outpatient treatment with pembrolizumab. Receives his oncology, surgical, and radiation care through [facility]. He [place] care in the region as he is previously been from the [facility] CT scan of the chest performed after chest x-ray showed whiteout of the right hemithorax. CT scan shows right upper lobe collapse with a 7.7 cm right apical opacity. Endobronchial abnormality right mainstem bronchus measuring 2.5 cm appearing to include the right mainstem bronchus diminished aeration of the right lung, redemonstrated large masses also seen with the musculature of the left shoulder Will attempt to have a thoracentesis for fluid analysis discussed case with pulmonary medicine without opportunity for meaningful intervention for the progression of his disease. Patient on gram-positive coverage for gluteal phlegmon we will add gram-negative coverage given his obstructed right mainstem bronchus and possible postobstructive pneumonia (3) Seizure: Plan: Known seizure disorder. Currently stable. Continue current oral medications (4) Antisocial personality disorder: Plan: Supportive care. Plan Case management currently looking for home health services for discharge. Admission and Anticipated Discharge Date Admission Date: November 05, 2023 Subjective Patient was very somatic complaints chest wall back and ribs left shoulder where there is confirmed muscular metastasis and now scalp Complaining of increasing shortness of breath and unusual chest sensation in the right side. This is confirmed to have a "white out" of his chest x-ray with results and CT suggesting possible necrotizing pneumonia and or necrotizing metastatic lung cancer. Patient does have a slight cough but is not otherwise exhibiting symptoms of severe infection Currently being treated for gluteus phlegmon that was found to be MRSA, this is from a wound culture. Blood cultures did grow 1 of 4 Limosilactobacillus lab[employer] Physical Exam Physical Exam: Patient is awake and alert he is oriented he is complaining of pain in his left shoulder right chest wall and scalp. His physical exam shows absent breath sounds to the entire right chest when examined. There is dull to percussion Results & Data Results & Data Vital Signs (Past 12 Hours) Vital Signs Temp Pulse Resp BP Pulse Ox O2 Del Method 11/17/23 08:01 Room Air 11/17/23 07:18 99.0 F 106 H 16 135/90 95 Room Air PG Care Time/CCT Total # of Minutes Spent Total Time Spent with Patient: Total time spent is greater than 50% in coordination of care (as documented) at patient's floor/unit and/or counseling patient: Coding Level of Care Code 22469 SUB INP/OBS CARE 3/50MIN Diagnoses Cellulitis L03.90 Malignant neoplasm of right lung stage 4 C34.91 Laterality: right Seizure R56.9 Antisocial personality disorder F60.2 (2) Stage 4 lung cancer Laterality: right Qualified Code(s): C34.91 - Malignant neoplasm of unspecified part of right bronchus or lung
[2023-11-17] MEDS: HYDROmorphone INJ 0.5 MG/0.5 ML SYR IV PRN (13:00)
--- NOTE | 2023-11-17 13:31 | XRay Report ---
XR chest 2V PA/lateral CLINICAL HISTORY: eval rul lesions COMPARISON STUDY: Chest CT September 12, 2023. Chest radiograph September 17, 2023. FINDINGS: Extensive right hemithorax opacification with volume loss has significantly progressed sinc e prior radiographs of September 17, 2023. There may be a small right pleural effusion. Persistent righ t apical mass-like density is noted. There is no pneumothorax. No evidence for pulmonary edema. Left lung is clear. IMPRESSION: 1. Significant progression of right hemithorax opacification with volume loss. This favors partial r ight lung atelectasis. This could be further assessed with CT or bronchoscopy. 2. Persistent mass-like right apical density. ACT 112: Negative or not required by law. Electronically signed by: oLn King M.D. 11/17/2023 1:29 PM
--- NOTE | 2023-11-17 16:37 | CT Scan Report ---
CT OF THE CHEST WITHOUT IV CONTRAST CLINICAL HISTORY: eval right lung for effusion vs tumor. Lung cancer. COMPARISON STUDY: Chest CT September 12, 2023. Chest radiograph performed earlier today. CT DOSE: 1001.16 mGy.cm TECHNIQUE: Axial images of the chest were obtained without IV contrast. Images were reviewed in the axial, sagittal, and coronal planes. IV contrast was not administered for this examination. Automat ed exposure control was utilized for the study. A dose lowering technique was utilized adhering to t he principles of ALARA. FINDINGS: A 7.3 x 3.9 cm hypodense mass-like abnormality within the posterior left shoulder musculat ure on image 36 of 269 corresponds to an enhancing lesion on CT of November 16, 2023. There is no perica rdial effusion. A small right pleural effusion is present. There is no pneumothorax. A lytic lesion w ithin the anterior right third rib is noted with possible associated pathologic fracture. No lesions within the thoracic spine are present. No airspace opacities are present within the left lung. Right upper lobe collapse is again noted with a persistent 7.7 cm right apical opacity. This is similar to prior CT of September 12, 2023. An endobronchial abnormality within the right mainstem bronchus measure s 2.5 cm. This appears to occlude the main stem bronchus. Right lung opacification has increased with diminished aeration when compared to CT of September 12, 2023. Visualized portions of the upper abdome n are unremarkable on unenhanced exam. IMPRESSION: 1. 2.5 cm endobronchial abnormality which appears to occlude the right mainstem bronchus, new since p rior CT. This is likely neoplastic. Pulmonary consultation for consideration for bronchoscopy might b e considered. Significant increase in right lung airspace opacity with volume loss. This could reflec t postobstructive pneumonia or atelectasis. 2. Redemonstration of a mass-like right apical opacity with right upper lobe collapse, similar to erlin or CT. 3. Small right pleural effusion. 4. Suspected metastases within the posterior left shoulder musculature and the anterior right third r ib. ACT 112: Negative or not required by law. Electronically signed by: Lon King M.D. 11/17/2023 4:35 PM
[2023-11-17] MEDS: levoFLOXacin/D5W 750 MG/150 ML BAG IV SCH (18:45)
[2023-11-17] MEDS: HYDROmorphone INJ 0.5 MG/0.5 ML SYR IV STA (22:59)
[2023-11-18] MEDS: LORazepam 1 MG in SYRINGE 0.5 ML IV STA (05:04)
[2023-11-18] MEDS: dexAMETHasone 4 MG TAB PO SCH (08:26)
[2023-11-18] MEDS: LIDOCAINE 5% 1 PATCH TD SCH (08:27)
--- NOTE | 2023-11-18 10:36 | XRay Report ---
XR chest 1V portable CLINICAL HISTORY: S/P Thoracentesis COMPARISON STUDY: Chest radiograph and chest CT November 17, 2023. FINDINGS: There is no pneumothorax status post thoracentesis. Extensive right lung opacification has increased. This makes evaluation for residual pleural effusion difficult. Left lung is clear. IMPRESSION: 1. No pneumothorax following thoracentesis. 2. Increase in extensive right lung opacification. ACT 112: Negative or not required by law. Electronically signed by: Lon King M.D. 11/18/2023 10:35 AM
--- NOTE | 2023-11-18 12:36 | Ultrasound Report ---
LIMITED RIGHT CHEST ULTRASOUND CLINICAL HISTORY: Request for thoracentesis COMPARISON STUDY: Chest CT 11/17/2023 FINDINGS: Real-time ultrasound imaging of the right lateral/posterior chest demonstrates a small righ t pleural effusion, estimated at approximately 100 to 150 mL. The patient declined the procedure and was sent back to the floor. The referring physician was notified. IMPRESSION: Small right pleural effusion as above. Patient declined procedure. Performed, dictated, and signed by Ghulam Larkin PA-C; to be co-signed by Dr. Aaron Ascencio. Electronically signed by: Aaron Ascencio M.D. 11/18/2023 2:19 PM
[2023-11-18] MEDS: oxyCODONE HCL 10 MG TABCR (OxyCONTIN) PO ONE (15:43)
[2023-11-18] MEDS: oxyCODONE HCL 20 MG TABCR (OxyCONTIN) PO SCH ×2 (15:43→21:31)
--- NOTE | 2023-11-18 15:45 | Hospitalist Progress Note ---
Date of Service November 18, 2023 Assessment & Plan (1) Cellulitis: Plan: Phlegmon identified on imaging and clinically Right buttock I&D performed x2 . MRSA isolated. transitioned to oral Bactrim therapy. does require some wound care, may need home health but will need to establish with a local pcp in order to schedule home health, is willing to be local pcp (2) Stage 4 lung cancer: Plan: Adenocarcinoma with metastatic disease to the brain., treated with chemoradiation cisplatin/allmta and durvalumab in 2019. He did have bifrontal metastatic brain lesions, left side resected 10/13 with gamma knife pt states had additional surgery in aug 13 He is on dexamethasone therapy. Outpatient treatment with pembrolizumab.(on hold since may 14) Receives his oncology, surgical, and radiation care through [facility]. He would like [place] primary care [place] re[place] care in the region as he is previously been from the [facility] CT scan of the chest performed after chest x-ray showed whiteout of the right hemithorax. CT scan shows right upper lobe collapse with a 7.7 cm right apical opacity. Endobronchial abnormality right mainstem bronchus measuring 2.5 cm appearing to include the right mainstem bronchus diminished aeration of the right lung, remonstrated large masses also seen with the musculature of the left shoulder no meaningful fluid for thorocentesis Pulmonary medicine discussion regarding utility of considering intervention with rapid progression of cancer over last 2 months Patient on gram-positive coverage for gluteal phlegmon we will add gram-negative coverage given his obstructed right mainstem bronchus and possible postobstructive pneumonia Cancer related pain, uncontrolled Patient is currently receiving 60 mg of oxycodone p.o. Dilaudid 3 mg IV equivalent of 165 oral morphine equivalents. This is approximately 84 moral grams oral oxyquinoline so adjusting dose were going to begin to try to start long-acting oxycodone 20 mg p.o. every 12 hours continuing current oxycodone IR dosing. If no relief 24 hours may consider increasing OxyContin to 30 mg every 12 hours keeping the Oxy IR unchanged with consideration if controlled to stop the hydromorphone offering. If patient transitions to comfort being his medical care consideration to utilize methadone considering 5 mg p.o. every 8 hours could be undertaken. Given rapid progression of his malignancy discussions have begun regarding how to best spending this time he has left whether would be to seek continue opinions on treatment versus admission to palliative care focusing on symptom control. Patient is not yet ready to make that decision. (3) Seizure: Plan: Known seizure disorder. Currently stable. Continue current oral medications (4) Antisocial personality disorder: Plan: Supportive care. Plan Given rapid progression of endobronchial lesion with complete obstruction of the right lung his malignancy is certainly progressing. He is unable to actively begin treatment due to his infectious etiologies h/o left leg dvt, high risk of recurrence pt refusign chemoprophylaxis PT is full code and did not wish to discuss code status Admission and Anticipated Discharge Date Admission Date: November 05, 2023 Subjective pt is disgruntled, did speak to [facility] Pulmonary med, they are reluctant to accept in transfer in the fact that the pt does not have any respiratory distress or hypoixa, he is most worried about pain control and we did discuss palliative care, he at times says he just wants to go but at others says he wants to continue treatment He is most bothered by his left shoulder pain that is secondary to a muscular metastasis Physical Exam Physical Exam: awake alert, tangential thinking lungs on the right are with very little air movement, left clear painful lump about size of kaw on posterior right shoulder Results & Data Results & Data Vital Signs (Past 12 Hours) Vital Signs Temp Pulse Resp BP BP Pulse Ox O2 Del Method 11/18/23 14:33 98.1 F 105 H 17 120/75 95 Room Air 11/18/23 07:40 Room Air 11/18/23 07:22 97.7 F 100 H 17 132/82 96 Room Air Laboratory Results Reviewed chest x-ray Spoke to Dr. jiménez pulmonary medicine on-call Spoke to Dr. elizabeth patient's bottom cementer as an outpatient Spoke to transfer center at [facility] discussing this patient's care PG Care Time/CCT Total # of Minutes Spent Total Time Spent with Patient: Total time spent is greater than 50% in coordination of care (as documented) at patient's floor/unit and/or counseling patient: Coding Level of Care Code 17483 SUB INP/OBS CARE 3/50MIN Diagnoses Cellulitis L03.90 Malignant neoplasm of right lung stage 4 C34.91 Laterality: right Seizure R56.9 Antisocial personality disorder F60.2 (2) Stage 4 lung cancer Laterality: right Qualified Code(s): C34.91 - Malignant neoplasm of unspecified part of right bronchus or lung
[2023-11-18] MEDS: GADOBUTROL 65ML VIAL IV ONE (18:33)
--- NOTE | 2023-11-18 19:19 | Magnetic Resonance Report ---
Brain MRI WITH AND WITHOUT CONTRAST HISTORY: Lung cancer. eval for metastatic disease TECHNIQUE: Multiplanar multisequence MRI of the brain was performed both before and after the intrave nous administration of contrast. COMPARISON STUDY: Head CT 09/09/2023. Brain MRI 08/06/2020. FINDINGS: No acute infarct or intracranial hemorrhage. Mild mucosal thickening within the right maxil anderson sinus. The orbits are unremarkable. The mastoid air cells are clear. The major vascular flow-voi ds at the skull base are well-maintained. Prior right frontal and left lateral craniotomy with underl chun encephalomalacia and gliosis consistent with postoperative change. Stable mild ex vacuo dilatati on of the frontal horn of the right lateral ventricle. No midline shift. There is a 2.2 cm enhancing soft tissue nodule within the right posterior neck on axial T1 postcontrast image 2. This is consiste nt with a metastatic deposit. There are multiple scattered enhancing lesions seen throughout the supr atentorial and infratentorial brain consistent with metastatic disease. There are greater than 20 les ions in total. The majority of these demonstrate surrounding vasogenic edema. No significant mass eff ect at this time. Dominant lesion within the left parietal lobe measures 13 mm. Mild dural enhancemen t at the craniotomy site favors postoperative change. There is also mild peripheral enhancement the r esection site within the left high convexity. This could be due to the residual postoperative change. IMPRESSION: 1. Multiple scattered intracranial enhancing lesions consistent with metastatic disease. 2. There is also a 2.2 cm enhancing soft tissue nodule within the right posterior neck consistent wit h a metastatic deposit. 3. No acute infarct or intracranial hemorrhage. 4. Postoperative changes as described above. ACT 112: Negative or not required by law. Electronically signed by: Davin Leyva M.D. 11/18/2023 7:16 PM
[2023-11-18] MEDS: SODIUM CHLOR 7% 4 ML NEB NEB SCH (20:15)
[2023-11-18] MEDS: CELECOXIB 100 MG CAP PO SCH (20:45)
[2023-11-18] MEDS: ACETAMINOPHEN 500 MG TAB PO SCH (21:52)
[2023-11-19] MEDS ORDERED: ALBUTEROL HFA 8 GM INHALER INH PRN (08:55)
--- NOTE | 2023-11-19 15:33 | Hospitalist Progress Note ---
Date of Service November 19, 2023 Assessment & Plan (1) Cellulitis: Plan: Phlegmon identified on imaging and clinically Right buttock I&D performed x2 . MRSA isolated. transitioned to oral Bactrim therapy. 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 He did have bifrontal metastatic brain lesions, left side resected 10/13 with gamma knife pt states had additional surgery in aug 13 He is on dexamethasone therapy. Outpatient treatment with pembrolizumab.(on d since may 14) Receives his oncology, surgical, and radiation care through [facility]. He [place] care in the region as he is previously been from the [facility] CT scan of the chest performed after chest x-ray showed whiteout of the right hemithorax. CT scan shows right upper lobe collapse with a 7.7 cm right apical opacity. Endobronchial abnormality right mainstem bronchus measuring 2.5 cm appearing to include the right mainstem bronchus diminished aeration of the right lung, remonstrated large masses also seen with the musculature of the left shoulder no meaningful fluid for thorocentesis Pulmonary medicine discussion regarding utility of considering intervention with rapid progression of cancer over last 2 months discussed with oncology infrastructure solutions architect at [facility], feels with progression of civil cad tech changes would not benefit from further treatment at their facility Patient on gram-positive coverage for gluteal phlegmon we will add gram-negative coverage given his obstructed right mainstem bronchus and possible postobstructive pneumonia Cancer related pain, uncontrolled Patient is currently receiving 60 mg of oxycodone p.o. Dilaudid 3 mg IV equivalent of 165 oral morphine equivalents. This is approximately 84 moral grams oral oxyquinoline so adjusting dose were going to begin to try to start long-acting oxycodone 20 mg p.o. every 12 hours continuing current oxycodone IR dosing. If no relief 24 hours may consider increasing OxyContin to 30 mg every 12 hours keeping the Oxy IR unchanged with consideration if controlled to stop the hydromorphone offering. If patient transitions to comfort being his medical care consideration to utilize methadone considering 5 mg p.o. every 8 hours could be undertaken. Given rapid progression of his malignancy discussions have begun regarding how to best spending this time he has left whether would be to seek continue opi nions on treatment versus admission to palliative care focusing on symptom control. Patient is aware of progression on MRI but still wants to talk options on treatment phone discussion with [facility], triage doctor and oncologist approx 45 mins additional time (3) Seizure: Plan: Known seizure disorder. Currently stable. Continue current oral medications (4) Antisocial personality disorder: Plan: Supportive care. Plan Given rapid progression of endobronchial lesion with complete obstruction of the right lung his malignancy is certainly progressing. He is unable to actively begin treatment due to his infectious etiologies h/o left leg dvt, high risk of recurrence pt refusing chemoprophylaxis PT is full code and did not wish to discuss code status Admission and Anticipated Discharge Date Admission Date: November 05, 2023 Subjective Pt is aware of his MRI brain findings, new metastatic issues, new soft tissue lesion on neck pain is much better controlled Physical Exam Physical Exam: awake alert, tangential thinking lungs on the right are with very little air movement, left clear painful lump about size of [place] on posterior right shoulder pt with no real exam findings that change Results & Data Results & Data Vital Signs (Past 12 Hours) Vital Signs Temp Pulse Resp BP Pulse Ox O2 Del Method 11/19/23 07:59 98.2 F 97 H 17 137/77 94 Room Air 11/19/23 07:40 Room Air 11/19/23 07:14 102 H 18 93 Room Air PG Care Time/CCT Total # of Minutes Spent Total Time Spent with Patient: Total time spent is greater than 50% in coordination of care (as documented) at patient's floor/unit and/or counseling patient: Coding Level of Care Code 53303 SUB INP/OBS CARE 3/50MIN Diagnoses Cellulitis L03.90 Malignant neoplasm of right lung stage 4 C34.91 Laterality: right Seizure R56.9 Antisocial personality disorder F60.2 (2) Stage 4 lung cancer Laterality: right Qualified Code(s): C34.91 - Malignant neoplasm of unspecified part of right bronchus or lung
--- NOTE | 2023-11-20 17:12 | Hospitalist Progress Note ---
Date of Service November 20, 2023 Assessment & Plan (1) Cellulitis: Plan: Phlegmon identified on imaging and clinically Right buttock I&D performed x2 . MRSA isolated. transitioned to oral Bactrim therapy. 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 He did have bifrontal metastatic brain lesions, left side resected 10/13 with gamma knife Resection of right frontal brain met with gamma knife to the resection bed 27 Cabrera/3 fx completed 11/09/2021 Resection left frontal met due to progression 05/26/2022 initiated on Keytruda Gamma knife to recurrent resection bed left frontal 30 Gy/5 fx completed 08/13/2022 Gamma knife to new left occipital lesion 10/26/2022 22 Cabrera/1 Gamma knife left frontal left cerebellar lesions 22 Cabrera/1 12/08/22 Gamma knife right supra lobe 02/11/2023 22 Cabrera x 1 Resection of recurrent left frontal met 08/11/2023 Last radiation oncology telephone visit recommended follow-up MRI of brain and was concern for extracranial active disease He presents on dexamethasone therapy. Outpatient treatment had been with with pembrolizumab.(on hold since may 14) Receives his oncology, surgical, and radiation care through [facility]. He [place] like [place] patient [place] to re[place] care in the region as he is previously been from the [facility] CT scan of the chest performed after chest x-ray showed whiteout of the right hemithorax. CT scan shows right upper lobe collapse with a 7.7 cm right apical opacity. Endobronchial abnormality right mainstem bronchus measuring 2.5 cm appearing to include the right mainstem bronchus diminished aeration of the right lung, remonstrated large masses also seen with the musculature of the left shoulder no meaningful fluid for thorocentesis Pulmonary medicine discussion regarding utility of considering intervention with rapid progression of cancer over last 2 months discussed with oncology dairy consultant at [facility], feels with progression of milieu therapist changes would not benefit from further treatment at their facility Patient on gram-positive coverage for gluteal phlegmon we will add gram-negative coverage given his obstructed right mainstem bronchus and possible postobstructive pneumonia Cancer related pain, uncontrolled Patient is currently receiving 60 mg of oxycodone p.o. Dilaudid 3 mg IV equivalent of 165 oral morphine equivalents. This is approximately 84 moral grams oral oxyquinoline so adjusting dose were going to begin to try to start long-acting oxycodone 20 mg p.o. every 12 hours continuing current oxycodone IR dosing. If no relief 24 hours may consider increasing OxyContin to 30 mg every 12 hours keeping the Oxy IR unchanged with consideration if controlled to stop the hydromorphone offering. If patient transitions to comfort being his medical care consideration to utilize methadone considering 5 mg p.o. every 8 hours could be undertaken. Given rapid progression of his malignancy discussions have begun regarding how to best spending this time he has left whether would be to seek continue opinions on treatment versus admission to palliative care focusing on symptom control. Patient is aware of progression on MRI but still wants to talk options on treatment phone discussion with [facility], triage doctor and oncologist 11/19/2023 (3) Seizure: Plan: Known seizure disorder. Currently stable. Continue current oral medications (4) Antisocial personality disorder: Plan: Supportive care. Plan Given rapid progression of endobronchial lesion with complete obstruction of the right lung his malignancy is certainly progressing. He is unable to actively begin treatment due to his infectious etiologies h/o left leg dvt, high risk of recurrence pt refusing chemoprophylaxis PT is full code and did not wish to discuss code status Admission and Anticipated Discharge Date Admission Date: November 05, 2023 Subjective pt has pain control, still wants to find someone to treat him, willing to speak to palliative care Physical Exam Physical Exam: Alert awake oriented x 3 Tender mass posterior left shoulder consistent with muscular metastasis Could not palpate mass with metastatic disease noted on neck seen on MRI scan of head Results & Data Results & Data Vital Signs (Past 12 Hours) Vital Signs Temp Pulse Resp BP BP Pulse Ox O2 Del Method 11/20/23 15:59 97.9 F 97 H 16 136/86 96 Room Air 11/20/23 07:57 102 H 16 97 Room Air 11/20/23 07:38 98.2 F 82 16 140/104 H 95 Room Air PG Care Time/CCT Total # of Minutes Spent Total Time Spent with Patient: Total time spent is greater than 50% in coordination of care (as documented) at patient's floor/unit and/or counseling patient: Coding Level of Care Code 20344 SUB INP/OBS CARE MIN Diagnoses Cellulitis L03.90 Malignant neoplasm of right lung stage 4 C34.91 Laterality: right Seizure R56.9 Antisocial personality disorder F60.2 (2) Stage 4 lung cancer Laterality: right Qualified Code(s): C34.91 - Malignant neoplasm of unspecified part of right bronchus or lung
--- NOTE | 2023-11-21 08:02 | Hospitalist Progress Note ---
Date of Service November 21, 2023 Assessment & Plan (1) Cellulitis: Plan: Phlegmon identified on imaging and clinically Right buttock I&D performed x2 . MRSA isolated. transitioned to oral Bactrim therapy. 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 He did have bifrontal metastatic brain lesions, left side resected 10/13 with gamma knife Resection of right frontal brain met with gamma knife to the resection bed 27 Cabrera/3 fx completed 11/09/2021 Resection left frontal met due to progression 05/26/2022 initiated on Keytruda Gamma knife to recurrent resection bed left frontal 30 Gy/5 fx completed 08/13/2022 Gamma knife to new left occipital lesion 10/26/2022 22 Cabrera/1 Gamma knife left frontal left cerebellar lesions 22 Cabrera/1 12/08/22 Gamma knife right supra lobe 02/11/2023 22 Cabrera x 1 Resection of recurrent left frontal met 08/11/2023 Last radiation oncology telephone visit recommended follow-up MRI of brain and was concern for extracranial active disease, done this stay with continued disease He presents on dexamethasone therapy. Outpatient treatment had been with with pembrolizumab.(on hold since may 14) Receives his oncology, surgical, and radiation care through [facility]. He would like to [place] primary [place] and [place] patient [place] to re[place] care in the region as he is previously been from the [facility] CT scan of the chest performed after chest x-ray showed whiteout of the right hemithorax. CT scan shows right upper lobe collapse with a 7.7 cm right apical opacity. Endobronchial abnormality right mainstem bronchus measuring 2.5 cm appearing to include the right mainstem bronchus diminished aeration of the right lung, remonstrated large masses also seen with the musculature of the left shoulder no meaningful fluid for thorocentesis Pulmonary medicine discussion regarding utility of considering intervention with rapid progression of cancer over last 2 months discussed with oncology forest economics professor at [facility], feels with progression of director network development changes would not benefit from further treatment at their facility Patient on gram-positive coverage for gluteal phlegmon we will add gram-negative coverage given his obstructed right mainstem bronchus and possible postobstructive pneumonia Cancer related pain, now controlled Patient is currently receiving 60 mg of oxycodone p.o. Dilaudid 3 mg IV equivalent of 165 oral morphine equivalents. This is approximately 84 moral grams oral oxyquinoline so adjusting dose were going to begin to try to start long-acting oxycodone 20 mg p.o. every 12 hours continuing current oxycodone IR dosing. If no relief 24 hours may consider increasing OxyContin to 30 mg every 12 hours keeping the Oxy IR unchanged with consideration if controlled to stop the hydromorphone offering. If patient transitions to comfort being his medical care consideration to utilize methadone considering 5 mg p.o. every 8 hours could be undertaken. Given rapid progression of his malignancy discussions have begun regarding how to best spending this time he has left whether would be to seek continue opinions on treatment versus admission to palliative care focusing on symptom control. Patient is aware of progression on MRI but still wants to talk options on treatment Radiation oncology will consider treatment here, will have outpt oncology appt and outpt palliative care appt to continue to help with metastatic oncologic pain (3) Seizure: Plan: Known seizure disorder. Currently stable. Continue current oral medications (4) Antisocial personality disorder: Plan: Supportive care. Plan Given rapid progression of endobronchial lesion with complete obstruction of the right lung his malignancy is certainly progressing. He is unable to actively begin treatment due to his infectious etiologies h/o left leg dvt, high risk of recurrence pt refusing chemoprophylaxis PT is full code and did not wish to discuss code status Admission and Anticipated Discharge Date Admission Date: November 05, 2023 Subjective pt has pain control, still wants to find someone to treat him, radiation oncology will consider palliative XRT to multiple sites Physical Exam Physical Exam: Alert awake oriented x 3 Tender mass posterior left shoulder consistent with muscular metastasis, pain is better but still point tender at times lungs with decreased breath sounds to the right side Results & Data Results & Data Vital Signs (Past 12 Hours) Vital Signs Temp Pulse Pulse Resp BP Pulse Ox O2 Del Method 11/21/23 07:41 97.7 F 88 20 137/81 96 Room Air 11/20/23 20:00 90 18 95 Room Air PG Care Time/CCT Total # of Minutes Spent Total Time Spent with Patient: Total time spent is greater than 50% in coordination of care (as documented) at patient's floor/unit and/or counseling patient: Coding Level of Care Code 20337 SUB INP/OBS CARE 50MIN Diagnoses Cellulitis L03.90 Malignant neoplasm of right lung stage 4 C34.91 Laterality: right Seizure R56.9 Antisocial personality disorder F60.2 (2) Stage 4 lung cancer Laterality: right Qualified Code(s): C34.91 - Malignant neoplasm of unspecified part of right bronchus or lung
[2023-11-21] MEDS: LORazepam 1 MG in SYRINGE 0.5 ML IV ONE (21:32)
--- NOTE | 2023-11-22 14:16 | Hospitalist Progress Note ---
Date of Service November 22, 2023 Assessment & Plan (1) Cellulitis: Plan: Phlegmon identified on imaging and clinically Right buttock I&D performed x2 . MRSA isolated. transitioned to oral Bactrim therapy. 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 He did have bifrontal metastatic brain lesions, left side resected 10/13 with gamma knife Resection of right frontal brain met with gamma knife to the resection bed 27 Cabrera/3 fx completed 11/09/2021 Resection left frontal met due to progression 05/26/2022 initiated on Keytruda Gamma knife to recurrent resection bed left frontal 30 Gy/5 fx completed 08/13/2022 Gamma knife to new left occipital lesion 10/26/2022 22 Cabrera/1 Gamma knife left frontal left cerebellar lesions 22 Cabrera/1 12/08/22 Gamma knife right supra lobe 02/11/2023 22 Cabrera x 1 Resection of recurrent left frontal met 08/11/2023 Last radiation oncology telephone visit recommended follow-up MRI of brain and was concern for extracranial active disease, done this stay with continued disease He presents on dexamethasone therapy. Outpatient treatment had been with with pembrolizumab.(on hold since may 14) Receives his oncology, surgical, and radiation care through [facility]. He would like [place] to re[place] care in the region as he is previously been from the [facility] CT scan of the chest performed after chest x-ray showed whiteout of the right hemithorax. CT scan shows right upper lobe collapse with a 7.7 cm right apical opacity. 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 If patient transitions to comfort being his medical care consideration to utilize methadone considering 5 mg p.o. every 8 hours could be undertaken. Given rapid progression of his malignancy discussions have begun regarding how to best spending this time he has left whether would be to seek continue opinions on treatment versus admission to palliative care focusing on symptom control. Patient is aware of progression on MRI but still wants to talk options on treatment, will see palliative care as an outpt Radiation oncology will consider treatment here, will have outpt oncology appt and outpt palliative care appt to continue to help with metastatic oncologic pain (3) Seizure: Plan: Known seizure disorder. Currently stable. Continue current oral medications (4) Antisocial personality disorder: Plan: Supportive care. Plan Given rapid progression of endobronchial lesion with complete obstruction of the right lung his malignancy is certainly progressing. will attempt xrt if able to chest, continue to treat post obstructive pneumonia covering for gram negative pneumonia h/o left leg dvt, high risk of recurrence pt refusing chemoprophylaxis PT is full code and did not wish to discuss code status Admission and Anticipated Discharge Date Admission Date: November 05, 2023 Subjective pt is feeling overwhelmed, pain control discussed will try to go up on oxycontin and stop dilaudid XRT considering whole brain irradiation still pain at buttocks, extend bactrim for a few more days Physical Exam Physical Exam: Alert awake oriented x 3 Tender mass posterior left shoulder consistent with muscular metastasis, pain is better but still point tender at times lungs with decreased breath sounds to the right side buttock wound is more tender 11/22/23 Results & Data Results & Data Vital Signs (Past 12 Hours) Vital Signs Temp Pulse Resp BP Pulse Ox O2 Del Method 11/22/23 07:30 Room Air 11/22/23 07:24 91 H 16 95 Room Air 11/22/23 07:13 98.1 F 83 17 160/75 H 95 Room Air PG Care Time/CCT Total # of Minutes Spent Total Time Spent with Patient: Total time spent is greater than 50% in coordination of care (as documented) at patient's floor/unit and/or counseling patient: Coding Level of Care Code 45097 SUB INP/OBS CARE 2/35MIN Diagnoses Cellulitis L03.90 Malignant neoplasm of right lung stage 4 C34.91 Laterality: right Seizure R56.9 Antisocial personality disorder F60.2 (2) Stage 4 lung cancer Laterality: right Qualified Code(s): C34.91 - Malignant neoplasm of unspecified part of right bronchus or lung
[2023-11-22] MEDS: HYDROmorphone INJ 0.5 MG/0.5 ML SYR IV PRN (15:55)
[2023-11-22] MEDS: oxyCODONE HCL 15 MG TABCR (OxyCONTIN) PO SCH (17:43)
[2023-11-23] MEDS: LORazepam 1 MG TAB PO STA (03:01)
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
--- NOTE | 2023-11-23 17:53 | Hospitalist Progress Note ---
Date of Service November 23, 2023 Assessment & Plan (1) Cellulitis: Plan: Phlegmon identified on imaging and clinically Right buttock I&D performed x2 . MRSA isolated. transitioned to oral Bactrim therapy. 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 He did have bifrontal metastatic brain lesions, left side resected 10/13 with gamma knife Resection of right frontal brain met with gamma knife to the resection bed 27 Cabrera/3 fx completed 11/09/2021 Resection left frontal met due to progression 05/26/2022 initiated on Keytruda Gamma knife to recurrent resection bed left frontal 30 Gy/5 fx completed 08/13/2022 Gamma knife to new left occipital lesion 10/26/2022 22 Cabrera/1 Gamma knife left frontal left cerebellar lesions 22 Cabrera/1 12/08/22 Gamma knife right supra lobe 02/11/2023 22 Cabrera x 1 Resection of recurrent left frontal met 08/11/2023 Last radiation oncology telephone visit recommended follow-up MRI of brain and was concern for extracranial active disease, done this stay with continued disease He presents on dexamethasone therapy. Outpatient treatment had been with with pembrolizumab.(on hold since may 14) Receives his oncology, surgical, and radiation care through [facility]. He would like [place] primary care [place] care in the region as he is previously been from the [facility] CT scan of the chest performed after chest x-ray showed whiteout of the right hemithorax. CT scan shows right upper lobe collapse with a 7.7 cm right apical opacity. 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 If patient transitions to comfort being his medical care consideration to utilize methadone considering 5 mg p.o. every 8 hours could be undertaken. Given rapid progression of his malignancy discussions have begun regarding how to best spending this time he has left whether would be to seek continue opinions on treatment versus admission to palliative care focusing on symptom control. Patient is aware of progression on MRI but still wants to talk options on treatment, will see palliative care as an outpt Radiation oncology will consider treatment here, will have outpt oncology appt and outpt palliative care appt to continue to help with metastatic oncologic pain (3) Seizure: Plan: Known seizure disorder. Currently stable. Continue current oral medications (4) Antisocial personality disorder: Plan: Supportive care. Plan Given rapid progression of endobronchial lesion with complete obstruction of the right lung his malignancy is certainly progressing. will attempt xrt if able to chest, continue to treat post obstructive pneumonia covering for gram negative pneumonia h/o left leg dvt, high risk of recurrence pt refusing chemoprophylaxis PT is full code and did not wish to discuss code status Admission and Anticipated Discharge Date Admission Date: November 05, 2023 Subjective pt is doing as well as expected pain is manageable local wound care Physical Exam Physical Exam: awake and alert, unusual affect cardiac is reg right lung is with absent breath sounds Results & Data Results & Data Vital Signs (Past 12 Hours) Vital Signs Temp Pulse Pulse Resp BP Pulse Ox O2 Del Method 11/23/23 15:31 98.1 F 100 H 16 110/73 95 Room Air 11/23/23 08:16 Room Air 11/23/23 07:28 98.4 F 91 H 16 158/81 H 92 Room Air 11/23/23 07:18 94 H 16 99 Room Air PG Care Time/CCT Total # of Minutes Spent Total Time Spent with Patient: Total time spent is greater than 50% in coordination of care (as documented) at patient's floor/unit and/or counseling patient: Coding Level of Care Code 95091 SUB INP/OBS CARE 2/35MIN Diagnoses Cellulitis L03.90 Malignant neoplasm of right lung stage 4 C34.91 Laterality: right Seizure R56.9 Antisocial personality disorder F60.2 (2) Stage 4 lung cancer Laterality: right Qualified Code(s): C34.91 - Malignant neoplasm of unspecified part of right bronchus or lung
--- NOTE | 2023-11-23 17:55 | Hospitalist Progress Note ---
Date of Service November 23, 2023 Assessment & Plan (1) Cellulitis: Plan: Phlegmon identified on imaging and clinically Right buttock I&D performed x2 . MRSA isolated. transitioned to oral Bactrim therapy. LD 11/24/23 dramatic improvement (2) Stage 4 lung cancer: Plan: Adenocarcinoma with metastatic disease to the brain., treated with chemoradiation in 2020 to his chest, cisplatin/allmta and durvalumab in 2019. He did have bifrontal metastatic brain lesions, left side resected 10/13 with gamma knife Resection of right frontal brain met with gamma knife to the resection bed 27 Cabrera/3 fx completed 11/09/2021 Resection left frontal met due to progression 05/26/2022 initiated on Keytruda Gamma knife to recurrent resection bed left frontal 30 Gy/5 fx completed 08/13/2022 Gamma knife to new left occipital lesion 10/26/2022 22 Cabrera/1 Gamma knife left frontal left cerebellar lesions 22 Cabrera/1 12/08/22 Gamma knife right supra lobe 02/11/2023 22 Cabrera x 1 Resection of recurrent left frontal met 08/11/2023 Last radiation oncology telephone visit recommended follow-up MRI of brain and was concern for extracranial active disease, done this stay with continued disease He presents on dexamethasone therapy. Outpatient treatment had been with with pembrolizumab.(on hold since may 14) Receives his oncology, surgical, and radiation care through [facility]. He would like to [place] primary care [place] care in the region as he is previously been from the [facility] CT scan of the chest performed after chest x-ray showed whiteout of the right hemithorax. CT scan shows right upper lobe collapse with a 7.7 cm right apical opacity. 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 If patient transitions to comfort being his medical care consideration to utilize methadone considering 5 mg p.o. every 8 hours could be undertaken. Given rapid progression of his malignancy discussions have begun regarding how to best spending this time he has left whether would be to seek continue opinions on treatment versus admission to palliative care focusing on symptom control. Patient is aware of progression on MRI but still wants to talk options on treatment, will see palliative care as an outpt Radiation oncology will consider treatment here, will have outpt oncology appt and outpt palliative care appt to continue to help with metastatic oncologic pain (3) Seizure: Plan: Known seizure disorder. Currently stable. Continue current oral medications (4) Antisocial personality disorder: Plan: Supportive care. Plan Given rapid progression of endobronchial lesion with complete obstruction of the right lung his malignancy is certainly progressing. will attempt xrt if able to chest, continue to treat post obstructive pneumonia covering for gram negative pneumonia h/o left leg dvt, high risk of recurrence pt refusing chemoprophylaxis PT is full code and did not wish to discuss code status Admission and Anticipated Discharge Date Admission Date: November 05, 2023 Results & Data Results & Data Vital Signs (Past 12 Hours) Vital Signs Temp Pulse Pulse Resp BP Pulse Ox O2 Del Method 11/23/23 15:31 98.1 F 100 H 16 110/73 95 Room Air 11/23/23 08:16 Room Air 11/23/23 07:28 98.4 F 91 H 16 158/81 H 92 Room Air 11/23/23 07:18 94 H 16 99 Room Air PG Care Time/CCT Total # of Minutes Spent Total Time Spent with Patient: Total time spent is greater than 50% in coordination of care (as documented) at patient's floor/unit and/or counseling patient: Coding Level of Care Code None Diagnoses Cellulitis L03.90 Malignant neoplasm of right lung stage 4 C34.91 Laterality: right Seizure R56.9 Antisocial personality disorder F60.2 (2) Stage 4 lung cancer Laterality: right Qualified Code(s): C34.91 - Malignant neoplasm of unspecified part of right bronchus or lung
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
--- NOTE | 2023-11-24 15:01 | Discharge Summary ---
Date of Service November 24, 2023 Admission HPI Per Admitting Provider Maximiliano is a 53-year-old male with past medical history of non-small cell lung cancer with mets to brain s/p resection at [facility] 05/2022 on pembrolizumab, history of subdural hematoma, history of IV drug use/MRSA infection, right leg ulcer, and antisocial personality who was seen in the ER 11/03/2023 for right buttock cellulitis. He was already on Keflex and Bactrim for right foot cellulitis for approximately 48 hours at that time. Patient continued his antibiotics however has had worsening over the last 48 hours and evening prior to admission had developed chills, soaking night sweats, and worsening pain at the buttock. First abscess was R distal anterior thigh, second proximal anterior right thight, had one R lateral thigh. All three required drainage (did these at [facility]) and was subsequently discharged on orals. [place], [facility], and [facility] admits. At last visit had a 1.9cm brain lesion ?tumor vs necrosis --> had craniotomy June 06 months ago and Aug 11 Dr. Chucky Maya at [facility] and was found to be tumor. He has chemo, and radiation to the chest. He is not on any cancer treatment due to multiple recurrent infections. Was supposed to eventually progress to Keytruda, but this has been delayed due to infections. Was going to followup with Dr. Callaway with [facility] for chemo. Also talked to gamma knife specialist in [facility]. and infection has been going on several days at least 4 and seems to be worsening and becoming more painful in the last 2 days. Patients goal is to treat infection and buy time and hopefully start Keytruda. Pt reports he is not interested in hospice/palliative goals of care at this time. Reports he has had no fevers, sweat the bed last night and felt soaked similar to prior infection. Buttock current feels improved int he ER, aching burning pain Chronic cough last few months. No change in sputum production or quality Last seizure Aug 10. Took AM meds. Has moved to state [place] and eventually wants to mvoe his care to [facility] for everything except gamma knife treatments. Would like referrer to PCP locally Patient does report he had IV drug use where he shared a needle around July 25. Denies IV drug use since that time, believes that this was cocaine but is not completely sure. Denies chest pain, chest pressure, palpitations. Denies lightheadedness or dizziness. Endorses chronic vision blurriness with cataracts and history of gamma knife, denies acute vision change, acute sensory change in his arms and legs, and acute weakness Medical History: Reviewed Medications: Reviewed Surgical History: Reviewed Family history: Reviewed Allergies: Reviewed Social History: Reviewed Code Status: Full Discharge Data Allergies Allergy/AdvReac Type Severity Reaction Status Date / Time NSAIDS (Non-Steroidal AdvReac Severe TENDENCY Verified 11/05/23 17:02 Anti-Inflamma TO BLEED duloxetine AdvReac Intermediate Muscle Verified 11/05/23 17:02 Spasm Consultations 11/05/23 17:13 ED Decision to Admit Stat 11/07/23 18:46 Consult General Surgery Routine 11/21/23 07:41 Consult Radiation Oncology Routine Ordered Studies 11/05/23 16:21 CT pelvis w/IV con only Urgent 11/07/23 11:54 CT pelvis w/IV con only Stat 11/16/23 12:54 CT scapula LT wo/w con Urgent 11/17/23 14:59 CT chest diagnostic wo con Routine 11/17/23 18:00 MR brain wo/w con Routine 11/18/23 09:00 US effusion-chest/mediastinum Routine 11/23/23 12:38 CT guide rad therapy chest Routine 11/24/23 10:14 CT guide rad therapy head Routine Hospital Course (1) Cellulitis: Phlegmon identified on imaging and clinically Right buttock I&D performed x2 . MRSA isolated. transitioned to oral Bactrim therapy. LD 11/24/23 dramatic improvement (2) Stage 4 lung cancer: Adenocarcinoma with metastatic disease to the brain., treated with chemoradiation in 2020 to his chest, cisplatin/allmta and durvalumab in 2019. He did have bifrontal metastatic brain lesions, left side resected 10/13 with gamma knife Resection of right frontal brain met with gamma knife to the resection bed 27 Cabrera/3 fx completed 11/09/2021 Resection left frontal met due to progression 05/26/2022 initiated on Keytruda Gamma knife to recurrent resection bed left frontal 30 Gy/5 fx completed 08/13/2022 Gamma knife to new left occipital lesion 10/26/2022 22 Cabrera/1 Gamma knife left frontal left cerebellar lesions 22 Cabrera/1 12/08/22 Gamma knife right supra lobe 02/11/2023 22 Cabrera x 1 Resection of recurrent left frontal met 08/11/2023 Last radiation oncology telephone visit recommended follow-up MRI of brain and was concern for extracranial active disease, done this stay with continued disease He presents on dexamethasone therapy. Outpatient treatment had been with with pembrolizumab.(on hold since may 14) Receives his oncology, surgical, and radiation care through [facility]. He would like to move primary care and oncology care to [facility] patient wishes to reestablish care in the region as he is previously been from the [facility] CT scan of the chest performed after chest x-ray showed whiteout of the right hemithorax. CT scan shows right upper lobe collapse with a 7.7 cm right apical opacity. Endobronchial abnormality right mainstem bronchus measuring 2.5 cm appearing to include the right mainstem bronchus diminished aeration of the right lung, remonstrated large masses also seen with the musculature of the left shoulder no meaningful fluid for thoracentesis Pulmonary medicine discussion regarding utility of considering intervention with rapid progression of cancer over last 2 months discussed with oncology environmental health sanitarian at [facility], feels with progression of histology assistant changes would not benefit from further treatment at their facility Patient on gram-positive coverage for gluteal phlegmon we will add gram-negative coverage given his obstructed right mainstem bronchus and possible postobstructive pneumonia Cancer related pain, now controlled increasing OxyContin to 30 mg every 12 hours keeping the Oxy IR unchanged with consideration if controlled to stop the hydromorphone offering. If patient transitions to comfort being his medical care consideration to utilize methadone considering 5 mg p.o. every 8 hours could be undertaken. Given rapid progression of his malignancy discussions have begun regarding how to best spending this time he has left whether would be to seek continue opinions on treatment versus admission to palliative care focusing on symptom control. Patient is aware of progression on MRI but still wants to talk options on treatment, will see palliative care as an outpt Radiation oncology will consider treatment here, will have outpt oncology appt and outpt palliative care appt to continue to help with metastatic oncologic pain (3) Seizure: Known seizure disorder. Currently stable. Continue current oral medications (4) Antisocial personality disorder: Supportive care. Plan Given rapid progression of endobronchial lesion with complete obstruction of the right lung his malignancy is certainly progressing. will attempt xrt if able to chest, continue to treat post obstructive pneumonia covering for gram negative pneumonia h/o left leg dvt, high risk of recurrence pt refusing chemoprophylaxis PT is full code and did not wish to discuss code status Discharge Plan Discharge Items Patient Disposition: Home - Self-Care Reason For Visit: CELLULITIS WORSENING ON OUTPT ABX, HX MRSA Discharge Diagnosis: metastatic adenocarcinoma post obstructive pneumonia MRSA buttock infection Activity: Resume your previous activity Non-emergency contact: Primary Care Provider and Specialist Call non-emergency contact if: your symptoms worsen Follow-up/Referrals: Vlad Ferrara MD [Physician] - Ana M Euceda DO [Physician] - 11/28/23 3:20 pm (New pt appointment. Please arrive 15 min. prior to your scheduled appointment.) Rika Lawrence DNP [Nurse Practitioner] - 12/01/23 12:30 pm (Appointment has been made for outpatient Palliative Care Clinic. The office is located in the Cancer Center, Radiation Oncology Suite.) Michela Casper MD [Physician] - 12/19/23 3:00 pm Diet: Regular Addtl Attending Provider Instructions: please take your pain medication carefully, follow up with our oncology and radiation appointments finish all of your antibioitcs: antibiotics at 6 pm be sure to follow up with Dr Lawrence, she can help manage your cancer related pain Pending Studies at Discharge: No Stand-Alone Forms: [employer] Daily, Smoking Cessation Medications and DC Order Prescriptions: New celecoxib [Celebrex] 100 mg Capsule 100 mg PO BID Qty: 6 5RF Rx Instructions: this is for cancer pain oxycodone [OxyContin] 20 mg Tablet,Oral Only,Ext.Rel.12 Hr 20 mg PO Q12@0600,1800 Qty: 60 0RF oxycodone 5 mg Tablet 10 mg PO Q6H PRN (Reason: pain) Qty: 30 0RF lidocaine 5 % Adhesive Patch,Medicated 2 patch transdermal QAM Qty: 15 2RF pantoprazole 40 mg Tablet,Delayed Release (Dr/Ec) 40 mg PO QAM Qty: 30 3RF levofloxacin 750 mg tablet 750 mg PO DAILY 5 Days Qty: 5 0RF Continued budesonide-formoterol [Symbicort] 80-4.5 mcg/actuation HFA aerosol inhaler 2 puff inhalation BID Qty: 10.2 2RF benzonatate 100 mg capsule 100 mg PO BID PRN (Reason: cough) Qty: 90 1RF lamotrigine 200 mg tablet 200 mg PO BID 30 Days Qty: 60 0RF levetiracetam 500 mg tablet 500 mg PO BID 30 Days Qty: 60 0RF Rx Instructions: TOTAL DOSE 1,500 MG--TAKES WITH 1,000 MG TAB. levetiracetam 1,000 mg tablet 1,000 mg PO BID 30 Days Qty: 60 0RF Rx Instructions: TOTAL DOSE 1,500 MG--TAKES WITH 500 MG TAB. sulfamethoxazole-trimethoprim [Bactrim DS] 800-160 mg tablet 1 tab PO BID 8 Days Qty: 16 0RF Rx Instructions: last day 11/30/23 Changed dexamethasone 4 mg tablet 4 mg PO BID Qty: 60 4RF Discontinued cephalexin 500 mg capsule 500 mg PO QID 7 Days Qty: 28 0RF Rx Instructions: ORDERED 11/03/23 Discharge Orders: Discharge Order (Routine); Ordered 11/24/23 Ordered By: Nimesh Brown Admission Data Admit Date/Time: 11/05/23 18:12 Attending Provider: Nimesh Brown Admit Provider: Jian Gonzalez Primary Care Provider: PCP,NO Other Providers: Jian Gonzalez; Nura Noguera; Jamar Maki; Cliff Conway; Ghulam Srivastava; Kevin Ovalle; Jazz Wolff; Kong Lee; Tobias Parry; Matt Jimenez; Houston Robledo; [facility]; Leena Flores Coding Diagnoses Cellulitis L03.90 Malignant neoplasm of right lung stage 4 C34.91 Laterality: right Seizure R56.9 Antisocial personality disorder F60.2
--- NOTE | 2023-11-24 16:00 | Hospitalist Progress Note ---
Date of Service November 24, 2023 Assessment & Plan (1) Cellulitis: Plan: Phlegmon identified on imaging and clinically Right buttock I&D performed x2 . MRSA isolated. transitioned to oral Bactrim therapy. LD 11/24/23 dramatic improvement (2) Stage 4 lung cancer: Plan: Adenocarcinoma with metastatic disease to the brain., treated with chemoradiation in 2020 to his chest, cisplatin/allmta and durvalumab in 2019. He did have bifrontal metastatic brain lesions, left side resected 10/13 with gamma knife Resection of right frontal brain met with gamma knife to the resection bed 27 Cabrera/3 fx completed 11/09/2021 Resection left frontal met due to progression 05/26/2022 initiated on Keytruda Gamma knife to recurrent resection bed left frontal 30 Gy/5 fx completed 08/13/2022 Gamma knife to new left occipital lesion 10/26/2022 22 Cabrera/1 Gamma knife left frontal left cerebellar lesions 22 Cabrera/1 12/08/22 Gamma knife right supra lobe 02/11/2023 22 Cabrera x 1 Resection of recurrent left frontal met 08/11/2023 Last radiation oncology telephone visit recommended follow-up MRI of brain and was concern for extracranial active disease, done this stay with continued disease He presents on dexamethasone therapy. Outpatient treatment had been with with pembrolizumab.(on hold since may 14) Receives his oncology, surgical, and radiation care through [facility]. [place] care in the region as he is previously been from the [facility] CT scan of the chest performed after chest x-ray showed whiteout of the right hemithorax. CT scan shows right upper lobe collapse with a 7.7 cm right apical opacity. 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 If patient transitions to comfort being his medical care consideration to utilize methadone considering 5 mg p.o. every 8 hours could be undertaken. Given rapid progression of his malignancy discussions have begun regarding how to best spending this time he has left whether would be to seek continue opinions on treatment versus admission to palliative care focusing on symptom control. Patient is aware of progression on MRI but still wants to talk options on treatment, will see palliative care as an outpt Radiation oncology will consider treatment here, will have outpt oncology appt and outpt palliative care appt to continue to help with metastatic oncologic pain (3) Seizure: Plan: Known seizure disorder. Currently stable. Continue current oral medications (4) Antisocial personality disorder: Plan: Supportive care. Plan Given rapid progression of endobronchial lesion with complete obstruction of the right lung his malignancy is certainly progressing. will attempt xrt if able to chest, continue to treat post obstructive pneumonia covering for gram negative pneumonia h/o left leg dvt, high risk of recurrence pt refusing chemoprophylaxis PT is full code and did not wish to discuss code status Admission and Anticipated Discharge Date Admission Date: November 05, 2023 Results & Data Results & Data Vital Signs (Past 12 Hours) Vital Signs Temp Pulse Pulse Resp BP BP Pulse Ox 11/24/23 15:44 36.4 C L 100 H 18 151/99 H 95 11/24/23 07:48 11/24/23 07:46 36.5 C 79 18 151/92 H 96 11/24/23 07:23 78 97 O2 Del Method 11/24/23 15:44 Room Air 11/24/23 07:48 Room Air 11/24/23 07:46 Room Air 11/24/23 07:23 Room Air PG Care Time/CCT Total # of Minutes Spent Total Time Spent with Patient: Total time spent is greater than 50% in coordination of care (as documented) at patient's floor/unit and/or counseling patient: Coding Diagnoses Cellulitis L03.90 Malignant neoplasm of right lung stage 4 C34.91 Laterality: right Seizure R56.9 Antisocial personality disorder F60.2 (2) Stage 4 lung cancer Laterality: right Qualified Code(s): C34.91 - Malignant neoplasm of unspecified part of right bronchus or lung
--- NOTE | 2023-11-24 16:16 | Discharge Summary ---
Date of Service November 24, 2023 Principal Diagnosis cellulitis Discharge Exam awake and alert, unusual affect cardiac is reg right lung is with absent breath sounds Discharge Data Allergies Allergy/AdvReac Type Severity Reaction Status Date / Time NSAIDS (Non-Steroidal AdvReac Severe TENDENCY Verified 11/05/23 17:02 Anti-Inflamma TO BLEED duloxetine AdvReac Intermediate Muscle Verified 11/05/23 17:02 Spasm Consultations 11/05/23 17:13 ED Decision to Admit Stat 11/07/23 18:46 Consult General Surgery Routine 11/21/23 07:41 Consult Radiation Oncology Routine Ordered Studies 11/05/23 16:21 CT pelvis w/IV con only Urgent 11/07/23 11:54 CT pelvis w/IV con only Stat 11/16/23 12:54 CT scapula LT wo/w con Urgent 11/17/23 14:59 CT chest diagnostic wo con Routine 11/17/23 18:00 MR brain wo/w con Routine 11/18/23 09:00 US effusion-chest/mediastinum Routine 11/23/23 12:38 CT guide rad therapy chest Routine 11/24/23 10:14 CT guide rad therapy head Routine Hospital Course (1) Cellulitis: Phlegmon identified on imaging and clinically Right buttock I&D performed x2 . MRSA isolated. transitioned to oral Bactrim therapy. LD 11/24/23 dramatic improvement (2) Stage 4 lung cancer: Adenocarcinoma with metastatic disease to the brain., treated with chemoradiation in 2020 to his chest, cisplatin/allmta and durvalumab in 2019. He did have bifrontal metastatic brain lesions, left side resected 10/13 with gamma knife Resection of right frontal brain met with gamma knife to the resection bed 27 Cabrera/3 fx completed 11/09/2021 Resection left frontal met due to progression 05/26/2022 initiated on Keytruda Gamma knife to recurrent resection bed left frontal 30 Gy/5 fx completed 08/13/2022 Gamma knife to new left occipital lesion 10/26/2022 22 Cabrera/1 Gamma knife left frontal left cerebellar lesions 22 Cabrera/1 12/08/22 Gamma knife right supra lobe 02/11/2023 22 Cabrera x 1 Resection of recurrent left frontal met 08/11/2023 Last radiation oncology telephone visit recommended follow-up MRI of brain and was concern for extracranial active disease, done this stay with continued disease He presents on dexamethasone therapy. Outpatient treatment had been with with pembrolizumab.(on hold since may 14) Receives his oncology, surgical, and radiation care through [facility]. He [place] care in the region as he is previously been from the [facility] CT scan of the chest performed after chest x-ray showed whiteout of the right hemithorax. CT scan shows right upper lobe collapse with a 7.7 cm right apical opacity. 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 If patient transitions to comfort being his medical care consideration to utilize methadone considering 5 mg p.o. every 8 hours could be undertaken. Given rapid progression of his malignancy discussions have begun regarding how to best spending this time he has left whether would be to seek continue opinions on treatment versus admission to palliative care focusing on symptom control. Patient is aware of progression on MRI but still wants to talk options on treatment, will see palliative care as an outpt Radiation oncology: s/p 1xrt treatment here, will have outpt oncology appt and outpt palliative care appt to continue to help with metastatic oncologic pain continue to treat post obstructive pneumonia covering for gram negative pneumonia (3) Seizure: Known seizure disorder. Currently stable. Continue current oral medications (4) Antisocial personality disorder: Supportive care. Total Time Total Time Spent Total Time Spent (In Minutes): 32 Discharge Plan Discharge Items Patient Disposition: Home - Self-Care Reason For Visit: CELLULITIS WORSENING ON OUTPT ABX, HX MRSA Discharge Diagnosis: metastatic adenocarcinoma post obstructive pneumonia MRSA buttock infection Activity: Resume your previous activity Non-emergency contact: Primary Care Provider and Specialist Call non-emergency contact if: your symptoms worsen Follow-up/Referrals: Vlad Ferrara MD [Physician] - Ana M Euceda DO [Physician] - 11/28/23 3:20 pm (New pt appointment. Please arrive 15 min. prior to your scheduled appointment.) Rika Lawrence DNP [Nurse Practitioner] - 12/01/23 12:30 pm (Appointment has been made for outpatient Palliative Care Clinic. The office is located in the Cancer Center, Radiation Oncology Suite.) Michela Casper MD [Physician] - 12/19/23 3:00 pm Diet: Regular Addtl Attending Provider Instructions: please take your pain medication carefully, follow up with our oncology and radiation appointments finish all of your antibioitcs: antibiotics at 6 pm be sure to follow up with Dr Lawrence, she can help manage your cancer related pain Pending Studies at Discharge: No Stand-Alone Forms: My [facility] Chain, Smoking Cessation Medications and DC Order Prescriptions: New celecoxib [Celebrex] 100 mg Capsule 100 mg PO BID Qty: 6 5RF Rx Instructions: this is for cancer pain oxycodone [OxyContin] 20 mg Tablet,Oral Only,Ext.Rel.12 Hr 20 mg PO Q12@0600,1800 Qty: 60 0RF oxycodone 5 mg Tablet 10 mg PO Q6H PRN (Reason: pain) Qty: 30 0RF lidocaine 5 % Adhesive Patch,Medicated 2 patch transdermal QAM Qty: 15 2RF pantoprazole 40 mg Tablet,Delayed Release (Dr/Ec) 40 mg PO QAM Qty: 30 3RF levofloxacin 750 mg tablet 750 mg PO DAILY 5 Days Qty: 5 0RF Continued budesonide-formoterol [Symbicort] 80-4.5 mcg/actuation HFA aerosol inhaler 2 puff inhalation BID Qty: 10.2 2RF benzonatate 100 mg capsule 100 mg PO BID PRN (Reason: cough) Qty: 90 1RF lamotrigine 200 mg tablet 200 mg PO BID 30 Days Qty: 60 0RF levetiracetam 500 mg tablet 500 mg PO BID 30 Days Qty: 60 0RF Rx Instructions: TOTAL DOSE 1,500 MG--TAKES WITH 1,000 MG TAB. levetiracetam 1,000 mg tablet 1,000 mg PO BID 30 Days Qty: 60 0RF Rx Instructions: TOTAL DOSE 1,500 MG--TAKES WITH 500 MG TAB. sulfamethoxazole-trimethoprim [Bactrim DS] 800-160 mg tablet 1 tab PO BID 8 Days Qty: 16 0RF Rx Instructions: last day 11/30/23 Changed dexamethasone 4 mg tablet 4 mg PO BID Qty: 60 4RF Discontinued cephalexin 500 mg capsule 500 mg PO QID 7 Days Qty: 28 0RF Rx Instructions: ORDERED 11/03/23 Discharge Orders: Discharge Order (Routine); Ordered 11/24/23 Ordered By: Nimesh Brown Admission Data Admit Date/Time: 11/05/23 18:12 Attending Provider: Nimesh Brown Admit Provider: Jian Gonzalez Primary Care Provider: PCP,NO Other Providers: Jian Gonzalez; Nura Noguera; Jamar Maki; Cliff Conway; Ghulam Srivastava; Kevin Ovalle; Jazz Wolff; Kong Lee; Tobias Parry; Matt Jimenez; Houston Robledo; [facility]; Leena Flores Coding Level of Care Code 91972 INP/OBS DISCH >30 MIN Diagnoses Cellulitis L03.90 Malignant neoplasm of right lung stage 4 C34.91 Laterality: right Seizure R56.9 Antisocial personality disorder F60.2
[2023-11-25] MEDS: LORazepam 1 MG TAB PO STA ×2 (02:34→12:51)
--- NOTE | 2023-11-25 09:40 | Palliative Care Consultation ---
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 Lymphocytes # (Manual) 3.22 K/uL (1.2-3.4) 11/08/23 07:25 Total Abs Lymphocytes 3.22 K/uL (1.2-3.4) 11/08/23 07:25 Monocytes # (Manual) 0.59 K/uL (0.11-0.59) 11/08/23 07:25 Eosinophils # (Manual) 0.59 K/uL (0-0.50) H 11/08/23 07:25 Metamyelocytes # (Man) 0.25 K/uL (0-0) H 11/07/23 07:00 Myelocytes # (Manual) 1.17 K/uL (0-0) H 11/08/23 07:25 RBC Morphology Unremarkable 11/13/23 04:05 Polychromasia 1+ 11/08/23 07:25 PT 10.3 Seconds (9.0-12.0) 11/05/23 15:30 INR 0.9 (0.9-1.1) 11/05/23 15:30 APTT 27 Seconds (21-31) 11/05/23 15:30 PTT Ratio 1.0 11/05/23 15:30 Sodium 132 mmol/L (136-145) L 11/16/23 05:28 Potassium 3.5 mmol/L (3.5-5.1) 11/16/23 05:28 Chloride 97 mmol/L (98-107) L 11/16/23 05:28 Carbon Dioxide 27 mmol/L (21-32) 11/16/23 05:28 Anion Gap 8 (3-11) 11/16/23 05:28 BUN 31 mg/dl (6-23) H 11/16/23 05:28 Creatinine 0.85 mg/dl (0.6-1.4) 11/16/23 05:28 Est Cr Clr Drug Dosing 127.5 ml/min 11/16/23 05:28 Est GFR ( Amer) 115.3 ml/min 11/16/23 05:28 Est GFR (Non-Af Amer) 99.5 ml/min 11/16/23 05:28 BUN/Creatinine Ratio 36.5 (10-20) H 11/16/23 05:28 Glucose 114 mg/dl (70-99(Fasting)) H 11/16/23 05:28 Calcium 8.7 mg/dl (8.6-10.3) 11/16/23 05:28 Magnesium 2.1 mg/dl (1.7-2.4) 11/06/23 05:52 Total Bilirubin 0.2 mg/dl (0.2-1.0) 11/05/23 15:30 AST 26 U/L (13-39) 11/05/23 15:30 ALT 87 U/L (7-52) H 11/05/23 15:30 Alkaline Phosphatase 94 U/L (34-104) 11/05/23 15:30 C-Reactive Protein 3.73 mg/dl (0-0.5) H 11/14/23 04:59 Total Protein 7.2 gm/dl (6.0-8.3) 11/05/23 15:30 Albumin 3.4 gm/dl (3.4-5.0) 11/05/23 15:30 Globulin 3.8 gm/dl (2.5-4.0) 11/05/23 15:30 Albumin/Globulin Ratio 0.9 (0.9-2) 11/05/23 15:30 Procalcitonin 0.10 ng/ml (0-0.5) 11/13/23 04:05 Random Vancomycin 18.7 mcg/ml (10-20) 11/14/23 07:24 HIV (1&2) Ag & Ab Conf NON-REACTIVE (NON-REACTIVE) 11/05/23 15:30 Bld Cult ID Panel PCR PCR Panel Negative (NotDetected) 11/05/23 17:[address] 11/07/23 11:54 CT pelvis w/IV con only CLINICAL HISTORY: R buttock cellulitis, r/o drainable abscess TECHNIQUE: Helical axial images of the pelvis were obtained and displayed at 5 and 1 mm intervals. Automated dose lowering techniques and/or adjustment according to patient size were utilized for this exam. This exam was performed with intravenous contrast. CT DOSE: 1220.25 mGy.cm COMPARISON: Comparison is made to CT pelvis 11/05/2023 FINDINGS: Bladder: Unremarkable. Reproductive organs: Unremarkable. Bowel: Unremarkable. Lymph nodes Pelvic: Unremarkable. Mesenteric: Unremarkable. Peritoneum: Normal Vessels: Unremarkable. Abdominal wall: A tiny umbilical helical hernia is seen. At the edge of the [id number], fat stranding and multiple clustered pockets of subcutaneous fluid are noted in the right buttocks, however no drainable fluid collection is seen. Findings appear similar to prior exam. Bones: Degenerative changes in the visualized spine. IMPRESSION: Limited evaluation due to field of view. Fat stranding is seen in the right buttocks compatible with phlegmon, however no drainable fluid collection is seen within the field of view. Overall findings appear grossly similar to prior exam. ACT 112: Negative or not required by law. Electronically signed by: Darron Dumont M.D. 11/07/2023 1:[address] 11/16/23 12:54 CT scapula LT wo/w con CLINICAL HISTORY: pain, swelling, hx met cancer TECHNIQUE: Multidetector row helical CT of the shoulder was performed with intravenous contrast. Coronal and sagittal reformations were obtained. Automated dose lowering techniques and/or adjustment according to patient size were utilized for this examination. CT DOSE: 682.35 mGy.cm Comparison: Comparison is made to a chest 09/12/2023 FINDINGS: There is an intramuscular lesion measuring 51 x 36 x 42 mm in the teres minor muscle body. Mild enhancement is seen. The joint spaces are maintained. No joint effusion is seen. No acute fractures. IMPRESSION: There is an enhancing intramuscular lesion in the teres minor muscle body compat ible with metastatic focus. ACT 112: Negative or not required by law. Electronically signed by: Darron Dumont M.D. 11/16/2023 5:[address] 11/17/23 14:59 CT OF THE CHEST WITHOUT IV CONTRAST CLINICAL HISTORY: eval right lung for effusion vs tumor. Lung cancer. COMPARISON STUDY: Chest CT September 12, 2023. Chest radiograph performed earlier today. CT DOSE: 1001.16 mGy.cm TECHNIQUE: Axial images of the chest were obtained without IV contrast. Images were reviewed in the axial, sagittal, and coronal planes. IV contrast was not administered for this examination. Automated exposure control was utilized for the study. A dose lowering technique was utilized adhering to the principles of ALARA. FINDINGS: A 7.3 x 3.9 cm hypodense mass-like abnormality within the posterior left shoulder musculature on image 36 of 269 corresponds to an enhancing lesion on CT of November 16, 2023. There is no pericardial effusion. A small right pleural effusion is present. There is no pneumothorax. A lytic lesion within the anterior right third rib is noted with possible associated pathologic fracture. No lesions within the thoracic spine are present. No airspace opacities are present within the left lung. Right upper lobe collapse is again noted with a persistent 7.7 cm right apical opacity. This is similar to prior CT of September 12, 2023. An endobronchial abnormality within the right mainstem bronchus measures 2.5 cm. This appears to occlude the main stem bronchus. Right lung opacification has increased with diminished aeration when compared to CT of September 12, 2023. Visualized portions of the upper abdomen are unremarkable on unenhanced exam. IMPRESSION: 1. 2.5 cm endobronchial abnormality which appears to occlude the right mainstem bronchus, new since prior CT. This is likely neoplastic. Pulmonary consultation for consideration for bronchoscopy might be considered. Significant increase in right lung airspace opacity with volume loss. This could reflect postobstructive pneumonia or atelectasis. 2. Redemonstration of a mass-like right apical opacity with right upper lobe collapse, similar to prior CT. 3. Small right pleural effusion. 4. Suspected metastases within the posterior left shoulder musculature and the anterior right third rib. ACT 112: Negative or not required by law. Electronically signed by: Lon King M.D. 11/17/2023 4:35 PM Brain MRI 11/17/23 18:00 Brain MRI WITH AND WITHOUT CONTRAST HISTORY: Lung cancer. eval for metastatic disease TECHNIQUE: Multiplanar multisequence MRI of the brain was performed both before and after the intravenous administration of contrast. COMPARISON STUDY: Head CT 09/09/2023. Brain MRI 08/06/2020. FINDINGS: No acute infarct or intracranial hemorrhage. Mild mucosal thickening within the right maxillary sinus. The orbits are unremarkable. The mastoid air cells are clear. The major vascular flow-voids at the skull base are well- maintained. Prior right frontal and left lateral craniotomy with underlying encephalomalacia and gliosis consistent with postoperative change. Stable mild ex vacuo dilatation of the frontal horn of the right lateral ventricle. No midline shift. There is a 2.2 cm enhancing soft tissue nodule within the right posterior neck on axial T1 postcontrast image 2. This is consistent with a metastatic deposit. There are multiple scattered enhancing lesions seen throughout the supratentorial and infratentorial brain consistent with metastatic disease. There are greater than 20 lesions in total. The majority of these demonstrate surrounding vasogenic edema. No significant mass effect at this time. Dominant lesion within the left parietal lobe measures 13 mm. Mild dural enhancement at the craniotomy site favors postoperative change. There is also mild peripheral enhancement the resection site within the left high convexity. This could be due to the residual postoperative change. IMPRESSION: 1. Multiple scattered intracranial enhancing lesions consistent with metastatic disease. 2. There is also a 2.2 cm enhancing soft tissue nodule within the right posterior neck consistent with a metastatic deposit. 3. No acute infarct or intracranial hemorrhage. 4. Postoperative changes as described above. ACT 112: Negative or not required by law. Electronically signed by: Davin Leyva M.D. 11/18/2023 7:16 PM Chest Ultrasound 11/18/23 09:00 LIMITED RIGHT CHEST ULTRASOUND CLINICAL HISTORY: Request for thoracentesis COMPARISON STUDY: Chest CT 11/17/2023 FINDINGS: Real-time ultrasound imaging of the right lateral/posterior chest demonstrates a small right pleural effusion, estimated at approximately 100 to 150 mL. The patient declined the procedure and was sent back to the floor. The referring physician was notified. IMPRESSION: Small right pleural effusion as above. Patient declined procedure. Performed, dictated, and signed by Ghulam Larkin PA-C; to be co-signed by Dr. Aaron Ascencio. Electronically signed by: Aaron Ascencio M.D. 11/18/2023 2:19 PM Chest X-Ray 11/18/23 10:00 XR chest 1V portable CLINICAL HISTORY: S/P Thoracentesis COMPARISON STUDY: Chest radiograph and chest CT November 17, 2023. FINDINGS: There is no pneumothorax status post thoracentesis. Extensive right lung opacification has increased. This makes evaluation for residual pleural effusion difficult. Left lung is clear. IMPRESSION: 1. No pneumothorax following thoracentesis. 2. Increase in extensive right lung opacification. ACT 112: Negative or not required by law. Electronically signed by: Lon King M.D. 11/18/2023 10:35 AM Diagnostic Findings see above PG Care Time/CCT Total # of Minutes Spent Total Time Spent with Patient: Total time spent is greater than 50% in coordination of care (as documented) at patient's floor/unit and/or counseling patient: I spent 110 minutes overall addressing this case: 25 min in medical data review/discussion with referring provider(s) and/or preparation for the visit 25 min in direct interaction with the patient/exam 30 min in Advance Care Planning/Goals of Care discussions as detailed above in note (must be >16min) 15 min in subsequent review and synthesis of assessment and plan 15 min communicating with other providers regarding the patient's case: Advanced Care Planning 57957 Advanced Care Planning 30 [place] [address] IN/OBS CONSULT LVL 5,80M Patient Type New History Comprehensive Exam Comprehensive Medical Decision Making High Complexity Diagnoses 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 IV drug abuse F19.10 Cocaine abuse F14.10 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
--- NOTE | 2023-11-25 12:06 | Surgery Progress Note ---
Date of Service November 25, 2023 Assessment & Plan (1) Abscess: Plan: There is no evidence for abscess remaining at this site currently the area is healing well. Recommended washing the area daily with soap and water to lightly debride exudate that may form. Rinse well, pat dry and dress with antibiotic ointment. Recommend prescribing Mupirocin. Cover with a dry gauze. He asks about home nursing and maybe follow up with wound care as he does not feel as though he will be able to make a good assessment of how this area is doing at home due to his cataracts and inability to mobilize back there. Admission and Anticipated Discharge Date Admission Date: November 05, 2023 Subjective Patient seen this am to assess his right hip/buttock previous abscess drainage site prior to discharge. Denies pain or active drainage from the area. Physical Exam Skin: There is no erythema, no swelling The incision is healing. The superficial dermis is not completely coapted. The deeper aspects of the wound have healed. There is a small amount of exudate between the skin edges. Results & Data Vital Signs (Past 12 Hours) Vital Signs Temp Pulse Resp BP Pulse Ox O2 Del Method 11/25/23 08:00 Room Air 11/25/23 06:54 36.7 C 101 H 16 150/92 H 95 Room Air PG Care Time/CCT Total # of Minutes Spent Total Time Spent with Patient: Total time spent is greater than 50% in coordination of care (as documented) at patient's floor/unit and/or counseling patient: Coding Level of Care Code 67978 SUB INP/OBS CARE 09/15MIN Diagnoses Abscess L02.91
[2023-11-25] MEDS: oxyCODONE HCL 20 MG TABCR (OxyCONTIN) PO SCH (12:51)
[2023-11-25] MEDS: MUPIROCIN 2% OINT 22 GM TUBE EXT SCH (13:50)
--- NOTE | 2023-11-25 17:51 | Hospitalist Progress Note ---
Date of Service November 25, 2023 Assessment & Plan (1) Cellulitis: Plan: Phlegmon identified on imaging and clinically Right buttock I&D performed x2 . MRSA isolated. transitioned to oral Bactrim therapy. LD 11/24/23 dramatic improvement discussed with surgery on 11/24 will order mupirocin x 5 days. also had pallaitive care see him while he was here. (2) Stage 4 lung cancer: Plan: Adenocarcinoma with metastatic disease to the brain., treated with chemoradiation in 2020 to his chest, cisplatin/allmta and durvalumab in 2019. He did have bifrontal metastatic brain lesions, left side resected 10/13 with gamma knife Resection of right frontal brain met with gamma knife to the resection bed 27 Cabrera/3 fx completed 11/09/2021 Resection left frontal met due to progression 05/26/2022 initiated on Keytruda Gamma knife to recurrent resection bed left frontal 30 Gy/5 fx completed 08/13/2022 Gamma knife to new left occipital lesion 10/26/2022 22 Cabrera/1 Gamma knife left frontal left cerebellar lesions 22 Cabrera/1 12/08/22 Gamma knife right supra lobe 02/11/2023 22 Cabrera x 1 Resection of recurrent left frontal met 08/11/2023 Last radiation oncology telephone visit recommended follow-up MRI of brain and was concern for extracranial active disease, done this stay with continued disease He presents on dexamethasone therapy. Outpatient treatment had been with with pembrolizumab.(on hold since may 14) Receives his oncology, surgical, and radiation care through [facility]. He would like to move primary care and oncology care to [facility] patient wishes to reestablish care in the region as he is previously been from the [facility] CT scan of the chest performed after chest x-ray showed whiteout of the right hemithorax. CT scan shows right upper lobe collapse with a 7.7 cm right apical opacity. Endobronchial abnormality right mainstem bronchus measuring 2.5 cm appearing to include the right mainstem bronchus diminished aeration of the right lung, remonstrated large masses also seen with the musculature of the left shoulder no meaningful fluid for thoracentesis Pulmonary medicine discussion regarding utility of considering intervention with rapid progression of cancer over last 2 months discussed with oncology life science taxonomist at [facility], feels with progression of senior engineer changes would not benefit from further treatment at their facility Patient on gram-positive coverage for gluteal phlegmon we will add gram-negative coverage given his obstructed right mainstem bronchus and possible postobstructive pneumonia Cancer related pain, now controlled increasing OxyContin to 30 mg every 12 hours keeping the Oxy IR unchanged with consideration if controlled to stop the hydromorphone offering. If patient transitions to comfort being his medical care consideration to utilize methadone considering 5 mg p.o. every 8 hours could be undertaken. Given rapid progression of his malignancy discussions have begun regarding how to best spending this time he has left whether would be to seek continue opinions on treatment versus admission to palliative care focusing on symptom control. Patient is aware of progression on MRI but still wants to talk options on treatment, will see palliative care as an outpt Radiation oncology: s/p 1xrt treatment here, will have outpt oncology appt and outpt palliative care appt to continue to help with metastatic oncologic pain continue to treat post obstructive pneumonia covering for gram negative pneumonia (3) Seizure: Plan: Known seizure disorder. Currently stable. Continue current oral medications (4) Antisocial personality disorder: Plan: Supportive care. Admission and Anticipated Discharge Date Admission Date: November 05, 2023 Subjective Patient had multiple questions that were answered. Review of Systems Review of Systems: All systems reviewed & are unremarkable except as noted in HPI & below Physical Exam Physical Exam: awake and alert, unusual affect cardiac is reg right lung is with absent breath sounds Results & Data Results & Data Vital Signs (Past 12 Hours) Vital Signs Temp Pulse Resp BP Pulse Ox O2 Del Method 11/25/23 15:01 36.8 C 104 H 16 144/92 H 95 Room Air 11/25/23 08:00 Room Air 11/25/23 06:54 36.7 C 101 H 16 150/92 H 95 Room Air PG Care Time/CCT Total # of Minutes Spent Total Time Spent with Patient: Total time spent is greater than 50% in coordination of care (as documented) at patient's floor/unit and/or counseling patient: Coding Level of Care Code 90227 SUB INP/OBS CARE 2/35MIN Diagnoses Cellulitis L03.90 Malignant neoplasm of right lung stage 4 C34.91 Laterality: right Seizure R56.9 Antisocial personality disorder F60.2 (2) Stage 4 lung cancer Laterality: right Qualified Code(s): C34.91 - Malignant neoplasm of unspecified part of right bronchus or lung
[2023-11-25] MEDS: oxyCODONE HCL IR 5 MG TAB (IMMEDIATE RELEASE) PO STA (17:59)
--- NOTE | 2023-11-25 19:19 | Communication Note ---
Date of Service: November 25, 2023 Brief Palliative Medicine Note Second prolonged ACP discussions with pt and medical staff: At 345pm, I was paged by nursing that pt wanted to try methadone. I advised he could not given elevated QTc (from this admission EKG) and he asked if EKG can be repeated. I advised EKG for methadone monitoring is valid for 90 days, no i ndication for new EKG and that given his desire to pursue aggressive cancer care, it is not a risk I can justify clinically. I have increased the dose and frequency of his long acting OxyContin and i have added scheduled Ativan BID dosing to help improve his comfort. I have also advised pt that the expectation of medicine at doses high enough to completely take away "all pain"without side effects of sedation etc would not be achievable without a focus transitioning to comfort at this terminal state of cancer. Otherwise the goal remains to control pain enough so that he is able to engage in his cancer care. He then had a visitor and after that, at 445pm, I was informed by nursing pt now wants to pursue comfort care and is interested in methadone for terminal cancer pain, accepting cardiac risk factors. States he is stating he knows he is dying and wants comfort. Patient has demonstrated manipulative behaviors and escalating "crisis" modes to obtain the things he wants. I offered a zoom family meeting tomorrow morning to discuss comfort care and attempt to assess his understanding, veracity and intent. I have offered a 10am meeting time. Between 5-7pm, I reviewed time options with nursing and we agreed I would schedule the zoom call via [facility] [employer] platform. The zoom meeting details are as follows: Dr. Ary Lawrence is inviting you to a scheduled Zoom meeting. Topic: Meeting with Maximiliano Green to discuss comfort care Time: Nov 26, 2023 10:00 AM Eastern Time ([place] and [place]) Join Zoom Meeting [email or web address] Meeting ID: [id number] I updated nursing and primary team. Time Spent: 85min Thank you for allowing us to participate in the ongoing care of this patient. Please don't hesitate to call or page with any additional concerns. Dr. Rika Lawrence DNP Director, Palliative Care
[2023-11-25] MEDS: LORazepam 1 MG TAB PO SCH (20:02)
[2023-11-25] MEDS: ALBUTEROL 0.083% NEBU SOLN 3 ML VIAL NEB PRN (20:07)
[2023-11-26] MEDS: LORazepam 1 MG TAB PO STA (03:24)
--- NOTE | 2023-11-26 14:07 | Hospitalist Progress Note ---
Date of Service November 26, 2023 Assessment & Plan (1) Cellulitis: Plan: Phlegmon identified on imaging and clinically Right buttock I&D performed x2 . MRSA isolated. transitioned to oral Bactrim therapy. LD 11/24/23 dramatic improvement discussed with surgery on 11/24 will order mupirocin x 5 days. appreciate palliative care provider input. (2) Stage 4 lung cancer: Plan: Adenocarcinoma with metastatic disease to the brain., treated with chemoradiation in 2020 to his chest, cisplatin/allmta and durvalumab in 2019. He did have bifrontal metastatic brain lesions, left side resected 10/13 with gamma knife Resection of right frontal brain met with gamma knife to the resection bed 27 Cabrera/3 fx completed 11/09/2021 Resection left frontal met due to progression 05/26/2022 initiated on Keytruda Gamma knife to recurrent resection bed left frontal 30 Gy/5 fx completed 08/13/2022 Gamma knife to new left occipital lesion 10/26/2022 22 Cabrera/1 Gamma knife left frontal left cerebellar lesions 22 Cabrera/1 12/08/22 Gamma knife right supra lobe 02/11/2023 22 Cabrera x 1 Resection of recurrent left frontal met 08/11/2023 Last radiation oncology telephone visit recommended follow-up MRI of brain and w as concern for extracranial active disease, done this stay with continued disease He presents on dexamethasone therapy. Outpatient treatment had been with with pembrolizumab.(on hold since may 14) Receives his oncology, surgical, and radiation care through [facility]. He would like to move primary care and oncology care [place] patient wishes to reestablish care in the region as he is previously been from the [facility] CT scan of the chest performed after chest x-ray showed whiteout of the right hemithorax. CT scan shows right upper lobe collapse with a 7.7 cm right apical opacity. Endobronchial abnormality right mainstem bronchus measuring 2.5 cm appearing to include the right mainstem bronchus diminished aeration of the right lung, remonstrated large masses also seen with the musculature of the left shoulder no meaningful fluid for thoracentesis Pulmonary medicine discussion regarding utility of considering intervention with rapid progression of cancer over last 2 months discussed with oncology air conditioning manager at [facility], feels with progression of color developer changes would not benefit from further treatment at their facility Patient on gram-positive coverage for gluteal phlegmon we will add gram-negative coverage given his obstructed right mainstem bronchus and possible postobstructive pneumonia Cancer related pain, now controlled increasing OxyContin to 30 mg every 12 hours keeping the Oxy IR unchanged with consideration if controlled to stop the hydromorphone offering. If patient transitions to comfort being his medical care consideration to utilize methadone considering 5 mg p.o. every 8 hours could be undertaken. Given rapid progression of his malignancy discussions have begun regarding how to best spending this time he has left whether would be to seek continue opinions on treatment versus admission to palliative care focusing on symptom control. Patient is aware of progression on MRI but still wants to talk options on treatment, will see palliative care as an outpt Radiation oncology: s/p 1xrt treatment here, will have outpt oncology appt and outpt palliative care appt to continue to help with metastatic oncologic pain continue to treat post obstructive pneumonia covering for gram negative pneumonia (3) Seizure: Plan: Known seizure disorder. Currently stable. Continue current oral medications (4) Antisocial personality disorder: Plan: Supportive care. (5) Cancer associated pain: Admission and Anticipated Discharge Date Admission Date: November 05, 2023 Subjective Patient resting comfortably. Review of Systems Review of Systems: All systems reviewed & are unremarkable except as noted in HPI & below Physical Exam Physical Exam: awake and alert, unusual affect cardiac is reg right lung is with absent breath sounds Results & Data Results & Data Vital Signs (Past 12 Hours) Vital Signs Temp Pulse Resp BP Pulse Ox O2 Del Method 11/26/23 07:25 106 H 20 98 Room Air 11/26/23 07:19 36.6 C 96 H 16 139/84 96 Room Air PG Care Time/CCT Total # of Minutes Spent Total Time Spent with Patient: Total time spent is greater than 50% in coordination of care (as documented) at patient's floor/unit and/or counseling patient: Coding Level of Care Code 70941 SUB INP/OBS CARE 2/35MIN Diagnoses Cellulitis L03.90 Malignant neoplasm of right lung stage 4 C34.91 Laterality: right Seizure R56.9 Antisocial personality disorder F60.2 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 (2) Stage 4 lung cancer Laterality: right Qualified Code(s): C34.91 - Malignant neoplasm of unspecified part of right bronchus or lung
[2023-11-26] MEDS: LORazepam 1 MG TAB PO SCH (21:30)
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
[2023-11-27] MEDS: HYDROmorphone INJ 0.5 MG/0.5 ML SYR IV STA (02:54)
--- NOTE | 2023-11-27 15:15 | Communication Note ---
Date of Service: November 27, 2023 Patient needed a one day supply of oxycontin as pharmacy did not have the strength of 60 mg available today.
== END 2023-11-27 12:48 | disposition home or self-care (01) | DRG 602 ==
LOC: ED 15:08 → EDINP 18:12 → SUATTDRO 18:12 → INTOOBSV 18:12 → EDINP 19:25 → 2W 11-06 00:36 → 3E 11-15 16:35

== ENCOUNTER 2023-12-21 15:10 | Inpatient (IN) ==
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
[2023-12-21] MEDS ORDERED: LORazepam 2 MG in SYRINGE 1 ML IV PRN (16:10)
[2023-12-21] MEDS ORDERED: MAGNESIUM CITRATE 296 ML/BTL PO PRN (16:12)
[2023-12-21] MEDS ORDERED: NALOXONE HCL 0.4 MG/1 ML VIAL/CARP IV PRN (16:12)
[2023-12-21] MEDS: ONDANSETRON INJ 2 MG/ML 2 ML VIAL IV STA (16:20)
[2023-12-21] MEDS: MoRPHine SULFATE 10 MG/ML CARP/VIAL IV STA (16:20)
[2023-12-21] MEDS: SODIUM CHLORIDE 0.9% 1,000 ML IV ONE (16:22)
--- NOTE | 2023-12-21 16:22 | Communication Note ---
Date of Service: December 21, 2023 Brief Pall Med Note pt well known to me with an extensive drug and alcohol addiction, drug seeking behavior and abusive opioid use. 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 Please do not hesitate to page me for any EOL symptom mgt needs for this complex patient. Thank you for allowing us to participate in the ongoing care of this patient. Please don't hesitate to call or page with any additional concerns. Dr. Rika Lawrence DNP Director, Palliative Care
--- NOTE | 2023-12-21 16:25 | History & Physical Report ---
Date of Service December 21, 2023 Assessment & Plan (1) Admission for hospice care: Plan: Patient currently on hospice care for metastatic non small cell lung cancer with excessive delirium and pain not well controlled at home. Will be admitted for inpatient hospice care. Continue his anti-seizure medications and anti-depressants, stop dexamethasone per palliative recommendations Dilaudid POTASH FLAKER pump as ordered by palliative care Lorazepam 1mg IV q2h PRN for agitation Haloperidol 3mg PO/IM q4h PRN for Agitation,Terminal Delirium (2) Inadequate pain control: (3) Non-small cell lung cancer metastatic to brain: Plan VTE Prophylaxis - none due to comfort care Diet - regular Disposition - admit to med/surg Admission and Anticipated Discharge Date Admission Date: December 21, 2023 History of Present Illness Chief Complaint: Agitation Primary Care Provider: NO PCP Maximiliano Green is a 53-year-old male who presents to the ER on advice of palliative care and his hospice providers due to need for inpatient hospice as symptoms are now well controlled as outpatient. Unable to get any significant history from the patient. He is unable to tell me what medications he is on or taking. He is mostly concerned about not being able to get a burp out. Moderately agitated and getting up every few seconds to move around the room. Discussed care with Dr Lawrence who discussed extensively with family prior to arrival. Please see palliative care communication notes. Allergies Allergy/AdvReac Type Severity Reaction Status Date / Time NSAIDS (Non-Steroidal AdvReac Severe TENDENCY Verified 12/21/23 17:24 Anti-Inflamma TO BLEED duloxetine AdvReac Intermediate Muscle Verified 12/21/23 17:24 Spasm Home Medications Medication Instructions Recorded Confirmed Type lamotrigine 200 mg tablet 200 mg PO BID 30 days #60 tabs 09/15/23 12/21/23 Rx levetiracetam 1,000 mg tablet 1,000 mg PO BID 30 days #60 tabs 09/15/23 12/21/23 Rx levetiracetam 500 mg tablet 500 mg PO BID 30 days #60 tabs 09/15/23 12/21/23 Rx pantoprazole 40 mg tablet,delayed 40 mg PO QAM #30 tabs 11/22/23 12/21/23 Rx release fluoxetine 20 mg capsule 20 mg PO PM #30 caps 11/26/23 12/21/23 Rx dexamethasone 4 mg tablet 4 mg PO BID 12/21/23 12/21/23 History lorazepam 0.5 mg tablet 0.5 mg PO Q4 PRN Anxiety 12/21/23 12/21/23 History methadone 5 mg tablet 5 mg PO BID 12/21/23 12/21/23 History oxycodone 10 mg tablet 10 mg PO Q4 PRN pain 12/21/23 12/21/23 History sennosides 8.6 mg tablet (senna) 17.2 mg PO QPM 12/21/23 12/21/23 History Past Med/Surg History Medical History Drug-seeking behavior Active drug abuse/HIGH risk for diversion; please see pall med notes. Please no not order opioids for this pt without checking PDMP - he will seek opioid orders from multiple providers. Longstanding hx of manipulative behaviors (see inpatient admission notes) and he has refused home health, no shows appointments (ex: failed to keep rad onc appt for more RT which he demanded) and has not established with PCP. There is an established history of his not being truthful in medical encounters. Seizure Anxiety associated with cancer diagnosis Advanced care planning/counseling discussion IV drug abuse Amphetamine abuse Abuse of both oxycodone and heroin Cocaine abuse Palliative care by specialist Chronic cough Stage 4 lung cancer Opioid use disorder Cocaine use disorder Alcohol use disorder Non-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 Brother No problems noted. Brother No problems noted. Sister No problems noted. Social History Smoking Status: Never smoker Tobacco Type: Cigarettes Age Started Using Tobacco: 33; Age Quit Using Tobacco: 49; packs per day: 0.10; Second Hand Exposure: No; Do You Dip or Chew Tobacco: No; Tobacco Cessation Education Requested by Patient: No Hx Alcohol Use: Yes Alcohol type: beer Hx Substance Use: Yes Last Used Substance: Unknown Last Used Substance Other:: nitrous oxide and dextromethorphin Substance Use Type Other:: states was previously addicted to fentanyl Preferred Language: Latvian Communication Ability: Effective Visual Impairment: No Limitations Hearing Ability: Normal Business Services Tech Required: No Beliefs That Will Affect Care: None marital status: Single Current Living Situation: Alone Current Living Situation Comment: community living in [place] current occupational status: unemployed Other Information That Helps Us Care for You: No Feels Safe at Home: Yes Safety Concerns: Feels Safe At This Time Childhood Exposure to Second-Hand Smoke: No caffeine: Yes (occ .coffee) during the past year weight has: remained stable Dental Care, Regularly: Yes Physical Activity Frequency: Daily Seatbelt Use: always Sunscreen Use: Yes Assistive Devices: Hospital Bed and Walker Review of Systems Review of Systems: Unobtainable due to cognitive status Physical Exam Constitutional: + acute distress (agitated); + not well nourished Respiratory: normal respiratory effort; no respiratory distress Auscultation: + rhonchi Cardiovascular: Rate/Rhythm: regular rate and regular rhythm Gastrointestinal (Abdomen): normal bowel sounds, soft, nontender, no hepatosplenomegaly Psychiatric: Orientation: alert; + not oriented x 3 Results & Data Results & Data Vital Signs (Past 12 Hours) Vital Signs Temp Pulse Resp BP Pulse Ox O2 Del Method 12/21/23 15:53 98 H 12/21/23 15:18 36.8 C 93 H 19 130/81 96 Room Air Code Status & VTE Plan Code Status DNR/DNI VTE Prophylaxis Plan VTE Prophylaxis will be ordered: No Reason for no VTE drug order: Treatment not indicated Reason for no VTE mechanical prophylaxis: Treatment not indicated PG Care Time/CCT Total # of Minutes Spent Total Time Spent with Patient: Total time spent is greater than 50% in coordination of care (as documented) at patient's floor/unit and/or counseling patient: Coding Level of Care Code 84677 INT INP/OBS CARE 2/55MIN Diagnoses Admission for hospice care Z51.5 Inadequate pain control R52 Non-small cell lung cancer metastatic to brain C34.90; C79.31
[2023-12-21] MEDS: HYDROmorphone INJ 2 MG/ML SYR/VIAL IV STA (16:44)
[2023-12-21] MEDS: FAMOTIDINE 20MG IV PUSH 20 MG/5 ML SYR IV STA (16:44)
[2023-12-21] MEDS: HALOPERIDOL LACTATE 5 MG/ML 1 ML VIAL IV STA (16:44)
[2023-12-21] MEDS: LORazepam 1 MG in SYRINGE 0.5 ML IV PRN (18:33)
[2023-12-21] MEDS: PANTOprazole 40 MG in SYRINGE 0 ML IV STA (19:04)
[2023-12-21] MEDS ORDERED: HALOPERIDOL LACTATE 5 MG/ML 1 ML VIAL IV PRN (20:27)
[2023-12-21] MEDS ORDERED: levETIRAcetam 500 MG TAB PO SCH (21:00)
[2023-12-21] MEDS: SODIUM CHLORIDE 0.9% 1,000 ML IV SCH (21:36)
[2023-12-21] MEDS: FLUoxetine HCL 20 MG CAP PO SCH (21:37)
[2023-12-21] MEDS: DOCUSATE SODIUM/SENNA 50/8.6MG TAB PO SCH (21:37)
[2023-12-21] MEDS: lamoTRIgine 100 MG TAB PO SCH (21:38)
[2023-12-21] MEDS: levETIRAcetam 500 MG TAB PO SCH (21:38)
[2023-12-21] MEDS: HYDROmorphone PCA 30 MG/30 ML IV PRN (21:39)
[2023-12-22] MEDS ORDERED: [UNRECOGNIZED DRUG - SUPPLY] IV PRN (09:15)
[2023-12-22] MEDS ORDERED: LORazepam 3 MG in SYRINGE 1.5 ML IV PRN (09:17)
[2023-12-22] MEDS: PANTOprazole 40 MG TAB PO SCH (10:08)
[2023-12-22] MEDS ORDERED: HALOPERIDOL LACTATE 5 MG/ML 1 ML VIAL IM PRN ×2 (11:09→11:16)
[2023-12-22] MEDS ORDERED: HYDROmorphone BOLUS from BAG IV PRN (12:24)
--- NOTE | 2023-12-22 12:42 | Communication Note ---
Date of Service: December 22, 2023 Brief Palliative Med Note Multiple ongoing communications between pharmacy, nursing, myself re pt symptom mgt needs. He remains in pain - Dilaudid infusion increased x2 since 9am He remains agitated and restless, fitful periods fo sleep then awakens and more restless, cannot be redirected, pulling of IV lines, IV, etc and has needed IV access replaced twice so far. Discussion with pharmacy to have permission to use Ativan and Haldol IV in higher doses on the floor without requiring pt transfer to monitored bed I have written all orders and updated nursing, medical team and pharmacy. I am in OP clinic today, returning to [facility] inpatient tomorrow. Please page or call for any urgent needs re his end of life symptom mgt needs. TS on this case since 9am is total of 65min Thank you for allowing us to participate in the ongoing care of this patient. Please don't hesitate to call or page with any additional concerns. Dr. Rika Lawrence DNP Director, Palliative Care
[2023-12-22] MEDS ORDERED: haloperidoL 5 MG TAB PO SCH (14:00)
[2023-12-22] MEDS: HALOPERIDOL LACTATE 5 MG/ML 1 ML VIAL IV SCH (14:24)
--- NOTE | 2023-12-22 15:02 | Palliative Care Consultation ---
Date of Consultation December 22, 2023 Assessment & Plan (1) Agitation: (2) Cancer associated pain: (3) Dyspnea and respiratory abnormalities: (4) Terminal restlessness: (5) Advanced care planning/counseling discussion: Telephonic ACP with pt brother and sister in law, Lenin and Lisha (Bess) Florentinokirill x 30min Reviewed events from yesterday through today: Rashi is more comfortable, able to tell me he is having less pain, he is still agitated, but less so than on admission. He requires a 1:1 when awake for now due to the agitation still being brought under control. They had questions about his pain mgt and sedation side effect, adding they needed him awake to "sign a will and home papers." We re-reviewed Rashi has not had decisional capacity for some time, therefore "waking him up to sign a will" would not be legally valid. They shared another concern about there is a 21yo estranged son who attends [employer] named Alfredo; Lenin and Bess shared they felt compelled to call his Mom and now "there is a ton of"freaking out because Ronn's not had any contact with Alfredo for 20 years and Ronn never wanted Alfredo involved but we thought Alfredo had to sign the papers." We reviewed that pt has on prior visits indicated he wants his brother and sister in law as surrogates and there is no need I am aware of for the son to be tracked down and asked to sign home papers. We spoke about [place] ACT 169 and SDM ordering. Alfredo does not want any involvement with pt and pt has not had any contact with his son for decades. Per Rashi's prior expressed preferences and also per [place] ACT 169, SDM would be brother Lenin and then his Bess. We reaffirmed the goal is comfort care. They share the fears they felt when his cognition and agitation worsened and we spoke about how there can be some degree of loss of cognitive function in the few weeks preceding . I reviewed how the scheduled use of Ativan with Haldol has been shown to significantly reduce agitation and that hyperactive delirium greg show are a danger to themselves and others (pulling out lines, striking objects, caregivers, falls/stumbles, trying to get OOB wo assist, etc.) need to be treated pharmacologically. We also spoke about how sedation is the side effect of the medication dosing range needed for comfort due to his very high threshold for opioids. We are aiming to use medications at the minimally effective dose to achieve comfort and relief of his suffering. They are in agreement and asked what would be option if these current meds don't help enough and I advised that I have asked for permission from nursing and pharmacy mgt to escalate to versed drip for terminal agitation mgt if needed. I shared that I am hopeful that the improvements seen so far with escalating doses of IV meds and addition of scheduled Haldol and Ativan may bring about good relief for Rashi. Lenin and Bess were pleased with our conversation and said they did not need a meeting tomorrow so we cancelled the 929 meeting. I updated primary tea, nursing and care mgt. (6) Encounter for end of life care: (7) Need for comfort care: (8) Non-small cell lung cancer metastatic to brain: (9) Anxiety associated with cancer diagnosis: (10) Chronic pain: Chronic pain type: due to neoplasm Qualified Code(s): G89.3 - Neoplasm related pain (acute) (chronic) (11) Palliative care by specialist: Plan * Numerous encounters throughout the day for ongoing pain and symptom mgt, multiple dose escalation, transition to IV and finally on scheduled Haldol and Ativan IV * Pain and symptoms appear to be improving, pt was able to wake up and tell me pain is 'much better' but he remains agitated and still pulling at tubing and lines. He has ripped out 2 IV lines today and is presently on line #3. * Remains on MACHINE BUFFER, end of life care with GIP * Family updated, see ACP above Thank you for allowing us to participate in the ongoing care of this patient. Please don't hesitate to call or page with any additional concerns. Dr. Rika Lawrence DNP Director, Palliative Care History of Present Illness Reason for Consultation: end of life, inpt hospice Attending Physician: Nimesh Brown History of Present Illness Rashi Green is a 53yo terminal lung cancer pt well known to me from prior admissions and OP [facility] clinic. His extensive PMH, cancer hx and social hx can be seen in detail through my prior notes. I placed Rashi on Hospice last week. He became progressively agitated and increasing pain through the weekend with inc agitation, psychosis behaviors and aggressiveness to caregivers. Because he was not able to be controlled on hospice at home, I advised family to bring him to [facility] for inpatient hospice admission. MACHINE BUFFER underway Rashi is seen bedside, no family present. He awakes to voice but for short periods of time Still agitated, grabs at tubing, domínguez catheter, IV sites Allergies Allergy/AdvReac Type Severity Reaction Status Date / Time NSAIDS (Non-Steroidal AdvReac Severe TENDENCY Verified 12/21/23 17:24 Anti-Inflamma TO BLEED duloxetine AdvReac Intermediate Muscle Verified 12/21/23 17:24 Spasm Home Medications Medication Instructions Recorded Confirmed Type lamotrigine 200 mg tablet 200 mg PO BID 30 days #60 tabs 09/15/23 12/21/23 Rx levetiracetam 1,000 mg tablet 1,000 mg PO BID 30 days #60 tabs 09/15/23 12/21/23 Rx levetiracetam 500 mg tablet 500 mg PO BID 30 days #60 tabs 09/15/23 12/21/23 Rx pantoprazole 40 mg tablet,delayed 40 mg PO QAM #30 tabs 11/22/23 12/21/23 Rx release fluoxetine 20 mg capsule 20 mg PO PM #30 caps 11/26/23 12/21/23 Rx dexamethasone 4 mg tablet 4 mg PO BID 12/21/23 12/21/23 History lorazepam 0.5 mg tablet 0.5 mg PO Q4 PRN Anxiety 12/21/23 12/21/23 History methadone 5 mg tablet 5 mg PO BID 12/21/23 12/21/23 History oxycodone 10 mg tablet 10 mg PO Q4 PRN pain 12/21/23 12/21/23 History sennosides 8.6 mg tablet (senna) 17.2 mg PO QPM 12/21/23 12/21/23 History Patient History Medical History (Updated 12/22/23 @ 15:13 by Rika Lawrence DNP) Terminal restlessness Agitation Dyspnea and respiratory abnormalities Need for comfort care Encounter for end of life care Drug-seeking behavior Active drug abuse/HIGH risk for diversion; please see pall med notes. Please no not order opioids for this pt without checking PDMP - he will seek opioid orders from multiple providers. Longstanding hx of manipulative behaviors (see inpatient admission notes) and he has refused home health, no shows appointments (ex: failed to keep rad onc appt for more RT which he demanded) and has not established with PCP. There is an established history of his not being truthful in medical encounters. Seizure Anxiety associated with cancer diagnosis Advanced care planning/counseling discussion IV drug abuse Amphetamine abuse Abuse of both oxycodone and heroin Cocaine abuse Palliative care by specialist Chronic cough Stage 4 lung cancer Opioid use disorder Cocaine use disorder Alcohol use disorder Non-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 Brother No problems noted. Brother No problems noted. Sister No problems noted. Social History Smoking Status: Never smoker Tobacco Type: Cigarettes Age Started Using Tobacco: 33; Age Quit Using Tobacco: 49; packs per day: 0.10; Second Hand Exposure: No; Do You Dip or Chew Tobacco: No; Tobacco Cessation Education Requested by Patient: No Hx Alcohol Use: Yes Alcohol type: beer Hx Substance Use: Yes Last Used Substance: Unknown Last Used Substance Other:: nitrous oxide and dextromethorphin Substance Use Type Other:: states was previously addicted to fentanyl Preferred Language: Amharic Communication Ability: Effective Visual Impairment: No Limitations Hearing Ability: Normal Kennel Manager Dog Track Required: No Beliefs That Will Affect Care: None marital status: Single Current Living Situation: Alone Current Living Situation Comment: community living [place] current occupational status: unemployed Other Information That Helps Us Care for You: No Feels Safe at Home: Yes Safety Concerns: Feels Safe At This Time Childhood Exposure to Second-Hand Smoke: No caffeine: Yes (occ .coffee) during the past year weight has: remained stable Dental Care, Regularly: Yes Physical Activity Frequency: Daily Seatbelt Use: always Sunscreen Use: Yes Assistive Devices: None Review of Systems Review of Systems: All systems reviewed & are unremarkable except as noted in Subjective Physical Exam 2 Constitutional: + ill appearing (bitemp wasting), + dish eveled, + cushingoid, + diaphoretic and + lethargic Eyes: + eyes dysmorphic ENMT: Mouth: + muffled voice, + poor dentition and + chipped teeth Mallampati Class: IV Neck: trachea midline and + short neck Thyroid: normal thyroid Respiratory: + dullness to percussion and symmetric c hest movement Auscu ltation: + breath sounds absent, + diminished lung sounds and + crackles Cardiovascular: Rate/Rhythm: regular rate and regular rhythm Gastrointestinal (Abdomen): Inspection/Auscultation: abdomen normal to inspection and normal bowel sounds Percussion/Palpation: normal to percussion Musculoskeletal: Shoulder: + deformity (left subscapular mass, at outer edge near shoulder), + skin erythema and + limited ROM generalized weakness Skin: + turgor decreased, + rash (trunk, back, arms), + erythema (confluent maculopapular rash across face, neck, chest, back and arms) and + excoriations Neurologic: rouses to voice, recognized this provider. drifts back quickly. Results & Data Vital Signs (Past 12 Hours) Vital Signs Temp 36.8 C 12/21/23 20:30 Pulse 84 12/21/23 20:30 Resp 18 12/21/23 20:30 BP 118/72 12/21/23 20:30 Pulse Ox 95 12/21/23 20:30 O2 Del Method Room Air 12/21/23 20:30 Intake & Output 12/21/23 12/22/23 12/22/23 18:59 06:59 18:59 Intake Total 1000 / 1000 Output Total 1250 / 1250 Balance 1000 / 1000 -1250 / -1250 Weight 93.9 kg 93.9 kg 93.9 kg Intake: IV 1000 / 1000 Sodium Chloride 0.9% 1,000 ml @ 1000 / 1000 999 mls/hr IV .Q1H1M ONE Rx#: [id number] Output: Urine Amount (Catheter) 1250 / 1250 Domínguez/Indwelling 1250 / 1250 Other: Weight Measurement Method Built in [facility] Built in [facility] PG Care Time/CCT Total # of Minutes Spent Total Time Spent with Patient: Total time spent is greater than 50% in coordination of care (as documented) at patient's floor/unit and/or counseling patient: I spent 110 minutes overall addressing this very complex case: 20 min in medical data review/discussion with referring provider(s) and/or preparation for the visit 15 min in direct interaction with the patient/exam 30 min in Advance Care Planning/Goals of Care discussions as detailed above in note (must be >16min) 20 min in subsequent review and synthesis of assessment and plan 25 min communicating with other providers regarding the patient's case: primary, care mgt, nursing on multiple points thru the day Prolonged Care Time Prolonged Care Time: Yes Advanced Care Planning 40578 Advanced Care Planning 30 [place] [address] IN/OBS CONSULT LVL 5,80M (25 - SIGNIFICANT, SEPARATELY IDENTIFIABLE ) Patient Type New Medical Decision Making High Complexity Diagnoses Agitation R45.1 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 Dyspnea and respiratory abnormalities R06.00; R06.89 Terminal restlessness R45.1 Advanced care planning/counseling discussion Z71.89 Encounter for end of life care Z51.5 Need for comfort care Non-small cell lung cancer metastatic to brain C34.90; C79.31 Anxiety associated with cancer diagnosis F41.1; C80.1 Chronic pain G89.3 Chronic pain type: due to neoplasm Palliative care by specialist Z51.5 Additional Codes Advanced Care Planning - 33600 Advanced Care Planning 30 Min: 43496 Advanced Care Planning 30 Min ([id number]) Prolonged Care Time - Prolonged Care Time: Yes ([id number])
[2023-12-22] MEDS: levETIRAcetam IV 1,500 MG in 0.9 % SODIUM CHLORIDE 100 ML IV SCH (20:35)
[2023-12-22] MEDS ORDERED: OLANZapine ZYDIS 5 MG ORALLY DIS. TAB PO SCH (21:00)
[2023-12-22] MEDS: LORazepam 3 MG in SYRINGE 1.5 ML IV PRN (22:07)
--- NOTE | 2023-12-22 22:27 | Hospitalist Progress Note ---
Date of Service December 22, 2023 Assessment & Plan (1) Admission for hospice care: Plan: Patient currently on hospice care for metastatic non small cell lung cancer with excessive delirium and pain not well controlled at home. Will be admitted for inpatient hospice care. Continue his anti-seizure medications and anti-depressants, stop dexamethasone per palliative recommendations Dilaudid BAG MACHINE HELPER pump as ordered by palliative care Lorazepam 1mg IV q2h PRN for agitation Haloperidol 3mg PO/IM q4h PRN for Agitation,Terminal Delirium Patient is now GP admit on 12/21 Patient is on opiod drip. Appreciate palliative care input with family. (2) Inadequate pain control: (3) Non-small cell lung cancer metastatic to brain: Plan VTE Prophylaxis - none due to comfort care Diet - regular Disposition - admit to med/surg Admission and Anticipated Discharge Date Admission Date: December 21, 2023 Subjective Patient is lethargic Review of Systems Review of Systems: Unobtainable due to cognitive status Physical Exam Constitutional: + not well nourished Respiratory: normal respiratory effort; no respiratory distress Auscultation: + rhonchi Cardiovascular: Rate/Rhythm: regular rate and regular rhythm Gastrointestinal (Abdomen): normal bowel sounds, soft, nontender, no hepatosplenomegaly Psychiatric: Orientation: + not oriented x 3 Results & Data Results & Data Vital Signs (Past 12 Hours) Vital Signs O2 Del Method 12/22/23 20:00 Room Air PG Care Time/CCT Total # of Minutes Spent Total Time Spent with Patient: Total time spent is greater than 50% in coordination of care (as documented) at patient's floor/unit and/or counseling patient: Coding Level of Care Code 15376 SUB INP/OBS CARE 2/35MIN Diagnoses Admission for hospice care Z51.5 Inadequate pain control R52 Non-small cell lung cancer metastatic to brain C34.90; C79.31
--- NOTE | 2023-12-23 15:46 | Palliative Care Progress Note ---
Date of Service December 23, 2023 Assessment & Plan (1) Cancer associated pain: Plan: improved with Dilaudid infusion 4mg per hour, no change today (2) Terminal restlessness: Plan: Rashi has terminal delirium: Benzos + Haloperidol combo is probably better for this patient and ensuring more sedating neuroleptics may be beneficial if needed. (https://pubmed.ncbi.nlm.nih.gov/73546537/), therefore I have moved Ativan to 3mg IV q6h on schedule with Haldol 5mg IV q6h. Please keep me posted on if this helps further relieve his agitation and delirium. 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 No change to opioids Please page me for issues with his end of life symptom mgt needs [place] Lawrence [facility] Palliative Med Admission and Anticipated Discharge Date Admission Date: December 21, 2023 Subjective OIL TRANSPORT DRIVER appears comfortable opens eyes to verbal, answers simple yes/no tells me pain is "better, you can do more though" however he is peaceful in bed and quickly drifts back asleep had episodic agitation, pulled out his domínguez early AM, this has now been replaced no family present Review of Systems Review of Systems: All systems reviewed & are unremarkable except as noted in Subjective Physical Exam Constitutional: + ill appearing (bitemp wasting), + dish eveled, + cushingoid, + diaphoretic and + lethargic Eyes: + eyes dysmorphic ENMT: Mouth: + muffled voice, + poor dentition and + chipped teeth Mallampati Class: IV Neck: trachea midline and + short neck Thyroid: normal thyroid Respiratory: + dullness to percussion and symmetric c hest movement Auscultation: + breath sounds absent, + diminished lung sounds and + crackles Cardiovascular: Rate/Rhythm: regular rate and regular rhythm Gastrointestinal (Abdomen): Inspection/Auscultation: abdomen normal to inspection and normal bowel sounds Percussion/Palpation: normal to percussion Musculoskeletal: Shoulder: + deformity (left subscapular mass, at outer edge near shoulder), + skin erythema and + limited ROM generalized weakness Skin: + turgor decreased, + rash (trunk, back, arms), + erythema (confluent maculopapular rash across face, neck, chest, back and arms) and + excoriations Neurologic: rouses to voice, recognized this provider. drifts back quickly. Results & Data Vital Signs (Past 12 Hours) Vital Signs O2 Del Method 12/23/23 08:45 Room Air Laboratory Results OIL TRANSPORT DRIVER Diagnostic Findings OIL TRANSPORT DRIVER PG Care Time/CCT Total # of Minutes Spent Total Time Spent: 45 Total Time Spent with Patient: Total time spent is greater than 50% in coordination of care (as documented) at patient's floor/unit and/or counseling patient: [place] [address] SUB INP/OBS CARE 3/50MIN Patient Type Established Medical Decision Making High Complexity Diagnoses 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 Terminal restlessness R45.1 Agitation R45.1 Dyspnea and respiratory abnormalities R06.00; R06.89 Encounter for end of life care Z51.5 Need for comfort care Metastatic primary lung cancer C34.90 Laterality: unspecified laterality Palliative care by specialist Z51.5 Cocaine abuse F14.10 Non-small cell lung cancer metastatic to brain C34.90; C79.31 Abuse of both oxycodone and heroin F11.10 IV drug abuse F19.10 Cocaine use disorder F14.10 Alcohol use disorder F10.90 Amphetamine abuse F15.10 Opioid use disorder F11.90 (7) Metastatic primary lung cancer Laterality: unspecified laterality Qualified Code(s): C34.90 - Malignant neoplasm of unspecified part of unspecified bronchus or lung
[2023-12-23] MEDS ORDERED: HYDROmorphone BOLUS from BAG IV PRN (16:12)
[2023-12-23] MEDS: HYDROmorphone/NSS 100 MG/100 ML BAG IV SCH (17:21)
[2023-12-23] MEDS: LORazepam 4 MG in SYRINGE 2 ML IV SCH (17:21)
--- NOTE | 2023-12-23 22:13 | Hospitalist Progress Note ---
Date of Service December 23, 2023 Assessment & Plan (1) Admission for hospice care: Plan: Patient currently on hospice care for metastatic non small cell lung cancer with excessive delirium and pain not well controlled at home. Will be admitted for inpatient hospice care. Continue his anti-seizure medications and anti-depressants, stop dexamethasone per palliative recommendations Dilaudid INSTANT PRINT OPERATOR pump as ordered by palliative care Lorazepam 1mg IV q2h PRN for agitation Haloperidol 3mg PO/IM q4h PRN for Agitation,Terminal Delirium Patient is now GP admit on 12/21 Patient is on opiod drip. Appreciate palliative care input with family. Patient remains on comfort measures. (2) Inadequate pain control: (3) Non-small cell lung cancer metastatic to brain: Plan VTE Prophylaxis - none due to comfort care Diet - regular Disposition - admit to med/surg Admission and Anticipated Discharge Date Admission Date: December 21, 2023 Subjective 53 yo male is comfortable Review of Systems Review of Systems: All systems reviewed & are unremarkable except as noted in HPI & below Physical Exam Constitutional: + not well nourished Respiratory: normal respiratory effort; no respiratory distress Auscultation: + rhonchi Cardiovascular: Rate/Rhythm: regular rate and regular rhythm Gastrointestinal (Abdomen): normal bowel sounds, soft, nontender, no hepatosplenomegaly Psychiatric: Orientation: + not oriented x 3 PG Care Time/CCT Total # of Minutes Spent Total Time Spent with Patient: Total time spent is greater than 50% in coordination of care (as documented) at patient's floor/unit and/or counseling patient: Coding Level of Care Code 13936 SUB INP/OBS CARE 25MIN Diagnoses Admission for hospice care Z51.5 Inadequate pain control R52 Non-small cell lung cancer metastatic to brain C34.90; C79.31
[2023-12-24] MEDS: GLYCOPYRROLATE 0.2 MG/ML VIAL IV PRN ×2 (06:43→23:18)
--- NOTE | 2023-12-24 19:23 | Communication Note ---
Date of Service: December 24, 2023 645pm Notified by RN brother is on unit asking for Dilaudid infusion to be stopped so he can see if pt can wake up and talk to him. As previously d/w brother, sudden cessation could lead to withdrawal, inc risk of seizure and return of patient's uncontrolled and very severe terminal cancer pain which has been the reason for this admission in addition to his terminal delirium/psychosis. Will reduce to Dilaudid 3mg per hour and see how pt does; I have reiterated that this dose was reached after a few days of trying to improve his comfort. I reiterated concerns for risks as outlined above. Order written. TS 35min Thank you for allowing us to participate in the ongoing care of this patient. Please don't hesitate to call or page with any additional concerns. Dr. Rika Lawrence DNP Director, Palliative Care
--- NOTE | 2023-12-24 20:40 | Hospitalist Progress Note ---
Date of Service December 24, 2023 Assessment & Plan (1) Admission for hospice care: Plan: Patient currently on hospice care for metastatic non small cell lung cancer with excessive delirium and pain not well controlled at home. Will be admitted for inpatient hospice care. Continue his anti-seizure medications and anti-depressants, stop dexamethasone per palliative recommendations Dilaudid INSTRUMENT MECHANIC pump as ordered by palliative care Lorazepam 1mg IV q2h PRN for agitation Haloperidol 3mg PO/IM q4h PRN for Agitation,Terminal Delirium Patient is now GP admit on 12/21 Patient is on opiod drip. Appreciate palliative care input with family. Patient remains on comfort measures. Discussed with palliative care WAREHOUSE SELECTOR. titrated pain regimen. (2) Inadequate pain control: (3) Non-small cell lung cancer metastatic to brain: Plan VTE Prophylaxis - none due to comfort care Diet - regular Disposition - admit to med/surg Admission and Anticipated Discharge Date Admission Date: December 21, 2023 Subjective Patient is resting comfortably. Review of Systems Review of Systems: Unobtainable due to cognitive status Physical Exam Constitutional: + not well nourished Respiratory: normal respiratory effort; no respiratory distress Auscultation: + rhonchi Cardiovascular: Rate/Rhythm: regular rate and regular rhythm Gastrointestinal (Abdomen): normal bowel sounds, soft, nontender, no hepatosplenomegaly Psychiatric: Orientation: + not oriented x 3 Results & Data Results & Data Vital Signs (Past 12 Hours) Vital Signs O2 Del Method 12/24/23 11:13 Room Air PG Care Time/CCT Total # of Minutes Spent Total Time Spent with Patient: Total time spent is greater than 50% in coordination of care (as documented) at patient's floor/unit and/or counseling patient: Coding Level of Care Code 59480 SUB INP/OBS CARE 2/35MIN Diagnoses Admission for hospice care Z51.5 Inadequate pain control R52 Non-small cell lung cancer metastatic to brain C34.90; C79.31
--- NOTE | 2023-12-25 12:06 | Communication Note ---
Date of Service: December 25, 2023 12pm [place] messaging throughout the morning w/nursing who report pt has had increased symptoms with reduction of Dilaudid including more moaning, more grimacing, appears to be in more distress overall. Intermittent agitation remains persistent. However, given that family did want a trial of reduced opioid to see if they can have more interaction with pt, will not increase rate for now but suggest that nursing use the prn doses as needed and allow family to visit today and see where they land as far as preferences for the goal of ongoing care. Later advised his secretions increased and not responding to repeated doses of Robinul, so we reviewed non pharma option of positional changes reviewed as well as option to add a transderm scop patch. Nursing notified me that he does not tolerate an attempt to reposition and therefore he remains in supine position with HOB elevated. This is likely cancer related intolerance - CT indicate obstructive changes to right lung with progressive cancer and mainstem obstruction as well as extensive progression of left scapular mass which has been progressing. It is unlikely either side would be comfortable for patient at this junction given the terminal nature of this very progressive metastatic lung cancer. At the time of writing this note, was notified by nursing patient . The above changes are consistent with transition to the active dying process with increased symptom burden and distress. Primary team aware. Hospice nurse just arrived as well, notifying family. TS 75min Thank you for allowing us to participate in the ongoing care of this patient. Please don't hesitate to call or page with any additional concerns. Dr. Rika Lawrence DNP Director, Palliative Care
--- NOTE | 2023-12-25 12:07 | Discharge Summary ---
Date of Service December 25, 2023 Admission HPI Per Admitting Provider Maximiliano Green is a 53-year-old male who presents to the ER on advice of palliative care and his hospice providers due to need for inpatient hospice as symptoms are now well controlled as outpatient. Unable to get any significant history from the patient. He is unable to tell me what medications he is on or taking. He is mostly concerned about not being able to get a burp out. Moderately agitated and getting up every few seconds to move around the room. Discussed care with Dr Lawrence who discussed extensively with family prior to arrival. Please see palliative care communication notes. Principal Diagnosis stage 4 lung cancer Discharge Exam refer to note Discharge Data Allergies Allergy/AdvReac Type Severity Reaction Status Date / Time NSAIDS (Non-Steroidal AdvReac Severe TENDENCY Verified 12/21/23 17:24 Anti-Inflamma TO BLEED duloxetine AdvReac Intermediate Muscle Verified 12/21/23 17:24 Spasm Consultations 12/21/23 16:21 ED Decision to Admit Stat 12/21/23 18:54 Consult Palliative Care Routine Hospital Course (1) Admission for hospice care: Patient currently on hospice care for metastatic non small cell lung cancer with excessive delirium and pain not well controlled at home. Will be admitted for inpatient hospice care. Continue his anti-seizure medications and anti-depressants, stop dexamethasone per palliative recommendations Dilaudid POLEYARD SUPERVISOR pump as ordered by palliative care Lorazepam 1mg IV q2h PRN for agitation Haloperidol 3mg PO/IM q4h PRN for Agitation,Terminal Delirium Patient is now GP admit on 12/21 Patient is on opiod drip. Appreciate palliative care input with family. Patient passed peacefully on 11:58 (2) Inadequate pain control: (3) Non-small cell lung cancer metastatic to brain: Plan VTE Prophylaxis - none due to comfort care Diet - regular Disposition - admit to med/surg Total Time Total Time Spent Total Time Spent (In Minutes): 10 Discharge Plan Discharge Items Patient Disposition: Other Date/Time: 12/25/23 13:20 Coding Level of Care Code 00130 IN/OBS DISCH 30 MIN/LESS Diagnoses Admission for hospice care Z51.5 Inadequate pain control R52 Non-small cell lung cancer metastatic to brain C34.90; C79.31
--- NOTE | 2023-12-25 18:01 | Death Pronouncement Note ---
Date of Service December 25, 2023 Pronouncement Note Admission Date December 21, 2023 Date and Time of Date of : 12/25/23 Time of : 11:58 Preliminary Cause of (1) Admission for hospice care: Additional Comments: Secondary to Stage 4 lung cancer (2) Inadequate pain control: (3) Non-small cell lung cancer metastatic to brain: Summary please refer to discharge summary Additional Data Confirmation of : no pulse, no respirations, no heart sounds and pupils fixed and dilated Pronouncement Performed By: Attending Physician Family: contacted Attending/PCP notified?: Yes Attending physician: Nimesh Brown Was code activated?: No Autopsy requested?: No budget examiner notified?: No Coding Level of Care Code 10029 IN/OBS DISCH 30 MIN/LESS Diagnoses Admission for hospice care Z51.5 Inadequate pain control R52 Non-small cell lung cancer metastatic to brain C34.90; C79.31 Time Spent (min) 10
--- NOTE | 2023-12-26 10:13 | Communication Note ---
Date of Service: December 26, 2023 [id number] TC with pt brother and sister in law, Lenin and Lisha. Extended sympathy and support. They expressed sadness they were not able to be here in Rashi's final moments but are immensely thankful for the comfort and relief from suffering he was given through this admission and the relief of the burden it had placed on them/the stress it created for them. They shared some stories of Rashi through childhood to adulthood, expressed appreciation for how he was not treated "like he was just a drug addict but you showed him kindness" and appreciation for the nursing teams who assures his comfort through this EOL admission and kept them updated. Thank you for allowing us to participate in the ongoing care of this patient. Please don't hesitate to call or page with any additional concerns. Dr. Rika Lawrence DNP Director, Palliative Care
== END 2023-12-25 13:20 | disposition expired | DRG 951 ==
LOC: ED 15:10 → EDINP 16:24 → SUATTDRO 16:24 → 3E 18:34